=== PATIENT | female | born 1935 | race Caucasian/White ===

== ENCOUNTER → 2017-07-02 | Outpatient (CLI) | payer MEDICARE, OTHER ==
--- NOTE | 2017-07-02 14:04 | XR ---
EXAMINATION TYPE: XR KUB DATE OF EXAM: 07/02/2017 CLINICAL DATA: 81-year-old female ureter stones, [facility] COMPARISON: None FINDINGS: Nonobstructive bowel gas pattern. Lung bases are clear. No significant stool burden. Bilateral renal calculi demonstrated measuring up to 7 mm on either side. Larger 1.1 cm calcification right paramedian mid abdomen. Numerous ovoid calcifications in the pelvis could represent phleboliths. IMPRESSION: 1. Numerous bilateral renal calculi measuring up to 7 mm. 2. Larger 1.1 cm calculus on the right possibly within the proximal right renal collecting system/ure ter. 3. Additional numerous calcifications in the pelvis. These may represent phleboliths. If concern for distal ureteral calculi or bladder calculi, CT can be considered.
== END ==
LOC: RADXRMAIN 11:38
PROVIDERS: ATTEND Urology
DX: N20.0 Calculus of kidney (principal)
CPT/HCPCS: 74000

== ENCOUNTER → 2022-08-23 | Outpatient (CLI) | payer MEDICARE ==
--- NOTE | 2022-08-24 08:38 | MR ---
EXAMINATION TYPE: MR iac wo/w con DATE OF EXAM: 08/23/2022 COMPARISON: NONE HISTORY: Bilateral hearing loss, worse on right side. TECHNIQUE: Multiplanar, multisequence images of the brain and brainstem is performed without and with IV contras t, utilizing 7 mL intravenous Gadavist . Acoustic nerve disorder protocol. FINDINGS: Diffusion weighted images demonstrate no evidence of a recent infarct or other diffusion ab normality. There is [id number] ventricular and sulcal prominence. There is 5 mm T2 hyperintens e lesion in the posterior left frontal lobe axial image 22. Midline structures demonstrate normal morphology. The craniocervical junction appears within normal limits. Normal signal voids are present. Globes are intact and visualized paranasal sinuses are clear . Increased fluid signal in the right mastoid air cells. Vestibulocochlear complexes are symmetric and felt within normal limits. There is no abnormal enhancing cerebellopontine angle mass identified bila terally. IMPRESSION: 1. Increased fluid signal right mastoid air cells raises concern for right-sided mastoiditis. No susp icious enhancing masses noted. 2. [id number] diffuse cerebral atrophy and minimal chronic small vessel ischemic change is pres ent.
== END | disposition home or self-care (01) ==
LOC: RADMRIMAIN 14:04
PROVIDERS: ATTEND Otolaryngology
DX: I67.82 Cerebral ischemia (principal); G31.9 Degenerative disease of nervous system, unspecified
CPT/HCPCS: 70553; A9585

== ENCOUNTER 2023-10-07 16:50 | Inpatient (IN) | payer MEDICARE ==
[2023-10-07 17:03] LABS: Glucose,Whole Blood 168 mg/dL (70-110)
[2023-10-07] MEDS ORDERED: ACETAMINOPHEN TAB 500 MG TAB PO STA (17:10)
[2023-10-07] MEDS ORDERED: SODIUM CHLORIDE 0.9% 1,000 ML IV STA ×2 (17:10→18:07)
[2023-10-07] MEDS ORDERED: IBUPROFEN 600 MG TAB PO STA (17:10)
--- NOTE | 2023-10-07 17:10 | ED ---
SOB HPI <Iggy Olivia - Last Filed: 10/07/23 20:18> <Rivera Mills - Last Filed: 10/08/23 02:32> - General Source: patient, RN notes reviewed, old records reviewed, Caregiver Mode of arrival: EMS Limitations: altered mental status - History of Present Illness MD Complaint: shortness of breath (Mental status) -: minutes(s) Severity: severe Severity scale (1-10): 10 Consistency: constant Improves With: nothing Worsens With: nothing Known History Of: congestive heart failure Context: recent URI, recent illness Associated Symptoms: chest pain, cough, sputum production, nausea/vomiting Treatments Prior to Arrival: none <Corey Pearson - Last Filed: 10/14/23 13:13> - General Chief Complaint: Shortness of Breath Stated Complaint: Altered Mental Status Time Seen by Provider: 10/07/23 17:06 - History of Present Illness Initial Comments: This is a 87-year-old female to the emergency department for evaluation. Patient is found down with increasing weakness and altered mental status. Patient did have a fall prior to arrival. She states she's had influenza about a week ago symptoms gradually got better but the last few days of been nausea vomiting and diarrhea with increasing weakness and weakness leading to a fall today. After fall she was altered and EMS brings patient in for evaluation on arrival patient is more alert awake and able answer questions, patient is a DO NOT RESUSCITATE (Corey Pearson) - Related Data Home Medications Medication Instructions Recorded Confirmed ALPRAZolam [Xanax] 0.25 mg PO BID PRN 07/19/22 10/07/23 Calcium Carb/Vitamin D3/Vit K1 1 tab PO HS 07/19/22 10/07/23 [Citracal-D3 500 mg Soft Chew] Cholecalciferol [Vitamin D3 (25 50 mcg PO DAILY 07/19/22 10/07/23 Mcg = 1000 Iu)] Fenofibrate Nanocrystallized 145 mg PO HS 07/19/22 10/07/23 [Fenofibrate] Simvastatin [Zocor] 20 mg PO HS 07/19/22 10/07/23 Amlodipine/Valsartan/Hcthiazid 1 tab PO DAILY 10/07/23 10/07/23 [Amlodipine/Valsartan/Hcthiazid 10-320-25 mg] Omeprazole 40 mg PO DAILY 10/07/23 10/07/23 Allergies Allergy/AdvReac Type Severity Reaction Status Date / Time No Known Allergies Allergy Verified 10/07/23 20:55 Review of Systems ROS Other: All systems not noted in ROS Statement are negative. <CorwinIggy - Last Filed: 10/07/23 20:18> ROS Other: All systems not noted in ROS Statement are negative. <Rivera Mills - Last Filed: 10/08/23 02:32> ROS Other: All systems not noted in ROS Statement are negative. <Corey Pearson - Last Filed: 10/14/23 13:13> ROS Statement: Those systems with pertinent positive or pertinent negative responses have been documented in the HPI. Past Medical History Past Medical History: Cancer, GERD/Reflux, Hyperlipidemia, Hypertension, Osteoarthritis (OA) Additional Past Medical History / Comment(s): History of breast cancer 31 years ago with chemo. Dx with vertigo in Nov 2021. History of Any Multi-Drug Resistant Organisms: None Reported Past Surgical History: Breast Surgery Additional Past Surgical History / Comment(s): Lumpectomy 31 years ago, cataract surgery and kidney stone removal. Past Anesthesia/Blood Transfusion Reactions: No Reported Reaction Past Psychological History: Anxiety Smoking Status: Never smoker Past Alcohol Use History: None Reported Past Drug Use History: None Reported - Past Family History Mother Family Medical History: COPD Additional Family Medical History / Comment(s): at age 80 from COPD-smoker Father Family Medical History: Myocardial Infarction (AK) Additional Family Medical History / Comment(s): at age 36 of AK <Corey Pearson - Last Filed: 10/14/23 13:13> General Exam Limitations: no limitations General appearance: alert, anxious, lethargic, in distress Head exam: Present: atraumatic, normocephalic, normal inspection Eye exam: Present: normal appearance, PERRL, EOMI. Absent: scleral icterus, conjunctival injection, periorbital swelling ENT exam: Present: normal exam, mucous membranes moist Neck exam: Present: normal inspection. Absent: tenderness, meningismus, lymphadenopathy Respiratory exam: Present: normal lung sounds bilaterally. Absent: respiratory distress, wheezes, rales, rhonchi, stridor Cardiovascular Exam: Present: normal rhythm, tachycardia, normal heart sounds. Absent: systolic murmur, diastolic murmur, rubs, gallop, clicks GI/Abdominal exam: Present: soft, normal bowel sounds. Absent: distended, tenderness, guarding, rebound, rigid Extremities exam: Present: normal inspection, full ROM, normal capillary refill. Absent: tenderness, pedal edema, joint swelling, calf tenderness Back exam: Present: normal inspection Neurological exam: Present: alert, oriented X3, CN II-XII intact Psychiatric exam: Present: normal affect, normal mood Skin exam: Present: warm, dry, intact, normal color. Absent: rash <Corey Pearson - Last Filed: 10/14/23 13:13> Course <Rivera Mills - Last Filed: 10/08/23 02:32> <Corey Pearson - Last Filed: 10/14/23 13:13> Vital Signs 10/07/23 10/07/23 10/07/23 16:59 18:08 18:58 Temperature 101 F H Pulse Rate 124 H 88 88 Respiratory 18 20 18 Rate Blood Pressure 142/60 90/68 87/69 O2 Sat by Pulse 100 99 99 Oximetry 10/07/23 10/07/23 10/07/23 19:20 19:30 19:40 Temperature 98.7 F Pulse Rate 83 83 Respiratory 18 18 Rate Blood Pressure 80/50 77/41 O2 Sat by Pulse 99 98 Oximetry 10/07/23 10/07/23 10/07/23 20:10 20:30 20:40 Temperature Pulse Rate 81 80 74 Respiratory 18 18 18 Rate Blood Pressure 56/34 77/49 71/37 O2 Sat by Pulse 99 98 98 Oximetry 10/07/23 10/07/23 10/07/23 20:53 21:00 21:15 Temperature Pulse Rate 75 75 80 Respiratory Rate Blood Pressure 71/37 71/37 71/30 O2 Sat by Pulse 97 98 97 Oximetry 10/07/23 10/07/23 10/07/23 21:30 21:45 22:00 Temperature Pulse Rate 76 75 75 Respiratory Rate Blood Pressure 78/42 77/42 77/42 O2 Sat by Pulse 98 98 98 Oximetry 10/07/23 10/07/23 10/07/23 22:15 22:30 22:45 Temperature Pulse Rate 75 71 72 Respiratory 23 22 Rate Blood Pressure 74/41 74/41 76/40 O2 Sat by Pulse 99 99 Oximetry 10/07/23 10/07/23 10/07/23 23:00 23:15 23:30 Temperature Pulse Rate 71 66 65 Respiratory 22 27 H 5 L Rate Blood Pressure 76/40 68/41 74/43 O2 Sat by Pulse 97 98 96 Oximetry 10/07/23 10/08/23 10/08/23 23:45 00:00 00:15 Temperature Pulse Rate 63 67 67 Respiratory 23 18 23 Rate Blood Pressure 71/39 74/37 76/40 O2 Sat by Pulse 98 98 98 Oximetry 10/08/23 10/08/23 10/08/23 00:30 00:45 01:00 Temperature Pulse Rate 67 66 69 Respiratory 15 17 17 Rate Blood Pressure 106/44 65/47 87/47 O2 Sat by Pulse 97 97 98 Oximetry 10/08/23 10/08/23 10/08/23 01:15 01:30 01:45 Temperature Pulse Rate 73 70 72 Respiratory 25 H 25 H 23 Rate Blood Pressure 90/52 81/52 103/50 O2 Sat by Pulse 94 L 96 96 Oximetry 10/08/23 10/08/23 10/08/23 02:00 02:45 03:00 Temperature Pulse Rate 70 72 73 Respiratory 25 H 24 18 Rate Blood Pressure 97/44 85/44 86/51 O2 Sat by Pulse 96 94 L 95 Oximetry 10/08/23 03:15 Temperature Pulse Rate 72 Respiratory 20 Rate Blood Pressure 81/43 O2 Sat by Pulse 96 Oximetry - Reevaluation(s) Reevaluation #1: 10/07/23 17:19 Medical record is reviewed (Corey Pearson) Reevaluation #2: 10/07/23 19:43 Patient's blood pressure remains labile here in the ER and soft Patient is a no code, DO NOT RESUSCITATE (Corey Pearson) Reevaluation #3: 10/07/23 19:43 Patient family informed of results questions answered (Corey Pearson) Reevaluation #4: 10/07/23 17:20 Was pt. sent in by a medical professional or institution (, PA, HOISTING LABORER, urgent care, hospital, or group home...) When possible be specific @ -no Did you speak to anyone other than the patient for history (EMS, parent, family, police, friend...)? What history was obtained from this source @ -no Did you review nursing and triage notes (agree or disagree)? Why? @ -agree Are old charts reviewed (outside hosp., previous admission, EMS record, old EKG, old radiological studies, urgent care reports/EKG's, group home records)? Report findings @ -yes Differential Diagnosis (chest pain, altered mental status, abdominal pain women, abdominal pain men, vaginal bleeding, weakness, fever, dyspnea, syncope, headache, dizziness, GI bleed, back pain, seizure, CVA, palpatations, mental health, musculoskeletal)? @ -prior EKG interpreted by me (3pts min.). @ -yes X-rays interpreted by me (1pt min.). @ -yes negative for acute disease CT interpreted by me (1pt min.). @ -no U/S interpreted by me (1pt. min.). @ -no What testing was considered but not performed or refused? (CT, X-rays, U/S, labs)? Why? @ -none What meds were considered but not given or refused? Why? @ -none Did you discuss the management of the patient with other professionals (professionals i.e. , PA, HOISTING LABORER, lab, RT, psych nurse, social insurance administrator, clam sorter, teacher, employee service officer, housing case manager)? Give summary @ -no Was smoking cessation discussed for >3mins.? @ -no Was critical care preformed (if so, how long)? @ -yes31 Were there social determinants of health that impacted care today? How? (Homelessness, low income, unemployed, alcoholism, drug addiction, transportation, low edu. Level, literacy, decrease access to med. care, assisted, rehab)? @ -none Was there de-escalation of care discussed even if they declined (Discuss DNR or withdrawal of care, Hospice)? DNR status @ -no What co-morbidities impacted this encounter? (DM, HTN, Smoking, COPD, CAD, Cancer, CVA, ARF, Chemo, Hep., AIDS, mental health diagnosis, sleep apnea, morbid obesity)? @ -none Was patient admitted / discharged? Hospital course, mention meds given and route, prescriptions, significant lab abnormalities, going to OR and other pertinent info. @ - 87 female to the emergency department with syncopal event, patient has not been feeling well for a few days now. Having flulike symptoms about a week ago was getting worse although feeling better 3 days into today, today patient has syncopal event and was significantly altered on EMS arrival. Patient currently has no complaints Admitted Undiagnosed new problem with uncertain prognosis? @ -no Drug Therapy requiring intensive monitoring for toxicity (Heparin, Nitro, Insulin, Cardizem)? @ -no Were any procedures done? @ -no Diagnosis/symptom? @ -Syncope, sepsis, UTI Acute, or Chronic, or Acute on Chronic? @ -Acute Uncomplicated (without systemic symptoms) or Complicated (systemic symptoms)? @ -Complicated Side effects of treatment? @ -no Exacerbation, Progression, or Severe Exacerbation? @ -exacerbation Poses a threat to life or bodily function? How? (Chest pain, [place], [place], pneumonia, PE, COPD, DKA, ARF, appy, cholecystitis, CVA, Diverticulitis, Homicidal, Suicidal, threat to staff... and all critical care pts) @ -yes with significant sepsis (Corey Paerson) Reevaluation #5: 10/07/23 17:20 Differential Fever: Pneumonia, viral URI, endocarditis, myocarditis, pericarditis, otitis, sinusitis, peritonsillar Abscess, retropharyngeal Abscess, epiglottitis, peritonitis, appendicitis, Bre cystitis, diverticulitis, hepatitis, colitis, UTI, PID, TOA, pyelonephritis, prostatitis, epididymitis, meningitis, enceph alitis, pulmonary embolism, CVA, thyroid storm, pancreatitis, adrenal crisis, cavernous sinus thrombosis, this is not meant to be an all-inclusive list. (Corey Pearson) - Consultations Consultation #1: all take LEXII through T2 spoke with [facility] agree to admit this patient (Corey Pearson) Consultation #2: I received a call from Dr. Graf who requested that I place central line so that they could deliver pressors and other medications. Consent was obtained and I p lace the right subclavian central line, see the procedure note. (Rivera Mills) Procedures - Central Line Placement Right SC Consent Obtained: written consent Patient Placed on Monitor/Pulse Ox: Yes MD Prep: mask, gown, gloves Central Line Prep: Chlorhexidine scrub Local Anesthesia Used: Lidocaine 1% Central Line Lumen Inserted: triple Bloods Obtained for Lab: No Central Line Position: good blood return, all ports aspirated, flushed, capped, sutured in place with 2-0 silk Dressing Applied: Tegaderm Patient Tolerated Procedure: well Complications: none <Rivera Mills - Last Filed: 10/08/23 02:32> - Sepsis Sepsis Focused Exam #1 Time Sepsis Criteria Met: 19:50 (NO Source but presumed sepsis on UTI) Sepsis Focused Exam Date: 10/07/23 Sepsis Focused Exam Time: 20:00 Capillary Refill: < 2 Seconds: Fingers, Toes Peripheral Pulses: Normal: Radial (R), Radial (L), Posterior Tibialis (R), Posterior Tibialis (L), Dorsalis Pedis (R), Dorsalis Pedis (L) Skin Color: Normal for Patient Respiratory Exam: normal lung sounds Cardiovascular Exam: tachycardia <Corey Pearson - Last Filed: 10/14/23 13:13> Medical Decision Making - Lab Data Result diagrams: 10/07/23 17:13 10/07/23 17:13 <Iggy Olivia - Last Filed: 10/07/23 20:18> - Lab Data Result diagrams: 10/07/23 17:13 10/07/23 17:13 <Rivera Mills - Last Filed: 10/08/23 02:32> - Lab Data Result diagrams: 10/14/23 11:04 10/14/23 11:04 - EKG Data -: EKG Interpreted by Me (EKG is sinus sinus tachy 133 [place] 151 QRS 70 QTc 376) - Radiology Data Radiology results: report reviewed (Chest x-rays negative for acute disease), image reviewed <Corey Pearson - Last Filed: 10/14/23 13:13> - Medical Decision Making 87 female to the emergency department with syncopal event, patient has not been feeling well for a few days now. Having flulike symptoms about a week ago was getting worse although feeling better 3 days into today, today patient has syncopal event and was significantly altered on EMS arrival. Patient currently has no complaints (Corey Pearson) - Lab Data Lab Results 10/07/23 10/07/23 10/07/23 Range/Units 16:56 17:13 17:13 WBC 17.9 H (3.8-10.6) k/uL RBC 4.00 (3.80-5.40) m/uL Hgb 12.0 (11.4-16.0) gm/dL Hct 38.1 (34.0-46.0) % MCV 95.2 (80.0-100.0) fL MCH 30.0 (25.0-35.0) pg MCHC 31.5 (31.0-37.0) g/dL RDW 13.3 (11.5-15.5) % Plt Count 752 H (150-450) k/uL MPV 8.1 Neutrophils % (Manual) 88 % Band Neuts % (Manual) 6 % Lymphocytes % (Manual) 5 % Monocytes % (Manual) 1 % Neutrophils # (Manual) 16.80 H (1.3-7.7) k/uL Lymphocytes # (Manual) 0.90 L (1.0-4.8) k/uL Monocytes # (Manual) 0.18 (0-1.0) k/uL Nucleated RBCs 0 (0-0) /100 WBC Manual Slide Review Performed Large Platelets Present Hypochromasia Slight PT 14.9 H (10.0-12.5) sec INR 1.4 H (<1.2) APTT 27.6 (22.0-30.0) sec Sodium (137-145) mmol/L Potassium (3.5-5.1) mmol/L Chloride (98-107) mmol/L Carbon Dioxide (22-30) mmol/L Anion Gap mmol/L BUN (7-17) mg/dL Creatinine (0.52-1.04) mg/dL Est GFR (CKD-EPI)AfAm (>60 ml/min/1.73 sqM) Est GFR (CKD-EPI)NonAf (>60 ml/min/1.73 sqM) Glucose (74-99) mg/dL POC Glucose (mg/dL) 168 H (70-110) mg/dL POC Glu Facilities Planner ID Felicia Edgar Lactic Ac Sepsis Rflx Plasma Lactic Acid Al (0.7-2.0) mmol/L Calcium (8.4-10.2) mg/dL Phosphorus (2.5-4.5) mg/dL Magnesium (1.6-2.3) mg/dL Total Bilirubin (0.2-1.3) mg/dL AST (14-36) U/L ALT (4-34) U/L Alkaline Phosphatase (38-126) U/L Troponin I (0.000-0.034) ng/mL NT-Pro-B Natriuret Pep pg/mL Total Protein (6.3-8.2) g/dL Albumin (3.5-5.0) g/dL TSH (0.465-4.680) mIU/L Influenza Type A (PCR) (Not Detectd) Influenza Type B (PCR) (Not Detectd) RSV (PCR) (Not Detectd) SARS-CoV-2 (PCR) (Not Detectd) 10/07/23 10/07/23 10/07/23 Range/Units 17:13 17:13 17:13 WBC (3.8-10.6) k/uL RBC (3.80-5.40) m/uL Hgb (11.4-16.0) gm/dL Hct (34.0-46.0) % MCV (80.0-100.0) fL MCH (25.0-35.0) pg MCHC (31.0-37.0) g/dL RDW (11.5-15.5) % Plt Count (150-450) k/uL MPV Neutrophils % (Manual) % Band Neuts % (Manual) % Lymphocytes % (Manual) % Monocytes % (Manual) % Neutrophils # (Manual) (1.3-7.7) k/uL Lymphocytes # (Manual) (1.0-4.8) k/uL Monocytes # (Manual) (0-1.0) k/uL Nucleated RBCs (0-0) /100 WBC Manual Slide Review Large Platelets Hypochromasia PT (10.0-12.5) sec INR (<1.2) APTT (22.0-30.0) sec Sodium 134 L (137-145) mmol/L Potassium 4.3 (3.5-5.1) mmol/L Chloride 104 (98-107) mmol/L Carbon Dioxide 10 L (22-30) mmol/L Anion Gap 20 mmol/L BUN 34 H (7-17) mg/dL Creatinine 2.95 H (0.52-1.04) mg/dL Est GFR (CKD-EPI)AfAm 16 (>60 ml/min/1.73 sqM) Est GFR (CKD-EPI)NonAf 14 (>60 ml/min/1.73 sqM) Glucose 173 H (74-99) mg/dL POC Glucose (mg/dL) (70-110) mg/dL POC Glu Facilities Planner ID Lactic Ac Sepsis Rflx Plasma Lactic Acid Al 8.3 H* (0.7-2.0) mmol/L Calcium 8.8 (8.4-10.2) mg/dL Phosphorus 2.6 (2.5-4.5) mg/dL Magnesium 1.9 (1.6-2.3) mg/dL Total Bilirubin 1.2 (0.2-1.3) mg/dL AST 77 H (14-36) U/L ALT 49 H (4-34) U/L Alkaline Phosphatase 122 (38-126) U/L Troponin I 2.640 H* (0.000-0.034) ng/mL NT-Pro-B Natriuret Pep 1790 pg/mL Total Protein 5.9 L (6.3-8.2) g/dL Albumin 3.2 L (3.5-5.0) g/dL TSH 5.320 H (0.465-4.680) mIU/L Influenza Type A (PCR) (Not Detectd) Influenza Type B (PCR) (Not Detectd) RSV (PCR) (Not Detectd) SARS-CoV-2 (PCR) (Not Detectd) 10/07/23 10/07/23 Range/Units 17:17 18:02 WBC (3.8-10.6) k/uL RBC (3.80-5.40) m/uL Hgb (11.4-16.0) gm/dL Hct (34.0-46.0) % MCV (80.0-100.0) fL MCH (25.0-35.0) pg MCHC (31.0-37.0) g/dL RDW (11.5-15.5) % Plt Count (150-450) k/uL MPV Neutrophils % (Manual) % Band Neuts % (Manual) % Lymphocytes % (Manual) % Monocytes % (Manual) % Neutrophils # (Manual) (1.3-7.7) k/uL Lymphocytes # (Manual) (1.0-4.8) k/uL Monocytes # (Manual) (0-1.0) k/uL Nucleated RBCs (0-0) /100 WBC Manual Slide Review Large Platelets Hypochromasia PT (10.0-12.5) sec INR (<1.2) APTT (22.0-30.0) sec Sodium (137-145) mmol/L Potassium (3.5-5.1) mmol/L Chloride (98-107) mmol/L Carbon Dioxide (22-30) mmol/L Anion Gap mmol/L BUN (7-17) mg/dL Creatinine (0.52-1.04) mg/dL Est GFR (CKD-EPI)AfAm (>60 ml/min/1.73 sqM) Est GFR (CKD-EPI)NonAf (>60 ml/min/1.73 sqM) Glucose (74-99) mg/dL POC Glucose (mg/dL) (70-110) mg/dL POC Glu Facilities Planner ID Lactic Ac Sepsis Rflx Y Plasma Lactic Acid Al (0.7-2.0) mmol/L Calcium (8.4-10.2) mg/dL Phosphorus (2.5-4.5) mg/dL Magnesium (1.6-2.3) mg/dL Total Bilirubin (0.2-1.3) mg/dL AST (14-36) U/L ALT (4-34) U/L Alkaline Phosphatase (38-126) U/L Troponin I (0.000-0.034) ng/mL NT-Pro-B Natriuret Pep pg/mL Total Protein (6.3-8.2) g/dL Albumin (3.5-5.0) g/dL TSH (0.465-4.680) mIU/L Influenza Type A (PCR) Not Detected (Not Detectd) Influenza Type B (PCR) Not Detected (Not Detectd) RSV (PCR) Not Detected (Not Detectd) SARS-CoV-2 (PCR) Not Detected (Not Detectd) Critical Care Time Critical Care Time: Yes Total Critical Care Time: 31 <Corey Pearson - Last Filed: 10/14/23 13:13> Disposition <Iggy Olivia - Last Filed: 10/07/23 20:18> <Rivera Mills - Last Filed: 10/08/23 02:32> Is patient prescribed a controlled substance at d/c from ED?: No <Corey Pearson - Last Filed: 10/14/23 13:13> Clinical Impression: SIRS (systemic inflammatory response syndrome), UTI (urinary tract infection), Fever, Syncope, DNR (do not resuscitate), Sepsis, Leukocytosis, Weakness Disposition: ADMITTED IP TO THIS HOSP Condition: Serious
--- NOTE | 2023-10-07 17:47 | XR ---
EXAMINATION TYPE: XR chest 1V portable DATE OF EXAM: 10/07/2023 Comparison: 07/19/2022 Clinical History: 87-year-old female sob Findings: Heart mildly enlarged. Mild hyperinflation. Bilateral interstitial density. Mild strandy atelectasis of the right base. No pleural effusion. Impression: Mild cardiomegaly and COPD. Chronic appearing changes. There is some strandy atelectasis at the right base. Otherwise, no definite acute process.
[2023-10-07 18:00] LABS: INR 1.4 (<1.2); Partial Thromboplastin Time 27.6 sec (22.0-30.0); Prothrombin Time 14.9 sec (10.0-12.5)
[2023-10-07 18:04] LABS: HCT 38.1 % (34.0-46.0); Hypochromasia Slight; MCHC 31.5 g/dL (31.0-37.0); MCV 95.2 fL (80.0-100.0); Mean Platelet Volume 8.1; Platelet Count 752 k/uL (150-450); RDW 13.3 % (11.5-15.5); WBC 17.9 k/uL (3.8-10.6)
[2023-10-07 18:05] LABS: ALT 49 U/L (4-34); AST 77 U/L (14-36); African American GFR (CKD) 16 (>60 ml/min/1.73 sqM); Albumin 3.2 g/dL (3.5-5.0); Alkaline Phosphatase 122 U/L (38-126); Anion Gap 20 mmol/L; Blood Urea Nitrogen 34 mg/dL (7-17); Calcium 8.8 mg/dL (8.4-10.2); Carbon Dioxide 10 mmol/L (22-30); Chloride 104 mmol/L (98-107); Glucose 173 mg/dL (74-99); Magnesium 1.9 mg/dL (1.6-2.3); Non-African American GFR(CKD) 14 (>60 ml/min/1.73 sqM); Phosphorus 2.6 mg/dL (2.5-4.5); Potassium 4.3 mmol/L (3.5-5.1); Sodium 134 mmol/L (137-145); Total Bilirubin 1.2 mg/dL (0.2-1.3); Total Protein 5.9 g/dL (6.3-8.2)
[2023-10-07 18:10] LABS: NT-Pro-B-Type Natriuretic Pept 1790 pg/mL
[2023-10-07 18:19] LABS: Band Neutrophils % 6 %; Monocytes # (M) 0.18 k/uL (0-1.0); Neutrophils % (M) 88 %; Nucleated Red Blood Cells 0 /100 WBC (0-0); Total Cells Counted 100
[2023-10-07 18:20] LABS: Large Platelets Present
[2023-10-07] MEDS ORDERED: NALOXONE 0.4 MG/ML 1 ML VIAL IV PRN (19:39)
[2023-10-07] MEDS: SODIUM CHLORIDE 0.9% 1,000 ML IV SCH (20:39)
[2023-10-07] MEDS: NOREPINEPHRINE 4 MG in SODIUM CHLORIDE 0.9% 250 ML IV ONE (22:34)
[2023-10-08] MEDS ORDERED: MORPHINE SULFATE 2 MG/ML SYRINGE IV STA (02:36)
[2023-10-08] MEDS: MORPHINE SULFATE 4 MG/ML SYRINGE IV PRN ×3 (02:44→21:34)
[2023-10-08] MEDS: SODIUM CHLORIDE 0.9% 1,000 ML IV SCH (02:45)
--- NOTE | 2023-10-08 03:19 | XR ---
EXAM: XR Chest, 1 View CLINICAL HISTORY: ITS.REASON XR Reason: central line placement TECHNIQUE: Frontal view of the chest. COMPARISON: No relevant prior studies available. IMPRESSION: Central line terminates in the right atrium
[2023-10-08 03:48] LABS: Glucose,Whole Blood 133 mg/dL (70-110)
[2023-10-08 04:07] LABS: HCT 34.1 % (34.0-46.0); HGB 10.8 gm/dL (11.4-16.0); Hypochromasia Slight; MCH 29.8 pg (25.0-35.0); MCHC 31.8 g/dL (31.0-37.0); MCV 93.8 fL (80.0-100.0); Mean Platelet Volume 7.7; Platelet Count 425 k/uL (150-450); RBC 3.63 m/uL (3.80-5.40); RDW 13.2 % (11.5-15.5); WBC 10.6 k/uL (3.8-10.6)
[2023-10-08 04:30] LABS: Band Neutrophils % 39 %; Lymphocytes # (M) 0.21 k/uL (1.0-4.8); Neutrophils % (M) 59 %; Nucleated Red Blood Cells 0 /100 WBC (0-0); Total Cells Counted 200
[2023-10-08 04:34] LABS: ALT 175 U/L (4-34); African American GFR (CKD) 15 (>60 ml/min/1.73 sqM); Albumin 2.6 g/dL (3.5-5.0); Alkaline Phosphatase 47 U/L (38-126); Anion Gap 14 mmol/L; Blood Urea Nitrogen 38 mg/dL (7-17); Calcium 7.7 mg/dL (8.4-10.2); Carbon Dioxide 10 mmol/L (22-30); Chloride 110 mmol/L (98-107); Glucose 129 mg/dL (74-99); Magnesium 1.8 mg/dL (1.6-2.3); Non-African American GFR(CKD) 13 (>60 ml/min/1.73 sqM); Phosphorus 3.6 mg/dL (2.5-4.5); Sodium 134 mmol/L (137-145); Total Bilirubin 0.8 mg/dL (0.2-1.3); Total Protein 5.1 g/dL (6.3-8.2)
[2023-10-08] MEDS ORDERED: HEPARIN SODIUM 1,000 UN/ML (10ML VL) IV ONE (04:35)
[2023-10-08] MEDS ORDERED: HEPARIN SODIUM 1,000 UN/ML (10ML VL) IV PRN (04:35)
[2023-10-08 05:24] LABS: AST 781 U/L (14-36)
[2023-10-08 05:53] LABS: INR 1.5 (<1.2); Prothrombin Time 15.6 sec (10.0-12.5)
[2023-10-08] MEDS ORDERED: DEXTROSE 5%-0.45% NACL 1,000 ML with SODIUM BICARB (1 MEQ/ML) 150 ML IV SCH ×2 (07:00)
[2023-10-08] MEDS ORDERED: DEXTROSE 5% IN WATER 1,000 ML with SODIUM BICARB (1 MEQ/ML) 150 ML IV SCH (07:00)
[2023-10-08] MEDS: HEPARIN SOD,PORK IN 0.45% NACL 25,000 UNIT in 0.45% NACL 1 250ML.BAG IV SCH (08:06)
[2023-10-08] MEDS: NOREPINEPHRINE 4 MG in SODIUM CHLORIDE 0.9% 250 ML IV ONE (08:14)
--- NOTE | 2023-10-08 09:22 | US ---
EXAMINATION TYPE: US kidneys/renal and bladder DATE OF EXAM: 10/08/2023 COMPARISON: NONE CLINICAL INDICATION: Female, 87 years old with history of Giulia; GIULIA, Hx UTIs EXAM MEASUREMENTS: Right Kidney: 10.4x3.6x5.9 cm Left Kidney: 10.9x7.8x4.6 cm Right Kidney: hyperechoic cortical lesion at superior pole: 0.9x0.7x0.8cm, largest echogenic shadowing foci measured at inferior pole: 0.6cm Left Kidney: Moderate to severe hydronephrosis with internal debris. Largest echogenic shadowing foci measured at inferior pole: 0.9cm Bladder: wnl Bilateral Jets seen: No IMPRESSION: 1. Moderate to severe left-sided hydronephrosis with internal debris. Correlate to exclude infective debris/pyelitis. 2. Bilateral renal calculi measuring up to 9 mm on the left and 6 mm on the right. 3. 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 Three-month follow-up ul trasound to reassess. If increasing size, further assessment with kidney mass protocol CT or MRI may be indicated.
[2023-10-08] MEDS: CHOLECALCIFEROL 25 MCG (1000 IU) TABLET PO SCH (10:29)
[2023-10-08] MEDS: PANTOPRAZOLE 40 MG TABLET PO SCH (10:29)
[2023-10-08] MEDS: LEVOTHYROXINE 75 MCG TAB PO SCH (10:30)
--- NOTE | 2023-10-08 10:34 | P.CNPUL ---
History of Present Illness Consult date: 10/08/23 Requesting physician: Johnny Bonds Reason for consult: other (Critical care management) Chief complaint: Generalized weakness History of present illness: This is a very pleasant 87-year-old female patient with a known history of hypertension, hyperlipidemia, gastroesophageal reflux disease, anxiety, breast cancer status post lumpectomy and chemotherapy over 30 years ago. He is admitted to the emergency room yesterday with increasing weakness and altered mental status. She did have influenza approximately 1 week ago but was feeling better until recently. She developed nausea vomiting diarrhea and weakness that led to a fall. She was altered when EMS had arrived. EKG revealed sinus ta chycardia with nonspecific ST and T wave abnormalities. Revealed mild cardiomegaly and chronic appearing changes. Some strandy atelectasis at the right lung base. Otherwise no acute pulmonary process. Ultrasound of the bladder revealed moderate to severe left sided hydronephrosis with internal d ebris. Correlate to exclude infective debris/pyelitis. Bilateral renal calculi measuring up to 9 mm on the left and 6 mm on the right. All cultures are pending. White count 10.6. Hemoglobin 10.8. Platelets 425. INR 1.5. Sodium 134. Potassium 4.0. Bicarb 10. BUN 38. Creatinine 3.00. Glucose 129. AST 781. ALT 175. Troponins 2.64, 4.17, 4.02. ProBNP 1790. TSH 5.32. Influenza screen negative. RSV screen negative. COVID-19 screen negative. Initial lactic acid 8.3. Currently 1.7. She had received 3 L of fluid resuscitation. She is continued on D5W with 3 A of sodium bicarbonate at 100 ML's per hour. She's been initiated on a heparin drip. She is requiring norepinephrine at 0.2 mg/kg/m. He is seen today in consultation in the intensive care unit. She is awake and alert in no acute distress. Feeling a bit better today compared to yesterday. She is oriented 3. She remains quite weak. She is maintaining O2 saturations in the 90s on 2.5 L/m per nasal cannula. Arterial pressures in the low 70s. She had a T-max of 101 on arrival. Currently afebrile. Review of Systems REVIEW OF SYSTEMS: CONSTITUTIONAL: Altered mental status, confusion. Denies any recent significant weight loss or weight gain. EYES: Denies change in vision. EARS, NOSE, MOUTH, THROAT: Denies headaches, denies sore throat. CARDIOVASCULAR: Denies chest pain, palpitations or syncopal episodes. RESPIRATORY: Denies shortness of breath, cough, congestion or hemoptysis. GASTROINTESTINAL: Positive for nausea vomiting diarrhea. GENITOURINARY: Denies hematuria, denies infections. MUSKULOSKELETAL: Denies pain, denies swelling. INTEGUMENTARY: Denies rash, denies eczema. NEUROLOGICAL: Denies recent memory loss, no recent seizure activity. PSYCHIATRIC: Denies anxiety, denies depression. HEMATOLOGIC/LYMPHATIC: Denies anemia, denies enlarged lymph nodes. Past Medical History Past Medical History: Cancer, GERD/Reflux, Hyperlipidemia, Hypertension, Osteoarthritis (OA) Additional Past Medical History / Comment(s): History of breast cancer 31 years ago with chemo and radiation. Dx with vertigo in Nov 2021. R hip OA History of Any Multi-Drug Resistant Organisms: None Reported Past Surgical History: Breast Surgery Additional Past Surgical History / Comment(s): Lumpectomy 31 years ago, cataract surgery and kidney stone removal. Past Anesthesia/Blood Transfusion Reactions: No Reported Reaction Past Psychological History: Anxiety Smoking Status: Never smoker Past Alcohol Use History: None Reported Past Drug Use History: None Reported - Past Family History Mother Family Medical History: COPD Additional Family Medical History / Comment(s): at age 80 from COPD-smoker Father Family Medical History: Myocardial Infarction ([place]) Additional Family Medical History / Comment(s): at age 36 of [place] Medications and Allergies Home Medications Medication Instructions Recorded Confirmed Type ALPRAZolam [Xanax] 0.25 mg PO BID PRN 07/19/22 10/07/23 History Calcium Carb/Vitamin D3/Vit K1 1 tab PO HS 07/19/22 10/07/23 History [Citracal-D3 500 mg Soft Chew] Cholecalciferol [Vitamin D3 (25 50 mcg PO DAILY 07/19/22 10/07/23 History Mcg = 1000 Iu)] Fenofibrate Nanocrystallized 145 mg PO HS 07/19/22 10/07/23 History [Fenofibrate] Simvastatin [Zocor] 20 mg PO HS 07/19/22 10/07/23 History Amlodipine/Valsartan/Hcthiazid 1 tab PO DAILY 10/07/23 10/07/23 History [Amlodipine/Valsartan/Hcthiazid 10320-25 mg] Omeprazole 40 mg PO DAILY 10/07/23 10/07/23 History Allergies Allergy/AdvReac Type Severity Reaction Status Date / Time No Known Allergies Allergy Verified 10/07/23 20:55 Physical Exam Vitals: Vital Signs Temp Pulse Pulse Resp BP BP Pulse Ox 10/08/23 10:00 81 25 H 89/67 92 L 10/08/23 09:45 81 11 L 82/46 92 L 10/08/23 09:30 79 20 88/51 93 L 10/08/23 09:15 80 22 99/58 93 L 10/08/23 09:00 81 23 83/52 93 L 10/08/23 08:45 80 24 94/49 90 L 10/08/23 08:30 81 27 H 80/40 93 L 10/08/23 08:15 77 32 H 89/50 92 L 10/08/23 08:00 97.5 F L 82 27 H 87/46 94 L 10/08/23 07:45 75 21 88/49 93 L 10/08/23 07:30 77 19 95/51 92 L 10/08/23 07:15 75 23 91/58 93 L 10/08/23 07:00 78 20 87/49 93 L 10/08/23 06:45 75 22 92/54 93 L 10/08/23 06:30 78 23 85/47 97 10/08/23 06:15 74 20 91/49 93 L 10/08/23 06:00 75 24 98/57 93 L 10/08/23 05:45 78 23 107/56 93 L 10/08/23 05:30 81 18 99/50 94 L 10/08/23 05:15 77 23 87/48 94 L 10/08/23 05:00 73 21 82/52 93 L 10/08/23 04:45 72 22 85/49 10/08/23 04:30 73 22 87/47 93 L 10/08/23 04:15 75 23 86/53 93 L 10/08/23 04:10 97.6 F 74 19 87/47 93 L 10/08/23 04:00 97.6 F 75 26 H 88/49 93 L 10/08/23 03:48 97.6 F 75 20 88/49 92 L 10/08/23 03:15 72 20 81/43 96 10/08/23 03:00 73 18 86/51 95 10/08/23 02:45 72 24 85/44 94 L 10/08/23 02:00 70 25 H 97/44 96 10/08/23 01:45 72 23 103/50 96 10/08/23 01:30 70 25 H 81/52 96 10/08/23 01:15 73 25 H 90/52 94 L 10/08/23 01:00 69 17 87/47 98 10/08/23 00:45 66 17 65/47 97 10/08/23 00:30 67 15 106/44 97 10/08/23 00:15 67 23 76/40 98 10/08/23 00:00 67 18 74/37 98 10/07/23 23:45 63 23 71/39 98 10/07/23 23:30 65 5 L 74/43 96 10/07/23 23:15 66 27 H 68/41 98 10/07/23 23:00 71 22 76/40 97 10/07/23 22:45 72 22 76/40 99 10/07/23 22:30 71 23 74/41 99 10/07/23 22:15 75 74/41 10/07/23 22:00 75 77/42 98 10/07/23 21:45 75 77/42 98 10/07/23 21:30 76 78/42 98 10/07/23 21:15 80 71/30 97 10/07/23 21:00 75 71/37 98 10/07/23 20:53 75 71/37 97 10/07/23 20:40 74 18 71/37 98 10/07/23 20:30 80 18 77/49 98 10/07/23 20:10 81 18 56/34 99 10/07/23 19:40 83 18 77/41 98 10/07/23 19:30 98.7 F 10/07/23 19:20 83 18 80/50 99 10/07/23 18:58 88 18 87/69 99 10/07/23 18:08 88 20 90/68 99 10/07/23 16:59 101 F H 124 H 18 142/60 100 Intake and Output 10/07/23 10/08/23 10/08/23 22:59 06:59 14:59 Intake Total 562.595 581.405 Output Total 0 0 Balance 562.595 581.405 Intake: IV 390 400 Dextrose 5%-0.45% NaCl 1, 400 000 ml @ 100 mls/hr IV . [id number] RIYA with Sodium Bicarb (1 Meq/ml) 150 ml Rx#:[id number] Sodium Chloride 0.9% 1, 390 000 ml @ 130 mls/hr IV . Q7H42M RIYA Rx#:[id number] Intake, IV Titration 172.595 81.405 Amount Norepinephrine 4 mg In 172.595 81.405 Sodium Chloride 0.9% 250 ml @ 0.03 MCG/KG/MIN 7. 624 mls/hr IV .Q24H ONE Rx#:[id number] Oral 100 Output: Urine 0 0 Other: Voiding Method External Catheter External Catheter Weight 66.7 kg 66.7 kg GENERAL EXAM: Alert, weak, 87-year-old female, on 2.5 L nasal cannula, fairly comfortable in no apparent distress. HEAD: Normocephalic. EYES: Normal reaction of pupils, equal size. NOSE: Clear with pink turbinates. THROAT: No erythema or exudates. NECK: No masses, no JVD. CHEST: No chest wall deformity. LUNGS: Equal air entry with no crackles, wheeze, rhonchi or dullness. CVS: S1 and S2 normal with no audible murmur, regular rhythm. ABDOMEN: No hepatosplenomegaly, normal bowel sounds, no guarding or rigidity. SPINE: No scoliosis or deformity SKIN: No rashes CENTRAL NERVOUS SYSTEM: No focal deficits, tone is normal in all 4 extremities. EXTREMITIES: There is no peripheral edema. No clubbing, no cyanosis. Peripheral pulses are intact. Results - Laboratory Findings CBC and BMP: 10/08/23 03:52 10/08/23 03:52 PT/INR, D-dimer PT 15.6 sec (10.0-12.5) H 10/08/23 05:13 INR 1.5 (<1.2) H 10/08/23 05:13 Abnormal lab findings: Abnormal Labs 10/07/23 10/07/23 10/07/23 16:56 17:13 17:13 WBC 17.9 H RBC Hgb Plt Count 752 H Neutrophils # (Manual) 16.80 H Lymphocytes # (Manual) 0.90 L PT 14.9 H INR 1.4 H APTT Sodium Chloride Carbon Dioxide BUN Creatinine Glucose POC Glucose (mg/dL) 168 H Plasma Lactic Acid Al Calcium AST ALT Troponin I Total Protein Albumin TSH 10/07/23 10/07/23 10/07/23 17:13 17:13 17:13 WBC RBC Hgb Plt Count Neutrophils # (Manual) Lymphocytes # (Manual) PT INR APTT Sodium 134 L Chloride Carbon Dioxide 10 L BUN 34 H Creatinine 2.95 H Glucose 173 H POC Glucose (mg/dL) Plasma Lactic Acid Al 8.3 H* Calcium AST 77 H ALT 49 H Troponin I 2.640 H* Total Protein 5.9 L Albumin 3.2 L TSH 5.320 H 10/07/23 10/08/23 10/08/23 20:47 03:46 03:52 WBC RBC 3.63 L Hgb 10.8 L Plt Count Neutrophils # (Manual) 10.30 H Lymphocytes # (Manual) 0.21 L PT INR APTT Sodium Chloride Carbon Dioxide BUN Creatinine Glucose POC Glucose (mg/dL) 133 H Plasma Lactic Acid Al 2.3 H* Calcium AST ALT Troponin I Total Protein Albumin TSH 10/08/23 10/08/23 10/08/23 03:52 05:13 05:13 WBC RBC Hgb Plt Count Neutrophils # (Manual) Lymphocytes # (Manual) PT 15.6 H INR 1.5 H APTT 21.0 L Sodium 134 L Chloride 110 H Carbon Dioxide 10 L BUN 38 H Creatinine 3.00 H Glucose 129 H POC Glucose (mg/dL) Plasma Lactic Acid Al Calcium 7.7 L AST 781 H ALT 175 H Troponin I 4.170 H* Total Protein 5.1 L Albumin 2.6 L TSH 10/08/23 09:07 WBC RBC Hgb Plt Count Neutrophils # (Manual) Lymphocytes # (Manual) PT INR APTT Sodium Chloride Carbon Dioxide BUN Creatinine Glucose POC Glucose (mg/dL) Plasma Lactic Acid Al Calcium AST ALT Troponin I 4.020 H* Total Protein Albumin TSH - Diagnostic Findings Chest x-ray: image reviewed Assessment and Plan Assessment: Acute sepsis/septic shock with hypotension requiring pressor support secondary to suspected pyelonephritis. Ultrasound of the kidneys and bladder revealed a moderate to severe left sided hydronephrosis with internal debris. Correlate to exclude infective debris/pyelitis. Bilateral renal calculi measuring up to 9 mm on the left and 6 mm on the right. Acute kidney injury secondary to above Acute hypotension secondary to above Lactic acidosis secondary to above Acute hypoxemic respiratory failure secondary to above Acute non-ST segment elevation myocardial infarction Transaminitis secondary to above New onset hypothyroidism History of hypertension Hyperlipidemia History of breast cancer status post lumpectomy/chemotherapy over 30 years ago Gastroesophageal reflux disease Plan: The patient was seen and evaluated Chest x-ray, labs and medications reviewed Ultrasound of the kidney and bladder reviewed Remains on a bicarbonate drip Titrate the norepinephrine as tolerated Titrate the FiO2 as tolerated Continued on a heparin drip Echocardiogram pending Add Synthroid 75 g by mouth daily Continue fluid resuscitation Prognosis is guarded DO NOT RESUSCITATE/DO NOT INTUBATE CODE STATUS We will continue to monitor closely in ICU We'll continue to follow make further recommendations based on her clinical status I have personally seen and examined the patient, performed the documentation and the assessment and plan as written. Number of minutes spent on the visit: 20.
--- NOTE | 2023-10-08 11:13 | P.NPCON ---
History of Present Illness - Reason for Consult acute renal failure - History of Present Illness Patient is an 87-year-old female with history of hypertension, hyperlipidemia, gastroesophageal reflux disease and history of breast cancer status post lumpectomy and chemotherapy more than 30 years ago. Patient is admitted to the hospital with history of increased weakness, decreased oral intake and mental status changes. Patient has had nausea vomiting and diarrhea for about 2 weeks prior to admission. Patient was severely hypotensive on admission with systolic blood pressure in the 60s. Currently in the ICU and maintained on levo fed at about 13 g. Status post 3 L of fluid boluses. Serum creatinine was 3.0. Previous creatinine was 1.4 on 07/20/2022. Next Patient has history of nephrolithiasis an ultrasound of the kidney shows left hydronephrosis with bilateral renal calculi. Review of Systems As per HPI Past Medical History Past Medical History: Cancer, GERD/Reflux, Hyperlipidemia, Hypertension, Osteoarthritis (OA) Additional Past Medical History / Comment(s): History of breast cancer 31 years ago with chemo and radiation. Dx with vertigo in Nov 2021. R hip OA History of Any Multi-Drug Resistant Organisms: None Reported Past Surgical History: Breast Surgery Additional Past Surgical History / Comment(s): Lumpectomy 31 years ago, cataract surgery and kidney stone removal. Past Anesthesia/Blood Transfusion Reactions: No Reported Reaction Past Psychological History: Anxiety Smoking Status: Never smoker Past Alcohol Use History: None Reported Past Drug Use History: None Reported - Past Family History Mother Family Medical History: COPD Additional Family Medical History / Comment(s): at age 80 from COPD-smoker Father Family Medical History: Myocardial Infarction ([place]) Additional Family Medical History / Comment(s): at age 36 of [place] Medications and Allergies Home Medications Medication Instructions Recorded Confirmed Type ALPRAZolam [Xanax] 0.25 mg PO BID PRN 07/19/22 10/07/23 History Calcium Carb/Vitamin D3/Vit K1 1 tab PO HS 07/19/22 10/07/23 History [Citracal-D3 500 mg Soft Chew] Cholecalciferol [Vitamin D3 (25 50 mcg PO DAILY 07/19/22 10/07/23 History Mcg = 1000 Iu)] Fenofibrate Nanocrystallized 145 mg PO HS 07/19/22 10/07/23 History [Fenofibrate] Simvastatin [Zocor] 20 mg PO HS 07/19/22 10/07/23 History Amlodipine/Valsartan/Hcthiazid 1 tab PO DAILY 10/07/23 10/07/23 History [Amlodipine/Valsartan/Hcthiazid 10-320-25 mg] Omeprazole 40 mg PO DAILY 10/07/23 10/07/23 History Allergies Allergy/AdvReac Type Severity Reaction Status Date / Time No Known Allergies Allergy Verified 10/07/23 20:55 Physical Exam Vitals: Vital Signs Temp Pulse Pulse Resp BP BP Pulse Ox 10/08/23 10:00 81 25 H 89/67 92 L 10/08/23 09:45 81 11 L 82/46 92 L 10/08/23 09:30 79 20 88/51 93 L 10/08/23 09:15 80 22 99/58 93 L 10/08/23 09:00 81 23 83/52 93 L 10/08/23 08:45 80 24 94/49 90 L 10/08/23 08:30 81 27 H 80/40 93 L 10/08/23 08:15 77 32 H 89/50 92 L 10/08/23 08:00 97.5 F L 82 27 H 87/46 94 L 10/08/23 07:45 75 21 88/49 93 L 10/08/23 07:30 77 19 95/51 92 L 10/08/23 07:15 75 23 91/58 93 L 10/08/23 07:00 78 20 87/49 93 L 10/08/23 06:45 75 22 92/54 93 L 10/08/23 06:30 78 23 85/47 97 10/08/23 06:15 74 20 91/49 93 L 10/08/23 06:00 75 24 98/57 93 L 10/08/23 05:45 78 23 107/56 93 L 10/08/23 05:30 81 18 99/50 94 L 10/08/23 05:15 77 23 87/48 94 L 10/08/23 05:00 73 21 82/52 93 L 10/08/23 04:45 72 22 85/49 10/08/23 04:30 73 22 87/47 93 L 10/08/23 04:15 75 23 86/53 93 L 10/08/23 04:10 97.6 F 74 19 87/47 93 L 10/08/23 04:00 97.6 F 75 26 H 88/49 93 L 10/08/23 03:48 97.6 F 75 20 88/49 92 L 10/08/23 03:15 72 20 81/43 96 10/08/23 03:00 73 18 86/51 95 10/08/23 02:45 72 24 85/44 94 L 10/08/23 02:00 70 25 H 97/44 96 10/08/23 01:45 72 23 103/50 96 10/08/23 01:30 70 25 H 81/52 96 10/08/23 01:15 73 25 H 90/52 94 L 10/08/23 01:00 69 17 87/47 98 10/08/23 00:45 66 17 65/47 97 10/08/23 00:30 67 15 106/44 97 10/08/23 00:15 67 23 76/40 98 10/08/23 00:00 67 18 74/37 98 10/07/23 23:45 63 23 71/39 98 10/07/23 23:30 65 5 L 74/43 96 10/07/23 23:15 66 27 H 68/41 98 10/07/23 23:00 71 22 76/40 97 10/07/23 22:45 72 22 76/40 99 10/07/23 22:30 71 23 74/41 99 10/07/23 22:15 75 74/41 10/07/23 22:00 75 77/42 98 10/07/23 21:45 75 77/42 98 10/07/23 21:30 76 78/42 98 10/07/23 21:15 80 71/30 97 10/07/23 21:00 75 71/37 98 10/07/23 20:53 75 71/37 97 10/07/23 20:40 74 18 71/37 98 10/07/23 20:30 80 18 77/49 98 10/07/23 20:10 81 18 56/34 99 10/07/23 19:40 83 18 77/41 98 10/07/23 19:30 98.7 F 10/07/23 19:20 83 18 80/50 99 10/07/23 18:58 88 18 87/69 99 10/07/23 18:08 88 20 90/68 99 12/24/23 16:59 101 F H 124 H 18 142/60 100 Intake and Output 10/07/23 10/08/23 10/08/23 22:59 06:59 14:59 Intake Total 562.595 581.405 Output Total 0 0 Balance 562.595 581.405 Intake: IV 390 400 Dextrose 5%-0.45% NaCl 1, 400 000 ml @ 100 mls/hr IV . [id number] RIYA with Sodium Bicarb (1 Meq/ml) 150 ml Rx#:[id number] Sodium Chloride 0.9% 1, 390 000 ml @ 130 mls/hr IV . Q7H42M RIYA Rx#:[id number] Intake, IV Titration 172.595 81.405 Amount Norepinephrine 4 mg In 172.595 81.405 Sodium Chloride 0.9% 250 ml @ 0.03 MCG/KG/MIN 7. 624 mls/hr IV .Q24H ONE Rx#:[id number] Oral 100 Output: Urine 0 0 Other: Voiding Method External Catheter External Catheter Weight 66.7 kg 66.7 kg Patient is awake, comfortable, no acute distress Examination of the heart S1 and S2 Examination of the lungs bilateral breath sounds are heard Abdomen is soft nontender Examination of the lower extremities shows no evidence of edema [employer] exam grossly intact Results - Lab Results Most recent lab results Calcium 7.7 mg/dL (8.4-10.2) L 10/08/23 03:52 Phosphorus 3.6 mg/dL (2.5-4.5) 10/08/23 03:52 Magnesium 1.8 mg/dL (1.6-2.3) 10/08/23 03:52 10/08/23 03:52 10/08/23 03:52 Assessment and Plan Assessment: 1. Acute kidney injury ATN currently nonoliguric secondary to hypotension and a possible underlying infection. Left hydronephrosis noted on ultrasound of the abdomen. Urology will be consult it. UA is currently pending. 2. And on Metabolic acidosis secondary to acute kidney injury as well as d iarrhea. 3. Elevated troponin maintained on IV heparin 4. Influenza virus infection about 1 week ago, currently negative PCR 5. Chronic kidney disease NKF stage IIIB with previous creatinine around 1.5 mg/dL in July 2022. 6. History of nephrolithiasis with moderate to severe left hydronephrosis and bilateral renal calculi Plan: Continue bicarb drip Consult urology Continue pressors and wean down as tolerated Repeat labs in a.m. Avoid nephrotoxic agents. Thank you for the consultation. We will continue to follow the patient with you during her hospitalization.
[2023-10-08] MEDS ORDERED: SODIUM CHLORIDE 0.9% 1,000 ML IV ONE ×3 (11:16→12:58)
--- NOTE | 2023-10-08 11:16 | P.GSCN ---
History of Present Illness Consult date: 10/08/23 History of present illness: 87 yo female with a history of stones. She has been feeling poorly and weak for several weeks and has worsened recently She came to the er and was found to be septic with a bp of 85, lactic acid elevated and a wbc on admission of 17k She had an us identifying left hydronephrosis. We were asked to see the patient.The patient has had multiple stones in the past. She is on pressors., Her cr is up to 3 Review of Systems All systems: negative - Constitutional Denies fever, Denies weight loss - EENT Eyes: denies blurred vision Ears, nose, mouth and throat: Denies dysphagia - Cardiovascular Denies chest pain, Denies shortness of breath - Respiratory Denies cough, Denies 7 - Gastrointestinal Reports as per HPI - Genitourinary Genitourinary: Denies dysuria, Denies hematuria - Integumentary Denies rash, Denies unusual bruising - Neurological Denies headaches, Denies syncope - Hematologic/Lymphatic Denies easy bleeding, Denies easy bruising Past Medical History Past Medical History: Cancer, GERD/Reflux, Hyperlipidemia, Hypertension, Osteoarthritis (OA) Additional Past Medical History / Comment(s): History of breast cancer 31 years ago with chemo and radiation. Dx with vertigo in Nov 2021. R hip OA History of Any Multi-Drug Resistant Organisms: None Reported Past Surgical History: Breast Surgery Additional Past Surgical History / Comment(s): Lumpectomy 31 years ago, cataract surgery and kidney stone removal. Past Anesthesia/Blood Transfusion Reactions: No Reported Reaction Past Psychological History: Anxiety Smoking Status: Never smoker Past Alcohol Use History: None Reported Past Drug Use History: None Reported - Past Family History Mother Family Medical History: COPD Additional Family Medical History / Comment(s): at age 80 from COPD-smoker Father Family Medical History: Myocardial Infarction ([place]) Additional Family Medical History / Comment(s): at age 36 of [place] Medications and Allergies Home Medications Medication Instructions Recorded Confirmed Type ALPRAZolam [Xanax] 0.25 mg PO BID PRN 07/19/22 10/07/23 History Calcium Carb/Vitamin D3/Vit K1 1 tab PO HS 07/19/22 10/07/23 History [Citracal-D3 500 mg Soft Chew] Cholecalciferol [Vitamin D3 (25 50 mcg PO DAILY 07/19/22 10/07/23 History Mcg = 1000 Iu)] Fenofibrate Nanocrystallized 145 mg PO HS 07/19/22 10/07/23 History [Fenofibrate] Simvastatin [Zocor] 20 mg PO HS 07/19/22 10/07/23 History Amlodipine/Valsartan/Hcthiazid 1 tab PO DAILY 10/07/23 10/07/23 History [Amlodipine/Valsartan/Hcthiazid 10-320-25 mg] Omeprazole 40 mg PO DAILY 10/07/23 10/07/23 History Allergies Allergy/AdvReac Type Severity Reaction Status Date / Time No Known Allergies Allergy Verified 10/07/23 20:55 Surgical - Exam Vital Signs Temp Pulse Resp BP Pulse Ox 101 F H 124 H 18 142/60 100 10/07/23 16:59 10/07/23 16:59 10/07/23 16:59 10/07/23 16:59 10/07/23 16:59 - General well developed, moderate distress - Eyes PERRL - ENT no hearing loss - Respiratory normal respiratory effort - Cardiovascular Rhythm: irregularly irregular - Abdomen Abdomen: soft, non tender Results - Labs 10/08/23 03:52 10/08/23 03:52 Abnormal Lab Results - Last 24 Hours (Table) 10/07/23 10/07/23 10/07/23 Range/Units 16:56 17:13 17:13 WBC 17.9 H (3.8-10.6) k/uL RBC (3.80-5.40) m/uL Hgb (11.4-16.0) gm/dL Plt Count 752 H (150-450) k/uL Neutrophils # (Manual) 16.80 H (1.3-7.7) k/uL Lymphocytes # (Manual) 0.90 L (1.0-4.8) k/uL PT 14.9 H (10.0-12.5) sec INR 1.4 H (<1.2) APTT (22.0-30.0) sec Sodium (137-145) mmol/L Chloride (98-107) mmol/L Carbon Dioxide (22-30) mmol/L BUN (7-17) mg/dL Creatinine (0.52-1.04) mg/dL Glucose (74-99) mg/dL POC Glucose (mg/dL) 168 H (70-110) mg/dL Plasma Lactic Acid Al (0.7-2.0) mmol/L Calcium (8.4-10.2) mg/dL AST (14-36) U/L ALT (4-34) U/L Troponin I (0.000-0.034) ng/mL Total Protein (6.3-8.2) g/dL Albumin (3.5-5.0) g/dL TSH (0.465-4.680) mIU/L 10/07/23 10/07/23 10/07/23 Range/Units 17:13 17:13 17:13 WBC (3.8-10.6) k/uL RBC (3.80-5.40) m/uL Hgb (11.4-16.0) gm/dL Plt Count (150-450) k/uL Neutrophils # (Manual) (1.3-7.7) k/uL Lymphocytes # (Manual) (1.0-4.8) k/uL PT (10.0-12.5) sec INR (<1.2) APTT (22.0-30.0) sec Sodium 134 L (137-145) mmol/L Chloride (98-107) mmol/L Carbon Dioxide 10 L (22-30) mmol/L BUN 34 H (7-17) mg/dL Creatinine 2.95 H (0.52-1.04) mg/dL Glucose 173 H (74-99) mg/dL POC Glucose (mg/dL) (70-110) mg/dL Plasma Lactic Acid Al 8.3 H* (0.7-2.0) mmol/L Calcium (8.4-10.2) mg/dL AST 77 H (14-36) U/L ALT 49 H (4-34) U/L Troponin I 2.640 H* (0.000-0.034) ng/mL Total Protein 5.9 L (6.3-8.2) g/dL Albumin 3.2 L (3.5-5.0) g/dL TSH 5.320 H (0.465-4.680) mIU/L 12/24/23 12/25/23 12/25/23 Range/Units 20:47 03:46 03:52 WBC (3.8-10.6) k/uL RBC 3.63 L (3.80-5.40) m/uL Hgb 10.8 L (11.4-16.0) gm/dL Plt Count (150-450) k/uL Neutrophils # (Manual) 10.30 H (1.3-7.7) k/uL Lymphocytes # (Manual) 0.21 L (1.0-4.8) k/uL PT (10.0-12.5) sec INR (<1.2) APTT (22.0-30.0) sec Sodium (137-145) mmol/L Chloride (98-107) mmol/L Carbon Dioxide (22-30) mmol/L BUN (7-17) mg/dL Creatinine (0.52-1.04) mg/dL Glucose (74-99) mg/dL POC Glucose (mg/dL) 133 H (70-110) mg/dL Plasma Lactic Acid Al 2.3 H* (0.7-2.0) mmol/L Calcium (8.4-10.2) mg/dL AST (14-36) U/L ALT (4-34) U/L Troponin I (0.000-0.034) ng/mL Total Protein (6.3-8.2) g/dL Albumin (3.5-5.0) g/dL TSH (0.465-4.680) mIU/L 10/08/23 10/08/23 10/08/23 Range/Units 03:52 05:13 05:13 WBC (3.8-10.6) k/uL RBC (3.80-5.40) m/uL Hgb (11.4-16.0) gm/dL Plt Count (150-450) k/uL Neutrophils # (Manual) (1.3-7.7) k/uL Lymphocytes # (Manual) (1.0-4.8) k/uL PT 15.6 H (10.0-12.5) sec INR 1.5 H (<1.2) APTT 21.0 L (22.0-30.0) sec Sodium 134 L (137-145) mmol/L Chloride 110 H (98-107) mmol/L Carbon Dioxide 10 L (22-30) mmol/L BUN 38 H (7-17) mg/dL Creatinine 3.00 H (0.52-1.04) mg/dL Glucose 129 H (74-99) mg/dL POC Glucose (mg/dL) (70-110) mg/dL Plasma Lactic Acid Al (0.7-2.0) mmol/L Calcium 7.7 L (8.4-10.2) mg/dL AST 781 H (14-36) U/L ALT 175 H (4-34) U/L Troponin I 4.170 H* (0.000-0.034) ng/mL Total Protein 5.1 L (6.3-8.2) g/dL Albumin 2.6 L (3.5-5.0) g/dL TSH (0.465-4.680) mIU/L 10/08/23 Range/Units 09:07 WBC (3.8-10.6) k/uL RBC (3.80-5.40) m/uL Hgb (11.4-16.0) gm/dL Plt Count (150-450) k/uL Neutrophils # (Manual) (1.3-7.7) k/uL Lymphocytes # (Manual) (1.0-4.8) k/uL PT (10.0-12.5) sec INR (<1.2) APTT (22.0-30.0) sec Sodium (137-145) mmol/L Chloride (98-107) mmol/L Carbon Dioxide (22-30) mmol/L BUN (7-17) mg/dL Creatinine (0.52-1.04) mg/dL Glucose (74-99) mg/dL POC Glucose (mg/dL) (70-110) mg/dL Plasma Lactic Acid Al (0.7-2.0) mmol/L Calcium (8.4-10.2) mg/dL AST (14-36) U/L ALT (4-34) U/L Troponin I 4.020 H* (0.000-0.034) ng/mL Total Protein (6.3-8.2) g/dL Albumin (3.5-5.0) g/dL TSH (0.465-4.680) mIU/L Diabetes panel 10/07/23 10/08/23 Range/Units 17:13 03:52 Sodium 134 L 134 L (137-145) mmol/L Potassium 4.3 4.0 (3.5-5.1) mmol/L Chloride 104 110 H (98-107) mmol/L Carbon Dioxide 10 L 10 L (22-30) mmol/L BUN 34 H 38 H (7-17) mg/dL Creatinine 2.95 H 3.00 H (0.52-1.04) mg/dL Glucose 173 H 129 H (74-99) mg/dL Calcium 8.8 7.7 L (8.4-10.2) mg/dL AST 77 H 781 H (14-36) U/L ALT 49 H 175 H (4-34) U/L Alkaline Phosphatase 122 47 (38-126) U/L Total Protein 5.9 L 5.1 L (6.3-8.2) g/dL Albumin 3.2 L 2.6 L (3.5-5.0) g/dL Thyroid panel 10/07/23 Range/Units 17:13 TSH 5.320 H (0.465-4.680) mIU/L Calcium panel 10/07/23 10/08/23 Range/Units 17:13 03:52 Calcium 8.8 7.7 L (8.4-10.2) mg/dL Phosphorus 2.6 3.6 (2.5-4.5) mg/dL Albumin 3.2 L 2.6 L (3.5-5.0) g/dL Pituitary panel 10/07/23 10/08/23 Range/Units 17:13 03:52 Sodium 134 L 134 L (137-145) mmol/L Potassium 4.3 4.0 (3.5-5.1) mmol/L Chloride 104 110 H (98-107) mmol/L Carbon Dioxide 10 L 10 L (22-30) mmol/L BUN 34 H 38 H (7-17) mg/dL Creatinine 2.95 H 3.00 H (0.52-1.04) mg/dL Glucose 173 H 129 H (74-99) mg/dL Calcium 8.8 7.7 L (8.4-10.2) mg/dL TSH 5.320 H (0.465-4.680) mIU/L Adrenal panel 10/07/23 10/08/23 Range/Units 17:13 03:52 Sodium 134 L 134 L (137-145) mmol/L Potassium 4.3 4.0 (3.5-5.1) mmol/L Chloride 104 110 H (98-107) mmol/L Carbon Dioxide 10 L 10 L (22-30) mmol/L BUN 34 H 38 H (7-17) mg/dL Creatinine 2.95 H 3.00 H (0.52-1.04) mg/dL Glucose 173 H 129 H (74-99) mg/dL Calcium 8.8 7.7 L (8.4-10.2) mg/dL Total Bilirubin 1.2 0.8 (0.2-1.3) mg/dL AST 77 H 781 H (14-36) U/L ALT 49 H 175 H (4-34) U/L Alkaline Phosphatase 122 47 (38-126) U/L Total Protein 5.9 L 5.1 L (6.3-8.2) g/dL Albumin 3.2 L 2.6 L (3.5-5.0) g/dL - Imaging US - abdomen: report reviewed, image reviewed Assessment and Plan Assessment: Impresion. uti with sepsis. Left hydronephrosis prob due to an obstructing stone Plan: cysto with placement of left double j catheter emergently today.
--- NOTE | 2023-10-08 11:35 | P.HPIM ---
History of Present Illness H&P Date: 10/08/23 History of present illness; patient is a 87-year-old lady with past medical hist ory significant for hypertension, hyperlipidemia who was brought to the ER for evaluation for syncopal event and altered mental status. Most of the history is taken from the EMR and from the patient, according to EMR, patient walked into patient's room and found her slumped in the bed, at that time patient was very confused, hard to arouse. EMS was called and when they arrived , patient blood pressure was low but patient was responsive. Patient did got one round of epi in on route to the ER. On gathering more information, patient had been complaining of flulike symptoms and was diagnosed with influenza a week ago, patient got over that sickness but then started complaining of nausea and vomiting. Was also complaining of diarrhea. Family also noted the patient was more short of breath than normal. Denied any chest pain or palpitations. There was no complain of any jerking movement of extremity. No complaint of any slurred speech or facial droop. Initial lab work done in the ER showed WBC 17.9, hemoglobin 12, platelet count 75 glucose 168, lactate 8.3 calcium 8.8, total bilirubin 1.2, troponin 2.640 INR 1.4, sodium 134, potassium 4.3, BUNs 34, creatinine 2.95, Influenza A not detected Influenza B not detected RSV not detected COVID-19 not detected EKG done in the ER showed heart rate of 133 , no ST segment elevation or depression seen, no T-wave inversions seen. Chest x-ray done in the ER showed mild cardiomegaly and COPD, chronic appearing changes ER physician talked to the patient's niece and patient, central line was placed in the ER patient was started on Levophed for hypotension. Patient admitted to ICU under internal medicine service REVIEW OF SYSTEMS: CONSTITUTIONAL: As mentioned in HPI HEENT: No recent visual problems or hearing problems. Denied any sore throat. CARDIOVASCULAR: No chest pain, orthopnea, PND, no palpitations, no syncope. PULMONARY: No shortness of breath, no cough, no hemoptysis. GASTROINTESTINAL: As mentioned in HPI NEUROLOGICAL: No headaches, no weakness, no numbness. HEMATOLOGICAL: Denies any bleeding or petechiae. GENITOURINARY: Denies any burning micturition, frequency, or urgency. MUSCULOSKELETAL/RHEUMATOLOGICAL: Denies any joint pain, swelling, or any muscle pain. ENDOCRINE: Denies any polyuria or polydipsia. The rest of the 14-point review of systems is negative. PHYSICAL EXAMINATION: GENERAL: The patient is alert and oriented x3, looks in acute distress HEENT: Pupils are round and equally reacting to light. EOMI. No scleral icterus. No conjunctival pallor. Normocephalic, atraumatic. No pharyngeal erythema. No thyromegaly. CARDIOVASCULAR: S1 and S2 present. No murmurs, rubs, or gallops. PULMONARY: Chest is clear to auscultation, no wheezing or crackles. ABDOMEN: Soft, nontender, nondistended, normoactive bowel sounds. No palpable organomegaly. MUSCULOSKELETAL: No joint swelling or deformity. EXTREMITIES: No cyanosis, clubbing, or pedal edema. NEUROLOGICAL: Gross neurological examination did not reveal any focal deficits. SKIN: No rashes. Assessment and plan Septic shock Acute hypoxic respiratory failure Acute metabolic encephalopathy Non-ST elevation CO Acute kidney injury Syncopal event Fall Hypertension Hyperlipidemia Monitor vital signs Monitor CBC Monitor CMP Continue telemetry monitoring Ordered blood cultures Ordered urine cultures Continue IV fluids Continue IV Levophed Ordered ultrasound of the kidneys Ordered 2-D echo Trend troponins. Consult nephrology Consult cardiology for elevated troponin Critical care consulted Patient being transferred to ICU Labs and medication were reviewed.. Continue same treatment. Continue with symptomatic treatment. Resume home medication. Monitor labs and vitals. DVT and GI prophylaxis. Further recommendations as per clinical course of the patient Dictation was produced using [email or web address] dictation software. please excuse any grammatical, word or spelling errors. Past Medical History Past Medical History: Cancer, GERD/Reflux, Hyperlipidemia, Hypertension, Os teoarthritis (OA) Additional Past Medical History / Comment(s): History of breast cancer 31 years ago with chemo and radiation. Dx with vertigo in Nov 2021. R hip OA History of Any Multi-Drug Resistant Organisms: None Reported Past Surgical History: Breast Surgery Additional Past Surgical History / Comment(s): Lumpectomy 31 years ago, cataract surgery and kidney stone removal. Past Anesthesia/Blood Transfusion Reactions: No Reported Reaction Past Psychological History: Anxiety Smoking Status: Never smoker Past Alcohol Use History: None Reported Past Drug Use History: None Reported - Past Family History Mother Family Medical History: COPD Additional Family Medical History / Comment(s): at age 80 from COPD-smoker Father Family Medical History: Myocardial Infarction ([place]) Additional Family Medical History / Comment(s): at age 36 of [place] Medications and Allergies Home Medications Medication Instructions Recorded Confirmed Type ALPRAZolam [Xanax] 0.25 mg PO BID PRN 07/19/22 10/07/23 History Calcium Carb/Vitamin D3/Vit K1 1 tab PO HS 07/19/22 10/07/23 History [Citracal-D3 500 mg Soft Chew] Cholecalciferol [Vitamin D3 (25 50 mcg PO DAILY 07/19/22 10/07/23 History Mcg = 1000 Iu)] Fenofibrate Nanocrystallized 145 mg PO HS 07/19/22 10/07/23 History [Fenofibrate] Simvastatin [Zocor] 20 mg PO HS 07/19/22 10/07/23 History Amlodipine/Valsartan/Hcthiazid 1 tab PO DAILY 10/07/23 10/07/23 History [Amlodipine/Valsartan/Hcthiazid 10-320-25 mg] Omeprazole 40 mg PO DAILY 10/07/23 10/07/23 History Allergies Allergy/AdvReac Type Severity Reaction Status Date / Time No Known Allergies Allergy Verified 10/07/23 20:55 Physical Exam Vitals: Vital Signs Temp Pulse Pulse Resp BP BP Pulse Ox 10/08/23 04:10 97.6 F 74 19 87/47 93 L 10/08/23 03:48 97.6 F 75 20 88/49 92 L 10/08/23 03:15 72 20 81/43 96 10/08/23 03:00 73 18 86/51 95 10/08/23 02:45 72 24 85/44 94 L 10/08/23 02:00 70 25 H 97/44 96 10/08/23 01:45 72 23 103/50 96 10/08/23 01:30 70 25 H 81/52 96 10/08/23 01:15 73 25 H 90/52 94 L 10/08/23 01:00 69 17 87/47 98 10/08/23 00:45 66 17 65/47 97 10/08/23 00:30 67 15 106/44 97 10/08/23 00:15 67 23 76/40 98 10/08/23 00:00 67 18 74/37 98 10/07/23 23:45 63 23 71/39 98 10/07/23 23:30 65 5 L 74/43 96 10/07/23 23:15 66 27 H 68/41 98 10/07/23 23:00 71 22 76/40 97 10/07/23 22:45 72 22 76/40 99 10/07/23 22:30 71 23 74/41 99 10/07/23 22:15 75 74/41 10/07/23 22:00 75 77/42 98 10/07/23 21:45 75 77/42 98 10/07/23 21:30 76 78/42 98 10/07/23 21:15 80 71/30 97 10/07/23 21:00 75 71/37 98 10/07/23 20:53 75 71/37 97 10/07/23 20:40 74 18 71/37 98 10/07/23 20:30 80 18 77/49 98 10/07/23 20:10 81 18 56/34 99 10/07/23 19:40 83 18 77/41 98 10/07/23 19:30 98.7 F 10/07/23 19:20 83 18 80/50 99 10/07/23 18:58 88 18 87/69 99 10/07/23 18:08 88 20 90/68 99 10/07/23 16:59 101 F H 124 H 18 142/60 100 Intake and Output 10/07/23 10/07/23 10/08/23 14:59 22:59 06:59 Intake Total 96.865 Balance 96.865 Intake: Intake, IV Titration 96.865 Amount Norepinephrine 4 mg In 96.865 Sodium Chloride 0.9% 250 ml @ 0.03 MCG/KG/MIN 7. 624 mls/hr IV .Q24H ONE Rx#:[id number] Other: Weight 66.7 kg 66.7 kg Results CBC & Chem 7: 10/08/23 03:52 10/08/23 03:52 Labs: Abnormal Lab Results - Last 24 Hours (Table) 10/07/23 10/07/23 10/07/23 Range/Units 16:56 17:13 17:13 WBC 17.9 H (3.8-10.6) k/uL RBC (3.80-5.40) m/uL Hgb (11.4-16.0) gm/dL Plt Count 752 H (150-450) k/uL Neutrophils # (Manual) 16.80 H (1.3-7.7) k/uL Lymphocytes # (Manual) 0.90 L (1.0-4.8) k/uL PT 14.9 H (10.0-12.5) sec INR 1.4 H (<1.2) Sodium (137-145) mmol/L Carbon Dioxide (22-30) mmol/L BUN (7-17) mg/dL Creatinine (0.52-1.04) mg/dL Glucose (74-99) mg/dL POC Glucose (mg/dL) 168 H (70-110) mg/dL Plasma Lactic Acid Al (0.7-2.0) mmol/L AST (14-36) U/L ALT (4-34) U/L Troponin I (0.000-0.034) ng/mL Total Protein (6.3-8.2) g/dL Albumin (3.5-5.0) g/dL TSH (0.465-4.680) mIU/L 10/07/23 10/07/23 10/07/23 Range/Units 17:13 17:13 17:13 WBC (3.8-10.6) k/uL RBC (3.80-5.40) m/uL Hgb (11.4-16.0) gm/dL Plt Count (150-450) k/uL Neutrophils # (Manual) (1.3-7.7) k/uL Lymphocytes # (Manual) (1.0-4.8) k/uL PT (10.0-12.5) sec INR (<1.2) Sodium 134 L (137-145) mmol/L Carbon Dioxide 10 L (22-30) mmol/L BUN 34 H (7-17) mg/dL Creatinine 2.95 H (0.52-1.04) mg/dL Glucose 173 H (74-99) mg/dL POC Glucose (mg/dL) (70-110) mg/dL Plasma Lactic Acid Al 8.3 H* (0.7-2.0) mmol/L AST 77 H (14-36) U/L ALT 49 H (4-34) U/L Troponin I 2.640 H* (0.000-0.034) ng/mL Total Protein 5.9 L (6.3-8.2) g/dL Albumin 3.2 L (3.5-5.0) g/dL TSH 5.320 H (0.465-4.680) mIU/L 10/07/23 10/08/23 10/08/23 Range/Units 20:47 03:46 03:52 WBC (3.8-10.6) k/uL RBC 3.63 L (3.80-5.40) m/uL Hgb 10.8 L (11.4-16.0) gm/dL Plt Count (150-450) k/uL Neutrophils # (Manual) (1.3-7.7) k/uL Lymphocytes # (Manual) (1.0-4.8) k/uL PT (10.0-12.5) sec INR (<1.2) Sodium (137-145) mmol/L Carbon Dioxide (22-30) mmol/L BUN (7-17) mg/dL Creatinine (0.52-1.04) mg/dL Glucose (74-99) mg/dL POC Glucose (mg/dL) 133 H (70-110) mg/dL Plasma Lactic Acid Al 2.3 H* (0.7-2.0) mmol/L AST (14-36) U/L ALT (4-34) U/L Troponin I (0.000-0.034) ng/mL Total Protein (6.3-8.2) g/dL Albumin (3.5-5.0) g/dL TSH (0.465-4.680) mIU/L
[2023-10-08] MEDS ORDERED: PHENYLEPHRINE-0.9% NACL SYG 1,000 MCG/10 ML SYRINGE ONE (11:55)
[2023-10-08] MEDS ORDERED: KETAMINE HCL IN 0.9 % NACL 50 MG/5 ML SYRINGE ONE (11:55)
[2023-10-08] MEDS ORDERED: NOREPINEPHRINE 1 MG/ML 4 ML VIAL IV ONE (11:55)
[2023-10-08] MEDS ORDERED: MIDAZOLAM 2 MG/2 ML VIAL ONE (11:55)
--- NOTE | 2023-10-08 12:22 | P.CRDCN ---
History of Present Illness Consult date: 10/08/23 Reason for Consult (text): Type II myocardial infarction History of present illness: The patient is an 87-year-old female who presented to the hospital with weakness and fatigue. The patient had been having abdominal discomfort, diarrhea, and vomiting over the last several weeks. The patient was not evaluated by her primary care provider, thinking her symptoms would improve. She denies any chest pain or shortness of breath, but does report generalized is feeling unwell. The patient was hypotensive on arrival and is currently receiving Levophed for blood pressure support, as well as IV fluids. DIAGNOSTICS: EKG shows sinus tachycardia Chest x-ray shows mild cardiomegaly and COPD. Some atelectasis in the right base Abdominal bladder ultrasound shows moderate to severe left-sided hydronephrosis with internal debris. Bilateral renal calculi. Lab data: WBC 10 was 6, hemoglobin 10.8, hematocrit 34.1, platelet 425, sodium 134, potassium 4.0, BUN 38, creatinine 3.0, magnesium 1.8, phosphorus 3.6, AST 781, ALT 175, BNP 1790, TSH 5.3, troponins 2.6, 4.1, 4.0 REVIEW OF SYSTEMS: No fever or chills. No cough or expectoration. No d iaphoresis. Patient denies headache, dizziness, blurred vision, double vision. Patient denies any stomach discomfort. No nausea, vomiting. No hematochezia. No hematemesis. Denies any black stools or blood in his stools. Denies dysuria or hematuria. No muscle weakness or numbness. PHYSICAL EXAMINATION: This is a 87-year-old female in no apparent distress at the time of my examination. HEENT: Head is atraumatic, normocephalic. Pupils are equal, round. There is no jugular venous distention. No carotid bruit is heard. CHEST EXAMINATION: Lungs are clear to auscultation. No chest wall tenderness is noted on palpation or with deep breathing. HEART EXAMINATION: Heart regular rate and rhythm. S1, S2 heard. No murmurs, gallops or rub. ABDOMEN: Soft, nontender. Bowel sounds are heard. No organomegaly noted. EXTREMITIES: 2+ peripheral pulses with no evidence of peripheral edema and no calf tenderness noted. NEUROLOGIC EXAMINATION: Patient is awake, alert and oriented x3. FINAL ASSESSMENT AND PLAN: Type II myocardial infarction secondary to acute kidney injury/septic shock Acute sepsis/septic shock Hydronephrosis. Transaminitis PLAN: Continue supportive treatment Hold atorvastatin temporarily until liver enzymes improve Further recommendations based on clinical course I am dictating on behalf of Dr Ward Luu's history/physical and assessment/plan. Past Medical History Past Medical History: Cancer, GERD/Reflux, Hyperlipidemia, Hypertension, Osteoarthritis (OA) Additional Past Medical History / Comment(s): History of breast cancer 31 years ago with chemo and radiation. Dx with vertigo in Nov 2021. R hip OA History of Any Multi-Drug Resistant Organisms: None Reported Past Surgical History: Breast Surgery Additional Past Surgical History / Comment(s): Lumpectomy 31 years ago, cataract surgery and kidney stone removal. Past Anesthesia/Blood Transfusion Reactions: No Reported Reaction Past Psychological History: Anxiety Smoking Status: Never smoker Past Alcohol Use History: None Reported Past Drug Use History: None Reported - Past Family History Mother Family Medical History: COPD Additional Family Medical History / Comment(s): at age 80 from COPD-smoker Father Family Medical History: Myocardial Infarction ([place]) Additional Family Medical History / Comment(s): at age 36 of [place] Medications and Allergies Home Medications Medication Instructions Recorded Confirmed Type ALPRAZolam [Xanax] 0.25 mg PO BID PRN 07/19/22 10/07/23 History Calcium Carb/Vitamin D3/Vit K1 1 tab PO HS 07/19/22 10/07/23 History [Citracal-D3 500 mg Soft Chew] Cholecalciferol [Vitamin D3 (25 50 mcg PO DAILY 07/19/22 10/07/23 History Mcg = 1000 Iu)] Fenofibrate Nanocrystallized 145 mg PO HS 07/19/22 10/07/23 History [Fenofibrate] Simvastatin [Zocor] 20 mg PO HS 07/19/22 10/07/23 History Amlodipine/Valsartan/Hcthiazid 1 tab PO DAILY 10/07/23 10/07/23 History [Amlodipine/Valsartan/Hcthiazid 10-320-25 mg] Omeprazole 40 mg PO DAILY 10/07/23 10/07/23 History Allergies Allergy/AdvReac Type Severity Reaction Status Date / Time No Known Allergies Allergy Verified 10/07/23 20:55 Physical Exam Vitals: Vital Signs Temp Pulse Pulse Resp BP BP Pulse Ox 10/08/23 11:45 82 23 81/42 94 L 10/08/23 11:30 82 25 H 79/40 93 L 10/08/23 11:15 85 21 85/50 94 L 10/08/23 11:00 84 18 86/46 93 L 10/08/23 10:45 82 24 84/41 92 L 10/08/23 10:30 82 20 86/50 93 L 10/08/23 10:15 80 27 H 87/44 94 L 10/08/23 10:00 81 25 H 89/67 92 L 10/08/23 09:45 81 11 L 82/46 92 L 10/08/23 09:30 79 20 88/51 93 L 10/08/23 09:15 80 22 99/58 93 L 10/08/23 09:00 81 23 83/52 93 L 10/08/23 08:45 80 24 94/49 90 L 10/08/23 08:30 81 27 H 80/40 93 L 10/08/23 08:15 77 32 H 89/50 92 L 10/08/23 08:00 97.5 F L 82 27 H 87/46 94 L 10/08/23 07:45 75 21 88/49 93 L 10/08/23 07:30 77 19 95/51 92 L 10/08/23 07:15 75 23 91/58 93 L 10/08/23 07:00 78 20 87/49 93 L 10/08/23 06:45 75 22 92/54 93 L 10/08/23 06:30 78 23 85/47 97 10/08/23 06:15 74 20 91/49 93 L 10/08/23 06:00 75 24 98/57 93 L 10/08/23 05:45 78 23 107/56 93 L 10/08/23 05:30 81 18 99/50 94 L 10/08/23 05:15 77 23 87/48 94 L 10/08/23 05:00 73 21 82/52 93 L 10/08/23 04:45 72 22 85/49 10/08/23 04:30 73 22 87/47 93 L 10/08/23 04:15 75 23 86/53 93 L 10/08/23 04:10 97.6 F 74 19 87/47 93 L 10/08/23 04:00 97.6 F 75 26 H 88/49 93 L 10/08/23 03:48 97.6 F 75 20 88/49 92 L 10/08/23 03:15 72 20 81/43 96 10/08/23 03:00 73 18 86/51 95 10/08/23 02:45 72 24 85/44 94 L 10/08/23 02:00 70 25 H 97/44 96 10/08/23 01:45 72 23 103/50 96 10/08/23 01:30 70 25 H 81/52 96 10/08/23 01:15 73 25 H 90/52 94 L 10/08/23 01:00 69 17 87/47 98 10/08/23 00:45 66 17 65/47 97 10/08/23 00:30 67 15 106/44 97 10/08/23 00:15 67 23 76/40 98 10/08/23 00:00 67 18 74/37 98 10/07/23 23:45 63 23 71/39 98 10/07/23 23:30 65 5 L 74/43 96 10/07/23 23:15 66 27 H 68/41 98 10/07/23 23:00 71 22 76/40 97 10/07/23 22:45 72 22 76/40 99 10/07/23 22:30 71 23 74/41 99 10/07/23 22:15 75 74/41 10/07/23 22:00 75 77/42 98 10/07/23 21:45 75 77/42 98 10/07/23 21:30 76 78/42 98 10/07/23 21:15 80 71/30 97 10/07/23 21:00 75 71/37 98 10/07/23 20:53 75 71/37 97 10/07/23 20:40 74 18 71/37 98 10/07/23 20:30 80 18 77/49 98 10/07/23 20:10 81 18 56/34 99 10/07/23 19:40 83 18 77/41 98 10/07/23 19:30 98.7 F 10/07/23 19:20 83 18 80/50 99 10/07/23 18:58 88 18 87/69 99 10/07/23 18:08 88 20 90/68 99 10/07/23 16:59 101 F H 124 H 18 142/60 100 Intake and Output 10/07/23 10/08/23 10/08/23 22:59 06:59 14:59 Intake Total 990.981 6643.405 Output Total 0 0 Balance 164.970 1549.405 Intake: IV 390 1600 Dextrose 5%-0.45% NaCl 1, 600 000 ml @ 100 mls/hr IV . [id number] RIYA with Sodium Bicarb (1 Meq/ml) 150 ml Rx#:[id number] Sodium Chloride 0.9% 1, 390 000 ml @ 130 mls/hr IV . Q7H42M RIYA Rx#:[id number] Sodium Chloride 0.9% 1, 1000 000 ml @ 999 mls/hr IV . Q1H1M ONE Rx#:[id number] Intake, IV Titration 172.595 81.405 Amount Norepinephrine 4 mg In 172.595 81.405 Sodium Chloride 0.9% 250 ml @ 0.03 MCG/KG/MIN 7. 624 mls/hr IV .Q24H ONE Rx#:[id number] Oral 100 Output: Urine 0 0 Other: Voiding Method External Catheter External Catheter Weight 66.7 kg 66.7 kg Results 10/08/23 03:52 10/08/23 03:52 Cardiac Enzymes 10/07/23 10/07/23 10/08/23 Range/Units 17:13 17:13 03:52 AST 77 H 781 H (14-36) U/L Troponin I 2.640 H* (0.000-0.034) ng/mL 10/08/23 10/08/23 Range/Units 05:13 09:07 AST (14-36) U/L Troponin I 4.170 H* 4.020 H* (0.000-0.034) ng/mL Coagulation 10/07/23 10/08/23 Range/Units 17:13 05:13 PT 14.9 H 15.6 H (10.0-12.5) sec APTT 27.6 21.0 L (22.0-30.0) sec CBC 10/07/23 10/08/23 Range/Units 17:13 03:52 WBC 17.9 H 10.6 (3.8-10.6) k/uL RBC 4.00 3.63 L (3.80-5.40) m/uL Hgb 12.0 10.8 L (11.4-16.0) gm/dL Hct 38.1 34.1 (34.0-46.0) % Plt Count 752 H 425 (150-450) k/uL Comprehensive Metabolic Panel 10/07/23 10/08/23 Range/Units 17:13 03:52 Sodium 134 L 134 L (137-145) mmol/L Potassium 4.3 4.0 (3.5-5.1) mmol/L Chloride 104 110 H (98-107) mmol/L Carbon Dioxide 10 L 10 L (22-30) mmol/L BUN 34 H 38 H (7-17) mg/dL Creatinine 2.95 H 3.00 H (0.52-1.04) mg/dL Glucose 173 H 129 H (74-99) mg/dL Calcium 8.8 7.7 L (8.4-10.2) mg/dL AST 77 H 781 H (14-36) U/L ALT 49 H 175 H (4-34) U/L Alkaline Phosphatase 122 47 (38-126) U/L Total Protein 5.9 L 5.1 L (6.3-8.2) g/dL Albumin 3.2 L 2.6 L (3.5-5.0) g/dL Current Medications Generic Name Dose Route Start Last Admin Trade Name Freq PRN Reason Stop Dose Admin Acetaminophen 650 mg 10/07/23 19:39 Acetaminophen Tab 325 Mg Tab PO Q6HR PRN Mild Pain or Fever > 100.5 Alprazolam 0.25 mg 10/08/23 04:31 Alprazolam 0.25 Mg Tab PO BID PRN Anxiety Cholecalciferol 50 mcg 10/08/23 09:00 10/08/23 10:29 Cholecalciferol 25 Mcg (1000 Iu) Tablet PO 50 mcg DAILY RIYA Administration Fenofibrate 160 mg 10/08/23 21:00 Fenofibrate 160 Mg Tab PO HS RIYA Heparin Sodium (Porcine) 0 unit 10/08/23 04:35 Heparin Sodium 1,000 Un/Ml (10ml Vl) IV PER PROTOCOL PRN Low PTT Protocol Ceftriaxone Sodium 2 gm/ 50 mls @ 100 mls/hr 10/08/23 09:00 10/08/23 10:28 Sodium Chloride IVPB 100 mls/hr Q24HR RIYA Administration Protocol Norepinephrine Bitartrate 4 mg 254 mls @ 7.624 mls/hr 10/07/23 22:15 10/08/23 08:14 / Sodium Chloride IV 10/08/23 22:14 0.2 mcg/kg/min .Q24H ONE 50.825 mls/hr Administration Protocol 0.03 MCG/KG/MIN Heparin Sodium/Sodium Chloride 250 mls @ 8.004 mls/hr 10/08/23 04:45 10/08/23 08:06 25,000 unit/ Sodium Chloride IV 12 units/kg/hr .Q24H RIYA 8.004 mls/hr Administration Protocol 12 UNITS/KG/HR Sodium Bicarbonate 150 ml/ 1,150 mls @ 100 mls/hr 10/08/23 10:00 Dextrose/Water IV .[id number] RIYA Sodium Chloride 1,000 mls @ 999 mls/hr 10/08/23 11:16 10/08/23 11:24 Saline 0.9% IV 10/08/23 12:16 999 mls/hr .Q1H1M ONE Administration Levothyroxine Sodium 75 mcg 10/08/23 09:00 10/08/23 10:30 Levothyroxine 75 Mcg Tab PO 75 mcg DAILY@0630 [facility] Administration Morphine Sulfate 4 mg 10/07/23 19:39 10/08/23 02:47 Morphine Sulfate 4 Mg/Ml Syringe IV 4 mg Q4HR PRN Administration Severe Pain (Scale 7 to 10) Naloxone HCl 0.2 mg 10/07/23 19:39 Naloxone 0.4 Mg/Ml 1 Ml Vial IV Q2M PRN Opioid Reversal Ondansetron HCl 4 mg 10/07/23 19:39 Ondansetron 4 Mg/2 Ml Vial IVP Q8HR PRN Nausea And Vomiting Pantoprazole Sodium 40 mg 10/08/23 09:00 10/08/23 10:29 Pantoprazole 40 Mg Tablet PO 40 mg DAILY RIYA Administration Intake and Output 10/07/23 10/08/23 10/08/23 22:59 06:59 14:59 Intake Total 326.582 9485.405 Output Total 0 0 Balance 475.528 2405.405 Intake: IV 390 1600 Dextrose 5%-0.45% NaCl 1, 600 000 ml @ 100 mls/hr IV . [id number] RIYA with Sodium Bicarb (1 Meq/ml) 150 ml Rx#:[id number] Sodium Chloride 0.9% 1, 390 000 ml @ 130 mls/hr IV . Q7H42M RIYA Rx#:[id number] Sodium Chloride 0.9% 1, 1000 000 ml @ 999 mls/hr IV . Q1H1M ONE Rx#:[id number] Intake, IV Titration 172.595 81.405 Amount Norepinephrine 4 mg In 172.595 81.405 Sodium Chloride 0.9% 250 ml @ 0.03 MCG/KG/MIN 7. 624 mls/hr IV .Q24H ONE Rx#:[id number] Oral 100 Output: Urine 0 0 Other: Voiding Method External Catheter External Catheter Weight 66.7 kg 66.7 kg 10/08/23 03:52 10/08/23 03:52
--- NOTE | 2023-10-08 12:29 | P.OP ---
Date of Procedure: 10/08/23 Preoperative Diagnosis: Urinary tract infection with sepsis, left pyonephrosis due to obstructing probable ureteral calculus Postoperative Diagnosis: Same Procedure(s) Performed: Cystoscopy placement of 6 x 24 double-J catheter left Anesthesia: MAC Surgeon: Blake Meade Pathology: none sent Indications for Procedure: The patient is 87. She is in the ICU septic with left-sided hydronephrosis a history of stones and infected looking urine. She comes for stent placement to assist in the resolution of her septic shock Description of Procedure: Patient brought to the operative suite. Given a sedative anesthetic. Placed lithotomy position with sterile prep and drape. Cystoscopy identifies a diffusely inflamed infected bladder with very. Urine. The left ureteral orifice is identified and intubated with an 035 wire. It is passed by very faint stone at the left iliac crest a. Over the wires and passed a 6 x 24 doubl e-J catheter coils in the renal pelvis and the bladder. A Myrick catheters placed. The patient awake and returned recovery in good condition Successful placement of left ureteral catheter to relieve pyonephrosis left
[2023-10-08] MEDS ORDERED: NOREPINEPHRINE 4 MG in SODIUM CHLORIDE 0.9% 250 ML IV ONE (12:57)
[2023-10-08 13:03] LABS: Glucose,Whole Blood 154 mg/dL (70-110)
--- NOTE | 2023-10-08 13:06 | FL ---
EXAMINATION TYPE: FL guidance operating room DATE OF EXAM: 10/08/2023 FLUOROSCOPY 30sec fluoro time 5.[address] Meade 2 images are provided for urologic procedure during left ureteral stent insertion.
[2023-10-08 14:18] LABS: Appearance,Urine Turbid (Clear); Bacteria,Urine Many /hpf; Bilirubin,Urine Negative (Negative); Blood,Urine Large (Negative); Color,Urine Light Red; Glucose,Urine (UA) Negative (Negative); Ketones,Urine Negative (Negative); Leukocyte Esterase,Urine Large (Negative); Nitrite,Urine Negative (Negative); Protein,Urine 3+ (Negative); RBC,Urine >182 /hpf (0-5); Urobilinogen,Urine <2.0 mg/dL (<2.0); WBC,Urine >182 /hpf (0-5)
[2023-10-08 14:22] LABS: Specific Gravity,Urine 1.014 (1.001-1.035)
[2023-10-08] MEDS: NOREPINEPHRINE 32 MG in SODIUM CHLORIDE 0.9% 218 ML IV SCH (15:47)
[2023-10-08] MEDS: DEXTROSE 5% IN WATER 1,000 ML with SODIUM BICARB (1 MEQ/ML) 150 ML IV SCH (17:36)
[2023-10-08] MEDS: ONDANSETRON 4 MG/2 ML VIAL IVP PRN (17:45)
[2023-10-08] MEDS ORDERED: METOCLOPRAMIDE 5 MG/ML 2 ML VIAL IVP STA (20:18)
--- NOTE | 2023-10-08 20:22 | P.CONS ---
History of Present Illness - Reason for Consult Consult date: 10/08/23 - History of Present Illness Patient is a 87-year female with a past medical history pertinent for hypertension hyperlipidemia reflux and breast cancer patient was brought into the hospital last evening for evaluation of increasing weakness and mental status changes patient did have a fall prior to arrival and apparently suffered from influenza a week before her symptoms started patient has been complaining of feeling nauseated did have episode of vomiting and diarrhea and increasing weakness leading to a fall the day of presentation to the hospital patient was brought into the hospital on arrival to the ER patient did have a fever of 101 degrees for night patient was tachycardic with heart rate 124 and did have hypotension requiring pressor support and admission to the ICU patient did have a white count of 17.9 with a left shift and did have an elevated creatinine of 2.95 11 cells mildly elevated troponin was elevated did have a positive UA influenza RSV and COVID testing was negative blood cultures obtained which are currently pending patient did have a abdominal bladder ultrasound with evidence of left-sided hydronephrosis patient was taken to the OR and the patient is status post cystoscopy and left sided ureteral double-J catheter placement, patient did received a dose of Rocephin which was continued infectious disease was consulted for further management of antibiotic therapy patient at time of evaluation complaining of weakness denies any headache or URI symptoms no chest pain shortness of breath or cough, no further nausea vomiting or diarrhea has been reported denies any abdominal pain seem to be concerned about her kidney function Past Medical History Past Medical History: Cancer, GERD/Reflux, Hyperlipidemia, Hypertension, Osteoarthritis (OA) Additional Past Medical History / Comment(s): History of breast cancer 31 years ago with chemo and radiation. Dx with vertigo in Nov 2021. R hip OA History of Any Multi-Drug Resistant Organisms: None Reported Past Surgical History: Breast Surgery Additional Past Surgical History / Comment(s): Lumpectomy 31 years ago, cataract surgery and kidney stone removal. Past Anesthesia/Blood Transfusion Reactions: No Reported Reaction Past Psychological History: Anxiety Smoking Status: Never smoker Past Alcohol Use History: None Reported Past Drug Use History: None Reported - Past Family History Mother Family Medical History: COPD Additional Family Medical History / Comment(s): at age 80 from COPD-smoker Father Family Medical History: Myocardial Infarction ([place]) Additional Family Medical History / Comment(s): at age 36 of [place] Medications and Allergies Home Medications Medication Instructions Recorded Confirmed Type RX: ALPRAZolam [Xanax] 0.25 mg PO BID PRN 07/19/22 10/07/23 History RX: Calcium Carb/Vitamin D3/Vit K1 1 tab PO HS 07/19/22 10/07/23 History [Citracal-D3 500 mg Soft Chew] RX: Cholecalciferol [Vitamin D3 50 mcg PO DAILY 07/19/22 10/07/23 History (25 Mcg = 1000 Iu)] RX: Fenofibrate Nanocrystallized 145 mg PO HS 07/19/22 10/07/23 History [Fenofibrate] RX: Simvastatin [Zocor] 20 mg PO HS 07/19/22 10/07/23 History Amlodipine/Valsartan/Hcthiazid 1 tab PO DAILY 10/07/23 10/07/23 History [Amlodipine/Valsartan/Hcthiazid 10-320-25 mg] RX: Omeprazole 40 mg PO DAILY 10/07/23 10/07/23 History Allergies Allergy/AdvReac Type Severity Reaction Status Date / Time No Known Allergies Allergy Verified 10/07/23 20:55 Physical Exam Vitals: Vital Signs Temp Pulse Pulse Resp BP BP Pulse Ox 10/08/23 10:00 81 25 H 89/67 92 L 10/08/23 09:45 81 11 L 82/46 92 L 10/08/23 09:30 79 20 88/51 93 L 10/08/23 09:15 80 22 99/58 93 L 10/08/23 09:00 81 23 83/52 93 L 10/08/23 08:45 80 24 94/49 90 L 10/08/23 08:30 81 27 H 80/40 93 L 10/08/23 08:15 77 32 H 89/50 92 L 10/08/23 08:00 97.5 F L 82 27 H 87/46 94 L 10/08/23 07:45 75 21 88/49 93 L 10/08/23 07:30 77 19 95/51 92 L 10/08/23 07:15 75 23 91/58 93 L 10/08/23 07:00 78 20 87/49 93 L 10/08/23 06:45 75 22 92/54 93 L 10/08/23 06:30 78 23 85/47 97 12/25/23 06:15 74 20 91/49 93 L 10/08/23 06:00 75 24 98/57 93 L 10/08/23 05:45 78 23 107/56 93 L 10/08/23 05:30 81 18 99/50 94 L 10/08/23 05:15 77 23 87/48 94 L 10/08/23 05:00 73 21 82/52 93 L 10/08/23 04:45 72 22 85/49 10/08/23 04:30 73 22 87/47 93 L 10/08/23 04:15 75 23 86/53 93 L 10/08/23 04:10 97.6 F 74 19 87/47 93 L 10/08/23 04:00 97.6 F 75 26 H 88/49 93 L 10/08/23 03:48 97.6 F 75 20 88/49 92 L 10/08/23 03:15 72 20 81/43 96 10/08/23 03:00 73 18 86/51 95 10/08/23 02:45 72 24 85/44 94 L 10/08/23 02:00 70 25 H 97/44 96 10/08/23 01:45 72 23 103/50 96 10/08/23 01:30 70 25 H 81/52 96 10/08/23 01:15 73 25 H 90/52 94 L 10/08/23 01:00 69 17 87/47 98 10/08/23 00:45 66 17 65/47 97 10/08/23 00:30 67 15 106/44 97 10/08/23 00:15 67 23 76/40 98 10/08/23 00:00 67 18 74/37 98 10/07/23 23:45 63 23 71/39 98 10/07/23 23:30 65 5 L 74/43 96 10/07/23 23:15 66 27 H 68/41 98 10/07/23 23:00 71 22 76/40 97 10/07/23 22:45 72 22 76/40 99 10/07/23 22:30 71 23 74/41 99 10/07/23 22:15 75 74/41 10/07/23 22:00 75 77/42 98 10/07/23 21:45 75 77/42 98 12/24/23 21:30 76 78/42 98 12/24/23 21:15 80 71/30 97 10/07/23 21:00 75 71/37 98 10/07/23 20:53 75 71/37 97 10/07/23 20:40 74 18 71/37 98 10/07/23 20:30 80 18 77/49 98 10/07/23 20:10 81 18 56/34 99 10/07/23 19:40 83 18 77/41 98 10/07/23 19:30 98.7 F 10/07/23 19:20 83 18 80/50 99 10/07/23 18:58 88 18 87/69 99 10/07/23 18:08 88 20 90/68 99 10/07/23 16:59 101 F H 124 H 18 142/60 100 Intake and Output 10/07/23 10/08/23 10/08/23 22:59 06:59 14:59 Intake Total 562.595 581.405 Output Total 0 0 Balance 562.595 581.405 Intake: IV 390 400 Dextrose 5%-0.45% NaCl 1, 400 000 ml @ 100 mls/hr IV . [id number] RIYA with Sodium Bicarb (1 Meq/ml) 150 ml Rx#:[id number] Sodium Chloride 0.9% 1, 390 000 ml @ 130 mls/hr IV . Q7H42M RIYA Rx#:[id number] Intake, IV Titration 172.595 81.405 Amount Norepinephrine 4 mg In 172.595 81.405 Sodium Chloride 0.9% 250 ml @ 0.03 MCG/KG/MIN 7. 624 mls/hr IV .Q24H ONE Rx#:[id number] Oral 100 Output: Urine 0 0 Other: Voiding Method External Catheter External Catheter Weight 66.7 kg 66.7 kg Results CBC & Chem 7: 10/08/23 03:52 10/08/23 03:52 Labs: Abnormal Lab Results - Last 24 Hours (Table) 10/07/23 10/07/23 10/07/23 Range/Units 16:56 17:13 17:13 WBC 17.9 H (3.8-10.6) k/uL RBC (3.80-5.40) m/uL Hgb (11.4-16.0) gm/dL Plt Count 752 H (150-450) k/uL Neutrophils # (Manual) 16.80 H (1.3-7.7) k/uL Lymphocytes # (Manual) 0.90 L (1.0-4.8) k/uL PT 14.9 H (10.0-12.5) sec INR 1.4 H (<1.2) APTT (22.0-30.0) sec Sodium (137-145) mmol/L Chloride (98-107) mmol/L Carbon Dioxide (22-30) mmol/L BUN (7-17) mg/dL Creatinine (0.52-1.04) mg/dL Glucose (74-99) mg/dL POC Glucose (mg/dL) 168 H (70-110) mg/dL Plasma Lactic Acid Al (0.7-2.0) mmol/L Calcium (8.4-10.2) mg/dL AST (14-36) U/L ALT (4-34) U/L Troponin I (0.000-0.034) ng/mL Total Protein (6.3-8.2) g/dL Albumin (3.5-5.0) g/dL TSH (0.465-4.680) mIU/L 10/07/23 10/07/23 10/07/23 Range/Units 17:13 17:13 17:13 WBC (3.8-10.6) k/uL RBC (3.80-5.40) m/uL Hgb (11.4-16.0) gm/dL Plt Count (150-450) k/uL Neutrophils # (Manual) (1.3-7.7) k/uL Lymphocytes # (Manual) (1.0-4.8) k/uL PT (10.0-12.5) sec INR (<1.2) APTT (22.0-30.0) sec Sodium 134 L (137-145) mmol/L Chloride (98-107) mmol/L Carbon Dioxide 10 L (22-30) mmol/L BUN 34 H (7-17) mg/dL Creatinine 2.95 H (0.52-1.04) mg/dL Glucose 173 H (74-99) mg/dL POC Glucose (mg/dL) (70-110) mg/dL Plasma Lactic Acid Al 8.3 H* (0.7-2.0) mmol/L Calcium (8.4-10.2) mg/dL AST 77 H (14-36) U/L ALT 49 H (4-34) U/L Troponin I 2.640 H* (0.000-0.034) ng/mL Total Protein 5.9 L (6.3-8.2) g/dL Albumin 3.2 L (3.5-5.0) g/dL TSH 5.320 H (0.465-4.680) mIU/L 10/07/23 10/08/23 10/08/23 Range/Units 20:47 03:46 03:52 WBC (3.8-10.6) k/uL RBC 3.63 L (3.80-5.40) m/uL Hgb 10.8 L (11.4-16.0) gm/dL Plt Count (150-450) k/uL Neutrophils # (Manual) 10.30 H (1.3-7.7) k/uL Lymphocytes # (Manual) 0.21 L (1.0-4.8) k/uL PT (10.0-12.5) sec INR (<1.2) APTT (22.0-30.0) sec Sodium (137-145) mmol/L Chloride (98-107) mmol/L Carbon Dioxide (22-30) mmol/L BUN (7-17) mg/dL Creatinine (0.52-1.04) mg/dL Glucose (74-99) mg/dL POC Glucose (mg/dL) 133 H (70-110) mg/dL Plasma Lactic Acid Al 2.3 H* (0.7-2.0) mmol/L Calcium (8.4-10.2) mg/dL AST (14-36) U/L ALT (4-34) U/L Troponin I (0.000-0.034) ng/mL Total Protein (6.3-8.2) g/dL Albumin (3.5-5.0) g/dL TSH (0.465-4.680) mIU/L 10/08/23 10/08/23 10/08/23 Range/Units 03:52 05:13 05:13 WBC (3.8-10.6) k/uL RBC (3.80-5.40) m/uL Hgb (11.4-16.0) gm/dL Plt Count (150-450) k/uL Neutrophils # (Manual) (1.3-7.7) k/uL Lymphocytes # (Manual) (1.0-4.8) k/uL PT 15.6 H (10.0-12.5) sec INR 1.5 H (<1.2) APTT 21.0 L (22.0-30.0) sec Sodium 134 L (137-145) mmol/L Chloride 110 H (98-107) mmol/L Carbon Dioxide 10 L (22-30) mmol/L BUN 38 H (7-17) mg/dL Creatinine 3.00 H (0.52-1.04) mg/dL Glucose 129 H (74-99) mg/dL POC Glucose (mg/dL) (70-110) mg/dL Plasma Lactic Acid Al (0.7-2.0) mmol/L Calcium 7.7 L (8.4-10.2) mg/dL AST 781 H (14-36) U/L ALT 175 H (4-34) U/L Troponin I 4.170 H* (0.000-0.034) ng/mL Total Protein 5.1 L (6.3-8.2) g/dL Albumin 2.6 L (3.5-5.0) g/dL TSH (0.465-4.680) mIU/L 10/08/23 Range/Units 09:07 WBC (3.8-10.6) k/uL RBC (3.80-5.40) m/uL Hgb (11.4-16.0) gm/dL Plt Count (150-450) k/uL Neutrophils # (Manual) (1.3-7.7) k/uL Lymphocytes # (Manual) (1.0-4.8) k/uL PT (10.0-12.5) sec INR (<1.2) APTT (22.0-30.0) sec Sodium (137-145) mmol/L Chloride (98-107) mmol/L Carbon Dioxide (22-30) mmol/L BUN (7-17) mg/dL Creatinine (0.52-1.04) mg/dL Glucose (74-99) mg/dL POC Glucose (mg/dL) (70-110) mg/dL Plasma Lactic Acid La (0.7-2.0) mmol/L Calcium (8.4-10.2) mg/dL AST (14-36) U/L ALT (4-34) U/L Troponin I 4.020 H* (0.000-0.034) ng/mL Total Protein (6.3-8.2) g/dL Albumin (3.5-5.0) g/dL TSH (0.465-4.680) mIU/L Assessment and Plan Plan: 1-patient is in the hospital with sepsis/septic shock secondary to complicated UTI in this patient who did have a left-sided hydronephrosis requiring cystoscopy and left-sided double-J ureteral catheter placement likely secondary to enteric gram-negative pathogen 2-patient with renal insufficiency high risk of nephrotoxicity kidney function need to be monitored closely 3-advise Rocephin 2 g daily while waiting for the culture to finalize Question concern answered We will follow on clinical condition and cultures to further adjust medication if needed Thank you for this consultation we will follow the patient along with you Dictation was produced using [employer] dictation software. please excuse any grammatical, word or spelling errors.
[2023-10-08] MEDS ORDERED: ATORVASTATIN 10 MG TAB PO SCH (21:00)
[2023-10-08] MEDS ORDERED: FENOFIBRATE 160 MG TAB PO SCH (21:00)
[2023-10-09] MEDS: MORPHINE SULFATE 4 MG/ML SYRINGE IV PRN ×2 (01:30→12:00)
[2023-10-09] MEDS: ALPRAZolam 0.25 MG TAB PO PRN ×2 (02:26→08:12)
[2023-10-09] MEDS: DEXTROSE 5% IN WATER 1,000 ML with SODIUM BICARB (1 MEQ/ML) 150 ML IV SCH ×2 (04:19→15:03)
[2023-10-09 04:40] LABS: HCT 30.7 % (34.0-46.0); Hypochromasia Slight; MCH 30.6 pg (25.0-35.0); MCHC 32.8 g/dL (31.0-37.0); MCV 93.4 fL (80.0-100.0); Mean Platelet Volume 8.8; Platelet Count 381 k/uL (150-450); RBC 3.28 m/uL (3.80-5.40); RDW 13.8 % (11.5-15.5); WBC 34.3 k/uL (3.8-10.6)
[2023-10-09 04:50] LABS: ALT 282 U/L (4-34); African American GFR (CKD) 13 (>60 ml/min/1.73 sqM); Albumin 2.8 g/dL (3.5-5.0); Alkaline Phosphatase 87 U/L (38-126); Anion Gap 14 mmol/L; Blood Urea Nitrogen 44 mg/dL (7-17); Carbon Dioxide 18 mmol/L (22-30); Chloride 105 mmol/L (98-107); Glucose 183 mg/dL (74-99); Non-African American GFR(CKD) 11 (>60 ml/min/1.73 sqM); Potassium 3.7 mmol/L (3.5-5.1); Sodium 137 mmol/L (137-145); Total Bilirubin 0.6 mg/dL (0.2-1.3); Total Protein 5.7 g/dL (6.3-8.2)
[2023-10-09 04:56] LABS: AST 856 U/L (14-36)
[2023-10-09 05:19] LABS: INR 1.9 (<1.2); Partial Thromboplastin Time 61.7 sec (22.0-30.0); Prothrombin Time 19.3 sec (10.0-12.5)
[2023-10-09] MEDS: LEVOTHYROXINE 75 MCG TAB PO SCH (06:07)
[2023-10-09 07:24] LABS: Band Neutrophils % 14 %; Lymphocytes # (M) 1.37 k/uL (1.0-4.8); Monocytes # (M) 1.72 k/uL (0-1.0); Neutrophils % (M) 77 %; Nucleated Red Blood Cells 0 /100 WBC (0-0); Total Cells Counted 100
[2023-10-09 07:25] LABS: Toxic Vacuolation Present
--- NOTE | 2023-10-09 07:58 | P.PN ---
Subjective Progress Note Date: 10/09/23 PROGRESS NOTE The patient is an 87-year-old female with no prior cardiac history who presented with sepsis, hypotension. She has a history of hypertension and hyperlipidemia. Apparently for the last few weeks she's been having nausea, diarrhea and vomiting. She was feeling progressively weak and came into the emergency room. Her troponin was mildly elevated. She was found to have evidence of-year-old sepsis and moderate severe left-sided hydronephrosis. She underwent placement of a urethral stent with cystoscopy. She is somnolent, on nonrebreather. Blood pressure and heart rate are stable. She has evidence of non-STEMI by lab data. According to the family she has no history of myocardial infarction or CAD in the past. There is no evidence of malignant arrhythmia. Medications: IV heparin, Protonix, Rocephin, fenofibrate PHYSICAL EXAMINATION: Blood pressure 128/53 heart rate 93, somnolent LUNGS: Clear to auscultation HEART: Regular rate and rhythm, S1, S2. No S3. Systolic ejection murmur ABDOMEN: Soft, nontender, no organomegaly EXTREMETIES: No edema LAB: Hemoglobin 10, WBC 34.3. BUN 44, creatinine 3.47. Potassium 3.7. Troponin 3.2. AST 856, ALT 282. IMPRESSION: 1. Urosepsis with hydronephrosis and septic shock on presentation 2. Troponin elevation consistent with type II myocardial infarction 3. Acute renal injury 4. Acute liver injury 5. History of hypertension 6. History of hyperlipidemia PLAN: 1. Start oral aspirin 2. Add beta reji 3. Obtain an echocardiogram with Doppler 4. Stop heparin in 24 hours 5. Follow renal functions and liver functions 6. Stop fenofibrate. Once liver function stable, start statin 7. Depending on her progress further recommendations will be made Objective - Vital Signs Vital signs: Vital Signs Temp 97.4 F L 10/09/23 04:00 Pulse 93 10/09/23 07:00 Resp 15 10/09/23 07:00 BP 128/53 10/09/23 07:00 Pulse Ox 88 L 10/09/23 07:00 FiO2 100 10/09/23 00:00 Intake & Output 10/08/23 10/09/23 10/09/23 18:59 06:59 18:59 Intake Total 3066.933 1249.283 100 Output Total 215 380 30 Balance 2851.933 869.283 70 Weight 71.7 kg Intake: IV 2800 1200 100 Dextrose 5%-0.45% NaCl 1, 1100 1200 100 000 ml @ 100 mls/hr IV . [id number] [facility] with Sodium Bicarb (1 Meq/ml) 150 ml Rx#:[id number] Sodium Chloride 0.9% 1, 1000 000 ml @ 999 mls/hr IV . Q1H1M ONE Rx#:[id number] Intake, IV Titration 166.933 49.283 Amount Heparin Sod,Pork in 0.45% 61.764 37.574 NaCl 25,000 unit In 0.45 % NaCl 1 250ml.bag @ 12 UNITS/KG/HR 8.004 mls/hr IV .Q24H [facility] Rx#: [id number] Norepinephrine 32 mg In 23.764 11.709 Sodium Chloride 0.9% 218 ml @ 0.3 MCG/KG/MIN 9.38 mls/hr IV .Q24H [facility] Rx#: [id number] Norepinephrine 4 mg In 81.405 Sodium Chloride 0.9% 250 ml @ 0.03 MCG/KG/MIN 7. 624 mls/hr IV .Q24H ONE Rx#:[id number] Oral 100 Output: Urine 215 380 30 Estimated Blood Loss 0 Other: Voiding Method Indwelling Catheter Indwelling Catheter - Labs CBC & Chem 7: 10/09/23 04:30 10/09/23 04:30 Labs: Abnormal Lab Results - Last 24 Hours (Table) 10/08/23 10/08/23 10/08/23 Range/Units 09:07 09:07 13:02 WBC (3.8-10.6) k/uL RBC (3.80-5.40) m/uL Hgb (11.4-16.0) gm/dL Hct (34.0-46.0) % Neutrophils # (Manual) (1.3-7.7) k/uL Monocytes # (Manual) (0-1.0) k/uL PT (10.0-12.5) sec INR (<1.2) APTT (22.0-30.0) sec Carbon Dioxide (22-30) mmol/L BUN (7-17) mg/dL Creatinine (0.52-1.04) mg/dL Glucose (74-99) mg/dL POC Glucose (mg/dL) 154 H (70-110) mg/dL Calcium (8.4-10.2) mg/dL AST (14-36) U/L ALT (4-34) U/L Troponin I 4.020 H* (0.000-0.034) ng/mL Total Protein (6.3-8.2) g/dL Albumin (3.5-5.0) g/dL Procalcitonin >100.00 H (0.02-0.09) ng/mL Urine Appearance (Clear) Urine Protein (Negative) Urine Blood (Negative) Ur Leukocyte Esterase (Negative) Urine RBC (0-5) /hpf Urine WBC (0-5) /hpf Urine WBC Clumps (None) /hpf Urine Bacteria (None) /hpf 10/08/23 10/08/23 10/08/23 Range/Units 13:50 14:31 14:31 WBC (3.8-10.6) k/uL RBC (3.80-5.40) m/uL Hgb (11.4-16.0) gm/dL Hct (34.0-46.0) % Neutrophils # (Manual) (1.3-7.7) k/uL Monocytes # (Manual) (0-1.0) k/uL PT (10.0-12.5) sec INR (<1.2) APTT 89.2 H (22.0-30.0) sec Carbon Dioxide (22-30) mmol/L BUN (7-17) mg/dL Creatinine (0.52-1.04) mg/dL Glucose (74-99) mg/dL POC Glucose (mg/dL) (70-110) mg/dL Calcium (8.4-10.2) mg/dL AST (14-36) U/L ALT (4-34) U/L Troponin I 3.240 H* (0.000-0.034) ng/mL Total Protein (6.3-8.2) g/dL Albumin (3.5-5.0) g/dL Procalcitonin (0.02-0.09) ng/mL Urine Appearance Turbid H (Clear) Urine Protein 3+ H (Negative) Urine Blood Large H (Negative) Ur Leukocyte Esterase Large H (Negative) Urine RBC >182 H (0-5) /hpf Urine WBC >182 H (0-5) /hpf Urine WBC Clumps Many H (None) /hpf Urine Bacteria Many H (None) /hpf 10/08/23 10/09/23 10/09/23 Range/Units 21:00 04:30 04:30 WBC 34.3 H (3.8-10.6) k/uL RBC 3.28 L (3.80-5.40) m/uL Hgb 10.0 L (11.4-16.0) gm/dL Hct 30.7 L (34.0-46.0) % Neutrophils # (Manual) 31.20 H (1.3-7.7) k/uL Monocytes # (Manual) 1.72 H (0-1.0) k/uL PT 19.3 H (10.0-12.5) sec INR 1.9 H (<1.2) APTT 83.9 H 61.7 H (22.0-30.0) sec Carbon Dioxide (22-30) mmol/L BUN (7-17) mg/dL Creatinine (0.52-1.04) mg/dL Glucose (74-99) mg/dL POC Glucose (mg/dL) (70-110) mg/dL Calcium (8.4-10.2) mg/dL AST (14-36) U/L ALT (4-34) U/L Troponin I (0.000-0.034) ng/mL Total Protein (6.3-8.2) g/dL Albumin (3.5-5.0) g/dL Procalcitonin (0.02-0.09) ng/mL Urine Appearance (Clear) Urine Protein (Negative) Urine Blood (Negative) Ur Leukocyte Esterase (Negative) Urine RBC (0-5) /hpf Urine WBC (0-5) /hpf Urine WBC Clumps (None) /hpf Urine Bacteria (None) /hpf 10/09/23 Range/Units 04:30 WBC (3.8-10.6) k/uL RBC (3.80-5.40) m/uL Hgb (11.4-16.0) gm/dL Hct (34.0-46.0) % Neutrophils # (Manual) (1.3-7.7) k/uL Monocytes # (Manual) (0-1.0) k/uL PT (10.0-12.5) sec INR (<1.2) APTT (22.0-30.0) sec Carbon Dioxide 18 L (22-30) mmol/L BUN 44 H (7-17) mg/dL Creatinine 3.47 H (0.52-1.04) mg/dL Glucose 183 H (74-99) mg/dL POC Glucose (mg/dL) (70-110) mg/dL Calcium 7.0 L (8.4-10.2) mg/dL AST 856 H (14-36) U/L ALT 282 H (4-34) U/L Troponin I (0.000-0.034) ng/mL Total Protein 5.7 L (6.3-8.2) g/dL Albumin 2.8 L (3.5-5.0) g/dL Procalcitonin (0.02-0.09) ng/mL Urine Appearance (Clear) Urine Protein (Negative) Urine Blood (Negative) Ur Leukocyte Esterase (Negative) Urine RBC (0-5) /hpf Urine WBC (0-5) /hpf Urine WBC Clumps (None) /hpf Urine Bacteria (None) /hpf Microbiology - Last 24 Hours (Table) 10/07/23 20:48 Blood Culture Gram Stain - Preliminary Blood Blood Culture - Preliminary Gram Neg Bacilli 10/07/23 20:47 Blood Culture Gram Stain - Preliminary Blood Blood Culture - Preliminary Gram Neg Bacilli
[2023-10-09] MEDS: PANTOPRAZOLE 40 MG TABLET PO SCH (08:12)
[2023-10-09] MEDS: CHOLECALCIFEROL 25 MCG (1000 IU) TABLET PO SCH (08:12)
[2023-10-09] MEDS: ASPIRIN 81 MG PO SCH (08:13)
[2023-10-09] MEDS: METOPROLOL TARTRATE 25 MG TAB PO SCH ×2 (08:33→19:49)
[2023-10-09] MEDS: HEPARIN SOD,PORK IN 0.45% NACL 25,000 UNIT in 0.45% NACL 1 250ML.BAG IV SCH (08:34)
[2023-10-09] MEDS ORDERED: SODIUM CHLORIDE 0.9% 500 ML 500 ML IV ONE (10:46)
--- NOTE | 2023-10-09 11:22 | P.PN ---
Subjective Patient is seen for follow-up for acute kidney injury. Status post cystoscopy and placement of double-J catheter on the left side yesterday on 10/08/2023. Blood cultures are growing gram-negative bacilli. Next Patient remains hypotensive and levo fed has been increased significantly. Urine output at 15-20 mL per hour. Serum creatinine increased to 3.4 today. Patient is maintained on bicarb drip. Metabolic acidosis has improved. Objective - Vital Signs Vital signs: Vital Signs Temp 97.6 F 10/09/23 08:00 Pulse 85 10/09/23 11:00 Resp 23 10/09/23 11:00 BP 83/45 10/09/23 11:00 Pulse Ox 91 L 10/09/23 11:00 FiO2 100 10/09/23 00:00 Intake & Output 10/08/23 10/09/23 10/09/23 18:59 06:59 18:59 Intake Total 3066.933 1249.283 749.929 Output Total 215 380 205 Balance 2851.933 869.283 544.929 Weight 71.7 kg Intake: IV 2800 1200 500 Dextrose 5%-0.45% NaCl 1, 1100 1200 500 000 ml @ 100 mls/hr IV . [id number] [facility] with Sodium Bicarb (1 Meq/ml) 150 ml Rx#:[id number] Sodium Chloride 0.9% 1, 1000 000 ml @ 999 mls/hr IV . Q1H1M [facility] Rx#:[id number] Intake, IV Titration 166.933 49.283 129.929 Amount Heparin Sod,Pork in 0.45% 61.764 37.574 NaCl 25,000 unit In 0.45 % NaCl 1 250ml.bag @ 12 UNITS/KG/HR 8.004 mls/hr IV .Q24H [facility] Rx#: [id number] Norepinephrine 32 mg In 23.764 11.709 79.929 Sodium Chloride 0.9% 218 ml @ 0.3 MCG/KG/MIN 9.38 mls/hr IV .Q24H [facility] Rx#: [id number] Norepinephrine 4 mg In 81.405 Sodium Chloride 0.9% 250 ml @ 0.03 MCG/KG/MIN 7. 624 mls/hr IV .Q24H [facility] Rx#:[id number] cefTRIAXone 2 gm In 50 Sodium Chloride 0.9% 50 ml @ 100 mls/hr IVPB Q24HR [facility] Rx#:[id number] Oral 100 120 Output: Urine 215 380 205 Estimated Blood Loss 0 Other: Voiding Method Indwelling Catheter Indwelling Catheter Indwelling Catheter - Exam Patient is currently on 100% nonrebreather. She is comfortable Answers simple questions. Examination of the heart S1 and S2 Examination of the lungs decreased breath sounds at the bases Abdomen is soft nontender Examination of lower extremities shows no significant edema SAMPLER AND TEST PREPARER exam is grossly intact - Labs CBC & Chem 7: 10/09/23 04:30 10/09/23 04:30 Labs: Abnormal Lab Results - Last 24 Hours (Table) 10/08/23 10/08/23 10/08/23 Range/Units 09:07 13:02 13:50 WBC (3.8-10.6) k/uL RBC (3.80-5.40) m/uL Hgb (11.4-16.0) gm/dL Hct (34.0-46.0) % Neutrophils # (Manual) (1.3-7.7) k/uL Monocytes # (Manual) (0-1.0) k/uL PT (10.0-12.5) sec INR (<1.2) APTT (22.0-30.0) sec Carbon Dioxide (22-30) mmol/L BUN (7-17) mg/dL Creatinine (0.52-1.04) mg/dL Glucose (74-99) mg/dL POC Glucose (mg/dL) 154 H (70-110) mg/dL Calcium (8.4-10.2) mg/dL AST (14-36) U/L ALT (4-34) U/L Troponin I (0.000-0.034) ng/mL Total Protein (6.3-8.2) g/dL Albumin (3.5-5.0) g/dL Procalcitonin >100.00 H (0.02-0.09) ng/mL Urine Appearance Turbid H (Clear) Urine Protein 3+ H (Negative) Urine Blood Large H (Negative) Ur Leukocyte Esterase Large H (Negative) Urine RBC >182 H (0-5) /hpf Urine WBC >182 H (0-5) /hpf Urine WBC Clumps Many H (None) /hpf Urine Bacteria Many H (None) /hpf 10/08/23 10/08/23 10/08/23 Range/Units 14:31 14:31 21:00 WBC (3.8-10.6) k/uL RBC (3.80-5.40) m/uL Hgb (11.4-16.0) gm/dL Hct (34.0-46.0) % Neutrophils # (Manual) (1.3-7.7) k/uL Monocytes # (Manual) (0-1.0) k/uL PT (10.0-12.5) sec INR (<1.2) APTT 89.2 H 83.9 H (22.0-30.0) sec Carbon Dioxide (22-30) mmol/L BUN (7-17) mg/dL Creatinine (0.52-1.04) mg/dL Glucose (74-99) mg/dL POC Glucose (mg/dL) (70-110) mg/dL Calcium (8.4-10.2) mg/dL AST (14-36) U/L ALT (4-34) U/L Troponin I 3.240 H* (0.000-0.034) ng/mL Total Protein (6.3-8.2) g/dL Albumin (3.5-5.0) g/dL Procalcitonin (0.02-0.09) ng/mL Urine Appearance (Clear) Urine Protein (Negative) Urine Blood (Negative) Ur Leukocyte Esterase (Negative) Urine RBC (0-5) /hpf Urine WBC (0-5) /hpf Urine WBC Clumps (None) /hpf Urine Bacteria (None) /hpf 10/09/23 10/09/23 10/09/23 Range/Units 04:30 04:30 04:30 WBC 34.3 H (3.8-10.6) k/uL RBC 3.28 L (3.80-5.40) m/uL Hgb 10.0 L (11.4-16.0) gm/dL Hct 30.7 L (34.0-46.0) % Neutrophils # (Manual) 31.20 H (1.3-7.7) k/uL Monocytes # (Manual) 1.72 H (0-1.0) k/uL PT 19.3 H (10.0-12.5) sec INR 1.9 H (<1.2) APTT 61.7 H (22.0-30.0) sec Carbon Dioxide 18 L (22-30) mmol/L BUN 44 H (7-17) mg/dL Creatinine 3.47 H (0.52-1.04) mg/dL Glucose 183 H (74-99) mg/dL POC Glucose (mg/dL) (70-110) mg/dL Calcium 7.0 L (8.4-10.2) mg/dL AST 856 H (14-36) U/L ALT 282 H (4-34) U/L Troponin I (0.000-0.034) ng/mL Total Protein 5.7 L (6.3-8.2) g/dL Albumin 2.8 L (3.5-5.0) g/dL Procalcitonin (0.02-0.09) ng/mL Urine Appearance (Clear) Urine Protein (Negative) Urine Blood (Negative) Ur Leukocyte Esterase (Negative) Urine RBC (0-5) /hpf Urine WBC (0-5) /hpf Urine WBC Clumps (None) /hpf Urine Bacteria (None) /hpf Microbiology - Last 24 Hours (Table) 10/07/23 20:48 Blood Culture Gram Stain - Preliminary Blood Blood Culture - Preliminary Gram Neg Bacilli 10/07/23 20:47 Blood Culture Gram Stain - Preliminary Blood Blood Culture - Preliminary Gram Neg Bacilli Assessment and Plan Assessment: 1. Acute kidney injury ATN currently nonoliguric secondary to hypotension and a possible underlying infection. Left hydronephrosis noted on ultrasound of the abdomen. UA shows 3+ protein and WBCs more than 182 2. Metabolic acidosis secondary to acute kidney injury as well as diarrhea. 3. Elevated troponin maintained on IV heparin 4. Influenza virus infection about 1 week ago, currently negative PCR 5. Chronic kidney disease NKF stage IIIB with previous creatinine around 1.5 mg/dL in July 2022. 6. History of nephrolithiasis with moderate to severe left hydronephrosis and bilateral renal calculi status post cystoscopy and left ureteral stent placement Plan: Continue bicarb drip Continue with antibiotics Check chest x-ray IV fluid bolus based on x-ray findings.
--- NOTE | 2023-10-09 11:25 | P.PN ---
Subjective Progress Note Date: 10/09/23 The patient was in the hospital with a urinary tract infection with sepsis, left obstructing ureteral stone with pyelonephrosis. I emergently place a double-J catheter yesterday. She is in the ICU. Her blood pressures better today. She is resting but still somewhat sedated. Objective - Vital Signs Vital signs: Vital Signs Temp 97.6 F 10/09/23 08:00 Pulse 85 10/09/23 11:00 Resp 23 10/09/23 11:00 BP 83/45 10/09/23 11:00 Pulse Ox 91 L 10/09/23 11:00 FiO2 100 10/09/23 00:00 Intake & Output 10/08/23 10/09/23 10/09/23 18:59 06:59 18:59 Intake Total 3066.933 1249.283 749.929 Output Total 215 380 205 Balance 2851.933 869.283 544.929 Weight 71.7 kg Intake: IV 2800 1200 500 Dextrose 5%-0.45% NaCl 1, 1100 1200 500 000 ml @ 100 mls/hr IV . [id number] [facility] with Sodium Bicarb (1 Meq/ml) 150 ml Rx#:[id number] Sodium Chloride 0.9% 1, 1000 000 ml @ 999 mls/hr IV . Q1H1M [facility] Rx#:[id number] Intake, IV Titration 166.933 49.283 129.929 Amount Heparin Sod,Pork in 0.45% 61.764 37.574 NaCl 25,000 unit In 0.45 % NaCl 1 250ml.bag @ 12 UNITS/KG/HR 8.004 mls/hr IV .Q24H [facility] Rx#: [id number] Norepinephrine 32 mg In 23.764 11.709 79.929 Sodium Chloride 0.9% 218 ml @ 0.3 MCG/KG/MIN 9.38 mls/hr IV .Q24H [facility] Rx#: [id number] Norepinephrine 4 mg In 81.405 Sodium Chloride 0.9% 250 ml @ 0.03 MCG/KG/MIN 7. 624 mls/hr IV .Q24H [facility] Rx#:[id number] cefTRIAXone 2 gm In 50 Sodium Chloride 0.9% 50 ml @ 100 mls/hr IVPB Q24HR [facility] Rx#:[id number] Oral 100 120 Output: Urine 215 380 205 Estimated Blood Loss 0 Other: Voiding Method Indwelling Catheter Indwelling Catheter Indwelling Catheter - Labs CBC & Chem 7: 10/09/23 04:30 10/09/23 04:30 Labs: Abnormal Lab Results - Last 24 Hours (Table) 10/08/23 10/08/23 10/08/23 Range/Units 09:07 13:02 13:50 WBC (3.8-10.6) k/uL RBC (3.80-5.40) m/uL Hgb (11.4-16.0) gm/dL Hct (34.0-46.0) % Neutrophils # (Manual) (1.3-7.7) k/uL Monocytes # (Manual) (0-1.0) k/uL PT (10.0-12.5) sec INR (<1.2) APTT (22.0-30.0) sec Carbon Dioxide (22-30) mmol/L BUN (7-17) mg/dL Creatinine (0.52-1.04) mg/dL Glucose (74-99) mg/dL POC Glucose (mg/dL) 154 H (70-110) mg/dL Calcium (8.4-10.2) mg/dL AST (14-36) U/L ALT (4-34) U/L Troponin I (0.000-0.034) ng/mL Total Protein (6.3-8.2) g/dL Albumin (3.5-5.0) g/dL Procalcitonin >100.00 H (0.02-0.09) ng/mL Urine Appearance Turbid H (Clear) Urine Protein 3+ H (Negative) Urine Blood Large H (Negative) Ur Leukocyte Esterase Large H (Negative) Urine RBC >182 H (0-5) /hpf Urine WBC >182 H (0-5) /hpf Urine WBC Clumps Many H (None) /hpf Urine Bacteria Many H (None) /hpf 10/08/23 10/08/23 10/08/23 Range/Units 14:31 14:31 21:00 WBC (3.8-10.6) k/uL RBC (3.80-5.40) m/uL Hgb (11.4-16.0) gm/dL Hct (34.0-46.0) % Neutrophils # (Manual) (1.3-7.7) k/uL Monocytes # (Manual) (0-1.0) k/uL PT (10.0-12.5) sec INR (<1.2) APTT 89.2 H 83.9 H (22.0-30.0) sec Carbon Dioxide (22-30) mmol/L BUN (7-17) mg/dL Creatinine (0.52-1.04) mg/dL Glucose (74-99) mg/dL POC Glucose (mg/dL) (70-110) mg/dL Calcium (8.4-10.2) mg/dL AST (14-36) U/L ALT (4-34) U/L Troponin I 3.240 H* (0.000-0.034) ng/mL Total Protein (6.3-8.2) g/dL Albumin (3.5-5.0) g/dL Procalcitonin (0.02-0.09) ng/mL Urine Appearance (Clear) Urine Protein (Negative) Urine Blood (Negative) Ur Leukocyte Esterase (Negative) Urine RBC (0-5) /hpf Urine WBC (0-5) /hpf Urine WBC Clumps (None) /hpf Urine Bacteria (None) /hpf 10/09/23 10/09/23 10/09/23 Range/Units 04:30 04:30 04:30 WBC 34.3 H (3.8-10.6) k/uL RBC 3.28 L (3.80-5.40) m/uL Hgb 10.0 L (11.4-16.0) gm/dL Hct 30.7 L (34.0-46.0) % Neutrophils # (Manual) 31.20 H (1.3-7.7) k/uL Monocytes # (Manual) 1.72 H (0-1.0) k/uL PT 19.3 H (10.0-12.5) sec INR 1.9 H (<1.2) APTT 61.7 H (22.0-30.0) sec Carbon Dioxide 18 L (22-30) mmol/L BUN 44 H (7-17) mg/dL Creatinine 3.47 H (0.52-1.04) mg/dL Glucose 183 H (74-99) mg/dL POC Glucose (mg/dL) (70-110) mg/dL Calcium 7.0 L (8.4-10.2) mg/dL AST 856 H (14-36) U/L ALT 282 H (4-34) U/L Troponin I (0.000-0.034) ng/mL Total Protein 5.7 L (6.3-8.2) g/dL Albumin 2.8 L (3.5-5.0) g/dL Procalcitonin (0.02-0.09) ng/mL Urine Appearance (Clear) Urine Protein (Negative) Urine Blood (Negative) Ur Leukocyte Esterase (Negative) Urine RBC (0-5) /hpf Urine WBC (0-5) /hpf Urine WBC Clumps (None) /hpf Urine Bacteria (None) /hpf Microbiology - Last 24 Hours (Table) 10/07/23 20:48 Blood Culture Gram Stain - Preliminary Blood Blood Culture - Preliminary Gram Neg Bacilli 10/07/23 20:47 Blood Culture Gram Stain - Preliminary Blood Blood Culture - Preliminary Gram Neg Bacilli Assessment and Plan Assessment: Impression: Urinary tract infection with sepsis, secondary pyonephrosis left due to obstructing ureteral calculus. Status post stent placement Recommendations: Nothing further urologic to be done until her sepsis clears. A later date the stent and stone will be removed. This has been discussed with the family.
--- NOTE | 2023-10-09 11:39 | XR ---
EXAMINATION TYPE: XR chest 1V portable DATE OF EXAM: 10/09/2023 Comparison: 10/08/2023 Clinical History: 87-year-old female increased o2 requirement Findings: Right subclavian CVC tip at the inferior right atrium. Heart moderately enlarged. Diffuse interstitia l opacity is worsened. Bowel moderate right and small left pleural effusions and bibasilar opacity. Impression: Development of CHF with patchy lower lung pulmonary edema. Moderate right and small left pleural effu sions.
[2023-10-09] MEDS: VASOPRESSIN 60 UNIT in SODIUM CHLORIDE 0.9% 150 ML IV SCH (12:41)
--- NOTE | 2023-10-09 13:22 | CA ---
Transthoracic Echo Report Name: Rosalva Church Age: 87 Gender: F : 1935 Exam Date: 10/08/2023 15:06 Exam Location: [place] [facility] Ht (in): 62 Wt (lb): 147 Ordering Physician: Inderjit Diaz MD Attending/Referring Phys: Client Service Consultant Otis Ambrose Procedure CPT: Indications: elevated troponin Cardiac Hx: Technical Quality: Fair Contrast 1: Total Dose (mL): Contrast 2: Total Dose (mL): MEASUREMENTS (Male / Female) Normal Values 2D ECHO LV Diastolic Diameter PLAX 3.8 cm 4.2 - 5.9 / 3.9 - 5.3 cm LV Systolic Diameter PLAX 2.6 cm IVS Diastolic Thickness 0.8 cm 0.6 - 1.0 / 0.6 - 0.9 cm LVPW Diastolic Thickness 1.1 cm 0.6 - 1.0 / 0.6 - 0.9 cm LV Relative Wall Thickness 0.5 RV Internal Dim ED PLAX 3.5 cm LVOT Diameter 1.8 cm Aortic Root Diameter 2.9 cm LA Systolic Diameter LX 2.5 cm 3.0 - 4.0 / 2.7 - 3.8 cm LV Diastolic Volume MOD BP 37.1 cm??? 67 - 155 / 56 - 104 cm??? LV Systolic Volume MOD BP 16.0 cm??? 22 - 58 / 19 - 49 cm??? LV Ejection Fraction MOD BP 56.8 % >= 55 % LV Cardiac Index MOD BP 990.1 cm???/min???m??? LV Diastolic Volume MOD 4C 38.1 cm??? LV Systolic Volume MOD 4C 22.5 cm??? LV Ejection Fraction MOD 4C 41.1 % LV Cardiac Index MOD 4C 735.4 cm???/min???m??? LV Diastolic Length 4C 6.2 cm LV Systolic Length 4C 5.6 cm LV Diastolic Volume MOD 2C 35.8 cm??? LV Systolic Volume MOD 2C 11.2 cm??? LV Ejection Fraction MOD 2C 68.7 % LV Cardiac Index MOD 2C 1154.2 cm???/min???m??? LV Diastolic Length 2C 6.2 cm LV Systolic Length 2C 5.4 cm LA Volume 37.8 cm??? 18 - 58 / 22 - 52 cm??? LA Volume Index 21.9 cm???/m??? 16 - 28 cm???/m??? Ascending Aorta Diameter 3.0 cm DOPPLER AV Peak Velocity 130.4 cm/s AV Peak Gradient 6.8 mmHg AI Peak Velocity 196.7 cm/s AI Peak Gradient 15.5 mmHg AI Pressure Half Time 467.1 ms LVOT Peak Velocity 97.9 cm/s LVOT Peak Gradient 3.8 mmHg LVOT Velocity Time Integral 20.6 cm LVOT Stroke Volume 53.4 cm??? LVOT Stroke Volume Index 31.9 ml/m??? LVOT Cardiac Index 2509.2 cm???/min???m??? AV Area Cont Eq pk 2.0 cm??? MV Peak Velocity 112.6 cm/s MV Peak Gradient 5.1 mmHg MV Mean Velocity 55.5 cm/s MV Mean Gradient 1.5 mmHg MV Velocity Time Integral 33.7 cm MR Peak Velocity 222.2 cm/s MR Peak Gradient 19.8 mmHg Mitral E Point Velocity 111.1 cm/s Mitral A Point Velocity 86.8 cm/s Mitral E to A Ratio 1.3 MV Deceleration Time 157.7 ms MV E' Velocity 7.4 cm/s Mitral E to MV E' Ratio 15.0 TR Peak Velocity 266.7 cm/s TR Peak Gradient 28.5 mmHg Right Ventricular Systolic Press 33.5 mmHg PV Peak Velocity 106.0 cm/s PV Peak Gradient 4.5 mmHg FINDINGS Left Ventricle Normal LV size and wall thickness. Left ventricular ejection fraction is estimated at 50 %. Right Ventricle Normal right ventricular size. RVSP= 33mmHg. Right Atrium Normal right atrial size. Left Atrium Normal left atrial size. Mitral Valve Mild posterior mitral annulus calcification. Mild MR. Aortic Valve Trileaflet aortic valve. Mild AV calcification. Mild AI. Tricuspid Valve Tricuspid valve not well visualized. Moderate TR. Pulmonic Valve Pulmonic valve not well visualized. Mild PI. Pericardium Not well visualized but grossly normal. Aorta Normal size aortic root and proximal ascending aorta. CONCLUSIONS Left ventricular ejection fraction 50% Mild mitral regurgitation Mild aortic insufficiency Moderate tricuspid regurgitation RVSP 33.5 Previewed by: Dr. Cristo Zimmer DO (Electronically Signed) Final Date: 09 October 2023 13:21
--- NOTE | 2023-10-09 13:34 | P.PN ---
Subjective Progress Note Date: 10/09/23 patient is a 87-year-old lady with past medical history significant for hypertension, hyperlipidemia who was brought to the ER for evaluation for syncopal event and altered mental status. Most of the history is taken from the EMR and from the patient, according to EMR, patient walked into patient's room and found her slumped in the bed, at that time patient was very confused, hard to arouse. EMS was called and when they arrived , patient blood pressure was low but patient was responsive. Patient did got one round of epi in on route to the ER. On gathering more information, patient had been complaining of flulike symptoms and was diagnosed with influenza a week ago, patient got over that sickness but then started complaining of nausea and vomiting. Was also complaining of diarrhea. Family also noted the patient was more short of breath than normal. Denied any chest pain or palpitations. There was no complain of any jerking movement of extremity. No complaint of any slurred speech or facial droop. Initial lab work done in the ER showed WBC 17.9, hemoglobin 12, platelet count 75 glucose 168, lactate 8.3 calcium 8.8, total bilirubin 1.2, troponin 2.640 INR 1.4, sodium 134, potassium 4.3, BUNs 34, creatinine 2.95, Influenza A not detected Influenza B not detected RSV not detected COVID-19 not detected EKG done in the ER showed heart rate of 133 , no ST segment elevation or depression seen, no T-wave inversions seen. Chest x-ray done in the ER showed mild cardiomegaly and COPD, chronic appearing changes ER physician talked to the patient's niece and patient, central line was placed in the ER patient was started on Levophed for hypotension. Patient admitted to ICU under internal medicine service 10/09. Patient seen and examined. Patient underwent cystoscopy with left ureteral stent placement on 10/08 by urology. Currently on nonrebreather, denies any chest pain. Labs reviewed, WBC 34.3, hemoglobin 10, platelet count 381, INR 1.9, sodium 137, potassium 3.7, BUN 44, creatinine 3.47 AST 856, AL282 REVIEW OF SYSTEMS: Cannot be obtained as patient is on nonrebreather PHYSICAL EXAMINATION: GENERAL: The patient is alert , looks in acute distress HEENT: Pupils are round and equally reacting to light. EOMI. No scleral icterus. No conjunctival pallor. Normocephalic, atraumatic. No pharyngeal erythema. No thyromegaly. CARDIOVASCULAR: S1 and S2 present. No murmurs, rubs, or gallops. PULMONARY: Diminished breath sounds bilaterally, crackles audible ABDOMEN: Soft, nontender, nondistended, normoactive bowel sounds. No palpable organomegaly. MUSCULOSKELETAL: No joint swelling or deformity. EXTREMITIES: No cyanosis, clubbing, or pedal edema. NEUROLOGICAL: Gross neurological examination did not reveal any focal deficits. SKIN: No rashes. Assessment and plan Septic shock Gram-negative bacteremia Acute hypoxic respiratory failure Acute metabolic encephalopathy Non-ST elevation MS Acute transaminitis Acute kidney injury Left-sided hydronephrosis Syncopal event Fall Hypertension Hyperlipidemia Monitor vital signs Monitor CBC Monitor CMP Continue telemetry monitoring Follow-up on blood cultures, blood cultures growing E. coli Follow-up on urine cultures monitor LFTs Continue IV fluids Continue IV Levophed Continue IV Rocephin Follow-up on 2-D echo Nephrology following Cardiology following, recommended starting patient on aspirin and beta reji, DC heparin Critical care following ID following Urology following, cystoscopy with left ureteral cathetre placement on 10/08 Labs and medication were reviewed.. Continue same treatment. Continue with symptomatic treatment. Resume home medication. Monitor labs and vitals. DVT and GI prophylaxis. Further recommendations as per clinical course of the patient Dictation was produced using [employer] dictation software. please excuse any grammatical, word or spelling errors. Objective - Vital Signs Vital signs: Vital Signs Temp 97.6 F 10/09/23 08:00 Pulse 79 10/09/23 10:00 Resp 20 10/09/23 10:00 BP 86/46 10/09/23 10:00 Pulse Ox 94 L 10/09/23 10:00 FiO2 100 10/09/23 00:00 Intake & Output 10/08/23 10/09/23 10/09/23 18:59 06:59 18:59 Intake Total 3066.933 1249.283 449.929 Output Total 215 380 160 Balance 2851.933 869.283 289.929 Weight 71.7 kg Intake: IV 2800 1200 200 Dextrose 5%-0.45% NaCl 1, 1100 1200 200 000 ml @ 100 mls/hr IV . [id number] [facility] with Sodium Bicarb (1 Meq/ml) 150 ml Rx#:[id number] Sodium Chloride 0.9% 1, 1000 000 ml @ 999 mls/hr IV . Q1H1M [facility] Rx#:[id number] Intake, IV Titration 166.933 49.283 129.929 Amount Heparin Sod,Pork in 0.45% 61.764 37.574 NaCl 25,000 unit In 0.45 % NaCl 1 250ml.bag @ 12 UNITS/KG/HR 8.004 mls/hr IV .Q24H [facility] Rx#: [id number] Norepinephrine 32 mg In 23.764 11.709 79.929 Sodium Chloride 0.9% 218 ml @ 0.3 MCG/KG/MIN 9.38 mls/hr IV .Q24H [facility] Rx#: [id number] Norepinephrine 4 mg In 81.405 Sodium Chloride 0.9% 250 ml @ 0.03 MCG/KG/MIN 7. 624 mls/hr IV .Q24H [facility] Rx#:[id number] cefTRIAXone 2 gm In 50 Sodium Chloride 0.9% 50 ml @ 100 mls/hr IVPB Q24HR [facility] Rx#:[id number] Oral 100 120 Output: Urine 215 380 160 Estimated Blood Loss 0 Other: Voiding Method Indwelling Catheter Indwelling Catheter Indwelling Catheter - Labs CBC & Chem 7: 10/09/23 04:30 10/09/23 04:30 Labs: Abnormal Lab Results - Last 24 Hours (Table) 10/08/23 10/08/23 10/08/23 Range/Units 09:07 13:02 13:50 WBC (3.8-10.6) k/uL RBC (3.80-5.40) m/uL Hgb (11.4-16.0) gm/dL Hct (34.0-46.0) % Neutrophils # (Manual) (1.3-7.7) k/uL Monocytes # (Manual) (0-1.0) k/uL PT (10.0-12.5) sec INR (<1.2) APTT (22.0-30.0) sec Carbon Dioxide (22-30) mmol/L BUN (7-17) mg/dL Creatinine (0.52-1.04) mg/dL Glucose (74-99) mg/dL POC Glucose (mg/dL) 154 H (70-110) mg/dL Calcium (8.4-10.2) mg/dL AST (14-36) U/L ALT (4-34) U/L Troponin I (0.000-0.034) ng/mL Total Protein (6.3-8.2) g/dL Albumin (3.5-5.0) g/dL Procalcitonin >100.00 H (0.02-0.09) ng/mL Urine Appearance Turbid H (Clear) Urine Protein 3+ H (Negative) Urine Blood Large H (Negative) Ur Leukocyte Esterase Large H (Negative) Urine RBC >182 H (0-5) /hpf Urine WBC >182 H (0-5) /hpf Urine WBC Clumps Many H (None) /hpf Urine Bacteria Many H (None) /hpf 10/08/23 10/08/23 10/08/23 Range/Units 14:31 14:31 21:00 WBC (3.8-10.6) k/uL RBC (3.80-5.40) m/uL Hgb (11.4-16.0) gm/dL Hct (34.0-46.0) % Neutrophils # (Manual) (1.3-7.7) k/uL Monocytes # (Manual) (0-1.0) k/uL PT (10.0-12.5) sec INR (<1.2) APTT 89.2 H 83.9 H (22.0-30.0) sec Carbon Dioxide (22-30) mmol/L BUN (7-17) mg/dL Creatinine (0.52-1.04) mg/dL Glucose (74-99) mg/dL POC Glucose (mg/dL) (70-110) mg/dL Calcium (8.4-10.2) mg/dL AST (14-36) U/L ALT (4-34) U/L Troponin I 3.240 H* (0.000-0.034) ng/mL Total Protein (6.3-8.2) g/dL Albumin (3.5-5.0) g/dL Procalcitonin (0.02-0.09) ng/mL Urine Appearance (Clear) Urine Protein (Negative) Urine Blood (Negative) Ur Leukocyte Esterase (Negative) Urine RBC (0-5) /hpf Urine WBC (0-5) /hpf Urine WBC Clumps (None) /hpf Urine Bacteria (None) /hpf 10/09/23 10/09/23 10/09/23 Range/Units 04:30 04:30 04:30 WBC 34.3 H (3.8-10.6) k/uL RBC 3.28 L (3.80-5.40) m/uL Hgb 10.0 L (11.4-16.0) gm/dL Hct 30.7 L (34.0-46.0) % Neutrophils # (Manual) 31.20 H (1.3-7.7) k/uL Monocytes # (Manual) 1.72 H (0-1.0) k/uL PT 19.3 H (10.0-12.5) sec INR 1.9 H (<1.2) APTT 61.7 H (22.0-30.0) sec Carbon Dioxide 18 L (22-30) mmol/L BUN 44 H (7-17) mg/dL Creatinine 3.47 H (0.52-1.04) mg/dL Glucose 183 H (74-99) mg/dL POC Glucose (mg/dL) (70-110) mg/dL Calcium 7.0 L (8.4-10.2) mg/dL AST 856 H (14-36) U/L ALT 282 H (4-34) U/L Troponin I (0.000-0.034) ng/mL Total Protein 5.7 L (6.3-8.2) g/dL Albumin 2.8 L (3.5-5.0) g/dL Procalcitonin (0.02-0.09) ng/mL Urine Appearance (Clear) Urine Protein (Negative) Urine Blood (Negative) Ur Leukocyte Esterase (Negative) Urine RBC (0-5) /hpf Urine WBC (0-5) /hpf Urine WBC Clumps (None) /hpf Urine Bacteria (None) /hpf Microbiology - Last 24 Hours (Table) 10/07/23 20:48 Blood Culture Gram Stain - Preliminary Blood Blood Culture - Preliminary Gram Neg Bacilli 10/07/23 20:47 Blood Culture Gram Stain - Preliminary Blood Blood Culture - Preliminary Gram Neg Bacilli
[2023-10-09] MEDS ORDERED: FUROSEMIDE 10 MG/ML 10 ML VIAL IV STA (14:26)
[2023-10-09] MEDS: NOREPINEPHRINE 32 MG in SODIUM CHLORIDE 0.9% 218 ML IV SCH (14:46)
--- NOTE | 2023-10-09 15:47 | P.PN ---
Subjective Progress Note Date: 10/09/23 This is a very pleasant 87-year-old female patient with a known history of hypertension, hyperlipidemia, gastroesophageal reflux disease, anxiety, breast cancer status post lumpectomy and chemotherapy over 30 years ago. He is admitted to the emergency room yesterday with increasing weakness and altered mental status. She did have influenza approximately 1 week ago but was feeling better until recently. She developed nausea vomiting diarrhea and weakness that led to a fall. She was altered when EMS had arrived. EKG revealed sinus tachycardia with nonspecific ST and T wave abnormalities. Revealed mild cardiomegaly and chronic appearing changes. Some strandy atelectasis at the right lung base. Otherwise no acute pulmonary process. Ultrasound of the bladder revealed moderate to severe left sided hydronephrosis with internal debris. Correlate to exclude infective debris/pyelitis. Bilateral renal calculi measuring up to 9 mm on the left and 6 mm on the right. All cultures are pending. White count 10.6. Hemoglobin 10.8. Platelets 425. INR 1.5. Sodium 134. Potassium 4.0. Bicarb 10. BUN 38. Creatinine 3.00. Glucose 129. AST 781. ALT 175. Troponins 2.64, 4.17, 4.02. ProBNP 1790. TSH 5.32. Influenza screen negative. RSV screen negative. COVID-19 screen negative. In itial lactic acid 8.3. Currently 1.7. She had received 3 L of fluid resuscitation. She is continued on D5W with 3 A of sodium bicarbonate at 100 ML's per hour. She's been initiated on a heparin drip. She is requiring norepinephrine at 0.2 mg/kg/m. He is seen today in consultation in the intens [facility] care unit. She is awake and alert in no acute distress. Feeling a bit better today compared to yesterday. She is oriented 3. She remains quite weak. She is maintaining O2 saturations in the 90s on 2.5 L/m per nasal cannula. Arterial pressures in the low 70s. She had a T-max of 101 on arrival. Currently afebrile. On today's evaluation of 10/09/2023, the patient continues to be critically ill, septic, hypotensive, currently on 100% nonrebreather facemask. Pulse ox is in order of 90-93%. The patient in septic shock. 2 UTI and left pyelonephritis and probable obstructing ureteral calculus. The patient underwent a cystoscopy and insertion of double-J catheter on 10/08/2023. The patient has a positive blood culture with gram-negative bacillus and the patient remains on IV Rocep hin. Hemodynamically, the patient remains hypotensive. The patient is still on high-dose norepinephrine at 0.2 mcg/kg/m and the patient is also on a bicarbonate infusion running at the rate of 100 mL an hour. Chest x-ray showing cardiac megaly with pulmonary vessel congestion. Urine output is diminished in the order of 15-20 mL an hour. The white cell cause of 54.3 with a hemoglobin of 10 and a platelet count of 381. The patient was started on IV heparin regarding some troponin leak and a troponin peak at 3.2. Nevertheless she is feeling any chest pain. PTT currently is at 61 with an INR of 1.9 and a PT of 19.3. BUN is 44 with a creatinine of 3.47 and the patient sustained an acute kidney injury. Sodium is at 137 with a potassium level of 3.7. She is quite lethargic and weak and her meditation is quite diminished at this point in time. [place] neurologic exam is nonfocal. No other issues for now. Echocardiogram showed a preserved LV function with an EF of around 50%. The patient has normal RV, no significant valvular abnormalities was noted. Objective - Vital Signs Vital signs: Vital Signs Temp 97.6 F 10/09/23 08:00 Pulse 89 10/09/23 12:00 Resp 23 10/09/23 12:00 BP 123/65 10/09/23 12:00 Pulse Ox 93 L 10/09/23 12:00 FiO2 100 10/09/23 00:00 Intake & Output 10/08/23 10/09/23 10/09/23 18:59 06:59 18:59 Intake Total 3066.933 1249.283 849.929 Output Total 215 380 235 Balance 2851.933 869.283 614.929 Weight 71.7 kg Intake: IV 2800 1200 600 Dextrose 5%-0.45% NaCl 1, 1100 1200 600 000 ml @ 100 mls/hr IV . [id number] [facility] with Sodium Bicarb (1 Meq/ml) 150 ml Rx#:[id number] Sodium Chloride 0.9% 1, 1000 000 ml @ 999 mls/hr IV . Q1H1M [facility] Rx#:[id number] Intake, IV Titration 166.933 49.283 129.929 Amount Heparin Sod,Pork in 0.45% 61.764 37.574 NaCl 25,000 unit In 0.45 % NaCl 1 250ml.bag @ 12 UNITS/KG/HR 8.004 mls/hr IV .Q24H [facility] Rx#: [id number] Norepinephrine 32 mg In 23.764 11.709 79.929 Sodium Chloride 0.9% 218 ml @ 0.3 MCG/KG/MIN 9.38 mls/hr IV .Q24H [facility] Rx#: [id number] Norepinephrine 4 mg In 81.405 Sodium Chloride 0.9% 250 ml @ 0.03 MCG/KG/MIN 7. 624 mls/hr IV .Q24H [facility] Rx#:[id number] cefTRIAXone 2 gm In 50 Sodium Chloride 0.9% 50 ml @ 100 mls/hr IVPB Q24HR [facility] Rx#:[id number] Oral 100 120 Output: Urine 215 380 235 Estimated Blood Loss 0 Other: Voiding Method Indwelling Catheter Indwelling Catheter Indwelling Catheter - Exam GENERAL EXAM: Alert, weak, 87-year-old female, on 100% nonrebreather facemask, fairly comfortable in no apparent distress. HEAD: Normocephalic. EYES: Normal reaction of pupils, equal size. NOSE: Clear with pink turbinates. THROAT: No erythema or exudates. NECK: No masses, no JVD. CHEST: No chest wall deformity. LUNGS: Equal air entry with no crackles, wheeze, rhonchi or dullness. CVS: S1 and S2 normal with no audible murmur, regular rhythm. ABDOMEN: No hepatosplenomegaly, normal bowel sounds, no guarding or rigidity. SPINE: No scoliosis or deformity SKIN: No rashes CENTRAL NERVOUS SYSTEM: No focal deficits, tone is normal in all 4 extremities. EXTREMITIES: There is no peripheral edema. No clubbing, no cyanosis. Pe ripheral pulses are intact. - Labs CBC & Chem 7: 10/09/23 04:30 10/09/23 04:30 Labs: Abnormal Lab Results - Last 24 Hours (Table) 10/08/23 10/08/23 10/08/23 Range/Units 09:07 13:02 13:50 WBC (3.8-10.6) k/uL RBC (3.80-5.40) m/uL Hgb (11.4-16.0) gm/dL Hct (34.0-46.0) % Neutrophils # (Manual) (1.3-7.7) k/uL Monocytes # (Manual) (0-1.0) k/uL PT (10.0-12.5) sec INR (<1.2) APTT (22.0-30.0) sec Carbon Dioxide (22-30) mmol/L BUN (7-17) mg/dL Creatinine (0.52-1.04) mg/dL Glucose (74-99) mg/dL POC Glucose (mg/dL) 154 H (70-110) mg/dL Calcium (8.4-10.2) mg/dL AST (14-36) U/L ALT (4-34) U/L Troponin I (0.000-0.034) ng/mL Total Protein (6.3-8.2) g/dL Albumin (3.5-5.0) g/dL Procalcitonin >100.00 H (0.02-0.09) ng/mL Urine Appearance Turbid H (Clear) Urine Protein 3+ H (Negative) Urine Blood Large H (Negative) Ur Leukocyte Esterase Large H (Negative) Urine RBC >182 H (0-5) /hpf Urine WBC >182 H (0-5) /hpf Urine WBC Clumps Many H (None) /hpf Urine Bacteria Many H (None) /hpf 10/08/23 10/08/23 10/08/23 Range/Units 14:31 14:31 21:00 WBC (3.8-10.6) k/uL RBC (3.80-5.40) m/uL Hgb (11.4-16.0) gm/dL Hct (34.0-46.0) % Neutrophils # (Manual) (1.3-7.7) k/uL Monocytes # (Manual) (0-1.0) k/uL PT (10.0-12.5) sec INR (<1.2) APTT 89.2 H 83.9 H (22.0-30.0) sec Carbon Dioxide (22-30) mmol/L BUN (7-17) mg/dL Creatinine (0.52-1.04) mg/dL Glucose (74-99) mg/dL POC Glucose (mg/dL) (70-110) mg/dL Calcium (8.4-10.2) mg/dL AST (14-36) U/L ALT (4-34) U/L Troponin I 3.240 H* (0.000-0.034) ng/mL Total Protein (6.3-8.2) g/dL Albumin (3.5-5.0) g/dL Procalcitonin (0.02-0.09) ng/mL Urine Appearance (Clear) Urine Protein (Negative) Urine Blood (Negative) Ur Leukocyte Esterase (Negative) Urine RBC (0-5) /hpf Urine WBC (0-5) /hpf Urine WBC Clumps (None) /hpf Urine Bacteria (None) /hpf 10/09/23 10/09/23 10/09/23 Range/Units 04:30 04:30 04:30 WBC 34.3 H (3.8-10.6) k/uL RBC 3.28 L (3.80-5.40) m/uL Hgb 10.0 L (11.4-16.0) gm/dL Hct 30.7 L (34.0-46.0) % Neutrophils # (Manual) 31.20 H (1.3-7.7) k/uL Monocytes # (Manual) 1.72 H (0-1.0) k/uL PT 19.3 H (10.0-12.5) sec INR 1.9 H (<1.2) APTT 61.7 H (22.0-30.0) sec Carbon Dioxide 18 L (22-30) mmol/L BUN 44 H (7-17) mg/dL Creatinine 3.47 H (0.52-1.04) mg/dL Glucose 183 H (74-99) mg/dL POC Glucose (mg/dL) (70-110) mg/dL Calcium 7.0 L (8.4-10.2) mg/dL AST 856 H (14-36) U/L ALT 282 H (4-34) U/L Troponin I (0.000-0.034) ng/mL Total Protein 5.7 L (6.3-8.2) g/dL Albumin 2.8 L (3.5-5.0) g/dL Procalcitonin (0.02-0.09) ng/mL Urine Appearance (Clear) Urine Protein (Negative) Urine Blood (Negative) Ur Leukocyte Esterase (Negative) Urine RBC (0-5) /hpf Urine WBC (0-5) /hpf Urine WBC Clumps (None) /hpf Urine Bacteria (None) /hpf Microbiology - Last 24 Hours (Table) 10/07/23 20:48 Blood Culture Gram Stain - Preliminary Blood Blood Culture - Preliminary Gram Neg Bacilli 10/07/23 20:47 Blood Culture Gram Stain - Preliminary Blood Blood Culture - Preliminary Gram Neg Bacilli Assessment and Plan Plan: Acute sepsis/septic shock with hypotension requiring pressor support secondary to suspected pyelonephritis. Ultrasound of the kidneys and bladder revealed a m oderate to severe left sided hydronephrosis with internal debris. Correlate to exclude infective debris/pyelitis. Bilateral renal calculi measuring up to 9 mm on the left and 6 mm on the right. She is post cystoscopy and insertion of a double-J stent on the left. Gram-negative sepsis secondary to UTI and the patient currently is on IV Rocephin Septic shock with hypotension currently on pressors with norepinephrine and the patient is oliguric Acute kidney injury secondary to above, with interval worsening in renal function Lactic acidosis secondary to above, improved and the patient remains in a bicarb infusion regarding a component of melena negative metabolic acidosis Acute hypoxemic respiratory failure secondary to above, with bilateral pleural effusion currently on 100% on a be the facemask and the patient has a preserved LV function on echocardiogram Acute non-ST segment elevation myocardial infarction Transaminitis secondary to above New onset hypothyroidism History of hypertension Hyperlipidemia History of breast cancer status post lumpectomy/chemotherapy over 30 years ago Gastroesophageal reflux disease Plan: Continue norepinephrine and titrated dose to maintain any artery pressure above 65 Add vasopressin physiologic dose Continue IV Rocephin Discontinue the IV heparin and utilize subcu heparin 5000 units every 8 hours Continue bicarb infusion at the rate of 100 mL an hour Echocardiogram was noted May need to give Lasix as the patient developed worsening in shortness of breath Continue Synthroid Prognosis is guarded DO NOT RESUSCITATE/DO NOT INTUBATE CODE STATUS We will continue to monitor closely in ICU We'll continue to follow make further recommendations based on her clinical status This is a critical care evaluation that was done and ICU and this evaluation was done in more than 30 minutes. Prognosis poor based above-mentioned comorbiditi es. Time with Patient: Greater than 30
[2023-10-09] MEDS: HEPARIN SODIUM,PORCINE 5,000 UNIT/ML 1 ML VIAL SQ SCH ×2 (15:56→21:42)
--- NOTE | 2023-10-09 16:24 | P.PN ---
Subjective Progress Note Date: 10/09/23 Principal diagnosis: Reason for follow-up is E. coli pyelonephritis sepsis and bacteremia Patient is a 87-year old female with a past medical history pertinent for hypertension hyperlipidemia reflux and breast cancer patient was brought into the hospital for evaluation of increasing weakness mental status changes patient was noticed to be febrile septic secondary to left-sided ureteral stone with hydronephrosis requiring cystoscopy and left ureteral double-J catheter placement patient blood cultures subsequently came back positive with E. coli. On today's evaluation that is 10/09/2023 the patient remains to be afebrile patient is slightly lethargic also noticed to be hypoxic requiring nonrebreather no vomiting diarrhea or any other changes reported by the nursing staff. Patient white count is up to 34.3 creatinine 3.47 blood culture with gram- negative bacilli Objective - Vital Signs Vital signs: Vital Signs Temp 97.6 F 10/09/23 08:00 Pulse 79 10/09/23 10:00 Resp 20 10/09/23 10:00 BP 86/46 10/09/23 10:00 Pulse Ox 94 L 10/09/23 10:00 FiO2 100 10/09/23 00:00 Intake & Output 10/08/23 10/09/23 10/09/23 18:59 06:59 18:59 Intake Total 3066.933 1249.283 449.929 Output Total 215 380 160 Balance 2851.933 869.283 289.929 Weight 71.7 kg Intake: IV 2800 1200 200 Dextrose 5%-0.45% NaCl 1, 1100 1200 200 000 ml @ 100 mls/hr IV . [id number] [facility] with Sodium Bicarb (1 Meq/ml) 150 ml Rx#:[id number] Sodium Chloride 0.9% 1, 1000 000 ml @ 999 mls/hr IV . Q1H1M [facility] Rx#:[id number] Intake, IV Titration 166.933 49.283 129.929 Amount Heparin Sod,Pork in 0.45% 61.764 37.574 NaCl 25,000 unit In 0.45 % NaCl 1 250ml.bag @ 12 UNITS/KG/HR 8.004 mls/hr IV .Q24H [facility] Rx#: [id number] Norepinephrine 32 mg In 23.764 11.709 79.929 Sodium Chloride 0.9% 218 ml @ 0.3 MCG/KG/MIN 9.38 mls/hr IV .Q24H [facility] Rx#: [id number] Norepinephrine 4 mg In 81.405 Sodium Chloride 0.9% 250 ml @ 0.03 MCG/KG/MIN 7. 624 mls/hr IV .Q24H [facility] Rx#:[id number] cefTRIAXone 2 gm In 50 Sodium Chloride 0.9% 50 ml @ 100 mls/hr IVPB Q24HR [facility] Rx#:[id number] Oral 100 120 Output: Urine 215 380 160 Estimated Blood Loss 0 Other: Voiding Method Indwelling Catheter Indwelling Catheter Indwelling Catheter - Exam GENERAL DESCRIPTION: An elderly female lying in bed in no distress RESPIRATORY SYSTEM: Unlabored breathing , decreased breath sounds at bases HEART: S1 S2 regular rate and rhythm , ABDOMEN: Soft , no tenderness EXTREMITIES: No edema feet - Labs CBC & Chem 7: 10/09/23 04:30 10/09/23 04:30 Labs: Abnormal Lab Results - Last 24 Hours (Table) 10/08/23 10/08/23 10/08/23 Range/Units 09:07 13:02 13:50 WBC (3.8-10.6) k/uL RBC (3.80-5.40) m/uL Hgb (11.4-16.0) gm/dL Hct (34.0-46.0) % Neutrophils # (Manual) (1.3-7.7) k/uL Monocytes # (Manual) (0-1.0) k/uL PT (10.0-12.5) sec INR (<1.2) APTT (22.0-30.0) sec Carbon Dioxide (22-30) mmol/L BUN (7-17) mg/dL Creatinine (0.52-1.04) mg/dL Glucose (74-99) mg/dL POC Glucose (mg/dL) 154 H (70-110) mg/dL Calcium (8.4-10.2) mg/dL AST (14-36) U/L ALT (4-34) U/L Troponin I (0.000-0.034) ng/mL Total Protein (6.3-8.2) g/dL Albumin (3.5-5.0) g/dL Procalcitonin >100.00 H (0.02-0.09) ng/mL Urine Appearance Turbid H (Clear) Urine Protein 3+ H (Negative) Urine Blood Large H (Negative) Ur Leukocyte Esterase Large H (Negative) Urine RBC >182 H (0-5) /hpf Urine WBC >182 H (0-5) /hpf Urine WBC Clumps Many H (None) /hpf Urine Bacteria Many H (None) /hpf 10/08/23 10/08/23 10/08/23 Range/Units 14:31 14:31 21:00 WBC (3.8-10.6) k/uL RBC (3.80-5.40) m/uL Hgb (11.4-16.0) gm/dL Hct (34.0-46.0) % Neutrophils # (Manual) (1.3-7.7) k/uL Monocytes # (Manual) (0-1.0) k/uL PT (10.0-12.5) sec INR (<1.2) APTT 89.2 H 83.9 H (22.0-30.0) sec Carbon Dioxide (22-30) mmol/L BUN (7-17) mg/dL Creatinine (0.52-1.04) mg/dL Glucose (74-99) mg/dL POC Glucose (mg/dL) (70-110) mg/dL Calcium (8.4-10.2) mg/dL AST (14-36) U/L ALT (4-34) U/L Troponin I 3.240 H* (0.000-0.034) ng/mL Total Protein (6.3-8.2) g/dL Albumin (3.5-5.0) g/dL Procalcitonin (0.02-0.09) ng/mL Urine Appearance (Clear) Urine Protein (Negative) Urine Blood (Negative) Ur Leukocyte Esterase (Negative) Urine RBC (0-5) /hpf Urine WBC (0-5) /hpf Urine WBC Clumps (None) /hpf Urine Bacteria (None) /hpf 10/09/23 10/09/23 10/09/23 Range/Units 04:30 04:30 04:30 WBC 34.3 H (3.8-10.6) k/uL RBC 3.28 L (3.80-5.40) m/uL Hgb 10.0 L (11.4-16.0) gm/dL Hct 30.7 L (34.0-46.0) % Neutrophils # (Manual) 31.20 H (1.3-7.7) k/uL Monocytes # (Manual) 1.72 H (0-1.0) k/uL PT 19.3 H (10.0-12.5) sec INR 1.9 H (<1.2) APTT 61.7 H (22.0-30.0) sec Carbon Dioxide 18 L (22-30) mmol/L BUN 44 H (7-17) mg/dL Creatinine 3.47 H (0.52-1.04) mg/dL Glucose 183 H (74-99) mg/dL POC Glucose (mg/dL) (70-110) mg/dL Calcium 7.0 L (8.4-10.2) mg/dL AST 856 H (14-36) U/L ALT 282 H (4-34) U/L Troponin I (0.000-0.034) ng/mL Total Protein 5.7 L (6.3-8.2) g/dL Albumin 2.8 L (3.5-5.0) g/dL Procalcitonin (0.02-0.09) ng/mL Urine Appearance (Clear) Urine Protein (Negative) Urine Blood (Negative) Ur Leukocyte Esterase (Negative) Urine RBC (0-5) /hpf Urine WBC (0-5) /hpf Urine WBC Clumps (None) /hpf Urine Bacteria (None) /hpf Microbiology - Last 24 Hours (Table) 10/07/23 20:48 Blood Culture Gram Stain - Preliminary Blood Blood Culture - Preliminary Gram Neg Bacilli 10/07/23 20:47 Blood Culture Gram Stain - Preliminary Blood Blood Culture - Preliminary Gram Neg Bacilli Assessment and Plan (1) Sepsis Current Visit: Yes Status: Acute Code(s): A41.9 - SEPSIS, UNSPECIFIED ORGANISM SNOMED Code(s): 50959375 (2) Leukocytosis Current Visit: Yes Status: Acute Code(s): D72.829 - ELEVATED WHITE BLOOD CELL COUNT, UNSPECIFIED SNOMED Code(s): 138491456 (3) Gram-negative bacteremia Current Visit: Yes Status: Acute Code(s): R78.81 - BACTEREMIA SNOMED Code(s): 396485229291 (4) UTI (urinary tract infection) Current Visit: Yes Status: Acute Code(s): N39.0 - URINARY TRACT INFECTION, SITE NOT SPECIFIED SNOMED Code(s): 26019329 Plan: 1-patient is in the hospital with sepsis/septic shock secondary to complicated UTI in this patient who did have a left-sided hydronephrosis requiring cystoscopy and left-sided double-J ureteral catheter placement likely secondary to enteric gram-negative pathogen 2patient with gram-negative bacteremia source likely left-sided pyelonephritis/complicated UTI. 3patient to continue with Rocephin 2 g daily to which the organism is sensitive for pharmacy did have slight worsening of the white count and need to be mo nitored closely Daughter at the bedside questions concern answered Dictation was produced using [employer] dictation software. please excuse any grammatical, word or spelling errors.
[2023-10-09] MEDS ORDERED: DEXTROSE 5% IN WATER 1,000 ML with SODIUM BICARB (1 MEQ/ML) 150 ML IV SCH (19:15)
[2023-10-09] MEDS: NOREPINEPHRINE 8 MG in SODIUM CHLORIDE 0.9% 250 ML IV SCH (21:39)
[2023-10-10] MEDS: ALPRAZolam 0.25 MG TAB PO PRN ×2 (01:00→22:11)
[2023-10-10 04:25] LABS: HCT 27.7 % (34.0-46.0); HGB 9.2 gm/dL (11.4-16.0); MCH 30.1 pg (25.0-35.0); MCHC 33.1 g/dL (31.0-37.0); MCV 90.9 fL (80.0-100.0); Mean Platelet Volume 10.4; Platelet Count 235 k/uL (150-450); RBC 3.05 m/uL (3.80-5.40); RDW 13.6 % (11.5-15.5); WBC 26.8 k/uL (3.8-10.6)
[2023-10-10 04:45] LABS: African American GFR (CKD) 13 (>60 ml/min/1.73 sqM); Anion Gap 13 mmol/L; Blood Urea Nitrogen 53 mg/dL (7-17); Calcium 6.8 mg/dL (8.4-10.2); Carbon Dioxide 25 mmol/L (22-30); Chloride 99 mmol/L (98-107); Glucose 118 mg/dL (74-99); Non-African American GFR(CKD) 11 (>60 ml/min/1.73 sqM); Potassium 3.5 mmol/L (3.5-5.1); Sodium 137 mmol/L (137-145)
[2023-10-10] MEDS: LEVOTHYROXINE 75 MCG TAB PO SCH (06:37)
--- NOTE | 2023-10-10 07:38 | P.PN ---
Subjective Progress Note Date: 10/10/23 The patient is in the hospital with an obstructing left ureteral calculus, urinary tract infection with sepsis and pyelonephrosis. She had an emergent stent placed on . She is slowly recuperating. Her white count was 34,000 yesterday is 26,000 today. Her pressure is better. Her urine output is increasing and she is starting to diurese. She is still lethargic. Objective - Vital Signs Vital signs: Vital Signs Temp 97.7 F 10/10/23 04:00 Pulse 84 10/10/23 07:00 Resp 18 10/10/23 07:00 BP 100/53 10/10/23 07:00 Pulse Ox 95 10/10/23 07:00 FiO2 75 10/10/23 04:36 Intake & Output 10/09/23 10/10/23 10/10/23 18:59 06:59 18:59 Intake Total 1588.617 858.728 60 Output Total 760 1420 50 Balance 828.617 -561.272 10 Weight 75.1 kg Intake: IV 1200 770 60 0.9 KVO 120 10 Dextrose 5% in Water 1, 550 50 000 ml @ 50 mls/hr IV . Q23H [facility] with Sodium Bicarb (1 Meq/ml) 150 ml Rx#:[id number] Dextrose 5%-0.45% NaCl 1, 1200 100 000 ml @ 100 mls/hr IV . [id number] [facility] with Sodium Bicarb (1 Meq/ml) 150 ml Rx#:[id number] Intake, IV Titration 268.617 88.728 Amount Heparin Sod,Pork in 0.45% 79.862 NaCl 25,000 unit In 0.45 % NaCl 1 250ml.bag @ 12 UNITS/KG/HR 8.004 mls/hr IV .Q24H [facility] Rx#: [id number] Norepinephrine 32 mg In 115.755 Sodium Chloride 0.9% 218 ml @ 0.3 MCG/KG/MIN 9.38 mls/hr IV .Q24H [facility] Rx#: [id number] Norepinephrine 8 mg In 17.318 Sodium Chloride 0.9% 250 ml @ 0.03 MCG/KG/MIN 4. 162 mls/hr IV .Q24H [facility] Rx#:[id number] Vasopressin 60 unit In 23.0 71.410 Sodium Chloride 0.9% 150 ml @ 0.03 UNITS/MIN 4.59 mls/hr IV .Q24H [facility] Rx#: [id number] cefTRIAXone 2 gm In 50 Sodium Chloride 0.9% 50 ml @ 100 mls/hr IVPB Q24HR [facility] Rx#:[id number] Oral 120 Output: Urine 760 1420 50 Other: Voiding Method Indwelling Catheter Indwelling Catheter # Bowel Movements 1 - Labs CBC & Chem 7: 10/10/23 04:10 10/10/23 04:10 Labs: Abnormal Lab Results - Last 24 Hours (Table) 10/09/23 10/10/23 10/10/23 Range/Units 18:04 04:10 04:10 WBC 26.8 H (3.8-10.6) k/uL RBC 3.05 L (3.80-5.40) m/uL Hgb 9.2 L (11.4-16.0) gm/dL Hct 27.7 L (34.0-46.0) % BUN 53 H (7-17) mg/dL Creatinine 3.41 H (0.52-1.04) mg/dL Glucose 118 H (74-99) mg/dL Calcium 6.8 L (8.4-10.2) mg/dL Stool Occult Blood Positive H (Negative) Microbiology - Last 24 Hours (Table) 10/07/23 20:48 Blood Culture Gram Stain - Preliminary Blood Blood Culture - Preliminary Gram Neg Bacilli 10/07/23 20:47 Blood Culture Gram Stain - Preliminary Blood Blood Culture - Preliminary Gram Neg Bacilli Assessment and Plan Assessment: Impression: Urinary tract infection with sepsis, pyonephrosis left, status post stent placement left Recommendations continue with supportive care. Nothing urologic will be done until she recuperates from the sepsis.
[2023-10-10] MEDS: CHOLECALCIFEROL 25 MCG (1000 IU) TABLET PO SCH (08:55)
[2023-10-10] MEDS: METOPROLOL TARTRATE 25 MG TAB PO SCH ×2 (08:55→20:23)
[2023-10-10] MEDS: ASPIRIN 81 MG PO SCH (08:55)
[2023-10-10] MEDS: PANTOPRAZOLE 40 MG TABLET PO SCH (08:55)
[2023-10-10] MEDS: HEPARIN SODIUM,PORCINE 5,000 UNIT/ML 1 ML VIAL SQ SCH ×3 (09:00→22:11)
--- NOTE | 2023-10-10 10:07 | XR ---
EXAMINATION TYPE: XR chest 1V portable DATE OF EXAM: 10/10/2023 9:42 AM CLINICAL INDICATION:Female, 87 years old with history of increase oxygen demands; [facility] COMPARISON: Chest radiographs from 10/09/2023. TECHNIQUE: XR chest 1V portable Frontal view of the chest. FINDINGS: Lungs/Pleura: No evidence of focal consolidation or pneumothorax. Blunting of the costophrenic angles is present. Pulmonary vascularity: Similar pulmonary vascular congestion. Heart/mediastinum: Cardiomediastinal silhouette is enlarged and stable. Musculoskeletal: No acute osseous pathology. Other findings: None Lines/Tubes: Right internal jugular central venous catheter with distal tip at the cavoatrial junction. IMPRESSION: Similar Cardiomegaly, pulmonary vascular congestion and bilateral pleural effusions.
[2023-10-10] MEDS ORDERED: FUROSEMIDE 10 MG/ML 10 ML VIAL IV STA (10:21)
--- NOTE | 2023-10-10 10:33 | P.PN ---
Subjective Patient is seen for follow-up for acute kidney injury. Status post cystoscopy and placement of double-J catheter on the left side on 10/08/2023. Blood cultures are growing gram-negative bacilli. Pressors are much lower today Urine output at 60 -20 mL per hour. Serum creatinine staying at3.4 today. Patient is maintained on bicarb drip. Metabolic acidosis has improved. Objective - Vital Signs Vital signs: Vital Signs Temp 98.6 F 10/10/23 08:00 Pulse 82 10/10/23 09:00 Resp 22 10/10/23 09:00 BP 117/55 10/10/23 09:00 Pulse Ox 95 10/10/23 09:00 FiO2 75 10/10/23 08:45 Intake & Output 10/09/23 10/10/23 10/10/23 18:59 06:59 18:59 Intake Total 1588.617 858.728 180 Output Total 760 1420 90 Balance 828.617 -561.272 90 Weight 75.1 kg Intake: IV 1200 770 180 0.9 KVO 120 30 Dextrose 5% in Water 1, 550 150 000 ml @ 50 mls/hr IV . Q23H [facility] with Sodium Bicarb (1 Meq/ml) 150 ml Rx#:[id number] Dextrose 5%-0.45% NaCl 1, 1200 100 000 ml @ 100 mls/hr IV . [id number] [facility] with Sodium Bicarb (1 Meq/ml) 150 ml Rx#:[id number] Intake, IV Titration 268.617 88.728 Amount Heparin Sod,Pork in 0.45% 79.862 NaCl 25,000 unit In 0.45 % NaCl 1 250ml.bag @ 12 UNITS/KG/HR 8.004 mls/hr IV .Q24H [facility] Rx#: [id number] Norepinephrine 32 mg In 115.755 Sodium Chloride 0.9% 218 ml @ 0.3 MCG/KG/MIN 9.38 mls/hr IV .Q24H [facility] Rx#: [id number] Norepinephrine 8 mg In 17.318 Sodium Chloride 0.9% 250 ml @ 0.03 MCG/KG/MIN 4. 162 mls/hr IV .Q24H [facility] Rx#:[id number] Vasopressin 60 unit In 23.0 71.410 Sodium Chloride 0.9% 150 ml @ 0.03 UNITS/MIN 4.59 mls/hr IV .Q24H [facility] Rx#: [id number] cefTRIAXone 2 gm In 50 Sodium Chloride 0.9% 50 ml @ 100 mls/hr IVPB Q24HR [facility] Rx#:[id number] Oral 120 Output: Urine 760 1420 90 Other: Voiding Method Indwelling Catheter Indwelling Catheter Indwelling Catheter # Bowel Movements 1 - Exam Patient is currently on BiPAP She is comfortable Answers simple questions. 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 - Labs CBC & Chem 7: 10/10/23 04:10 10/10/23 04:10 Labs: Abnormal Lab Results - Last 24 Hours (Table) 10/09/23 10/10/23 10/10/23 Range/Units 18:04 04:10 04:10 WBC 26.8 H (3.8-10.6) k/uL RBC 3.05 L (3.80-5.40) m/uL Hgb 9.2 L (11.4-16.0) gm/dL Hct 27.7 L (34.0-46.0) % BUN 53 H (7-17) mg/dL Creatinine 3.41 H (0.52-1.04) mg/dL Glucose 118 H (74-99) mg/dL Calcium 6.8 L (8.4-10.2) mg/dL Stool Occult Blood Positive H (Negative) Microbiology - Last 24 Hours (Table) 10/07/23 20:48 Blood Culture Gram Stain - Preliminary Blood Blood Culture - Preliminary Gram Neg Bacilli 10/07/23 20:47 Blood Culture Gram Stain - Preliminary Blood Blood Culture - Preliminary Gram Neg Bacilli Assessment and Plan Assessment: 1. Acute kidney injury ATN currently nonoliguric secondary to hypotension and underlying sepsis. Left hydronephrosis noted on ultrasound of the abdomen. UA shows 3+ protein and WBCs more than 182 2. Metabolic acidosis secondary to acute kidney injury as well as diarrhea. 3. Elevated troponin maintained on IV heparin 4. Influenza virus infection about 1 week ago, currently negative PCR 5. Chronic kidney disease NKF stage IIIB with previous creatinine around 1.5 mg/dL in July 2022. 6. History of nephrolithiasis with moderate to severe left hydronephrosis and bilateral renal calculi status post cystoscopy and left ureteral stent placement 7. Gram-negative sepsis Plan: DC bicarb drip Continue with antibiotics Continue to wean down pressors. Status post IV Lasix this morning
--- NOTE | 2023-10-10 10:39 | P.PN ---
Subjective Progress Note Date: 10/10/23 This is a very pleasant 87-year-old female patient with a known history of hypertension, hyperlipidemia, gastroesophageal reflux disease, anxiety, breast cancer status post lumpectomy and chemotherapy over 30 years ago. He is admitted to the emergency room yesterday with increasing weakness and altered mental status. She did have influenza approximately 1 week ago but was feeling better until recently. She developed nausea vomiting diarrhea and weakness that led to a fall. She was altered when EMS had arrived. EKG revealed sinus tachycardia with nonspecific ST and T wave abnormalities. Revealed mild cardiomegaly and chronic appearing changes. Some strandy atelectasis at the right lung base. Otherwise no acute pulmonary process. Ultrasound of the bladder revealed moderate to severe left sided hydronephrosis with internal debris. Correlate to exclude infective debris/pyelitis. Bilateral renal calculi measuring up to 9 mm on the left and 6 mm on the right. All cultures are pending. White count 10.6. Hemoglobin 10.8. Platelets 425. INR 1.5. Sodium 134. Potassium 4.0. Bicarb 10. BUN 38. Creatinine 3.00. Glucose 129. AST 781. ALT 175. Troponins 2.64, 4.17, 4.02. ProBNP 1790. TSH 5.32. Influenza screen negative. RSV screen negative. COVID-19 screen negative. In itial lactic acid 8.3. Currently 1.7. She had received 3 L of fluid resuscitation. She is continued on D5W with 3 A of sodium bicarbonate at 100 ML's per hour. She's been initiated on a heparin drip. She is requiring norepinephrine at 0.2 mg/kg/m. He is seen today in consultation in the intens [facility] care unit. She is awake and alert in no acute distress. Feeling a bit better today compared to yesterday. She is oriented 3. She remains quite weak. She is maintaining O2 saturations in the 90s on 2.5 L/m per nasal cannula. Arterial pressures in the low 70s. She had a T-max of 101 on arrival. Currently afebrile. On today's evaluation of 10/09/2023, the patient continues to be critically ill, septic, hypotensive, currently on 100% nonrebreather facemask. Pulse ox is in order of 90-93%. The patient in septic shock. 2 UTI and left pyelonephritis and probable obstructing ureteral calculus. The patient underwent a cystoscopy and insertion of double-J catheter on 10/08/2023. The patient has a positive blood culture with gram-negative bacillus and the patient remains on IV Rocep hin. Hemodynamically, the patient remains hypotensive. The patient is still on high-dose norepinephrine at 0.2 mcg/kg/m and the patient is also on a bicarbonate infusion running at the rate of 100 mL an hour. Chest x-ray showing cardiac megaly with pulmonary vessel congestion. Urine output is diminished in the order of 15-20 mL an hour. The white cell cause of 54.3 with a hemoglobin of 10 and a platelet count of 381. The patient was started on IV heparin regarding some troponin leak and a troponin peak at 3.2. Nevertheless she is feeling any chest pain. PTT currently is at 61 with an INR of 1.9 and a PT of 19.3. BUN is 44 with a creatinine of 3.47 and the patient sustained an acute kidney injury. Sodium is at 137 with a potassium level of 3.7. She is quite lethargic and weak and her meditation is quite diminished at this point in time. [place] neurologic exam is nonfocal. No other issues for now. Echocardiogram showed a preserved LV function with an EF of around 50%. The patient has normal RV, no significant valvular abnormalities was noted. On 10/10/2023, the patient is being seen for a follow-up. This is an 87-year-old female patient with septic shock and gram-negative urinary tract infection with sepsis. The patient presented with left pyelonephritis and the p atient underwent a cystoscopy and double-J and insertion on 10/08/2023. Her blood cultures positive for gram-negative bacillus and the patient remains on 2 g of IV Rocephin. She was requiring high doses of pressors and currently she is on no pressors and this was weaned off and discontinued yesterday. IV fluids were also reduced down to 10 mL an hour as the patient was having increased pulmonary edema and pulmonary vascular congestion which has resulted into transitioning her from 100% RV the facemask to a BiPAP which is running at 12/6 with an FiO2 of 75%. Current pulse ox is 99%. Chest x-ray as mentioned is consistent with CHF and pulmonary edema. The patient is producing adequate am ount of urine output overall fluid balance is +1 and 2 L over the past 24 hours. Urine output was in the order of 20-50 mL an hour. Based on that, she was given a dose of Lasix 60 mg IV push to be repeated depending on her urine output. This morning, BUN is at 53 with a creatinine of 3.4 and a sodium level is at 137, the validity count is improved and is down to 26.8 with a hemoglobin 9.2 and platelet count of 235. Myrick catheter in place. No hematuria this point in time. She is on no anticoagulation. Cardiac rhythm is sinus. Echocardiogram showed a preserved LV function with an ejection fraction of 50%. Objective - Vital Signs Vital signs: Vital Signs Temp 98.6 F 10/10/23 08:00 Pulse 82 10/10/23 09:00 Resp 22 10/10/23 09:00 BP 117/55 10/10/23 09:00 Pulse Ox 95 10/10/23 09:00 FiO2 75 10/10/23 08:45 Intake & Output 10/09/23 10/10/23 10/10/23 18:59 06:59 18:59 Intake Total 1588.617 858.728 180 Output Total 760 1420 90 Balance 828.617 -561.272 90 Weight 75.1 kg Intake: IV 1200 770 180 0.9 KVO 120 30 Dextrose 5% in Water 1, 550 150 000 ml @ 50 mls/hr IV . Q23H [facility] with Sodium Bicarb (1 Meq/ml) 150 ml Rx#:[id number] Dextrose 5%-0.45% NaCl 1, 1200 100 000 ml @ 100 mls/hr IV . [id number] [facility] with Sodium Bicarb (1 Meq/ml) 150 ml Rx#:[id number] Intake, IV Titration 268.617 88.728 Amount Heparin Sod,Pork in 0.45% 79.862 NaCl 25,000 unit In 0.45 % NaCl 1 250ml.bag @ 12 UNITS/KG/HR 8.004 mls/hr IV .Q24H [facility] Rx#: [id number] Norepinephrine 32 mg In 115.755 Sodium Chloride 0.9% 218 ml @ 0.3 MCG/KG/MIN 9.38 mls/hr IV .Q24H [facility] Rx#: [id number] Norepinephrine 8 mg In 17.318 Sodium Chloride 0.9% 250 ml @ 0.03 MCG/KG/MIN 4. 162 mls/hr IV .Q24H [facility] Rx#:[id number] Vasopressin 60 unit In 23.0 71.410 Sodium Chloride 0.9% 150 ml @ 0.03 UNITS/MIN 4.59 mls/hr IV .Q24H [facility] Rx#: [id number] cefTRIAXone 2 gm In 50 Sodium Chloride 0.9% 50 ml @ 100 mls/hr IVPB Q24HR [facility] Rx#:[id number] Oral 120 Output: Urine 760 1420 90 Other: Voiding Method Indwelling Catheter Indwelling Catheter Indwelling Catheter # Bowel Movements 1 - Exam GENERAL EXAM: Alert, weak, 87-year-old female, on BiPAP at a pressure of 12/6 with an FiO2 of 75% fairly comfortable in no apparent distress. HEAD: Normocephalic. EYES: Normal reaction of pupils, equal size. NOSE: Clear with pink turbinates. THROAT: No erythema or exudates. NECK: No masses, no JVD. CHEST: No chest wall deformity. LUNGS: Equal air entry with no crackles, wheeze, rhonchi or dullness. Diminished breath on the lung bases along with some bibasilar crackles CVS: S1 and S2 normal with no audible murmur, regular rhythm. ABDOMEN: No hepatosplenomegaly, normal bowel sounds, no guarding or rigidity. SPINE: No scoliosis or deformity SKIN: No rashes CENTRAL NERVOUS SYSTEM: No focal deficits, tone is normal in all 4 extremities. EXTREMITIES: There is no peripheral edema. No clubbing, no cyanosis. Peripheral pulses are intact. - Labs CBC & Chem 7: 10/10/23 04:10 10/10/23 04:10 Labs: Abnormal Lab Results - Last 24 Hours (Table) 10/09/23 10/10/23 10/10/23 Range/Units 18:04 04:10 04:10 WBC 26.8 H (3.8-10.6) k/uL RBC 3.05 L (3.80-5.40) m/uL Hgb 9.2 L (11.4-16.0) gm/dL Hct 27.7 L (34.0-46.0) % BUN 53 H (7-17) mg/dL Creatinine 3.41 H (0.52-1.04) mg/dL Glucose 118 H (74-99) mg/dL Calcium 6.8 L (8.4-10.2) mg/dL Stool Occult Blood Positive H (Negative) Microbiology - Last 24 Hours (Table) 10/07/23 20:48 Blood Culture Gram Stain - Preliminary Blood Blood Culture - Preliminary Gram Neg Bacilli 10/07/23 20:47 Blood Culture Gram Stain - Preliminary Blood Blood Culture - Preliminary Gram Neg Bacilli Assessment and Plan Plan: Acute sepsis/septic shock with hypotension requiring pressor support secondary to suspected pyelonephritis. Ultrasound of the kidneys and bladder revealed a moderate to severe left sided hydronephrosis with internal debris. Correlate to exclude infective debris/pyelitis. Bilateral renal calculi measuring up to 9 mm on the left and 6 mm on the right. She is post cystoscopy and insertion of a double-J stent on the left. The patient remains on IV Rocephin awaiting final cultures Gram-negative sepsis secondary to UTI and the patient currently is on IV Rocephin Septic shock improvement within the patient's blood pressure is also improving and the patient is currently off pressors Acute leukocytosis, improving Acute kidney injury secondary to above, with renal function which is stable compared to yesterday. The patient sustained an ATN and she was nonoliguric. Creatinine is at 3.41, slightly improved compared to yesterday. Lactic acidosis secondary to above, improved and the blood work from today shows no significant acidosis and a serum bicarb is up to 25 Acute hypoxemic respiratory failure secondary to above, with bilateral pleural effusion currently on BiPAP and the patient has a preserved LV function on echocardiogram Acute non-ST segment elevation myocardial infarction Transaminitis secondary to above New onset hypothyroidism History of hypertension Hyperlipidemia History of breast cancer status post lumpectomy/chemotherapy over 30 years ago Gastroesophageal reflux disease Plan: Pressors have been discontinued Continue IV Rocephin Awaiting final cultures and sensitivities Discontinue the IV heparin and utilize subcu heparin 5000 units every 8 hours IV fluids to KVO 60 mg of IV Lasix 1 to be repeated Echocardiogram was noted Keep BiPAP for now with a possibility of switching this patient to a high flow nasal cannula if she responds adequately to diuresis Continue Synthroid Prognosis is guarded DO NOT RESUSCITATE/DO NOT INTUBATE CODE STATUS We will continue to monitor closely in ICU We'll continue to follow make further recommendations based on her clinical status This is a critical care evaluation that was done and ICU and this evaluation was done in more than 30 minutes. Prognosis poor based above-mentioned comorbidities. Time with Patient: Greater than 30
[2023-10-10] MEDS ORDERED: LACTATED RINGERS 1,000 ML IV SCH (10:45)
[2023-10-10] MEDS: VASOPRESSIN 60 UNIT in SODIUM CHLORIDE 0.9% 150 ML IV SCH (11:45)
[2023-10-10] MEDS ORDERED: POTASSIUM CHLORIDE 20 MEQ in WATER FOR INJECTION 1 100ML.BAG IVPB STA (11:46)
[2023-10-10 12:52] LABS: INR 1.3 (<1.2); Prothrombin Time 13.6 sec (10.0-12.5)
--- NOTE | 2023-10-10 14:14 | P.PN ---
Subjective Progress Note Date: 10/10/23 patient is a 87-year-old lady with past medical history significant for hypertension, hyperlipidemia who was brought to the ER for evaluation for syncopal event and altered mental status. Most of the history is taken from the EMR and from the patient, according to EMR, patient walked into patient's room and found her slumped in the bed, at that time patient was very confused, hard to arouse. EMS was called and when they arrived , patient blood pressure was low but patient was responsive. Patient did got one round of epi in on route to the ER. On gathering more information, patient had been complaining of flulike symptoms and was diagnosed with influenza a week ago, patient got over that sickness but then started complaining of nausea and vomiting. Was also complaining of diarrhea. Family also noted the patient was more short of breath than normal. Denied any chest pain or palpitations. There was no complain of any jerking movement of extremity. No complaint of any slurred speech or facial droop. Initial lab work done in the ER showed WBC 17.9, hemoglobin 12, platelet count 75 glucose 168, lactate 8.3 calcium 8.8, total bilirubin 1.2, troponin 2.640 INR 1.4, sodium 134, potassium 4.3, BUNs 34, creatinine 2.95, Influenza A not detected Influenza B not detected RSV not detected COVID-19 not detected EKG done in the ER showed heart rate of 133 , no ST segment elevation or depression seen, no T-wave inversions seen. Chest x-ray done in the ER showed mild cardiomegaly and COPD, chronic appearing changes ER physician talked to the patient's niece and patient, central line was placed in the ER patient was started on Levophed for hypotension. Patient admitted to ICU under internal medicine service 10/09. Patient seen and examined. Patient underwent cystoscopy with left ureteral stent placement on 10/08 by urology. Currently on nonrebreather, denies any chest pain. Labs reviewed, WBC 34.3, hemoglobin 10, platelet count 381, INR 1.9, sodium 137, potassium 3.7, BUN 44, creatinine 3.47 AST 856, AL282 10/10. Patient seen and examined. 2-D echo done showed LVEF of 50%, mild mitral regurg, mild aortic insufficiency, moderate tricuspid regurg. She has been weaned off all pressors. Still has shortness of breath REVIEW OF SYSTEMS: Denies any chest pain. Denies any fever or chills. Denies any nausea or vomiting PHYSICAL EXAMINATION: GENERAL: The patient is alert , looks in acute distress HEENT: Pupils are round and equally reacting to light. EOMI. No scleral icterus. No conjunctival pallor. Normocephalic, atraumatic. No pharyngeal erythema. No thyromegaly. CARDIOVASCULAR: S1 and S2 present. No murmurs, rubs, or gallops. PULMONARY: Diminished breath sounds bilaterally, crackles audible ABDOMEN: Soft, nontender, nondistended, normoactive bowel sounds. No palpable organomegaly. MUSCULOSKELETAL: No joint swelling or deformity. EXTREMITIES: No cyanosis, clubbing, or pedal edema. NEUROLOGICAL: Gross neurological examination did not reveal any focal deficits. SKIN: No rashes. Assessment and plan Septic shock Gram-negative bacteremia Acute hypoxic respiratory failure Acute metabolic encephalopathy Non-ST elevation MN Acute transaminitis Acute kidney injury Left-sided hydronephrosis Syncopal event Fall Hypertension Hyperlipidemia Monitor vital signs Monitor CBC Monitor CMP Continue telemetry monitoring Follow-up on blood cultures, blood cultures growing E. coli Follow-up on urine cultures monitor LFTs Strict I's and O's, daily weights, patient received 1 dose of Lasix 60 mg yesterday and another dose of Lasix today Continue IV Rocephin 2-D echo done showed LVEF of 50%, mild mitral regurg, mild aortic insufficiency, moderate tricuspid regurg Nephrology following Cardiology following, recommended starting patient on aspirin and beta reji Critical care following ID following Urology following, cystoscopy with left ureteral cathetre placement on 10/08 Labs and medication were reviewed.. Continue same treatment. Continue with symptomatic treatment. Resume home medication. Monitor labs and vitals. DVT and GI prophylaxis. Further recommendations as per clinical course of the patient Dictation was produced using [employer] dictation software. please excuse any grammatical, word or spelling errors. Objective - Vital Signs Vital signs: Vital Signs Temp 98 F 10/10/23 12:00 Pulse 70 10/10/23 14:00 Resp 19 10/10/23 14:00 BP 95/54 10/10/23 14:00 Pulse Ox 94 L 10/10/23 14:00 FiO2 75 10/10/23 12:00 Intake & Output 10/09/23 10/10/23 10/10/23 18:59 06:59 18:59 Intake Total 1588.617 858.728 320 Output Total 760 1420 315 Balance 828.617 -561.272 5 Weight 75.1 kg Intake: IV 1200 770 320 0.9 KVO 120 120 Dextrose 5% in Water 1, 550 200 000 ml @ 50 mls/hr IV . Q23H [facility] with Sodium Bicarb (1 Meq/ml) 150 ml Rx#:[id number] Dextrose 5%-0.45% NaCl 1, 1200 100 000 ml @ 100 mls/hr IV . [id number] [facility] with Sodium Bicarb (1 Meq/ml) 150 ml Rx#:[id number] Intake, IV Titration 268.617 88.728 Amount Heparin Sod,Pork in 0.45% 79.862 NaCl 25,000 unit In 0.45 % NaCl 1 250ml.bag @ 12 UNITS/KG/HR 8.004 mls/hr IV .Q24H [facility] Rx#: [id number] Norepinephrine 32 mg In 115.755 Sodium Chloride 0.9% 218 ml @ 0.3 MCG/KG/MIN 9.38 mls/hr IV .Q24H [facility] Rx#: [id number] Norepinephrine 8 mg In 17.318 Sodium Chloride 0.9% 250 ml @ 0.03 MCG/KG/MIN 4. 162 mls/hr IV .Q24H [facility] Rx#:[id number] Vasopressin 60 unit In 23.0 71.410 Sodium Chloride 0.9% 150 ml @ 0.03 UNITS/MIN 4.59 mls/hr IV .Q24H [facility] Rx#: [id number] cefTRIAXone 2 gm In 50 Sodium Chloride 0.9% 50 ml @ 100 mls/hr IVPB Q24HR [facility] Rx#:[id number] Oral 120 Output: Urine 760 1420 315 Other: Voiding Method Indwelling Catheter Indwelling Catheter Indwelling Catheter # Bowel Movements 1 - Labs CBC & Chem 7: 10/10/23 04:10 10/10/23 04:10 Labs: Abnormal Lab Results - Last 24 Hours (Table) 10/09/23 10/10/23 10/10/23 Range/Units 18:04 04:10 04:10 WBC 26.8 H (3.8-10.6) k/uL RBC 3.05 L (3.80-5.40) m/uL Hgb 9.2 L (11.4-16.0) gm/dL Hct 27.7 L (34.0-46.0) % PT (10.0-12.5) sec INR (<1.2) BUN 53 H (7-17) mg/dL Creatinine 3.41 H (0.52-1.04) mg/dL Glucose 118 H (74-99) mg/dL Calcium 6.8 L (8.4-10.2) mg/dL Stool Occult Blood Positive H (Negative) 10/10/23 Range/Units 12:29 WBC (3.8-10.6) k/uL RBC (3.80-5.40) m/uL Hgb (11.4-16.0) gm/dL Hct (34.0-46.0) % PT 13.6 H (10.0-12.5) sec INR 1.3 H (<1.2) BUN (7-17) mg/dL Creatinine (0.52-1.04) mg/dL Glucose (74-99) mg/dL Calcium (8.4-10.2) mg/dL Stool Occult Blood (Negative) Microbiology - Last 24 Hours (Table) 10/07/23 20:48 Blood Culture Gram Stain - Final Blood Blood Culture - Final Escherichia coli 10/07/23 20:47 Blood Culture Gram Stain - Final Blood Blood Culture - Final Escherichia coli
[2023-10-10] MEDS: NOREPINEPHRINE 8 MG in SODIUM CHLORIDE 0.9% 250 ML IV SCH (20:19)
--- NOTE | 2023-10-10 22:31 | PN ---
PROGRESS NOTE SUBJECTIVE: Rosalva is an 87-year-old lady who is admitted to hospital with symptoms of nausea, vomiting, diarrhea, and not feeling well with mild elevation of the troponin thought to be secondary to type 2 myocardial infarction. The patient had urosepsis and septic shock. Last night she developed sudden onset respiratory insufficiency and had evidence of congestive heart failure and was given a dose of Lasix following which she diuresed. She is currently on BiPAP. Chest x-ray shows pulmonary congestion and an echocardiogram showed normal LV systolic function. OBJECTIVE: GENERAL: Comfortable at rest. VITAL SIGNS: Heart rate is 70 beats per minute, blood pressure is 94/50, respiratory rate is 18, O2 saturation is 95% on FiO2 of 75%. CHEST: Reveals occasional rhonchi bilaterally. HEART: Reveals first and second heart sounds. No gallop. Has a systolic murmur at the left lower sternal border. ABDOMEN: Soft. EXTREMITIES: Did not reveal any edema. Peripheral pulses are felt. LABORATORY DATA: Labs show a hemoglobin of 9.2, platelet count is 235, potassium is 3.5, BUN is 53, creatinine is 3.4. Troponin on admission was elevated at 3.2. INR is 1.9. ASSESSMENT: 1. Acute-onset diastolic heart failure. 2. Non ST-segment elevation ID. 3. Urosepsis. 4. Elevated troponin coagulopathy related to acute liver injury. PLAN: I am going to stop the IV heparin at this time. Continue rest of her medications. Give her a dose of Lasix. DOMO / ALVINN: [id number] /
[2023-10-11 05:28] LABS: Basophils # (A) 0.1 k/uL (0-0.2); Basophils % (A) 0 %; Eosinophils # (A) 0.4 k/uL (0-0.7); Eosinophils % (A) 2 %; HCT 30.5 % (34.0-46.0); HGB 9.8 gm/dL (11.4-16.0); Hypochromasia Slight; Lymphocytes # (A) 1.5 k/uL (1.0-4.8); Lymphocytes % (A) 6 %; MCH 29.7 pg (25.0-35.0); MCHC 32.2 g/dL (31.0-37.0); MCV 92.2 fL (80.0-100.0); Mean Platelet Volume 9.2; Monocytes # (A) 0.7 k/uL (0-1.0); Monocytes % (A) 3 %; Neutrophils # (A) 21.6 k/uL (1.3-7.7); Neutrophils % (A) 88 %; Platelet Count 222 k/uL (150-450); RBC 3.31 m/uL (3.80-5.40); RDW 13.9 % (11.5-15.5); WBC 24.5 k/uL (3.8-10.6)
[2023-10-11 06:01] LABS: ALT 254 U/L (4-34); AST 394 U/L (14-36); African American GFR (CKD) 13 (>60 ml/min/1.73 sqM); Albumin 2.6 g/dL (3.5-5.0); Alkaline Phosphatase 114 U/L (38-126); Anion Gap 14 mmol/L; Blood Urea Nitrogen 62 mg/dL (7-17); Calcium 7.6 mg/dL (8.4-10.2); Carbon Dioxide 26 mmol/L (22-30); Chloride 100 mmol/L (98-107); Glucose 67 mg/dL (74-99); Non-African American GFR(CKD) 11 (>60 ml/min/1.73 sqM); Potassium 3.7 mmol/L (3.5-5.1); Sodium 140 mmol/L (137-145); Total Bilirubin 0.5 mg/dL (0.2-1.3); Total Protein 5.2 g/dL (6.3-8.2)
[2023-10-11] MEDS: LEVOTHYROXINE 75 MCG TAB PO SCH (06:31)
--- NOTE | 2023-10-11 07:41 | P.PN ---
Subjective Progress Note Date: 10/11/23 The patient is in the hospital, ICU with septic shock due to infected urine and obstructing ureteral stone. On 10/08 a left double-J catheters placed to relieve the pyonephrosis. She is slowly recuperating. She is off the pressors. She does have some pulmonary issues. Congestive heart failure or ARDS. Her cultures are growing E. coli Objective - Vital Signs Vital signs: Vital Signs Temp 98 F 10/11/23 04:00 Pulse 76 10/11/23 06:00 Resp 20 10/11/23 06:00 BP 125/82 10/11/23 06:00 Pulse Ox 87 L 10/11/23 06:00 FiO2 65 10/11/23 04:24 Intake & Output 10/10/23 10/11/23 10/11/23 18:59 06:59 18:59 Intake Total 420.994 220 Output Total 700 655 Balance -279.006 -435 Weight 75.2 kg Intake: IV 420 220 0.9 KVO 220 220 Dextrose 5% in Water 1, 200 000 ml @ 50 mls/hr IV . Q23H [facility] with Sodium Bicarb (1 Meq/ml) 150 ml Rx#:[id number] Intake, IV Titration 0.994 Amount Norepinephrine 8 mg In 0.994 Sodium Chloride 0.9% 250 ml @ 0.03 MCG/KG/MIN 4. 162 mls/hr IV .Q24H [facility] Rx#:[id number] Output: Urine 700 655 Other: Voiding Method Indwelling Catheter Indwelling Catheter - Labs CBC & Chem 7: 10/11/23 04:59 10/11/23 04:59 Labs: Abnormal Lab Results - Last 24 Hours (Table) 10/10/23 10/11/23 10/11/23 Range/Units 12:29 04:59 04:59 WBC 24.5 H (3.8-10.6) k/uL RBC 3.31 L (3.80-5.40) m/uL Hgb 9.8 L (11.4-16.0) gm/dL Hct 30.5 L (34.0-46.0) % Neutrophils # 21.6 H (1.3-7.7) k/uL PT 13.6 H (10.0-12.5) sec INR 1.3 H (<1.2) BUN 62 H (7-17) mg/dL Creatinine 3.47 H (0.52-1.04) mg/dL Glucose 67 L (74-99) mg/dL Calcium 7.6 L (8.4-10.2) mg/dL AST 394 H (14-36) U/L ALT 254 H (4-34) U/L Total Protein 5.2 L (6.3-8.2) g/dL Albumin 2.6 L (3.5-5.0) g/dL Microbiology - Last 24 Hours (Table) 10/09/23 19:05 Blood Culture - Preliminary Blood 10/07/23 20:48 Blood Culture Gram Stain - Final Blood Blood Culture - Final Escherichia coli 10/07/23 20:47 Blood Culture Gram Stain - Final Blood Blood Culture - Final Escherichia coli Assessment and Plan Assessment: Impression: A tract infection with sepsis, septic shock status post placement for obstructing stone Recommendations: From a urologic standpoint nothing further can be done until she has recuperated. At that point in time stone and stent removal will be performed.
[2023-10-11] MEDS: VASOPRESSIN 60 UNIT in SODIUM CHLORIDE 0.9% 150 ML IV SCH (08:31)
[2023-10-11] MEDS: METOPROLOL TARTRATE 25 MG TAB PO SCH ×2 (08:32→21:17)
[2023-10-11] MEDS: HEPARIN SODIUM,PORCINE 5,000 UNIT/ML 1 ML VIAL SQ SCH ×3 (08:39→21:10)
[2023-10-11] MEDS ORDERED: FUROSEMIDE 10 MG/ML 10 ML VIAL IV STA (10:42)
--- NOTE | 2023-10-11 10:42 | P.PN ---
Subjective Progress Note Date: 10/11/23 This is a very pleasant 87-year-old female patient with a known history of hypertension, hyperlipidemia, gastroesophageal reflux disease, anxiety, breast cancer status post lumpectomy and chemotherapy over 30 years ago. He is admitted to the emergency room yesterday with increasing weakness and altered mental status. She did have influenza approximately 1 week ago but was feeling better until recently. She developed nausea vomiting diarrhea and weakness that led to a fall. She was altered when EMS had arrived. EKG revealed sinus tachycardia with nonspecific ST and T wave abnormalities. Revealed mild cardiomegaly and chronic appearing changes. Some strandy atelectasis at the right lung base. Otherwise no acute pulmonary process. Ultrasound of the bladder revealed moderate to severe left sided hydronephrosis with internal debris. Correlate to exclude infective debris/pyelitis. Bilateral renal calculi measuring up to 9 mm on the left and 6 mm on the right. All cultures are pending. White count 10.6. Hemoglobin 10.8. Platelets 425. INR 1.5. Sodium 134. Potassium 4.0. Bicarb 10. BUN 38. Creatinine 3.00. Glucose 129. AST 781. ALT 175. Troponins 2.64, 4.17, 4.02. ProBNP 1790. TSH 5.32. Influenza screen negative. RSV screen negative. COVID-19 screen negative. In itial lactic acid 8.3. Currently 1.7. She had received 3 L of fluid resuscitation. She is continued on D5W with 3 A of sodium bicarbonate at 100 ML's per hour. She's been initiated on a heparin drip. She is requiring norepinephrine at 0.2 mg/kg/m. He is seen today in consultation in the intens [facility] care unit. She is awake and alert in no acute distress. Feeling a bit better today compared to yesterday. She is oriented 3. She remains quite weak. She is maintaining O2 saturations in the 90s on 2.5 L/m per nasal cannula. Arterial pressures in the low 70s. She had a T-max of 101 on arrival. Currently afebrile. On today's evaluation of 10/09/2023, the patient continues to be critically ill, septic, hypotensive, currently on 100% nonrebreather facemask. Pulse ox is in order of 90-93%. The patient in septic shock. 2 UTI and left pyelonephritis and probable obstructing ureteral calculus. The patient underwent a cystoscopy and insertion of double-J catheter on 10/08/2023. The patient has a positive blood culture with gram-negative bacillus and the patient remains on IV Rocep hin. Hemodynamically, the patient remains hypotensive. The patient is still on high-dose norepinephrine at 0.2 mcg/kg/m and the patient is also on a bicarbonate infusion running at the rate of 100 mL an hour. Chest x-ray showing cardiac megaly with pulmonary vessel congestion. Urine output is diminished in the order of 15-20 mL an hour. The white cell cause of 54.3 with a hemoglobin of 10 and a platelet count of 381. The patient was started on IV heparin regarding some troponin leak and a troponin peak at 3.2. Nevertheless she is feeling any chest pain. PTT currently is at 61 with an INR of 1.9 and a PT of 19.3. BUN is 44 with a creatinine of 3.47 and the patient sustained an acute kidney injury. Sodium is at 137 with a potassium level of 3.7. She is quite lethargic and weak and her meditation is quite diminished at this point in time. [place] neurologic exam is nonfocal. No other issues for now. Echocardiogram showed a preserved LV function with an EF of around 50%. The patient has normal RV, no significant valvular abnormalities was noted. On 10/10/2023, the patient is being seen for a follow-up. This is an 87-year-old female patient with septic shock and gram-negative urinary tract infection with sepsis. The patient presented with left pyelonephritis and the p atient underwent a cystoscopy and double-J and insertion on 10/08/2023. Her blood cultures positive for gram-negative bacillus and the patient remains on 2 g of IV Rocephin. She was requiring high doses of pressors and currently she is on no pressors and this was weaned off and discontinued yesterday. IV fluids were also reduced down to 10 mL an hour as the patient was having increased pulmonary edema and pulmonary vascular congestion which has resulted into transitioning her from 100% RV the facemask to a BiPAP which is running at 12/6 with an FiO2 of 75%. Current pulse ox is 99%. Chest x-ray as mentioned is consistent with CHF and pulmonary edema. The patient is producing adequate am ount of urine output overall fluid balance is +1 and 2 L over the past 24 hours. Urine output was in the order of 20-50 mL an hour. Based on that, she was given a dose of Lasix 60 mg IV push to be repeated depending on her urine output. This morning, BUN is at 53 with a creatinine of 3.4 and a sodium level is at 137, the validity count is improved and is down to 26.8 with a hemoglobin 9.2 and platelet count of 235. Myrick catheter in place. No hematuria this point in time. She is on no anticoagulation. Cardiac rhythm is sinus. Echocardiogram showed a preserved LV function with an ejection fraction of 50%. On today's evaluation of 10/11/2023, the patient is lethargic yet arousable. S he is following simple commands speech is profoundly. She remains on BiPAP at a pressure of 12/6 with an FiO2 of 65%. The patient is generating a tidal volume of about 600 and her current respiratory rate is around 18. She has a good mask seal. Her chest x-ray is essentially unchanged compared to yesterday. She has, thyromegaly, mild pulmonary vessel congestion. She was given Lasix yesterday to that of 60 mg IV and the fluid balance is -700 mL over the past 24 hours. Creatinine is stable. Note that the patient partial response to Lasix and the same will be done today. BUN is at 62 with a creatinine of 3.4 and a sodium level is at 140. The white cell count is down to 24 with a hemoglobin of 9.8. As for the blood culture, do not to be positive for E. coli and is sensitive to IV Rocephin which will be continued at a dose of 2 g every 24 hours. Note that the patient is not utilizing any form of pressors for now. IV fluids are KVO. She is resting comfortably in bed. Objective - Vital Signs Vital signs: Vital Signs Temp 98.7 F 10/11/23 08:00 Pulse 23 L 10/11/23 10:00 Resp 10 L 10/11/23 10:00 BP 120/68 10/11/23 10:00 Pulse Ox 89 L 10/11/23 10:00 FiO2 65 10/11/23 08:28 Intake & Output 10/10/23 10/11/23 10/11/23 18:59 06:59 18:59 Intake Total 420.994 220 110 Output Total 700 655 90 Balance -279.006 -435 20 Weight 75.2 kg Intake: IV 420 220 60 0.9 KVO 220 220 60 Dextrose 5% in Water 1, 200 000 ml @ 50 mls/hr IV . Q23H RIYA with Sodium Bicarb (1 Meq/ml) 150 ml Rx#:[id number] Intake, IV Titration 0.994 50 Amount Norepinephrine 8 mg In 0.994 Sodium Chloride 0.9% 250 ml @ 0.03 MCG/KG/MIN 4. 162 mls/hr IV .Q24H RIYA Rx#:[id number] cefTRIAXone 2 gm In 50 Sodium Chloride 0.9% 50 ml @ 100 mls/hr IVPB Q24HR RIYA Rx#:[id number] Output: Urine 700 655 90 Other: Voiding Method Indwelling Catheter Indwelling Catheter Indwelling Catheter - Exam GENERAL EXAM: Alert, weak, 87-year-old female, on BiPAP at a pressure of 12/6 with an FiO2 of 60% fairly comfortable in no apparent distress. HEAD: Normocephalic. EYES: Normal reaction of pupils, equal size. NOSE: Clear with pink turbinates. THROAT: No erythema or exudates. NECK: No masses, no JVD. CHEST: No chest wall deformity. LUNGS: Equal air entry with no crackles, wheeze, rhonchi or dullness. Diminished breath on the lung bases along with some bibasilar crackles CVS: S1 and S2 normal with no audible murmur, regular rhythm. ABDOMEN: No hepatosplenomegaly, normal bowel sounds, no guarding or rigidity. SPINE: No scoliosis or deformity SKIN: No rashes CENTRAL NERVOUS SYSTEM: No focal deficits, tone is normal in all 4 extremities. EXTREMITIES: There is no peripheral edema. No clubbing, no cyanosis. Peripheral pulses are intact. - Labs CBC & Chem 7: 10/11/23 04:59 10/11/23 04:59 Labs: Abnormal Lab Results - Last 24 Hours (Table) 10/10/23 10/11/23 10/11/23 Range/Units 12:29 04:59 04:59 WBC 24.5 H (3.8-10.6) k/uL RBC 3.31 L (3.80-5.40) m/uL Hgb 9.8 L (11.4-16.0) gm/dL Hct 30.5 L (34.0-46.0) % Neutrophils # 21.6 H (1.3-7.7) k/uL PT 13.6 H (10.0-12.5) sec INR 1.3 H (<1.2) BUN 62 H (7-17) mg/dL Creatinine 3.47 H (0.52-1.04) mg/dL Glucose 67 L (74-99) mg/dL Calcium 7.6 L (8.4-10.2) mg/dL AST 394 H (14-36) U/L ALT 254 H (4-34) U/L Total Protein 5.2 L (6.3-8.2) g/dL Albumin 2.6 L (3.5-5.0) g/dL Microbiology - Last 24 Hours (Table) 10/09/23 19:05 Blood Culture - Preliminary Blood 10/07/23 20:48 Blood Culture Gram Stain - Final Blood Blood Culture - Final Escherichia coli 10/07/23 20:47 Blood Culture Gram Stain - Final Blood Blood Culture - Final Escherichia coli Assessment and Plan Plan: Acute sepsis/septic shock with hypotension requiring pressor support secondary to suspected pyelonephritis. Ultrasound of the kidneys and bladder revealed a moderate to severe left sided hydronephrosis with internal debris. Correlate to exclude infective debris/pyelitis. Bilateral renal calculi measuring up to 9 mm on the left and 6 mm on the right. She is post cystoscopy and insertion of a double-J stent on the left. The patient remains on IV Rocephin and the final cultures of the blood were consistent with E. coli E. coli sepsis secondary to UTI and the patient currently is on IV Rocephin Septic shock improvement within the patient's blood pressure is also improving and the patient is currently off pressors Acute leukocytosis, improving Acute kidney injury secondary to above, with renal function which is stable compared to yesterday. The patient sustained an ATN and she was nonoliguric. Creatinine is stable compared to yesterday and the patient is in negative fluid balance Lactic acidosis secondary to above, improved and the blood work from today shows no significant acidosis and a serum bicarb is up to 26 Acute hypoxemic respiratory failure secondary to above, with bilateral pleural effusion currently on BiPAP and the patient has a preserved LV function on echocardiogram Acute non-ST segment elevation myocardial infarction Transaminitis secondary to above New onset hypothyroidism History of hypertension Hyperlipidemia History of breast cancer status post lumpectomy/chemotherapy over 30 years ago Gastroesophageal reflux disease Plan: Continue IV Rocephin heparin 5000 units every 8 hours IV fluids to KVO 60 mg of IV Lasix 1 to be repeated Echocardiogram was noted Keep BiPAP for now with a possibility of switching this patient to a high flow nasal cannula if she responds adequately to diuresis Continue Synthroid Prognosis is guarded DO NOT RESUSCITATE/DO NOT INTUBATE CODE STATUS We will continue to monitor closely in ICU We'll continue to follow make further recommendations based on her clinical status This is a critical care evaluation that was done and ICU and this evaluation was done in more than 30 minutes. Prognosis poor based above-mentioned comorbidities. Time with Patient: Greater than 30
--- NOTE | 2023-10-11 11:53 | XR ---
EXAMINATION TYPE: XR chest 1V portable DATE OF EXAM: 10/11/2023 Comparison: 10/10/2023 Clinical History: 87-year-old female shortness of breath, bilateral pleural effusions; dyspnea Findings: Right CVC tip at the right atrium. Heart remains enlarged. Diffuse interstitial densities persist. On going small to moderate left and small left pleural effusions with bibasilar densities. Impression: 1. Correlate for CHF with ongoing pulmonary vascular congestion, fairly similar to prior. 2. Ongoing small to moderate right and small left pleural effusions with adjacent atelectasis and/or consolidation.
--- NOTE | 2023-10-11 11:53 | P.PN ---
Subjective Patient is seen for follow-up for acute kidney injury. Status post cystoscopy and placement of double-J catheter on the left side on 10/08/2023. Blood cultures are growing E. coli Off of pressors Urine output at 60 -40 mL per hour. Serum creatinine staying at 3.4 today. Patient remains on BiPAP with some increase in oxygen requirement. Objective - Vital Signs Vital signs: Vital Signs Temp 98.7 F 10/11/23 08:00 Pulse 23 L 10/11/23 10:00 Resp 10 L 10/11/23 10:00 BP 120/68 10/11/23 10:00 Pulse Ox 89 L 10/11/23 10:00 FiO2 65 10/11/23 08:28 Intake & Output 10/10/23 10/11/23 10/11/23 18:59 06:59 18:59 Intake Total 420.994 220 150 Output Total 700 655 230 Balance -279.006 -435 -80 Weight 75.2 kg Intake: IV 420 220 100 0.9 KVO 220 220 100 Dextrose 5% in Water 1, 200 000 ml @ 50 mls/hr IV . Q23H RIYA with Sodium Bicarb (1 Meq/ml) 150 ml Rx#:[id number] Intake, IV Titration 0.994 50 Amount Norepinephrine 8 mg In 0.994 Sodium Chloride 0.9% 250 ml @ 0.03 MCG/KG/MIN 4. 162 mls/hr IV .Q24H RIYA Rx#:[id number] cefTRIAXone 2 gm In 50 Sodium Chloride 0.9% 50 ml @ 100 mls/hr IVPB Q24HR RIYA Rx#:[id number] Output: Urine 700 655 230 Other: Voiding Method Indwelling Catheter Indwelling Catheter Indwelling Catheter - Exam Patient is currently on BiPAP, awake She is comfortable Answers simple questions. Examination of the heart S1 and S2 Examination of the lungs decreased breath sounds at the bases Abdomen is soft nontender Examination of lower extremities shows no significant edema MARKER HAND exam is grossly intact - Labs CBC & Chem 7: 10/11/23 04:59 10/11/23 04:59 Labs: Abnormal Lab Results - Last 24 Hours (Table) 10/10/23 10/11/23 10/11/23 Range/Units 12:29 04:59 04:59 WBC 24.5 H (3.8-10.6) k/uL RBC 3.31 L (3.80-5.40) m/uL Hgb 9.8 L (11.4-16.0) gm/dL Hct 30.5 L (34.0-46.0) % Neutrophils # 21.6 H (1.3-7.7) k/uL PT 13.6 H (10.0-12.5) sec INR 1.3 H (<1.2) BUN 62 H (7-17) mg/dL Creatinine 3.47 H (0.52-1.04) mg/dL Glucose 67 L (74-99) mg/dL Calcium 7.6 L (8.4-10.2) mg/dL AST 394 H (14-36) U/L ALT 254 H (4-34) U/L Total Protein 5.2 L (6.3-8.2) g/dL Albumin 2.6 L (3.5-5.0) g/dL Microbiology - Last 24 Hours (Table) 10/09/23 19:05 Blood Culture - Preliminary Blood 10/07/23 20:48 Blood Culture Gram Stain - Final Blood Blood Culture - Final Escherichia coli 10/07/23 20:47 Blood Culture Gram Stain - Final Blood Blood Culture - Final Escherichia coli Assessment and Plan Assessment: 1. Acute kidney injury ATN currently nonoliguric secondary to hypotension and underlying sepsis. Left hydronephrosis noted on ultrasound of the abdomen. UA shows 3+ protein and WBCs more than 182 2. Metabolic acidosis secondary to acute kidney injury as well as diarrhea. 3. Elevated troponin, status post IV heparin, now discontinued 4. Influenza virus infection about 1 week ago, currently negative PCR 5. Chronic kidney disease NKF stage IIIB with previous creatinine around 1.5 mg/dL in July 2022. 6. History of nephrolithiasis with moderate to severe left hydronephrosis and bilateral renal calculi status post cystoscopy and left ureteral stent placement 7. Gram-negative sepsis with blood cultures growing E. coli. Plan: Repeat IV Lasix Repeat labs in a.m. Continue antibiotics
[2023-10-11] MEDS: CHOLECALCIFEROL 25 MCG (1000 IU) TABLET PO SCH (12:27)
[2023-10-11] MEDS: PANTOPRAZOLE 40 MG TABLET PO SCH (12:27)
[2023-10-11] MEDS: ASPIRIN 81 MG PO SCH (12:27)
--- NOTE | 2023-10-11 12:59 | P.PN ---
Subjective Progress Note Date: 10/11/23 patient is a 87-year-old lady with past medical history significant for hypertension, hyperlipidemia who was brought to the ER for evaluation for syncopal event and altered mental status. Most of the history is taken from the EMR and from the patient, according to EMR, patient walked into patient's room and found her slumped in the bed, at that time patient was very confused, hard to arouse. EMS was called and when they arrived , patient blood pressure was low but patient was responsive. Patient did got one round of epi in on route to the ER. On gathering more information, patient had been complaining of flulike symptoms and was diagnosed with influenza a week ago, patient got over that sickness but then started complaining of nausea and vomiting. Was also complaining of diarrhea. Family also noted the patient was more short of breath than normal. Denied any chest pain or palpitations. There was no complain of any jerking movement of extremity. No complaint of any slurred speech or facial droop. Initial lab work done in the ER showed WBC 17.9, hemoglobin 12, platelet count 75 glucose 168, lactate 8.3 calcium 8.8, total bilirubin 1.2, troponin 2.640 INR 1.4, sodium 134, potassium 4.3, BUNs 34, creatinine 2.95, Influenza A not detected Influenza B not detected RSV not detected COVID-19 not detected EKG done in the ER showed heart rate of 133 , no ST segment elevation or depression seen, no T-wave inversions seen. Chest x-ray done in the ER showed mild cardiomegaly and COPD, chronic appearing changes ER physician talked to the patient's niece and patient, central line was placed in the ER patient was started on Levophed for hypotension. Patient admitted to ICU under internal medicine service 10/09. Patient seen and examined. Patient underwent cystoscopy with left ureteral stent placement on 10/08 by urology. Currently on nonrebreather, denies any chest pain. Labs reviewed, WBC 34.3, hemoglobin 10, platelet count 381, INR 1.9, sodium 137, potassium 3.7, BUN 44, creatinine 3.47 AST 856, AL282 10/10. Patient seen and examined. 2-D echo done showed LVEF of 50%, mild mitral regurg, mild aortic insufficiency, moderate tricuspid regurg. She has been weaned off all pressors. Still has shortness of breath 10/11. Patient seen and examined. Currently on BiPAP with FiO2 of 65%. Blood work done this morning showed a lipase of 24.5, 9.8, platelet count 222 sodium 140, potassium 3.7, BUN 62, creatinine 3.47. Complaining that she does not feel well. Gets short of breath on minimal exertion. REVIEW OF SYSTEMS: Denies any chest pain. Denies any fever or chills. Denies any nausea or vomiting PHYSICAL EXAMINATION: GENERAL: The patient is alert , ill looking HEENT: Pupils are round and equally reacting to light. EOMI. No scleral icterus. No conjunctival pallor. Normocephalic, atraumatic. No pharyngeal erythema. No th yromegaly. CARDIOVASCULAR: S1 and S2 present. No murmurs, rubs, or gallops. PULMONARY: Diminished breath sounds bilaterally, crackles audible ABDOMEN: Soft, nontender, nondistended, normoactive bowel sounds. No palpable organomegaly. MUSCULOSKELETAL: No joint swelling or deformity. EXTREMITIES: No cyanosis, clubbing, or pedal edema. NEUROLOGICAL: Gross neurological examination did not reveal any focal deficits. SKIN: No rashes. Assessment and plan Septic shock Gram-negative bacteremia Acute hypoxic respiratory failure Acute metabolic encephalopathy Non-ST elevation HI Acute transaminitis Acute kidney injury Left-sided hydronephrosis Syncopal event Fall Hypertension Hyperlipidemia Monitor vital signs Monitor CBC Monitor CMP Continue telemetry monitoring Aggressive bronchopulmonary hygiene Continue BiPAP as needed Follow-up on blood cultures, blood cultures growing E. coli Follow-up on urine cultures monitor LFTs Strict I's and O's, daily weights, another dose of IV Lasix ordered Continue IV Rocephin 2-D echo done showed LVEF of 50%, mild mitral regurg, mild aortic insufficiency, moderate tricuspid regurg Nephrology following Cardiology following, recommended starting patient on aspirin and beta reji, currently on aspirin and Lopressor Critical care following ID following Urology following, cystoscopy with left ureteral cathetre placement on 10/08, recommend outpatient follow-up for stone removal and stent placement Labs and medication were reviewed.. Continue same treatment. Continue with symptomatic treatment. Resume home medication. Monitor labs and vitals. DVT and GI prophylaxis. Further recommendations as per clinical course of the patient Dictation was produced using [employer] software. please excuse any grammatical, word or spelling errors. Objective - Vital Signs Vital signs: Vital Signs Temp 98.7 F 10/11/23 08:00 Pulse 68 10/11/23 08:00 Resp 15 10/11/23 08:00 BP 117/53 10/11/23 08:00 Pulse Ox 92 L 10/11/23 08:00 FiO2 65 10/11/23 08:28 Intake & Output 10/10/23 10/11/23 10/11/23 18:59 06:59 18:59 Intake Total 420.994 220 110 Output Total 700 655 90 Balance -279.006 -435 20 Weight 75.2 kg Intake: IV 420 220 60 0.9 KVO 220 220 60 Dextrose 5% in Water 1, 200 000 ml @ 50 mls/hr IV . Q23H RIYA with Sodium Bicarb (1 Meq/ml) 150 ml Rx#:[id number] Intake, IV Titration 0.994 50 Amount Norepinephrine 8 mg In 0.994 Sodium Chloride 0.9% 250 ml @ 0.03 MCG/KG/MIN 4. 162 mls/hr IV .Q24H RIYA Rx#:[id number] cefTRIAXone 2 gm In 50 Sodium Chloride 0.9% 50 ml @ 100 mls/hr IVPB Q24HR RIYA Rx#:[id number] Output: Urine 700 655 90 Other: Voiding Method Indwelling Catheter Indwelling Catheter Indwelling Catheter - Labs CBC & Chem 7: 10/11/23 04:59 10/11/23 04:59 Labs: Abnormal Lab Results - Last 24 Hours (Table) 10/10/23 10/11/23 10/11/23 Range/Units 12:29 04:59 04:59 WBC 24.5 H (3.8-10.6) k/uL RBC 3.31 L (3.80-5.40) m/uL Hgb 9.8 L (11.4-16.0) gm/dL Hct 30.5 L (34.0-46.0) % Neutrophils # 21.6 H (1.3-7.7) k/uL PT 13.6 H (10.0-12.5) sec INR 1.3 H (<1.2) BUN 62 H (7-17) mg/dL Creatinine 3.47 H (0.52-1.04) mg/dL Glucose 67 L (74-99) mg/dL Calcium 7.6 L (8.4-10.2) mg/dL AST 394 H (14-36) U/L ALT 254 H (4-34) U/L Total Protein 5.2 L (6.3-8.2) g/dL Albumin 2.6 L (3.5-5.0) g/dL Microbiology - Last 24 Hours (Table) 10/09/23 19:05 Blood Culture - Preliminary Blood 10/07/23 20:48 Blood Culture Gram Stain - Final Blood Blood Culture - Final Escherichia coli 10/07/23 20:47 Blood Culture Gram Stain - Final Blood Blood Culture - Final Escherichia coli
[2023-10-11] MEDS: ALPRAZolam 0.25 MG TAB PO PRN ×2 (15:35→21:10)
[2023-10-11] MEDS: NOREPINEPHRINE 8 MG in SODIUM CHLORIDE 0.9% 250 ML IV SCH (16:08)
--- NOTE | 2023-10-11 17:30 | P.PN ---
Subjective Progress Note Date: 10/10/23 Principal diagnosis: Reason for follow-up is E. coli pyelonephritis sepsis and bacteremia Patient is a 87-year old female with a past medical history pertinent for hypertension hyperlipidemia reflux and breast cancer patient was brought into the hospital for evaluation of increasing weakness mental status changes patient was noticed to be febrile septic secondary to left-sided ureteral stone with hydronephrosis requiring cystoscopy and left ureteral double-J catheter placement patient blood cultures subsequently came back positive with E. coli. On today's evaluation that is 10/10/2023 patient continues to be afebrile, patient is slightly more awake and alert today complaining of feeling weak and did have decreased appetite, patient is currently on 15 L high flow nasal cannula oxygen denies any chest pain no worsening cough and no diarrhea. The patient white count zero 26.8, creatinine 3.41 blood culture with an E. coli that is a sensitive pathogen Objective - Vital Signs Vital signs: Vital Signs Temp 98.6 F 10/10/23 08:00 Pulse 72 10/10/23 11:00 Resp 20 10/10/23 11:00 BP 94/52 10/10/23 11:00 Pulse Ox 95 10/10/23 11:00 FiO2 75 10/10/23 08:45 Intake & Output 10/09/23 10/10/23 10/10/23 18:59 06:59 18:59 Intake Total 1588.617 858.728 260 Output Total 760 1420 170 Balance 828.617 -561.272 90 Weight 75.1 kg Intake: IV 1200 770 260 0.9 KVO 120 60 Dextrose 5% in Water 1, 550 200 000 ml @ 50 mls/hr IV . Q23H RIYA with Sodium Bicarb (1 Meq/ml) 150 ml Rx#:[id number] Dextrose 5%-0.45% NaCl 1, 1200 100 000 ml @ 100 mls/hr IV . [id number] RIYA with Sodium Bicarb (1 Meq/ml) 150 ml Rx#:[id number] Intake, IV Titration 268.617 88.728 Amount Heparin Sod,Pork in 0.45% 79.862 NaCl 25,000 unit In 0.45 % NaCl 1 250ml.bag @ 12 UNITS/KG/HR 8.004 mls/hr IV .Q24H RIYA Rx#: [id number] Norepinephrine 32 mg In 115.755 Sodium Chloride 0.9% 218 ml @ 0.3 MCG/KG/MIN 9.38 mls/hr IV .Q24H [facility]YA Rx#: [id number] Norepinephrine 8 mg In 17.318 Sodium Chloride 0.9% 250 ml @ 0.03 MCG/KG/MIN 4. 162 mls/hr IV .Q24H [facility] Rx#:[id number] Vasopressin 60 unit In 23.0 71.410 Sodium Chloride 0.9% 150 ml @ 0.03 UNITS/MIN 4.59 mls/hr IV .Q24H [facility] Rx#: [id number] cefTRIAXone 2 gm In 50 Sodium Chloride 0.9% 50 ml @ 100 mls/hr IVPB Q24HR [facility] Rx#:[id number] Oral 120 Output: Urine 760 1420 170 Other: Voiding Method Indwelling Catheter Indwelling Catheter Indwelling Catheter # Bowel Movements 1 - Exam GENERAL DESCRIPTION: An elderly female lying in bed in no distress RESPIRATORY SYSTEM: Unlabored breathing , decreased breath sounds at bases HEART: S1 S2 regular rate and rhythm , ABDOMEN: Soft , no tenderness EXTREMITIES: No edema feet - Labs CBC & Chem 7: 10/11/23 04:59 10/11/23 04:59 Labs: Abnormal Lab Results - Last 24 Hours (Table) 10/09/23 10/10/23 10/10/23 Range/Units 18:04 04:10 04:10 WBC 26.8 H (3.8-10.6) k/uL RBC 3.05 L (3.80-5.40) m/uL Hgb 9.2 L (11.4-16.0) gm/dL Hct 27.7 L (34.0-46.0) % BUN 53 H (7-17) mg/dL Creatinine 3.41 H (0.52-1.04) mg/dL Glucose 118 H (74-99) mg/dL Calcium 6.8 L (8.4-10.2) mg/dL Stool Occult Blood Positive H (Negative) Microbiology - Last 24 Hours (Table) 10/07/23 20:48 Blood Culture Gram Stain - Final Blood Blood Culture - Final Escherichia coli 10/07/23 20:47 Blood Culture Gram Stain - Final Blood Blood Culture - Final Escherichia coli Assessment and Plan (1) Sepsis Current Visit: Yes Status: Acute Code(s): A41.9 - SEPSIS, UNSPECIFIED ORGANISM SNOMED Code(s): 00388348 (2) Leukocytosis Current Visit: Yes Status: Acute Code(s): D72.829 - ELEVATED WHITE BLOOD CELL COUNT, UNSPECIFIED SNOMED Code(s): 490864079 (3) Gram-negative bacteremia Current Visit: Yes Status: Acute Code(s): R78.81 - BACTEREMIA SNOMED Code(s): 170441662484 (4) UTI (urinary tract infection) Current Visit: Yes Status: Acute Code(s): N39.0 - URINARY TRACT INFECTION, SITE NOT SPECIFIED SNOMED Code(s): 56387609 Plan: 1-patient is in the hospital with sepsis/septic shock secondary to complicated UTI in this patient who did have a left-sided hydronephrosis requiring cystoscopy and left-sided double-J ureteral catheter placement likely secondary to enteric gram-negative pathogen 2E. coli bacteremia source likely left-sided pyelonephritis complicated UTI sensitive pathogen repeat blood cultures pending. 3patient to continue with Rocephin 2 g daily while monitoring her clinical course closely daughter at the bedside questions were answered Dictation was produced using [employer] dictation software. please excuse any grammatical, word or spelling errors. Time with Patient: Less than 30
--- NOTE | 2023-10-11 17:32 | P.PN ---
Subjective Progress Note Date: 10/11/23 Principal diagnosis: Reason for follow-up is E. coli pyelonephritis sepsis and bacteremia Patient is a 87-year old female with a past medical history pertinent for hypertension hyperlipidemia reflux and breast cancer patient was brought into the hospital for evaluation of increasing weakness mental status changes patient was noticed to be febrile septic secondary to left-sided ureteral stone with hydronephrosis requiring cystoscopy and left ureteral double-J catheter placement patient blood cultures subsequently came back positive with E. coli. On today's evaluation that is 10/11/2023 the patient remains to be afebrile patient complaining of feeling weak and thirsty denies any nausea no vomiting no abdominal pain patient denies any chest pain shortness of breath or cough still requiring high flow nasal cannula oxygen to maintain her sats. The patient white count is down to 24.5, creatinine 3.4 7 repeat blood cultures 10/09/2023 so far negative Objective - Vital Signs Vital signs: Vital Signs Temp 98.7 F 10/11/23 08:00 Pulse 23 L 10/11/23 10:00 Resp 10 L 10/11/23 10:00 BP 120/68 10/11/23 10:00 Pulse Ox 89 L 10/11/23 10:00 FiO2 65 10/11/23 08:28 Intake & Output 10/10/23 10/11/23 10/11/23 18:59 06:59 18:59 Intake Total 420.994 220 150 Output Total 700 655 230 Balance -279.006 -435 -80 Weight 75.2 kg Intake: IV 420 220 100 0.9 KVO 220 220 100 Dextrose 5% in Water 1, 200 000 ml @ 50 mls/hr IV . Q23H [facility]YA with Sodium Bicarb (1 Meq/ml) 150 ml Rx#:[id number] Intake, IV Titration 0.994 50 Amount Norepinephrine 8 mg In 0.994 Sodium Chloride 0.9% 250 ml @ 0.03 MCG/KG/MIN 4. 162 mls/hr IV .Q24H [facility] Rx#:[id number] cefTRIAXone 2 gm In 50 Sodium Chloride 0.9% 50 ml @ 100 mls/hr IVPB Q24HR [facility] Rx#:[id number] Output: Urine 700 655 230 Other: Voiding Method Indwelling Catheter Indwelling Catheter Indwelling Catheter - Exam GENERAL DESCRIPTION: An elderly female lying in bed in no distress RESPIRATORY SYSTEM: Unlabored breathing , decreased breath sounds at bases HEART: S1 S2 regular rate and rhythm , ABDOMEN: Soft , no tenderness EXTREMITIES: No edema feet - Labs CBC & Chem 7: 10/11/23 04:59 10/11/23 04:59 Labs: Abnormal Lab Results - Last 24 Hours (Table) 10/10/23 10/11/23 10/11/23 Range/Units 12:29 04:59 04:59 WBC 24.5 H (3.8-10.6) k/uL RBC 3.31 L (3.80-5.40) m/uL Hgb 9.8 L (11.4-16.0) gm/dL Hct 30.5 L (34.0-46.0) % Neutrophils # 21.6 H (1.3-7.7) k/uL PT 13.6 H (10.0-12.5) sec INR 1.3 H (<1.2) BUN 62 H (7-17) mg/dL Creatinine 3.47 H (0.52-1.04) mg/dL Glucose 67 L (74-99) mg/dL Calcium 7.6 L (8.4-10.2) mg/dL AST 394 H (14-36) U/L ALT 254 H (4-34) U/L Total Protein 5.2 L (6.3-8.2) g/dL Albumin 2.6 L (3.5-5.0) g/dL Microbiology - Last 24 Hours (Table) 10/09/23 19:05 Blood Culture - Preliminary Blood 10/07/23 20:48 Blood Culture Gram Stain - Final Blood Blood Culture - Final Escherichia coli 10/07/23 20:47 Blood Culture Gram Stain - Final Blood Blood Culture - Final Escherichia coli Assessment and Plan (1) Sepsis Current Visit: Yes Status: Acute Code(s): A41.9 - SEPSIS, UNSPECIFIED ORGANISM SNOMED Code(s): 67589473 (2) Leukocytosis Current Visit: Yes Status: Acute Code(s): D72.829 - ELEVATED WHITE BLOOD CELL COUNT, UNSPECIFIED SNOMED Code(s): 654202814 (3) Gram-negative bacteremia Current Visit: Yes Status: Acute Code(s): R78.81 - BACTEREMIA SNOMED Code(s): 947872053606 (4) UTI (urinary tract infection) Current Visit: Yes Status: Acute Code(s): N39.0 - URINARY TRACT INFECTION, SITE NOT SPECIFIED SNOMED Code(s): 28885779 Plan: 1-patient is in the hospital with sepsis/septic shock secondary to complicated UTI in this patient who did have a left-sided hydronephrosis requiring cystoscopy and left-sided double-J ureteral catheter placement likely secondary to enteric gram-negative pathogen 2E. coli bacteremia source likely left-sided pyelonephritis complicated UTI sensitive pathogen repeat blood cultures 10/09/2023 so far negative 3patient to continue with Rocephin 2 g daily to which the organism is sensitive and has good renal penetration this was explained to the daughter at the bedside questions were answered Dictation was produced using [email or web address] dictation software. please excuse any grammatical, word or spelling errors. Time with Patient: Less than 30
[2023-10-11] MEDS: NYSTATIN 100,000 UNIT/ML SUSP 500,000 UNIT/5 ML CUP PO SCH (21:14)
--- NOTE | 2023-10-11 23:07 | PN ---
PROGRESS NOTE HISTORY OF PRESENT ILLNESS: This is an 87-year-old lady, who was admitted to the hospital with nausea, vomiting, diarrhea, who has had mildly elevated troponin. Has urosepsis and septic shock. Continues to have respiratory insufficiency, renal failure, and evidence of congestive heart failure. She received a dose of IV Lasix as per Nephrology. INR is down to 1.3. Her liver enzymes are improving. Continues to have renal insufficiency and continues to feel poorly. PHYSICAL EXAMINATION: VITAL SIGNS: Heart rate is 68 beats per minute. Blood pressure is 120/68. She is saturating at 90% on 12 L of high-flow. CHEST: Reveals crackles at the bases. HEART: Reveals first and second heart sounds. No gallop. EXTREMITIES: Reveal mild bilateral edema. LABORATORY DATA: Labs show a hemoglobin of 9.8, platelet count is 222. Potassium is 3.7, BUN is 62, creatinine is 3.4. ASSESSMENT: 1. Respiratory failure. 2. Acute renal failure. 3. Acute congestive heart failure. PLAN: I will continue to give her intermittent doses of Lasix. MMODL / IJN: [id number] /
[2023-10-12] MEDS: MORPHINE SULFATE 4 MG/ML SYRINGE IV PRN ×2 (01:20→22:20)
[2023-10-12 06:17] LABS: Basophils # (A) 0.1 k/uL (0-0.2); Basophils % (A) 0 %; Eosinophils # (A) 0.5 k/uL (0-0.7); Eosinophils % (A) 3 %; HCT 30.1 % (34.0-46.0); HGB 9.8 gm/dL (11.4-16.0); Lymphocytes # (A) 1.5 k/uL (1.0-4.8); Lymphocytes % (A) 8 %; MCHC 32.6 g/dL (31.0-37.0); MCV 91.8 fL (80.0-100.0); Mean Platelet Volume 9.5; Monocytes # (A) 0.9 k/uL (0-1.0); Monocytes % (A) 5 %; Neutrophils # (A) 16.2 k/uL (1.3-7.7); Neutrophils % (A) 84 %; Platelet Count 227 k/uL (150-450); RBC 3.28 m/uL (3.80-5.40); RDW 13.7 % (11.5-15.5); WBC 19.3 k/uL (3.8-10.6)
[2023-10-12] MEDS: LEVOTHYROXINE 75 MCG TAB PO SCH (06:29)
[2023-10-12 06:36] LABS: African American GFR (CKD) 12 (>60 ml/min/1.73 sqM); Anion Gap 12 mmol/L; Blood Urea Nitrogen 62 mg/dL (7-17); Calcium 7.8 mg/dL (8.4-10.2); Carbon Dioxide 28 mmol/L (22-30); Chloride 98 mmol/L (98-107); Glucose 70 mg/dL (74-99); Non-African American GFR(CKD) 10 (>60 ml/min/1.73 sqM); Sodium 138 mmol/L (137-145)
[2023-10-12 06:46] LABS: Potassium 2.7 mmol/L (3.5-5.1)
[2023-10-12] MEDS ORDERED: Potassium Replacement Protocol 1 EACH MISC MISCELLANE PRN (08:02)
[2023-10-12] MEDS: ASPIRIN 81 MG PO SCH (08:40)
[2023-10-12] MEDS: PANTOPRAZOLE 40 MG TABLET PO SCH (08:40)
[2023-10-12] MEDS: CHOLECALCIFEROL 25 MCG (1000 IU) TABLET PO SCH (08:40)
[2023-10-12] MEDS: NYSTATIN 100,000 UNIT/ML SUSP 500,000 UNIT/5 ML CUP PO SCH ×4 (08:40→20:49)
[2023-10-12] MEDS: HEPARIN SODIUM,PORCINE 5,000 UNIT/ML 1 ML VIAL SQ SCH ×3 (08:40→20:49)
[2023-10-12] MEDS: POTASSIUM CHLORIDE 20 MEQ in WATER FOR INJECTION 1 100ML.BAG IVPB SCH ×3 (08:40→14:46)
[2023-10-12] MEDS ORDERED: POTASSIUM CHLORIDE 10 MEQ in WATER FOR INJECTION 1 100ML.BAG IVPB SCH (09:00)
--- NOTE | 2023-10-12 09:29 | XR ---
EXAMINATION TYPE: XR chest 1V portable DATE OF EXAM: 10/12/2023 Comparison: 10/11/2023 Clinical History: 87-year-old female shortness of breath, bilateral pleural effusions; dyspnea Findings: Right subclavian CVC tip upper right atrium. Heart remains borderline to mildly enlarged. Hyperinflat ion. Interstitial density in lower lungs with underlying small bilateral pleural effusions and retroc ardiac opacity. Impression: COPD with ongoing mild pulmonary vascular congestion. Ongoing small bilateral pleural effusions with adjacent atelectasis and/or consolidation especially in the retrocardiac region.
[2023-10-12] MEDS ORDERED: FUROSEMIDE 10 MG/ML 4 ML VIAL IV STA (09:47)
[2023-10-12] MEDS ORDERED: LORazepam 2 MG/ML INJ ONE (10:30)
--- NOTE | 2023-10-12 10:57 | P.PN ---
Subjective Patient is seen in follow-up for acute kidney injury on chronic kidney disease. Renal function slightly worse. Nonoliguric. Oral intake poor. Vital signs are stable. General: NAD. HEENT: Head exam is unremarkable. On Airvo. LUNGS: Scattered rhonchi. HEART: Rate and Rhythm are regular. ABDOMEN: No distention. EXTREMITITES: No edema. Objective - Vital Signs Vital signs: Vital Signs Temp 98.3 F 10/12/23 04:00 Pulse 67 10/12/23 09:00 Resp 14 10/12/23 09:00 BP 106/49 10/12/23 09:00 Pulse Ox 97 10/12/23 10:14 FiO2 55 10/12/23 10:14 Intake & Output 10/11/23 10/12/23 10/12/23 18:59 06:59 18:59 Intake Total 310 220 140 Output Total 1480 950 215 Balance -1170 -730 -75 Weight 76.2 kg Intake: IV 260 220 140 0.9 KVO 260 220 40 Potassium Chloride 20 meq 100 In Water For Injection 1 100ml.bag @ 50 mls/hr IVPB Q2H [facility]YA Rx#: [id number] Intake, IV Titration 50 Amount cefTRIAXone 2 gm In 50 Sodium Chloride 0.9% 50 ml @ 100 mls/hr IVPB Q24HR [facility] Rx#:[id number] Output: Urine 1480 950 215 Other: Voiding Method Indwelling Catheter Indwelling Catheter Indwelling Catheter - Labs CBC & Chem 7: 10/12/23 05:38 10/12/23 05:38 Labs: Abnormal Lab Results - Last 24 Hours (Table) 10/12/23 10/12/23 Range/Units 05:38 05:38 WBC 19.3 H (3.8-10.6) k/uL RBC 3.28 L (3.80-5.40) m/uL Hgb 9.8 L (11.4-16.0) gm/dL Hct 30.1 L (34.0-46.0) % Neutrophils # 16.2 H (1.3-7.7) k/uL Potassium 2.7 L* (3.5-5.1) mmol/L BUN 62 H (7-17) mg/dL Creatinine 3.67 H (0.52-1.04) mg/dL Glucose 70 L (74-99) mg/dL Calcium 7.8 L (8.4-10.2) mg/dL Microbiology - Last 24 Hours (Table) 10/09/23 19:05 Blood Culture - Preliminary Blood Assessment and Plan Plan: Assessment: 1. Acute kidney injury secondary to ATN secondary to hypotension. Now off vasopressors. Also component of obstructive uropathy. Creatinine 3.67 today. 2. Hypokalemia from diuresis and poor intake. Being replaced. 3. Left hydronephrosis status post ureteral stent placement on 10/08/2023. 4. E. coli bacteremia on antibiotics. 5. Acute on chronic diastolic CHF with moderate tricuspid regurgitation. 6. Chronic kidney disease stage IIIB with baseline creatinine 1.4-1.5 in July 2022. Suspect nephrosclerosis. 7. Metabolic acidosis secondary to acute kidney injury and GI losses. Resolved. Plan: Lasix 40 mg IV once today. Potassium being replaced. Wean FiO2. Avoid nephrotoxins. Continue to monitor renal function and urine output.
[2023-10-12] MEDS: METOPROLOL TARTRATE 25 MG TAB PO SCH ×2 (11:23→20:44)
[2023-10-12] MEDS ORDERED: FUROSEMIDE 10 MG/ML 4 ML VIAL ONE (11:37)
--- NOTE | 2023-10-12 11:47 | P.PN ---
Subjective Progress Note Date: 10/12/23 This is a very pleasant 87-year-old female patient with a known history of hypertension, hyperlipidemia, gastroesophageal reflux disease, anxiety, breast cancer status post lumpectomy and chemotherapy over 30 years ago. He is admitted to the emergency room yesterday with increasing weakness and altered mental status. She did have influenza approximately 1 week ago but was feeling better until recently. She developed nausea vomiting diarrhea and weakness that led to a fall. She was altered when EMS had arrived. EKG revealed sinus tachycardia with nonspecific ST and T wave abnormalities. Revealed mild cardiomegaly and chronic appearing changes. Some strandy atelectasis at the right lung base. Otherwise no acute pulmonary process. Ultrasound of the bladder revealed moderate to severe left sided hydronephrosis with internal debris. Correlate to exclude infective debris/pyelitis. Bilateral renal calculi measuring up to 9 mm on the left and 6 mm on the right. All cultures are pending. White count 10.6. Hemoglobin 10.8. Platelets 425. INR 1.5. Sodium 134. Potassium 4.0. Bicarb 10. BUN 38. Creatinine 3.00. Glucose 129. AST 781. ALT 175. Troponins 2.64, 4.17, 4.02. ProBNP 1790. TSH 5.32. Influenza screen negative. RSV screen negative. COVID-19 screen negative. In itial lactic acid 8.3. Currently 1.7. She had received 3 L of fluid resuscitation. She is continued on D5W with 3 A of sodium bicarbonate at 100 ML's per hour. She's been initiated on a heparin drip. She is requiring norepinephrine at 0.2 mg/kg/m. He is seen today in consultation in the [facility] care unit. She is awake and alert in no acute distress. Feeling a bit better today compared to yesterday. She is oriented 3. She remains quite weak. She is maintaining O2 saturations in the 90s on 2.5 L/m per nasal cannula. Arterial pressures in the low 70s. She had a T-max of 101 on arrival. Currently afebrile. On today's evaluation of 10/09/2023, the patient continues to be critically ill, septic, hypotensive, currently on 100% nonrebreather facemask. Pulse ox is in order of 90-93%. The patient in septic shock. 2 UTI and left pyelonephritis and probable obstructing ureteral calculus. The patient underwent a cystoscopy and insertion of double-J catheter on 10/08/2023. The patient has a positive blood culture with gram-negative bacillus and the patient remains on IV Rocep hin. Hemodynamically, the patient remains hypotensive. The patient is still on high-dose norepinephrine at 0.2 mcg/kg/m and the patient is also on a bicarbonate infusion running at the rate of 100 mL an hour. Chest x-ray showing cardiac megaly with pulmonary vessel congestion. Urine output is diminished in the order of 15-20 mL an hour. The white cell cause of 54.3 with a hemoglobin of 10 and a platelet count of 381. The patient was started on IV heparin regarding some troponin leak and a troponin peak at 3.2. Nevertheless she is feeling any chest pain. PTT currently is at 61 with an INR of 1.9 and a PT of 19.3. BUN is 44 with a creatinine of 3.47 and the patient sustained an acute kidney injury. Sodium is at 137 with a potassium level of 3.7. She is quite lethargic and weak and her meditation is quite diminished at this point in time. Agency neurologic exam is nonfocal. No other issues for now. Echocardiogram showed a preserved LV function with an EF of around 50%. The patient has normal RV, no significant valvular abnormalities was noted. On 10/10/2023, the patient is being seen for a follow-up. This is an 87-year-old female patient with septic shock and gram-negative urinary tract infection with sepsis. The patient presented with left pyelonephritis and the p atient underwent a cystoscopy and double-J and insertion on 10/08/2023. Her blood cultures positive for gram-negative bacillus and the patient remains on 2 g of IV Rocephin. She was requiring high doses of pressors and currently she is on no pressors and this was weaned off and discontinued yesterday. IV fluids were also reduced down to 10 mL an hour as the patient was having increased pulmonary edema and pulmonary vascular congestion which has resulted into transitioning her from 100% RV the facemask to a BiPAP which is running at 12/6 with an FiO2 of 75%. Current pulse ox is 99%. Chest x-ray as mentioned is consistent with CHF and pulmonary edema. The patient is producing adequate am ount of urine output overall fluid balance is +1 and 2 L over the past 24 hours. Urine output was in the order of 20-50 mL an hour. Based on that, she was given a dose of Lasix 60 mg IV push to be repeated depending on her urine output. This morning, BUN is at 53 with a creatinine of 3.4 and a sodium level is at 137, the validity count is improved and is down to 26.8 with a hemoglobin 9.2 and platelet count of 235. Myrick catheter in place. No hematuria this point in time. She is on no anticoagulation. Cardiac rhythm is sinus. Echocardiogram showed a preserved LV function with an ejection fraction of 50%. On today's evaluation of 10/11/2023, the patient is lethargic yet arousable. S he is following simple commands speech is profoundly. She remains on BiPAP at a pressure of 12/6 with an FiO2 of 65%. The patient is generating a tidal volume of about 600 and her current respiratory rate is around 18. She has a good mask seal. Her chest x-ray is essentially unchanged compared to yesterday. She has, thyromegaly, mild pulmonary vessel congestion. She was given Lasix yesterday to that of 60 mg IV and the fluid balance is -700 mL over the past 24 hours. Creatinine is stable. Note that the patient partial response to Lasix and the same will be done today. BUN is at 62 with a creatinine of 3.4 and a sodium level is at 140. The white cell count is down to 24 with a hemoglobin of 9.8. As for the blood culture, do not to be positive for E. coli and is sensitive to IV Rocephin which will be continued at a dose of 2 g every 24 hours. Note that the patient is not utilizing any form of pressors for now. IV fluids are KVO. She is resting comfortably in bed. On today's evaluation of 10/12/2023, the patient is awake and alert and she is communicating. She is aware that she is in the hospital. She is currently on high flow oxygen and she was taken off the BiPAP. High flow oxygen is running at 50% FiO2 at 50 L. She is able to maintain a saturation of 96%. Meanwhile, she is afebrile. She is hemodynamically stable picture is off pressors. The white cell count is improving. She is producing urine output. The chest x-ray still showing hazy bilateral pulmonary infiltrates and the patient was given another dose of Lasix 40 mg IV push by nephrology. Myrick catheter in place. The patient is producing adequate amount of urine output. In terms of her labs from today, the white cell count is down to 19, hemoglobin is at 9.8, potassium levels at 2.7 and needs to be replaced, BUN is at 62 with a creatinine of 3.6 and serum bicarb is at 28. Note that this is an acute on top of the chronic kidney injury related to septic shock. As mentioned earlier, she has E. coli, she is on IV Rocephin. She is tolerating small amounts of soft diet. Objective - Vital Signs Vital signs: Vital Signs Temp 98.3 F 10/12/23 04:00 Pulse 67 10/12/23 09:00 Resp 14 10/12/23 09:00 BP 106/49 10/12/23 09:00 Pulse Ox 97 10/12/23 10:14 FiO2 55 10/12/23 10:14 Intake & Output 10/11/23 10/12/23 10/12/23 18:59 06:59 18:59 Intake Total 310 220 140 Output Total 1480 950 215 Balance -1170 -730 -75 Weight 76.2 kg 76.2 kg Intake: IV 260 220 140 0.9 KVO 260 220 40 Potassium Chloride 20 meq 100 In Water For Injection 1 100ml.bag @ 50 mls/hr IVPB Q2H [facility] Rx#: [id number] Intake, IV Titration 50 Amount cefTRIAXone 2 gm In 50 Sodium Chloride 0.9% 50 ml @ 100 mls/hr IVPB Q24HR [facility] Rx#:[id number] Output: Urine 1480 950 215 Other: Voiding Method Indwelling Catheter Indwelling Catheter Indwelling Catheter - Exam GENERAL EXAM: Alert, weak, 87-year-old female, on high flow oxygen with 50 L an FiO2 of 50%, alert and awake and communicating HEAD: Normocephalic. EYES: Normal reaction of pupils, equal size. NOSE: Clear with pink turbinates. THROAT: No erythema or exudates. NECK: No masses, no JVD. CHEST: No chest wall deformity. LUNGS: Equal air entry with no crackles, wheeze, rhonchi or dullness. Diminished breath on the lung bases along with some bibasilar crackles CVS: S1 and S2 normal with no audible murmur, regular rhythm. ABDOMEN: No hepatosplenomegaly, normal bowel sounds, no guarding or rigidity. SPINE: No scoliosis or deformity SKIN: No rashes CENTRAL NERVOUS SYSTEM: No focal deficits, tone is normal in all 4 extremities. EXTREMITIES: There is no peripheral edema. No clubbing, no cyanosis. Peripheral pulses are intact. - Labs CBC & Chem 7: 10/12/23 05:38 10/12/23 05:38 Labs: Abnormal Lab Results - Last 24 Hours (Table) 10/12/23 10/12/23 Range/Units 05:38 05:38 WBC 19.3 H (3.8-10.6) k/uL RBC 3.28 L (3.80-5.40) m/uL Hgb 9.8 L (11.4-16.0) gm/dL Hct 30.1 L (34.0-46.0) % Neutrophils # 16.2 H (1.3-7.7) k/uL Potassium 2.7 L* (3.5-5.1) mmol/L BUN 62 H (7-17) mg/dL Creatinine 3.67 H (0.52-1.04) mg/dL Glucose 70 L (74-99) mg/dL Calcium 7.8 L (8.4-10.2) mg/dL Microbiology - Last 24 Hours (Table) 10/09/23 19:05 Blood Culture - Preliminary Blood Assessment and Plan Plan: Acute sepsis/septic shock with hypotension requiring pressor support secondary to suspected pyelonephritis. Ultrasound of the kidneys and bladder revealed a moderate to severe left sided hydronephrosis with internal debris. Correlate to exclude infective debris/pyelitis. Bilateral renal calculi measuring up to 9 mm on the left and 6 mm on the right. She is post cystoscopy and insertion of a double-J stent on the left. The patient remains on IV Rocephin and the final cultures of the blood were consistent with E. coli E. coli sepsis secondary to UTI and the patient currently is on IV Rocephin Septic shock improvement within the patient's blood pressure is also improving and the patient is currently off pressors Acute leukocytosis, improving Acute kidney injury secondary to above, with renal function which is stable compared to yesterday. The patient sustained an ATN and she was nonoliguric. Lactic acidosis secondary to above, improved and the blood work from today shows no significant acidosis Acute hypoxemic respiratory failure secondary to above, with bilateral pleural effusion currently on BiPAP and the patient has a preserved LV function on echocardiogram is a may be also a component of acute lung injury/ARDS secondary to septic shock. The patient is currently on high flow oxygen 50 L an FiO2 of 50% Acute non-ST segment elevation myocardial infarction Transaminitis secondary to above New onset hypothyroidism History of hypertension Hyperlipidemia History of breast cancer status post lumpectomy/chemotherapy over 30 years ago Gastroesophageal reflux disease Plan: Continue high flow oxygen Continue IV Rocephin heparin 5000 units every 8 hours IV fluids to KVO 40 mg of IV Lasix 1 to be given by nephrology Echocardiogram was noted Keep BiPAP for now with a possibility of switching this patient to a high flow nasal cannula if she responds adequately to diuresis Continue Synthroid Prognosis is guarded DO NOT RESUSCITATE/DO NOT INTUBATE CODE STATUS We will continue to monitor closely in ICU We'll continue to follow make further recommendations based on her clinical status This is a critical care evaluation that was done and ICU and this evaluation was done in more than 30 minutes. Prognosis poor based above-mentioned comorbidities.
--- NOTE | 2023-10-12 13:39 | P.PN ---
Subjective Progress Note Date: 10/12/23 patient is a 87-year-old lady with past medical history significant for hypertension, hyperlipidemia who was brought to the ER for evaluation for syncopal event and altered mental status. Most of the history is taken from the EMR and from the patient, according to EMR, patient walked into patient's room and found her slumped in the bed, at that time patient was very confused, hard to arouse. EMS was called and when they arrived , patient blood pressure was low but patient was responsive. Patient did got one round of epi in on route to the ER. On gathering more information, patient had been complaining of flulike symptoms and was diagnosed with influenza a week ago, patient got over that sickness but then started complaining of nausea and vomiting. Was also complaining of diarrhea. Family also noted the patient was more short of breath than normal. Denied any chest pain or palpitations. There was no complain of any jerking movement of extremity. No complaint of any slurred speech or facial droop. Initial lab work done in the ER showed WBC 17.9, hemoglobin 12, platelet count 75 glucose 168, lactate 8.3 calcium 8.8, total bilirubin 1.2, troponin 2.640 INR 1.4, sodium 134, potassium 4.3, BUNs 34, creatinine 2.95, Influenza A not detected Influenza B not detected RSV not detected COVID-19 not detected EKG done in the ER showed heart rate of 133 , no ST segment elevation or depression seen, no T-wave inversions seen. Chest x-ray done in the ER showed mild cardiomegaly and COPD, chronic appearing changes ER physician talked to the patient's niece and patient, central line was placed in the ER patient was started on Levophed for hypotension. Patient admitted to ICU under internal medicine service 10/09. Patient seen and examined. Patient underwent cystoscopy with left ureteral stent placement on 10/08 by urology. Currently on nonrebreather, denies any chest pain. Labs reviewed, WBC 34.3, hemoglobin 10, platelet count 381, INR 1.9, sodium 137, potassium 3.7, BUN 44, creatinine 3.47 AST 856, AL282 10/10. Patient seen and examined. 2-D echo done showed LVEF of 50%, mild mitral regurg, mild aortic insufficiency, moderate tricuspid regurg. She has been weaned off all pressors. Still has shortness of breath 10/11. Patient seen and examined. Currently on BiPAP with FiO2 of 65%. Blood work done this morning showed a lipase of 24.5, 9.8, platelet count 222 sodium 140, potassium 3.7, BUN 62, creatinine 3.47. Complaining that she does not feel well. Gets short of breath on minimal exertion. 10/12. Patient seen and examined. with labs this morning shows WBC 19.3, hemoglobin 9.8, sodium is 1:30, potassium is 2.7, BUN is 62, creatinine 3.67. States she feels better, breathing is improving. Patient getting another dose of Lasix by nephrology REVIEW OF SYSTEMS: Denies any chest pain. Denies any fever or chills. Denies any nausea or vomiting PHYSICAL EXAMINATION: GENERAL: The patient is alert , ill looking HEENT: Pupils are round and equally reacting to light. EOMI. No scleral icterus. No conjunctival pallor. Normocephalic, atraumatic. No pharyngeal erythema. No thyromegaly. CARDIOVASCULAR: S1 and S2 present. No murmurs, rubs, or gallops. PULMONARY: Diminished breath sounds bilaterally, crackles audible ABDOMEN: Soft, nontender, nondistended, normoactive bowel sounds. No palpable organomegaly. MUSCULOSKELETAL: No joint swelling or deformity. EXTREMITIES: No cyanosis, clubbing, or pedal edema. NEUROLOGICAL: Gross neurological examination did not reveal any focal deficits. SKIN: No rashes. Assessment and plan Septic shock Gram-negative bacteremia Acute hypoxic respiratory failure Acute metabolic encephalopathy Non-ST elevation OR Acute transaminitis Acute kidney injury Left-sided hydronephrosis Syncopal event Fall Hypertension Hyperlipidemia Monitor vital signs Monitor CBC Monitor CMP Continue telemetry monitoring Aggressive bronchopulmonary hygiene Continue BiPAP as needed Follow-up on blood cultures, blood cultures growing E. coli Follow-up on urine cultures monitor LFTs Strict I's and O's, daily weights, another dose of IV Lasix ordered Potassium level this morning was low, replacement ordered Continue IV Rocephin 2-D echo done showed LVEF of 50%, mild mitral regurg, mild aortic insufficiency, moderate tricuspid regurg Nephrology following Cardiology following, recommended starting patient on aspirin and beta reji, currently on aspirin and Lopressor Critical care following ID following Urology following, cystoscopy with left ureteral cathetre placement on 10/08, recommend outpatient follow-up for stone removal and stent placement Labs and medication were reviewed.. Continue same treatment. Continue with symptomatic treatment. Resume home medication. Monitor labs and vitals. DVT and GI prophylaxis. Further recommendations as per clinical course of the rosas nicholson Dictation was produced using [employer] dictation software. please excuse any grammatical, word or spelling errors. Objective - Vital Signs Vital signs: Vital Signs Temp 98.3 F 10/12/23 04:00 Pulse 67 10/12/23 09:00 Resp 14 10/12/23 09:00 BP 106/49 10/12/23 09:00 Pulse Ox 98 10/12/23 09:00 FiO2 50 10/12/23 05:02 Intake & Output 10/11/23 10/12/23 10/12/23 18:59 06:59 18:59 Intake Total 310 220 20 Output Total 1480 950 60 Balance -1170 -730 -40 Weight 76.2 kg Intake: IV 260 220 20 0.9 KVO 260 220 20 Intake, IV Titration 50 Amount cefTRIAXone 2 gm In 50 Sodium Chloride 0.9% 50 ml @ 100 mls/hr IVPB Q24HR [facility] Rx#:[id number] Output: Urine 1480 950 60 Other: Voiding Method Indwelling Catheter Indwelling Catheter - Labs CBC & Chem 7: 10/12/23 05:38 10/12/23 05:38 Labs: Abnormal Lab Results - Last 24 Hours (Table) 10/12/23 10/12/23 Range/Units 05:38 05:38 WBC 19.3 H (3.8-10.6) k/uL RBC 3.28 L (3.80-5.40) m/uL Hgb 9.8 L (11.4-16.0) gm/dL Hct 30.1 L (34.0-46.0) % Neutrophils # 16.2 H (1.3-7.7) k/uL Potassium 2.7 L* (3.5-5.1) mmol/L BUN 62 H (7-17) mg/dL Creatinine 3.67 H (0.52-1.04) mg/dL Glucose 70 L (74-99) mg/dL Calcium 7.8 L (8.4-10.2) mg/dL Microbiology - Last 24 Hours (Table) 10/09/23 19:05 Blood Culture - Preliminary Blood
--- NOTE | 2023-10-12 13:59 | PN ---
PROGRESS NOTE SUBJECTIVE: Rosalva is an 87-year-old lady with complex and multiple medical problems including urosepsis, septic shock, renal failure and congestive heart failure that we have been consulted because of mildly elevated troponin. An echocardiogram that was done on this admission revealed normal LV function and wall motion. OBJECTIVE: VITAL SIGNS: Heart rate is 67 beats, blood pressure is 106/49, and respiratory rate is 18. CHEST: Reveals good air entry bilaterally. HEART: Reveals first and second heart sounds. No gallop. ABDOMEN: Soft. EXTREMITIES: Reveal mild edema bilaterally. LABORATORY DATA: Labs show that the BUN is elevated at 62, creatinine is 3.6. Potassium is 2.7. White cell count is elevated. Hemoglobin is 9.8. ASSESSMENT: Acute onset diastolic heart failure, respiratory failure, and acute renal failure. PLAN: Continue with Lasix. DOMO / JACLYN: [id number] /
--- NOTE | 2023-10-12 14:05 | US ---
EXAMINATION TYPE: US venous doppler duplex LE RT DATE OF EXAM: 10/12/2023 11:27 AM COMPARISON: NONE CLINICAL INDICATION: Female, 87 years old with history of swollen extremity; SIDE PERFORMED: Right TECHNIQUE: The lower extremity deep venous system is examined utilizing real time linear array sonog latosha with graded compression, doppler sonography and color-flow sonography. VESSELS IMAGED: Common Femoral Vein Deep Femoral Vein Greater Saphenous Vein * Femoral Vein Popliteal Vein Small Saphenous Vein * Proximal Calf Veins (* superficial vessels) Right Leg: Negative for DVT Left Leg: NA IMPRESSION: Grayscale, color doppler, spectral doppler imaging performed of the deep veins of the lo wer extremities. There is normal flow, compressibility, vascular waveforms.
[2023-10-12] MEDS: VASOPRESSIN 60 UNIT in SODIUM CHLORIDE 0.9% 150 ML IV SCH (14:43)
[2023-10-12] MEDS: ALPRAZolam 0.25 MG TAB PO PRN ×2 (14:46→20:49)
[2023-10-12] MEDS: NOREPINEPHRINE 8 MG in SODIUM CHLORIDE 0.9% 250 ML IV SCH (18:59)
[2023-10-12] MEDS ORDERED: ONDANSETRON 4 MG TAB PO PRN (21:05)
[2023-10-13] MEDS: POTASSIUM CHLORIDE 20 MEQ in WATER FOR INJECTION 1 100ML.BAG IVPB SCH ×2 (03:15→05:09)
[2023-10-13] MEDS: LEVOTHYROXINE 75 MCG TAB PO SCH (07:09)
[2023-10-13 08:00] LABS: HCT 37.2 % (34.0-46.0); HGB 11.8 gm/dL (11.4-16.0); Hypochromasia Slight; MCH 29.1 pg (25.0-35.0); MCHC 31.6 g/dL (31.0-37.0); MCV 91.9 fL (80.0-100.0); Platelet Count 233 k/uL (150-450); RBC 4.04 m/uL (3.80-5.40); WBC 21.1 k/uL (3.8-10.6)
[2023-10-13 08:31] LABS: ALT 186 U/L (4-34); AST 149 U/L (14-36); African American GFR (CKD) 15 (>60 ml/min/1.73 sqM); Albumin 2.7 g/dL (3.5-5.0); Alkaline Phosphatase 126 U/L (38-126); Anion Gap 13 mmol/L; Blood Urea Nitrogen 64 mg/dL (7-17); Calcium 8.4 mg/dL (8.4-10.2); Carbon Dioxide 26 mmol/L (22-30); Chloride 101 mmol/L (98-107); Glucose 85 mg/dL (74-99); Non-African American GFR(CKD) 13 (>60 ml/min/1.73 sqM); Potassium 4.2 mmol/L (3.5-5.1); Sodium 140 mmol/L (137-145); Total Bilirubin 0.5 mg/dL (0.2-1.3); Total Protein 5.4 g/dL (6.3-8.2)
[2023-10-13] MEDS: CHOLECALCIFEROL 25 MCG (1000 IU) TABLET PO SCH (09:27)
[2023-10-13] MEDS: PANTOPRAZOLE 40 MG TABLET PO SCH (09:27)
[2023-10-13] MEDS: ASPIRIN 81 MG PO SCH (09:27)
[2023-10-13] MEDS: HEPARIN SODIUM,PORCINE 5,000 UNIT/ML 1 ML VIAL SQ SCH ×2 (09:27→17:02)
[2023-10-13] MEDS ORDERED: FUROSEMIDE 10 MG/ML 10 ML VIAL IV STA (10:06)
--- NOTE | 2023-10-13 10:06 | P.PN ---
Subjective Progress Note Date: 10/13/23 This is a very pleasant 87-year-old female patient with a known history of hypertension, hyperlipidemia, gastroesophageal reflux disease, anxiety, breast cancer status post lumpectomy and chemotherapy over 30 years ago. He is admitted to the emergency room yesterday with increasing weakness and altered mental status. She did have influenza approximately 1 week ago but was feeling better until recently. She developed nausea vomiting diarrhea and weakness that led to a fall. She was altered when EMS had arrived. EKG revealed sinus tachycardia with nonspecific ST and T wave abnormalities. Revealed mild cardiomegaly and chronic appearing changes. Some strandy atelectasis at the right lung base. Otherwise no acute pulmonary process. Ultrasound of the bladder revealed moderate to severe left sided hydronephrosis with internal debris. Correlate to exclude infective debris/pyelitis. Bilateral renal calculi measuring up to 9 mm on the left and 6 mm on the right. All cultures are pending. White count 10.6. Hemoglobin 10.8. Platelets 425. INR 1.5. Sodium 134. Potassium 4.0. Bicarb 10. BUN 38. Creatinine 3.00. Glucose 129. AST 781. ALT 175. Troponins 2.64, 4.17, 4.02. ProBNP 1790. TSH 5.32. Influenza screen negative. RSV screen negative. COVID-19 screen negative. In itial lactic acid 8.3. Currently 1.7. She had received 3 L of fluid resuscitation. She is continued on D5W with 3 A of sodium bicarbonate at 100 ML's per hour. She's been initiated on a heparin drip. She is requiring norepinephrine at 0.2 mg/kg/m. He is seen today in consultation in the intens [facility] care unit. She is awake and alert in no acute distress. Feeling a bit better today compared to yesterday. She is oriented 3. She remains quite weak. She is maintaining O2 saturations in the 90s on 2.5 L/m per nasal cannula. Arterial pressures in the low 70s. She had a T-max of 101 on arrival. Currently afebrile. On today's evaluation of 10/09/2023, the patient continues to be critically ill, septic, hypotensive, currently on 100% nonrebreather facemask. Pulse ox is in order of 90-93%. The patient in septic shock. 2 UTI and left pyelonephritis and probable obstructing ureteral calculus. The patient underwent a cystoscopy and insertion of double-J catheter on 10/08/2023. The patient has a positive blood culture with gram-negative bacillus and the patient remains on IV Rocep hin. Hemodynamically, the patient remains hypotensive. The patient is still on high-dose norepinephrine at 0.2 mcg/kg/m and the patient is also on a bicarbonate infusion running at the rate of 100 mL an hour. Chest x-ray showing cardiac megaly with pulmonary vessel congestion. Urine output is diminished in the order of 15-20 mL an hour. The white cell cause of 54.3 with a hemoglobin of 10 and a platelet count of 381. The patient was started on IV heparin regarding some troponin leak and a troponin peak at 3.2. Nevertheless she is feeling any chest pain. PTT currently is at 61 with an INR of 1.9 and a PT of 19.3. BUN is 44 with a creatinine of 3.47 and the patient sustained an acute kidney injury. Sodium is at 137 with a potassium level of 3.7. She is quite lethargic and weak and her meditation is quite diminished at this point in time. [place] neurologic exam is nonfocal. No other issues for now. Echocardiogram showed a preserved LV function with an EF of around 50%. The patient has normal RV, no significant valvular abnormalities was noted. On 10/10/2023, the patient is being seen for a follow-up. This is an 87-year-old female patient with septic shock and gram-negative urinary tract infection with sepsis. The patient presented with left pyelonephritis and the p atient underwent a cystoscopy and double-J and insertion on 10/08/2023. Her blood cultures positive for gram-negative bacillus and the patient remains on 2 g of IV Rocephin. She was requiring high doses of pressors and currently she is on no pressors and this was weaned off and discontinued yesterday. IV fluids were also reduced down to 10 mL an hour as the patient was having increased pulmonary edema and pulmonary vascular congestion which has resulted into transitioning her from 100% RV the facemask to a BiPAP which is running at 12/6 with an FiO2 of 75%. Current pulse ox is 99%. Chest x-ray as mentioned is consistent with CHF and pulmonary edema. The patient is producing adequate am ount of urine output overall fluid balance is +1 and 2 L over the past 24 hours. Urine output was in the order of 20-50 mL an hour. Based on that, she was given a dose of Lasix 60 mg IV push to be repeated depending on her urine output. This morning, BUN is at 53 with a creatinine of 3.4 and a sodium level is at 137, the validity count is improved and is down to 26.8 with a hemoglobin 9.2 and platelet count of 235. Myrick catheter in place. No hematuria this point in time. She is on no anticoagulation. Cardiac rhythm is sinus. Echocardiogram showed a preserved LV function with an ejection fraction of 50%. On today's evaluation of 10/11/2023, the patient is lethargic yet arousable. S he is following simple commands speech is profoundly. She remains on BiPAP at a pressure of 12/6 with an FiO2 of 65%. The patient is generating a tidal volume of about 600 and her current respiratory rate is around 18. She has a good mask seal. Her chest x-ray is essentially unchanged compared to yesterday. She has, thyromegaly, mild pulmonary vessel congestion. She was given Lasix yesterday to that of 60 mg IV and the fluid balance is -700 mL over the past 24 hours. Creatinine is stable. Note that the patient partial response to Lasix and the same will be done today. BUN is at 62 with a creatinine of 3.4 and a sodium level is at 140. The white cell count is down to 24 with a hemoglobin of 9.8. As for the blood culture, do not to be positive for E. coli and is sensitive to IV Rocephin which will be continued at a dose of 2 g every 24 hours. Note that the patient is not utilizing any form of pressors for now. IV fluids are KVO. She is resting comfortably in bed. On today's evaluation of 10/12/2023, the patient is awake and alert and she is communicating. She is aware that she is in the hospital. She is currently on high flow oxygen and she was taken off the BiPAP. High flow oxygen is running at 50% FiO2 at 50 L. She is able to maintain a saturation of 96%. Meanwhile, she is afebrile. She is hemodynamically stable picture is off pressors. The white cell count is improving. She is producing urine output. The chest x-ray still showing hazy bilateral pulmonary infiltrates and the patient was given another dose of Lasix 40 mg IV push by nephrology. Myrick catheter in place. The patient is producing adequate amount of urine output. In terms of her labs from today, the white cell count is down to 19, hemoglobin is at 9.8, potassium levels at 2.7 and needs to be replaced, BUN is at 62 with a creatinine of 3.6 and serum bicarb is at 28. Note that this is an acute on top of the chronic kidney injury related to septic shock. As mentioned earlier, she has E. coli, she is on IV Rocephin. She is tolerating small amounts of soft diet. On 10/13/2023, the patient is awake and alert. She is on high flow oxygen at 50 L with an FiO2 of 40%. No chest x-ray from today. She was in septic shock with multisystem organ failure. She could have also had a component of acute lung injury/ARDS requiring high oxygen and initially BiPAP and subsequently high flow oxygen. Hemodynamically stable off pressors. She was given Lasix yesterday and the fluid balance is in order of -1.3 L. The creatinine is down to 3 with a BUN of 64. Sodium is at 140. Potassium is at 4.2. White cell count has dropped onto 21 with a hemoglobin of 11.8. The blood culture was positive for E. coli. She remains on IV Rocephin. Tolerating diet. Weak in general. Communicating. Alert and awake. No pressors at this point. Myrick catheter is in place. Objective - Vital Signs Vital signs: Vital Signs Temp 97.8 F 10/13/23 04:00 Pulse 64 10/13/23 07:00 Resp 14 10/13/23 07:00 BP 129/50 10/13/23 07:00 Pulse Ox 96 10/13/23 09:37 FiO2 40 10/13/23 09:37 Intake & Output 10/12/23 10/13/23 10/13/23 18:59 06:59 18:59 Intake Total 410 420 20 Output Total 1135 995 40 Balance -725 -575 -20 Weight 76.2 kg 72.8 kg Intake: IV 410 420 20 0.9 KVO 160 220 20 Potassium Chloride 20 meq 250 200 In Water For Injection 1 100ml.bag @ 50 mls/hr IVPB Q2H [facility] Rx#: [id number] Output: Urine 1135 995 40 Other: Voiding Method Indwelling Catheter Indwelling Catheter - Exam GENERAL EXAM: Alert, weak, 87-year-old female, on high flow oxygen with 50 L an FiO2 of 40%, alert and awake and communicating HEAD: Normocephalic. EYES: Normal reaction of pupils, equal size. NOSE: Clear with pink turbinates. THROAT: No erythema or exudates. NECK: No masses, no JVD. CHEST: No chest wall deformity. LUNGS: Equal air entry with no crackles, wheeze, rhonchi or dullness. Diminished breath on the lung bases along with some bibasilar crackles CVS: S1 and S2 normal with no audible murmur, regular rhythm. ABDOMEN: No hepatosplenomegaly, normal bowel sounds, no guarding or rigidity. SPINE: No scoliosis or deformity SKIN: No rashes CENTRAL NERVOUS SYSTEM: No focal deficits, tone is normal in all 4 extremities. EXTREMITIES: There is no peripheral edema. No clubbing, no cyanosis. Peripheral pulses are intact. - Labs CBC & Chem 7: 10/13/23 07:33 10/13/23 07:33 Labs: Abnormal Lab Results - Last 24 Hours (Table) 10/13/23 10/13/23 Range/Units 07:33 07:33 WBC 21.1 H (3.8-10.6) k/uL BUN 64 H (7-17) mg/dL Creatinine 3.03 H (0.52-1.04) mg/dL AST 149 H (14-36) U/L ALT 186 H (4-34) U/L Total Protein 5.4 L (6.3-8.2) g/dL Albumin 2.7 L (3.5-5.0) g/dL Microbiology - Last 24 Hours (Table) 10/09/23 19:05 Blood Culture - Preliminary Blood Assessment and Plan Plan: Acute sepsis/septic shock with hypotension requiring pressor support secondary to suspected pyelonephritis. Ultrasound of the kidneys and bladder revealed a moderate to severe left sided hydronephrosis with internal debris. Correlate to exclude infective debris/pyelitis. Bilateral renal calculi measuring up to 9 mm on the left and 6 mm on the right. She is post cystoscopy and insertion of a double-J stent on the left. The patient remains on IV Rocephin and the final cultures of the blood were consistent with E. coli E. coli sepsis secondary to UTI and the patient currently is on IV Rocephin Septic shock improvement within the patient's blood pressure is also improving and the patient is currently off pressors Acute leukocytosis, improving Acute kidney injury secondary to above, with renal function which is stable compared to yesterday. The patient sustained an ATN and she was nonoliguric. Renal function continues to improve Lactic acidosis secondary to above, improved and the blood work from today shows no significant acidosis Acute hypoxemic respiratory failure secondary to above, with bilateral pleural effusion currently on BiPAP and the patient has a preserved LV function on echocardiogram is a may be also a component of acute lung injury/ARDS secondary to septic shock. The patient is currently on high flow oxygen 50 L an FiO2 of 50% Acute non-ST segment elevation myocardial infarction Transaminitis secondary to above New onset hypothyroidism History of hypertension Hyperlipidemia History of breast cancer status post lumpectomy/chemotherapy over 30 years ago Gastroesophageal reflux disease Plan: Mental status is stable and the patient remains profoundly weak and she is recovering from septic shock We'll try to advance her diet for encourage her to eat larger quantities and meet her caloric requirements Continue high flow oxygen, currently on 50 L an FiO2 of 40% Continue IV Rocephin heparin 5000 units every 8 hours IV fluids to KVO Give 60 mg of IV Lasix 1 Echocardiogram was noted Keep BiPAP for now with a possibility of switching this patient to a high flow nasal cannula if she responds adequately to diuresis Continue Synthroid Prognosis is guarded DO NOT RESUSCITATE/DO NOT INTUBATE CODE STATUS We will continue to monitor closely in ICU We'll continue to follow make further recommendations based on her clinical status This is a critical care evaluation that was done and ICU and this evaluation was done in more than 30 minutes. Prognosis poor based above-mentioned comorbidities.
[2023-10-13 10:21] LABS: Band Neutrophils % 4 %; Eosinophils # (M) 1.27 k/uL (0-0.7); Lymphocytes # (M) 1.48 k/uL (1.0-4.8); Metamyelocytes # (M) 0.21 k/uL (0); Metamyelocytes % 1 %; Monocytes # (M) 2.32 k/uL (0-1.0); Myelocytes # (M) 0.21 k/uL (0); Myelocytes % 1 %; Neutrophils % (M) 71 %; Nucleated Red Blood Cells 0 /100 WBC (0-0); Total Cells Counted 200
[2023-10-13] MEDS: NYSTATIN 100,000 UNIT/ML SUSP 500,000 UNIT/5 ML CUP PO SCH ×3 (10:28→20:38)
--- NOTE | 2023-10-13 10:48 | P.PN ---
Subjective Patient is seen in follow-up for acute kidney injury on chronic kidney disease. Renal function better. Nonoliguric. Oral intake just fair. Vital signs are stable. General: NAD. HEENT: Head exam is unremarkable. On Airvo. LUNGS: Scattered rhonchi. HEART: Rate and Rhythm are regular. ABDOMEN: No distention. EXTREMITITES: 1+ edema. Objective - Vital Signs Vital signs: Vital Signs Temp 97.8 F 10/13/23 04:00 Pulse 64 10/13/23 07:00 Resp 14 10/13/23 07:00 BP 129/50 10/13/23 07:00 Pulse Ox 96 10/13/23 09:37 FiO2 40 10/13/23 09:37 Intake & Output 10/12/23 10/13/23 10/13/23 18:59 06:59 18:59 Intake Total 410 420 20 Output Total 1135 995 40 Balance -725 -575 -20 Weight 76.2 kg 72.8 kg Intake: IV 410 420 20 0.9 KVO 160 220 20 Potassium Chloride 20 meq 250 200 In Water For Injection 1 100ml.bag @ 50 mls/hr IVPB Q2H [facility] Rx#: [id number] Output: Urine 1135 995 40 Other: Voiding Method Indwelling Catheter Indwelling Catheter - Labs CBC & Chem 7: 10/13/23 07:33 10/13/23 07:33 Labs: Abnormal Lab Results - Last 24 Hours (Table) 10/13/23 10/13/23 Range/Units 07:33 07:33 WBC 21.1 H (3.8-10.6) k/uL Neutrophils # (Manual) 15.80 H (1.3-7.7) k/uL Monocytes # (Manual) 2.32 H (0-1.0) k/uL Eosinophils # (Manual) 1.27 H (0-0.7) k/uL Metamyelocytes # (Man) 0.21 H (0) k/uL Myelocytes # (Manual) 0.21 H (0) k/uL BUN 64 H (7-17) mg/dL Creatinine 3.03 H (0.52-1.04) mg/dL AST 149 H (14-36) U/L ALT 186 H (4-34) U/L Total Protein 5.4 L (6.3-8.2) g/dL Albumin 2.7 L (3.5-5.0) g/dL Microbiology - Last 24 Hours (Table) 10/09/23 19:05 Blood Culture - Preliminary Blood Assessment and Plan Plan: Assessment: 1. Acute kidney injury secondary to ATN secondary to hypotension. Now off vasopressors. Also component of obstructive uropathy. Renal function better. Creatinine 3.03 today. 2. Hypokalemia from diuresis and poor intake. Replaced. Improved. 3. Left hydronephrosis status post ureteral stent placement on 10/08/2023. 4. E. coli bacteremia on antibiotics. 5. Acute on chronic diastolic CHF with moderate tricuspid regurgitation. 6. Chronic kidney disease stage IIIB with baseline creatinine 1.4-1.5 in July 2022. Suspect nephrosclerosis. 7. Metabolic acidosis secondary to acute kidney injury and GI losses. Resol ed. Plan: Lasix 60 mg IV once today. Wean FiO2. Avoid nephrotoxins. Continue to monitor renal function and urine output.
[2023-10-13] MEDS: ACETAMINOPHEN TAB 325 MG TAB PO PRN (12:31)
[2023-10-13] MEDS: VASOPRESSIN 60 UNIT in SODIUM CHLORIDE 0.9% 150 ML IV SCH (14:24)
[2023-10-13] MEDS: METOPROLOL TARTRATE 25 MG TAB PO SCH ×2 (14:24→20:39)
--- NOTE | 2023-10-13 14:27 | P.PN ---
Subjective Progress Note Date: 10/13/23 patient is a 87-year-old lady with past medical history significant for hypertension, hyperlipidemia who was brought to the ER for evaluation for syncopal event and altered mental status. Most of the history is taken from the EMR and from the patient, according to EMR, patient walked into patient's room and found her slumped in the bed, at that time patient was very confused, hard to arouse. EMS was called and when they arrived , patient blood pressure was low but patient was responsive. Patient did got one round of epi in on route to the ER. On gathering more information, patient had been complaining of flulike symptoms and was diagnosed with influenza a week ago, patient got over that sickness but then started complaining of nausea and vomiting. Was also complaining of diarrhea. Family also noted the patient was more short of breath than normal. Denied any chest pain or palpitations. There was no complain of any jerking movement of extremity. No complaint of any slurred speech or facial droop. Initial lab work done in the ER showed WBC 17.9, hemoglobin 12, platelet count 75 glucose 168, lactate 8.3 calcium 8.8, total bilirubin 1.2, troponin 2.640 INR 1.4, sodium 134, potassium 4.3, BUNs 34, creatinine 2.95, Influenza A not detected Influenza B not detected RSV not detected COVID-19 not detected EKG done in the ER showed heart rate of 133 , no ST segment elevation or depression seen, no T-wave inversions seen. Chest x-ray done in the ER showed mild cardiomegaly and COPD, chronic appearing changes ER physician talked to the patient's niece and patient, central line was placed in the ER patient was started on Levophed for hypotension. Patient admitted to ICU under internal medicine service 10/09. Patient seen and examined. Patient underwent cystoscopy with left ureteral stent placement on 10/08 by urology. Currently on nonrebreather, denies any chest pain. Labs reviewed, WBC 34.3, hemoglobin 10, platelet count 381, INR 1.9, sodium 137, potassium 3.7, BUN 44, creatinine 3.47 AST 856, AL282 10/10. Patient seen and examined. 2-D echo done showed LVEF of 50%, mild mitral regurg, mild aortic insufficiency, moderate tricuspid regurg. She has been weaned off all pressors. Still has shortness of breath 10/11. Patient seen and examined. Currently on BiPAP with FiO2 of 65%. Blood work done this morning showed a lipase of 24.5, 9.8, platelet count 222 sodium 140, potassium 3.7, BUN 62, creatinine 3.47. Complaining that she does not feel well. Gets short of breath on minimal exertion. 10/12. Patient seen and examined. with labs this morning shows WBC 19.3, hemoglobin 9.8, sodium is 1:30, potassium is 2.7, BUN is 62, creatinine 3.67. States she feels better, breathing is improving. Patient getting another dose of Lasix by nephrology 10/13. Patient seen and examined. Currently on heated high flow. States she feels much better. Daughter at the bedside. Blood work done this morning showed WBC 21.1, hemoglobin 11.8 sodium 140, potassium 4.2, BUN 64, creatinine 3.03 REVIEW OF SYSTEMS: Denies any chest pain. Denies any fever or chills. Denies any nausea or vomiting PHYSICAL EXAMINATION: GENERAL: The patient is alert , ill looking HEENT: Pupils are round and equally reacting to light. EOMI. No scleral icterus. No conjunctival pallor. Normocephalic, atraumatic. No pharyngeal erythema. No thyromegaly. CARDIOVASCULAR: S1 and S2 present. No murmurs, rubs, or gallops. PULMONARY: Diminished breath sounds bilaterally, no expiratory wheeze audible ABDOMEN: Soft, nontender, nondistended, normoactive bowel sounds. No palpable organomegaly. MUSCULOSKELETAL: No joint swelling or deformity. EXTREMITIES: 1+ edema in lower extremities bilaterally NEUROLOGICAL: Gross neurological examination did not reveal any focal deficits. SKIN: No rashes. Assessment and plan Septic shock Gram-negative bacteremia Acute hypoxic respiratory failure Acute metabolic encephalopathy Non-ST elevation MO Acute transaminitis Acute kidney injury Left-sided hydronephrosis Syncopal event Fall Hypertension Hyperlipidemia Monitor vital signs Monitor CBC Monitor CMP Continue telemetry monitoring Aggressive bronchopulmonary hygiene Continue BiPAP as needed Follow-up on blood cultures, blood cultures growing E. coli Follow-up on urine cultures monitor LFTs Strict I's and O's, daily weights, IV Lasix ordered by nephrology Continue IV Rocephin 2-D echo done showed LVEF of 50%, mild mitral regurg, mild aortic insufficiency, moderate tricuspid regurg Nephrology following Cardiology following, recommended starting patient on aspirin and beta reij, currently on aspirin and Lopressor Critical care following ID following Urology following, cystoscopy with left ureteral cathetre placement on 10/08, recommend outpatient follow-up for stone removal and stent placement Labs and medication were reviewed.. Continue same treatment. Continue with symptomatic treatment. Resume home medication. Monitor labs and vitals. DVT and GI prophylaxis. Further recommendations as per clinical course of the patient Dictation was produced using [employer] dictation software. please excuse any grammatical, word or spelling errors. Objective - Vital Signs Vital signs: Vital Signs Temp 98.9 F 10/13/23 12:00 Pulse 72 10/13/23 11:00 Resp 18 10/13/23 12:00 BP 107/46 10/13/23 12:00 Pulse Ox 93 L 10/13/23 12:00 FiO2 40 10/13/23 12:00 Intake & Output 10/12/23 10/13/23 10/13/23 18:59 06:59 18:59 Intake Total 410 420 250 Output Total 1135 995 160 Balance -725 -575 90 Weight 76.2 kg 72.8 kg Intake: IV 410 420 100 0.9 KVO 160 220 100 Potassium Chloride 20 meq 250 200 In Water For Injection 1 100ml.bag @ 50 mls/hr IVPB Q2H [facility] Rx#: [id number] Intake, IV Titration 50 Amount cefTRIAXone 2 gm In 50 Sodium Chloride 0.9% 50 ml @ 100 mls/hr IVPB Q24HR [facility] Rx#:[id number] Oral 100 Output: Urine 1135 995 160 Other: Voiding Method Indwelling Catheter Indwelling Catheter Indwelling Catheter - Labs CBC & Chem 7: 10/13/23 07:33 10/13/23 07:33 Labs: Abnormal Lab Results - Last 24 Hours (Table) 10/13/23 10/13/23 Range/Units 07:33 07:33 WBC 21.1 H (3.8-10.6) k/uL Neutrophils # (Manual) 15.80 H (1.3-7.7) k/uL Monocytes # (Manual) 2.32 H (0-1.0) k/uL Eosinophils # (Manual) 1.27 H (0-0.7) k/uL Metamyelocytes # (Man) 0.21 H (0) k/uL Myelocytes # (Manual) 0.21 H (0) k/uL BUN 64 H (7-17) mg/dL Creatinine 3.03 H (0.52-1.04) mg/dL AST 149 H (14-36) U/L ALT 186 H (4-34) U/L Total Protein 5.4 L (6.3-8.2) g/dL Albumin 2.7 L (3.5-5.0) g/dL Microbiology - Last 24 Hours (Table) 10/09/23 19:05 Blood Culture - Preliminary Blood
--- NOTE | 2023-10-13 14:46 | P.PN ---
Subjective Progress Note Date: 10/12/23 Principal diagnosis: Reason for follow-up is E. coli pyelonephritis sepsis and bacteremia Patient is a 87-year old female with a past medical history pertinent for hypertension hyperlipidemia reflux and breast cancer patient was brought into the hospital for evaluation of increasing weakness mental status changes patient was noticed to be febrile septic secondary to left-sided ureteral stone with hydronephrosis requiring cystoscopy and left ureteral double-J catheter placement patient blood cultures subsequently came back positive with E. coli. On today's evaluation that is 10/12/2023, the patient continues to be afebrile, the patient is breathing comfortably however requiring about 50% FiO2 through the nasal cannula. Denies having any chest pain shortness of breath or cough no nausea no vomiting no abdominal pain or diarrhea has been reported. Patient white count down to 19.3, creatinine 3.67 Objective - Vital Signs Vital signs: Vital Signs Temp 98.3 F 10/12/23 04:00 Pulse 67 10/12/23 09:00 Resp 14 10/12/23 09:00 BP 106/49 10/12/23 09:00 Pulse Ox 97 10/12/23 10:14 FiO2 55 10/12/23 10:14 Intake & Output 10/11/23 10/12/23 10/12/23 18:59 06:59 18:59 Intake Total 310 220 140 Output Total 1480 950 215 Balance -1170 -730 -75 Weight 76.2 kg 76.2 kg Intake: IV 260 220 140 0.9 KVO 260 220 40 Potassium Chloride 20 meq 100 In Water For Injection 1 100ml.bag @ 50 mls/hr IVPB Q2H [facility] Rx#: [id number] Intake, IV Titration 50 Amount cefTRIAXone 2 gm In 50 Sodium Chloride 0.9% 50 ml @ 100 mls/hr IVPB Q24HR [facility] Rx#:[id number] Output: Urine 1480 950 215 Other: Voiding Method Indwelling Catheter Indwelling Catheter Indwelling Catheter - Exam GENERAL DESCRIPTION: An elderly female lying in bed in no distress RESPIRATORY SYSTEM: Unlabored breathing , decreased breath sounds at bases HEART: S1 S2 regular rate and rhythm , ABDOMEN: Soft , no tenderness EXTREMITIES: No edema feet - Labs CBC & Chem 7: 10/13/23 07:33 10/13/23 07:33 Labs: Abnormal Lab Results - Last 24 Hours (Table) 10/12/23 10/12/23 Range/Units 05:38 05:38 WBC 19.3 H (3.8-10.6) k/uL RBC 3.28 L (3.80-5.40) m/uL Hgb 9.8 L (11.4-16.0) gm/dL Hct 30.1 L (34.0-46.0) % Neutrophils # 16.2 H (1.3-7.7) k/uL Potassium 2.7 L* (3.5-5.1) mmol/L BUN 62 H (7-17) mg/dL Creatinine 3.67 H (0.52-1.04) mg/dL Glucose 70 L (74-99) mg/dL Calcium 7.8 L (8.4-10.2) mg/dL Microbiology - Last 24 Hours (Table) 10/09/23 19:05 Blood Culture - Preliminary Blood Assessment and Plan (1) Sepsis Current Visit: Yes Status: Acute Code(s): A41.9 - SEPSIS, UNSPECIFIED ORG ANISM SNOMED Code(s): 26621291 (2) Leukocytosis Current Visit: Yes Status: Acute Code(s): D72.829 - ELEVATED WHITE BLOOD CELL COUNT, UNSPECIFIED SNOMED Code(s): 521840700 (3) Gram-negative bacteremia Current Visit: Yes Status: Acute Code(s): R78.81 - BACTEREMIA SNOMED Code(s): 708628110100 (4) UTI (urinary tract infection) Current Visit: Yes Status: Acute Code(s): N39.0 - URINARY TRACT INFECTION, SITE NOT SPECIFIED SNOMED Code(s): 84919499 Plan: 1-patient is in the hospital with sepsis/septic shock secondary to complicated UTI in this patient who did have a left-sided hydronephrosis requiring cystoscopy and left-sided double-J ureteral catheter placement likely secondary to enteric gram-negative pathogen 2E. coli bacteremia source likely left-sided pyelonephritis complicated UTI sensitive pathogen repeat blood cultures 10/09/2023 so far negative 3the patient remains to be afebrile and the white count is trending down patient to continue with the Rocephin 2 g daily Daughter at the bedside questions were answered Dictation was produced using [employer] software. please excuse any grammatical, word or spelling errors. Time with Patient: Less than 30
--- NOTE | 2023-10-13 14:49 | P.PN ---
Subjective Progress Note Date: 10/13/23 Principal diagnosis: Reason for follow-up is E. coli pyelonephritis sepsis and bacteremia Patient is a 87-year old female with a past medical history pertinent for hypertension hyperlipidemia reflux and breast cancer patient was brought into the hospital for evaluation of increasing weakness mental status changes patient was noticed to be febrile septic secondary to left-sided ureteral stone with hydronephrosis requiring cystoscopy and left ureteral double-J catheter placement patient blood cultures subsequently came back positive with E. coli. On today's evaluation that is 10/13/2023, the patient remains to be afebrile, the patient is breathing comfortably however requiring 40% FiO2 through the nasal cannula. The patient denies having any chest pain shortness of breath or cough no nausea no vomiting no abdominal pain or diarrhea has been reported by the nursing staff. Patient white count is slightly up to 21.1, creatinine is down to 3.03 blood culture repeat has been negative Objective - Vital Signs Vital signs: Vital Signs Temp 98.5 F 10/13/23 08:00 Pulse 72 10/13/23 11:00 Resp 15 10/13/23 11:00 BP 128/49 10/13/23 11:00 Pulse Ox 97 10/13/23 11:00 FiO2 40 10/13/23 09:37 Intake & Output 10/12/23 10/13/23 10/13/23 18:59 06:59 18:59 Intake Total 410 420 250 Output Total 1135 995 160 Balance -725 575 90 Weight 76.2 kg 72.8 kg Intake: IV 410 420 100 0.9 KVO 160 220 100 Potassium Chloride 20 meq 250 200 In Water For Injection 1 100ml.bag @ 50 mls/hr IVPB Q2H [facility] Rx#: [id number] Intake, IV Titration 50 Amount cefTRIAXone 2 gm In 50 Sodium Chloride 0.9% 50 ml @ 100 mls/hr IVPB Q24HR [facility] Rx#:[id number] Oral 100 Output: Urine 1135 995 160 Other: Voiding Method Indwelling Catheter Indwelling Catheter Indwelling Catheter - Exam GENERAL DESCRIPTION: An elderly female lying in bed in no distress RESPIRATORY SYSTEM: Unlabored breathing , decreased breath sounds at bases HEART: S1 S2 regular rate and rhythm , ABDOMEN: Soft , no tenderness EXTREMITIES: No edema feet - Labs CBC & Chem 7: 10/13/23 07:33 10/13/23 07:33 Labs: Abnormal Lab Results - Last 24 Hours (Table) 10/13/23 10/13/23 Range/Units 07:33 07:33 WBC 21.1 H (3.8-10.6) k/uL Neutrophils # (Manual) 15.80 H (1.3-7.7) k/uL Monocytes # (Manual) 2.32 H (0-1.0) k/uL Eosinophils # (Manual) 1.27 H (0-0.7) k/uL Metamyelocytes # (Man) 0.21 H (0) k/uL Myelocytes # (Manual) 0.21 H (0) k/uL BUN 64 H (7-17) mg/dL Creatinine 3.03 H (0.52-1.04) mg/dL AST 149 H (14-36) U/L ALT 186 H (4-34) U/L Total Protein 5.4 L (6.3-8.2) g/dL Albumin 2.7 L (3.5-5.0) g/dL Microbiology - Last 24 Hours (Table) 10/09/23 19:05 Blood Culture - Preliminary Blood Assessment and Plan (1) Sepsis Current Visit: Yes Status: Acute Code(s): A41.9 - SEPSIS, UNSPECIFIED ORGANISM SNOMED Code(s): 28883808 (2) Leukocytosis Current Visit: Yes Status: Acute Code(s): D72.829 - ELEVATED WHITE BLOOD CELL COUNT, UNSPECIFIED SNOMED Code(s): 835727014 (3) Gram-negative bacteremia Current Visit: Yes Status: Acute Code(s): R78.81 - BACTEREMIA SNOMED Code(s): 868307237526 (4) UTI (urinary tract infection) Current Visit: Yes Status: Acute Code(s): N39.0 - URINARY TRACT INFECTION, SITE NOT SPECIFIED SNOMED Code(s): 79091166 Plan: 1-patient is in the hospital with sepsis/septic shock secondary to complicated UTI in this patient who did have a left-sided hydronephrosis requiring cystoscopy and left-sided double-J ureteral catheter placement likely secondary to enteric gram-negative pathogen 2E. coli bacteremia source likely left-sided pyelonephritis complicated UTI sensitive pathogen repeat blood cultures 10/09/2023 so far negative 3the patient remains to be afebrile, noticed to have slight worsening of the white count will be monitored closely repeat blood cultures negative continue with Rocephin and will repeat CBC with a.m. lab Dictation was produced using [employer] dictation software. please excuse any grammatical, word or spelling errors. Time with Patient: Less than 30
[2023-10-13] MEDS: NOREPINEPHRINE 8 MG in SODIUM CHLORIDE 0.9% 250 ML IV SCH (18:02)
--- NOTE | 2023-10-13 19:29 | P.PN ---
Subjective Progress Note Date: 10/13/23 SUBJECTIVE: Patient was seen and examined at bedside the same. She is making slow progress. She is currently on high flow nasal cannula supplemental oxygen. Patient's daughter is present at bedside. BP 125/72, heart rate 74 beats a minute, Still has been losing on of 21, hemoglobin 11, BUN 64, creatinine 3.03 PHYSICAL EXAMINATION Vital signs reviewed. Cardiac: S1 and S2 audible, no significant murmurs the patient Respiratory: Good air entry, mild crackles audible in bilateral bases 1+ pitting edema in bilateral extremity ASSESSMENT Acute diastolic heart failure NICK since CKD next Septic shock with gram-negative bacteremia, resolving Pneumonia, right lower lobe Type II nstemi Echo shows an EF of 50%, RVSP 33, mild MR, mild AI, moderate tr PLAN Continue aspirin, metoprolol 25 mg twice a day Lasix as per nephrology team recommendations. IV antibodies as per primary team and ICU team Patient's creatinine has somewhat stable at 3. Reevaluate the need for Lasix on daily basis. Objective - Vital Signs Vital signs: Vital Signs Temp 97.8 F 10/13/23 16:00 Pulse 74 10/13/23 19:00 Resp 18 10/13/23 19:00 BP 125/72 10/13/23 19:00 Pulse Ox 96 10/13/23 19:00 FiO2 40 10/13/23 12:00 Intake & Output 10/13/23 10/13/23 10/14/23 06:59 18:59 06:59 Intake Total 420 645 20 Output Total 995 1005 60 Balance -575 -360 -40 Weight 72.8 kg Intake: IV 420 240 20 0.9 KVO 220 240 20 Potassium Chloride 20 meq 200 In Water For Injection 1 100ml.bag @ 50 mls/hr IVPB Q2H [facility] Rx#: [id number] Intake, IV Titration 50 Amount cefTRIAXone 2 gm In 50 Sodium Chloride 0.9% 50 ml @ 100 mls/hr IVPB Q24HR [facility] Rx#:[id number] Oral 355 Output: Urine 995 1005 60 Other: Voiding Method Indwelling Catheter Indwelling Catheter - Labs CBC & Chem 7: 10/13/23 07:33 10/13/23 07:33 Labs: Abnormal Lab Results - Last 24 Hours (Table) 10/13/23 10/13/23 Range/Units 07:33 07:33 WBC 21.1 H (3.8-10.6) k/uL Neutrophils # (Manual) 15.80 H (1.3-7.7) k/uL Monocytes # (Manual) 2.32 H (0-1.0) k/uL Eosinophils # (Manual) 1.27 H (0-0.7) k/uL Metamyelocytes # (Man) 0.21 H (0) k/uL Myelocytes # (Manual) 0.21 H (0) k/uL BUN 64 H (7-17) mg/dL Creatinine 3.03 H (0.52-1.04) mg/dL AST 149 H (14-36) U/L ALT 186 H (4-34) U/L Total Protein 5.4 L (6.3-8.2) g/dL Albumin 2.7 L (3.5-5.0) g/dL Microbiology - Last 24 Hours (Table) 10/09/23 19:05 Blood Culture - Preliminary Blood
[2023-10-14] MEDS: NYSTATIN 100,000 UNIT/ML SUSP 500,000 UNIT/5 ML CUP PO SCH ×5 (00:18→20:58)
[2023-10-14] MEDS: MORPHINE SULFATE 4 MG/ML SYRINGE IV PRN (00:18)
[2023-10-14] MEDS: HEPARIN SODIUM,PORCINE 5,000 UNIT/ML 1 ML VIAL SQ SCH ×3 (00:19→16:43)
[2023-10-14] MEDS ORDERED: VITAMIN A TOPICAL ONE (06:22)
[2023-10-14] MEDS ORDERED: LANOLIN TOPICAL ONE (06:22)
[2023-10-14] MEDS ORDERED: VITAMIN D TOPICAL ONE (06:22)
[2023-10-14] MEDS ORDERED: WHITE PETROLATUM TOPICAL ONE (06:22)
[2023-10-14] MEDS: LEVOTHYROXINE 75 MCG TAB PO SCH (06:59)
--- NOTE | 2023-10-14 09:23 | P.PN ---
Subjective Progress Note Date: 10/14/23 This is a very pleasant 87-year-old female patient with a known history of hypertension, hyperlipidemia, gastroesophageal reflux disease, anxiety, breast cancer status post lumpectomy and chemotherapy over 30 years ago. He is admitted to the emergency room yesterday with increasing weakness and altered mental status. She did have influenza approximately 1 week ago but was feeling better until recently. She developed nausea vomiting diarrhea and weakness that led to a fall. She was altered when EMS had arrived. EKG revealed sinus tachycardia with nonspecific ST and T wave abnormalities. Revealed mild cardiomegaly and chronic appearing changes. Some strandy atelectasis at the right lung base. Otherwise no acute pulmonary process. Ultrasound of the bladder revealed moderate to severe left sided hydronephrosis with internal debris. Correlate to exclude infective debris/pyelitis. Bilateral renal calculi measuring up to 9 mm on the left and 6 mm on the right. All cultures are pending. White count 10.6. Hemoglobin 10.8. Platelets 425. INR 1.5. Sodium 134. Potassium 4.0. Bicarb 10. BUN 38. Creatinine 3.00. Glucose 129. AST 781. ALT 175. Troponins 2.64, 4.17, 4.02. ProBNP 1790. TSH 5.32. Influenza screen negative. RSV screen negative. COVID-19 screen negative. In itial lactic acid 8.3. Currently 1.7. She had received 3 L of fluid resuscitation. She is continued on D5W with 3 A of sodium bicarbonate at 100 ML's per hour. She's been initiated on a heparin drip. She is requiring norepinephrine at 0.2 mg/kg/m. He is seen today in consultation in the intens [facility] care unit. She is awake and alert in no acute distress. Feeling a bit better today compared to yesterday. She is oriented 3. She remains quite weak. She is maintaining O2 saturations in the 90s on 2.5 L/m per nasal cannula. Arterial pressures in the low 70s. She had a T-max of 101 on arrival. Currently afebrile. On today's evaluation of 10/09/2023, the patient continues to be critically ill, septic, hypotensive, currently on 100% nonrebreather facemask. Pulse ox is in order of 90-93%. The patient in septic shock. 2 UTI and left pyelonephritis and probable obstructing ureteral calculus. The patient underwent a cystoscopy and insertion of double-J catheter on 10/08/2023. The patient has a positive blood culture with gram-negative bacillus and the patient remains on IV Rocep hin. Hemodynamically, the patient remains hypotensive. The patient is still on high-dose norepinephrine at 0.2 mcg/kg/m and the patient is also on a bicarbonate infusion running at the rate of 100 mL an hour. Chest x-ray showing cardiac megaly with pulmonary vessel congestion. Urine output is diminished in the order of 15-20 mL an hour. The white cell cause of 54.3 with a hemoglobin of 10 and a platelet count of 381. The patient was started on IV heparin regarding some troponin leak and a troponin peak at 3.2. Nevertheless she is feeling any chest pain. PTT currently is at 61 with an INR of 1.9 and a PT of 19.3. BUN is 44 with a creatinine of 3.47 and the patient sustained an acute kidney injury. Sodium is at 137 with a potassium level of 3.7. She is quite lethargic and weak and her meditation is quite diminished at this point in time. Gutierrez neurologic exam is nonfocal. No other issues for now. Echocardiogram showed a preserved LV function with an EF of around 50%. The patient has normal RV, no significant valvular abnormalities was noted. On 10/10/2023, the patient is being seen for a follow-up. This is an 87-year-old female patient with septic shock and gram-negative urinary tract infection with sepsis. The patient presented with left pyelonephritis and the p atient underwent a cystoscopy and double-J and insertion on 10/08/2023. Her blood cultures positive for gram-negative bacillus and the patient remains on 2 g of IV Rocephin. She was requiring high doses of pressors and currently she is on no pressors and this was weaned off and discontinued yesterday. IV fluids were also reduced down to 10 mL an hour as the patient was having increased pulmonary edema and pulmonary vascular congestion which has resulted into transitioning her from 100% RV the facemask to a BiPAP which is running at 12/6 with an FiO2 of 75%. Current pulse ox is 99%. Chest x-ray as mentioned is consistent with CHF and pulmonary edema. The patient is producing adequate am ount of urine output overall fluid balance is +1 and 2 L over the past 24 hours. Urine output was in the order of 20-50 mL an hour. Based on that, she was given a dose of Lasix 60 mg IV push to be repeated depending on her urine output. This morning, BUN is at 53 with a creatinine of 3.4 and a sodium level is at 137, the validity count is improved and is down to 26.8 with a hemoglobin 9.2 and platelet count of 235. Myrick catheter in place. No hematuria this point in time. She is on no anticoagulation. Cardiac rhythm is sinus. Echocardiogram showed a preserved LV function with an ejection fraction of 50%. On today's evaluation of 10/11/2023, the patient is lethargic yet arousable. S he is following simple commands speech is profoundly. She remains on BiPAP at a pressure of 12/6 with an FiO2 of 65%. The patient is generating a tidal volume of about 600 and her current respiratory rate is around 18. She has a good mask seal. Her chest x-ray is essentially unchanged compared to yesterday. She has, thyromegaly, mild pulmonary vessel congestion. She was given Lasix yesterday to that of 60 mg IV and the fluid balance is -700 mL over the past 24 hours. Creatinine is stable. Note that the patient partial response to Lasix and the same will be done today. BUN is at 62 with a creatinine of 3.4 and a sodium level is at 140. The white cell count is down to 24 with a hemoglobin of 9.8. As for the blood culture, do not to be positive for E. coli and is sensitive to IV Rocephin which will be continued at a dose of 2 g every 24 hours. Note that the patient is not utilizing any form of pressors for now. IV fluids are KVO. She is resting comfortably in bed. On today's evaluation of 10/12/2023, the patient is awake and alert and she is communicating. She is aware that she is in the hospital. She is currently on high flow oxygen and she was taken off the BiPAP. High flow oxygen is running at 50% FiO2 at 50 L. She is able to maintain a saturation of 96%. Meanwhile, she is afebrile. She is hemodynamically stable picture is off pressors. The white cell count is improving. She is producing urine output. The chest x-ray still showing hazy bilateral pulmonary infiltrates and the patient was given another dose of Lasix 40 mg IV push by nephrology. Myrick catheter in place. The patient is producing adequate amount of urine output. In terms of her labs from today, the white cell count is down to 19, hemoglobin is at 9.8, potassium levels at 2.7 and needs to be replaced, BUN is at 62 with a creatinine of 3.6 and serum bicarb is at 28. Note that this is an acute on top of the chronic kidney injury related to septic shock. As mentioned earlier, she has E. coli, she is on IV Rocephin. She is tolerating small amounts of soft diet. On 10/13/2023, the patient is awake and alert. She is on high flow oxygen at 50 L with an FiO2 of 40%. No chest x-ray from today. She was in septic shock with multisystem organ failure. She could have also had a component of acute lung injury/ARDS requiring high oxygen and initially BiPAP and subsequently high flow oxygen. Hemodynamically stable off pressors. She was given Lasix yesterday and the fluid balance is in order of -1.3 L. The creatinine is down to 3 with a BUN of 64. Sodium is at 140. Potassium is at 4.2. White cell count has dropped onto 21 with a hemoglobin of 11.8. The blood culture was positive for E. coli. She remains on IV Rocephin. Tolerating diet. Weak in general. Communicating. Alert and awake. No pressors at this point. Myrick catheter is in place. On 10/14/2023, the patient is awake and alert and communicating. She is currently on oxygen at 4 L with a pulse ox of 97%. Clinically stable. Hemodynamically stable. Neurologically weak yet able to communicate without any focal neurological deficits. Labs from today are still pending. Yesterday's labs were noted. The patient Remains on IV Rocephin. The patient's is on no pressors. Mouth is dry and she has developed some sores over the lips involving the upper and lower lip and she has also some crusting of the skin over the left nasal fold extending to her left cheek. This could be herpetic in nature. Her mucous membranes are dry. Urine output is in order of 2.6 L over the past 24 hours with a negative fluid balance of -1.7 L over the past 24 hours. She is tolerating clear liquid diet. Quite sleepy yet arousable. Myrick cath is in place. Note that the patient was given Lasix yesterday with excellent urine output Objective - Vital Signs Vital signs: Vital Signs Temp 98.6 F 10/14/23 04:00 Pulse 73 10/14/23 07:00 Resp 34 H 10/14/23 07:00 BP 132/55 10/14/23 07:00 Pulse Ox 94 L 10/14/23 07:00 FiO2 40 10/13/23 12:00 Intake & Output 10/13/23 10/14/23 10/14/23 18:59 06:59 18:59 Intake Total 645 240 20 Output Total 1005 1605 100 Balance -360 -1365 -80 Weight 73.8 kg Intake: IV 240 240 20 0.9 KVO 240 240 20 Intake, IV Titration 50 Amount cefTRIAXone 2 gm In 50 Sodium Chloride 0.9% 50 ml @ 100 mls/hr IVPB Q24HR [facility] Rx#:[id number] Oral 355 Output: Urine 1005 1605 100 Other: Voiding Method Indwelling Catheter Indwelling Catheter - Exam GENERAL EXAM: Alert, weak, 87-year-old female, on 4 L of O2 nasal cannula HEAD: Normocephalic. EYES: Normal reaction of pupils, equal size. NOSE: Clear with pink turbinates. THROAT: No erythema or exudates. NECK: No masses, no JVD. CHEST: No chest wall deformity. LUNGS: Equal air entry with no crackles, wheeze, rhonchi or dullness. Diminished breath on the lung bases along with some bibasilar crackles CVS: S1 and S2 normal with no audible murmur, regular rhythm. ABDOMEN: No hepatosplenomegaly, normal bowel sounds, no guarding or rigidity. SPINE: No scoliosis or deformity SKIN: No rashes CENTRAL NERVOUS SYSTEM: No focal deficits, tone is normal in all 4 extremities. EXTREMITIES: There is no peripheral edema. No clubbing, no cyanosis. Peripheral pulses are intact. - Labs CBC & Chem 7: 10/13/23 07:33 10/13/23 07:33 Labs: Abnormal Lab Results - Last 24 Hours (Table) 10/13/23 Range/Units 07:33 Neutrophils # (Manual) 15.80 H (1.3-7.7) k/uL Monocytes # (Manual) 2.32 H (0-1.0) k/uL Eosinophils # (Manual) 1.27 H (0-0.7) k/uL Metamyelocytes # (Man) 0.21 H (0) k/uL Myelocytes # (Manual) 0.21 H (0) k/uL Microbiology - Last 24 Hours (Table) 10/09/23 19:05 Blood Culture - Preliminary Blood Assessment and Plan Plan: Acute sepsis/septic shock with hypotension requiring pressor support secondary to suspected pyelonephritis. Ultrasound of the kidneys and bladder revealed a moderate to severe left sided hydronephrosis with internal debris. Correlate to exclude infective debris/pyelitis. Bilateral renal calculi measuring up to 9 mm on the left and 6 mm on the right. She is post cystoscopy and insertion of a double-J stent on the left. The patient remains on IV Rocephin and the final cultures of the blood were consistent with E. coli E. coli sepsis secondary to UTI and the patient currently is on IV Rocephin Septic shock improvement within the patient's blood pressure is also improving and the patient is currently off pressors Acute leukocytosis, improving Acute kidney injury secondary to above, with renal function which is stable compared to yesterday. The patient sustained an ATN and she was nonoliguric. R enal function continues to improve Lactic acidosis secondary to above, improved and the blood work from today shows no significant acidosis Acute hypoxemic respiratory failure secondary to above, with bilateral pleural effusion currently on BiPAP and the patient has a preserved LV function on ec hocardiogram is a may be also a component of acute lung injury/ARDS secondary to septic shock. The patient is currently on high flow oxygen 50 L an FiO2 of 50% Acute non-ST segment elevation myocardial infarction Transaminitis secondary to above New onset hypothyroidism History of hypertension Hyperlipidemia History of breast cancer status post lumpectomy/chemotherapy over 30 years ago Gastroesophageal reflux disease Plan: The patient responded nicely to Lasix. Given 60 mg IV Lasix with excellent urine output. Awaiting labs from today. Note that her creatinine was already improving from yesterday. Awaiting labs and renal function from today. Mental status is stable and the patient remains profoundly weak and she is recovering from septic shock Apply acyclovir cream to the lip and the fascial source We'll try to advance her diet for encourage her to eat larger quantities and meet her caloric requirements Oxygenation is improved and the patient is currently on 4 L nasal cannula Continue IV Rocephin heparin 5000 units every 8 hours IV fluids to KVO We'll hold off giving any further diuretics pending blood work and the patient is producing approximately 60 mL an hour urine output Echocardiogram was noted Keep BiPAP for now with a possibility of switching this patient to a high flow nasal cannula if she responds adequately to diuresis Continue Synthroid Prognosis is guarded DO NOT RESUSCITATE/DO NOT INTUBATE CODE STATUS We will continue to monitor closely in ICU We'll continue to follow make further recommendations based on her clinical status This is a critical care evaluation that was done and ICU and this evaluation was done in more than 30 minutes. Prognosis poor based above-mentioned comorbidities. Time with Patient: Greater than 30
[2023-10-14] MEDS: ASPIRIN 81 MG PO SCH (09:56)
[2023-10-14] MEDS: METOPROLOL TARTRATE 25 MG TAB PO SCH ×2 (09:56→20:59)
[2023-10-14] MEDS: CHOLECALCIFEROL 25 MCG (1000 IU) TABLET PO SCH (09:56)
[2023-10-14] MEDS: PANTOPRAZOLE 40 MG TABLET PO SCH (09:56)
--- NOTE | 2023-10-14 10:03 | P.PN ---
Subjective Patient is seen in follow-up for acute kidney injury on chronic kidney disease. Creatinine 3.03 yesterday. Nonoliguric. Oral intake just fair. Now on nasal cannula. Vital signs are stable. General: NAD. HEENT: Head exam is unremarkable. On nasal cannula. LUNGS: Scattered rhonchi. HEART: Rate and Rhythm are regular. ABDOMEN: No distention. EXTREMITITES: 1+ edema. Objective - Vital Signs Vital signs: Vital Signs Temp 98.0 F 10/14/23 08:00 Pulse 68 10/14/23 09:00 Resp 17 10/14/23 09:00 BP 150/57 10/14/23 09:00 Pulse Ox 97 10/14/23 09:00 FiO2 40 10/13/23 12:00 Intake & Output 10/13/23 10/14/23 10/14/23 18:59 06:59 18:59 Intake Total 645 240 210 Output Total 1005 1605 200 Balance -360 -1365 10 Weight 73.8 kg Intake: IV 240 240 60 0.9 KVO 240 240 60 Intake, IV Titration 50 Amount cefTRIAXone 2 gm In 50 Sodium Chloride 0.9% 50 ml @ 100 mls/hr IVPB Q24HR [facility] Rx#:[id number] Oral 355 150 Output: Urine 1005 1605 200 Other: Voiding Method Indwelling Catheter Indwelling Catheter Indwelling Catheter - Labs CBC & Chem 7: 10/13/23 07:33 10/13/23 07:33 Labs: Abnormal Lab Results - Last 24 Hours (Table) 10/13/23 Range/Units 07:33 Neutrophils # (Manual) 15.80 H (1.3-7.7) k/uL Monocytes # (Manual) 2.32 H (0-1.0) k/uL Eosinophils # (Manual) 1.27 H (0-0.7) k/uL Metamyelocytes # (Man) 0.21 H (0) k/uL Myelocytes # (Manual) 0.21 H (0) k/uL Microbiology - Last 24 Hours (Table) 10/09/23 19:05 Blood Culture - Preliminary Blood Assessment and Plan Plan: Assessment: 1. Acute kidney injury secondary to ATN secondary to hypotension. Now off vasopressors. Also component of obstructive uropathy. Renal function better. Creatinine 3.03 as of yesterday. 2. Hypokalemia from diuresis and poor intake. Replaced. Improved. 3. Left hydronephrosis status post ureteral stent placement on 10/08/2023. 4. E. coli bacteremia on antibiotics. 5. Acute on chronic diastolic CHF with moderate tricuspid regurgitation. 6. Chronic kidney disease stage IIIB with baseline creatinine 1.4-1.5 in July 2022. Suspect nephrosclerosis. 7. Metabolic acidosis secondary to acute kidney injury and GI losses. Resolved. Plan: Lasix 40 mg IV once if renal function stable. Replace electrolytes per protocol. Wean FiO2. Avoid nephrotoxins. Continue to monitor renal function and urine output.
[2023-10-14] MEDS: ACETAMINOPHEN TAB 325 MG TAB PO PRN (10:39)
[2023-10-14] MEDS: VASOPRESSIN 60 UNIT in SODIUM CHLORIDE 0.9% 150 ML IV SCH (11:47)
[2023-10-14 12:05] LABS: ALT 153 U/L (4-34); AST 100 U/L (14-36); African American GFR (CKD) 20 (>60 ml/min/1.73 sqM); Albumin 2.7 g/dL (3.5-5.0); Alkaline Phosphatase 113 U/L (38-126); Anion Gap 12 mmol/L; Blood Urea Nitrogen 58 mg/dL (7-17); Calcium 8.6 mg/dL (8.4-10.2); Carbon Dioxide 27 mmol/L (22-30); Chloride 100 mmol/L (98-107); Glucose 112 mg/dL (74-99); Non-African American GFR(CKD) 18 (>60 ml/min/1.73 sqM); Potassium 3.6 mmol/L (3.5-5.1); Sodium 139 mmol/L (137-145); Total Bilirubin 0.4 mg/dL (0.2-1.3); Total Protein 5.3 g/dL (6.3-8.2)
[2023-10-14] MEDS ORDERED: FUROSEMIDE 10 MG/ML 4 ML VIAL IV STA (12:10)
[2023-10-14 12:14] LABS: HCT 33.3 % (34.0-46.0); HGB 10.8 gm/dL (11.4-16.0); MCH 29.6 pg (25.0-35.0); MCHC 32.6 g/dL (31.0-37.0); MCV 90.9 fL (80.0-100.0); Mean Platelet Volume 10.4; Platelet Count 266 k/uL (150-450); RBC 3.66 m/uL (3.80-5.40); RDW 14.1 % (11.5-15.5); WBC 18.9 k/uL (3.8-10.6)
[2023-10-14] MEDS ORDERED: POTASSIUM CHLORIDE ER 20 MEQ TAB.ER PO SCH (13:00)
[2023-10-14] MEDS ORDERED: ANIDULAFUNGIN 200 MG in SODIUM CHLORIDE 0.9% 200 ML IVPB ONE (13:29)
[2023-10-14 13:58] LABS: Band Neutrophils % 4 %; Eosinophils # (M) 0.57 k/uL (0-0.7); Lymphocytes # (M) 0.76 k/uL (1.0-4.8); Metamyelocytes # (M) 0.19 k/uL (0); Metamyelocytes % 1 %; Monocytes # (M) 1.13 k/uL (0-1.0); Myelocytes # (M) 0.38 k/uL (0); Myelocytes % 2 %; Neutrophils % (M) 83 %; Nucleated Red Blood Cells 0 /100 WBC (0-0); RBC Morphology Normal; Total Cells Counted 200
--- NOTE | 2023-10-14 14:13 | P.PN ---
Subjective Progress Note Date: 10/14/23 patient is a 87-year-old lady with past medical history significant for hypertension, hyperlipidemia who was brought to the ER for evaluation for syncopal event and altered mental status. Most of the history is taken from the EMR and from the patient, according to EMR, patient walked into patient's room and found her slumped in the bed, at that time patient was very confused, hard to arouse. EMS was called and when they arrived , patient blood pressure was low but patient was responsive. Patient did got one round of epi in on route to the ER. On gathering more information, patient had been complaining of flulike symptoms and was diagnosed with influenza a week ago, patient got over that sickness but then started complaining of nausea and vomiting. Was also complaining of diarrhea. Family also noted the patient was more short of breath than normal. Denied any chest pain or palpitations. There was no complain of any jerking movement of extremity. No complaint of any slurred speech or facial droop. Initial lab work done in the ER showed WBC 17.9, hemoglobin 12, platelet count 75 glucose 168, lactate 8.3 calcium 8.8, total bilirubin 1.2, troponin 2.640 INR 1.4, sodium 134, potassium 4.3, BUNs 34, creatinine 2.95, Influenza A not detected Influenza B not detected RSV not detected COVID-19 not detected EKG done in the ER showed heart rate of 133 , no ST segment elevation or depression seen, no T-wave inversions seen. Chest x-ray done in the ER showed mild cardiomegaly and COPD, chronic appearing changes ER physician talked to the patient's niece and patient, central line was placed in the ER patient was started on Levophed for hypotension. Patient admitted to ICU under internal medicine service 10/09. Patient seen and examined. Patient underwent cystoscopy with left ureteral stent placement on 10/08 by urology. Currently on nonrebreather, denies any chest pain. Labs reviewed, WBC 34.3, hemoglobin 10, platelet count 381, INR 1.9, sodium 137, potassium 3.7, BUN 44, creatinine 3.47 AST 856, AL282 10/10. Patient seen and examined. 2-D echo done showed LVEF of 50%, mild mitral regurg, mild aortic insufficiency, moderate tricuspid regurg. She has been weaned off all pressors. Still has shortness of breath 10/11. Patient seen and examined. Currently on BiPAP with FiO2 of 65%. Blood work done this morning showed a lipase of 24.5, 9.8, platelet count 222 sodium 140, potassium 3.7, BUN 62, creatinine 3.47. Complaining that she does not feel well. Gets short of breath on minimal exertion. 10/12. Patient seen and examined. with labs this morning shows WBC 19.3, hemoglobin 9.8, sodium is 1:30, potassium is 2.7, BUN is 62, creatinine 3.67. States she feels better, breathing is improving. Patient getting another dose of Lasix by nephrology 10/13. Patient seen and examined. Currently on heated high flow. States she feels much better. Daughter at the bedside. Blood work done this morning showed WBC 21.1, hemoglobin 11.8 sodium 140, potassium 4.2, BUN 64, creatinine 3.03 10/14. Patient seen and examined. Currently on 4 L of oxygen. Patient has a lot of crusting and sores around her lips and the left nasal fold, complaining of pain around the lips. Most likely herpes labialis, will start patient on V altrex REVIEW OF SYSTEMS: Denies any chest pain. Denies any fever or chills. Denies any nausea or vomiting PHYSICAL EXAMINATION: GENERAL: The patient is alert , ill looking HEENT: Pupils are round and equally reacting to light. EOMI. No scleral icterus. No conjunctival pallor. Normocephalic, atraumatic. No pharyngeal erythema. No thyromegaly. Sores around the lips and the left nasal fold CARDIOVASCULAR: S1 and S2 present. No murmurs, rubs, or gallops. PULMONARY: Diminished breath sounds bilaterally, no expiratory wheeze audible ABDOMEN: Soft, nontender, nondistended, normoactive bowel sounds. No palpable organomegaly. MUSCULOSKELETAL: No joint swelling or deformity. EXTREMITIES: 1+ edema in lower extremities bilaterally NEUROLOGICAL: Gross neurological examination did not reveal any focal deficits. SKIN: No rashes. Assessment and plan Septic shock Gram-negative bacteremia Acute hypoxic respiratory failure Acute metabolic encephalopathy Herpes labialis Non-ST elevation ND Acute transaminitis Acute kidney injury Left-sided hydronephrosis Syncopal event Fall Hypertension Hyperlipidemia Monitor vital signs Monitor CBC Monitor CMP Continue telemetry monitoring Aggressive bronchopulmonary hygiene Continue BiPAP as needed Follow-up on blood cultures, blood cultures growing E. coli Follow-up on urine cultures monitor LFTs Strict I's and O's, daily weights, Continue IV Rocephin Started Valtrex on 10/14 2-D echo done showed LVEF of 50%, mild mitral regurg, mild aortic insufficiency, moderate tricuspid regurg Nephrology following Cardiology following, recommended starting patient on aspirin and beta reji, currently on aspirin and Lopressor Critical care following ID following Urology following, cystoscopy with left ureteral cathetre placement on 10/08, recommend outpatient follow-up for stone removal and stent placement Labs and medication were reviewed.. Continue same treatment. Continue with symptomatic treatment. Resume home medication. Monitor labs and vitals. DVT and GI prophylaxis. Further recommendations as per clinical course of the patient Dictation was produced using [employer] dictation software. please excuse any grammatical, word or spelling errors. Objective - Vital Signs Vital signs: Vital Signs Temp 98.0 F 10/14/23 08:00 Pulse 65 10/14/23 11:00 Resp 11 L 10/14/23 11:00 BP 146/56 10/14/23 11:00 Pulse Ox 96 10/14/23 11:00 FiO2 50 10/14/23 09:40 Intake & Output 10/13/23 10/14/23 10/14/23 18:59 06:59 18:59 Intake Total 645 240 210 Output Total 1005 1605 200 Balance -360 -1365 10 Weight 73.8 kg Intake: IV 240 240 60 0.9 KVO 240 240 60 Intake, IV Titration 50 Amount cefTRIAXone 2 gm In 50 Sodium Chloride 0.9% 50 ml @ 100 mls/hr IVPB Q24HR [facility] Rx#:[id number] Oral 355 150 Output: Urine 1005 1605 200 Other: Voiding Method Indwelling Catheter Indwelling Catheter Indwelling Catheter - Labs CBC & Chem 7: 10/14/23 11:04 10/14/23 11:04 Labs: Abnormal Lab Results - Last 24 Hours (Table) 10/14/23 10/14/23 Range/Units 11:04 11:04 WBC 18.9 H (3.8-10.6) k/uL RBC 3.66 L (3.80-5.40) m/uL Hgb 10.8 L (11.4-16.0) gm/dL Hct 33.3 L (34.0-46.0) % Neutrophils # (Manual) 16.40 H (1.3-7.7) k/uL Lymphocytes # (Manual) 0.76 L (1.0-4.8) k/uL Monocytes # (Manual) 1.13 H (0-1.0) k/uL Metamyelocytes # (Man) 0.19 H (0) k/uL Myelocytes # (Manual) 0.38 H (0) k/uL BUN 58 H (7-17) mg/dL Creatinine 2.36 H (0.52-1.04) mg/dL Glucose 112 H (74-99) mg/dL AST 100 H (14-36) U/L ALT 153 H (4-34) U/L Total Protein 5.3 L (6.3-8.2) g/dL Albumin 2.7 L (3.5-5.0) g/dL
[2023-10-14] MEDS: valACYclovir HCL 500 MG TAB PO SCH (14:16)
--- NOTE | 2023-10-14 14:53 | P.PN ---
Subjective Progress Note Date: 10/14/23 Principal diagnosis: Reason for follow-up is E. coli pyelonephritis sepsis and bacteremia Patient is a 87-year old female with a past medical history pertinent for hypertension hyperlipidemia reflux and breast cancer patient was brought into the hospital for evaluation of increasing weakness mental status changes patient was noticed to be febrile septic secondary to left-sided ureteral stone with hydronephrosis requiring cystoscopy and left ureteral double-J catheter placement patient blood cultures subsequently came back positive with E. coli. On today's evaluation that is 10/14/2023, the patient remains to be afebrile, the patient is breathing comfortably on 3 L nasal cannula oxygen patient is hemodynamically stable not requiring any pressor support denies any chest pain shortness of breath or cough no abdominal pain no diarrhea has been reported patient mention feeling slightly better. Patient has developed significant excoriation to the bilateral hips Patient white count is down to 18.9, creatinine is 2.36 blood culture repeated 10/09/2020 so far negative Past medical surgical history reviewed Medication reviewed Review of systems completed Objective - Vital Signs Vital signs: Vital Signs Temp 98.0 F 10/14/23 08:00 Pulse 65 10/14/23 11:00 Resp 11 L 10/14/23 11:00 BP 146/56 10/14/23 11:00 Pulse Ox 96 10/14/23 11:00 FiO2 50 10/14/23 09:40 Intake & Output 10/13/23 10/14/23 10/14/23 18:59 06:59 18:59 Intake Total 645 240 210 Output Total 1005 1605 200 Balance -360 -1365 10 Weight 73.8 kg Intake: IV 240 240 60 0.9 KVO 240 240 60 Intake, IV Titration 50 Amount cefTRIAXone 2 gm In 50 Sodium Chloride 0.9% 50 ml @ 100 mls/hr IVPB Q24HR [facility] Rx#:[id number] Oral 355 150 Output: Urine 1005 1605 200 Other: Voiding Method Indwelling Catheter Indwelling Catheter Indwelling Catheter - Exam GENERAL DESCRIPTION: An elderly female lying in bed in no distress HEENT patient did have evidence of extensive herpes labialis especially involving the lower lip, also with a mild thrush RESPIRATORY SYSTEM: Unlabored breathing , decreased breath sounds at bases HEART: S1 S2 regular rate and rhythm , ABDOMEN: Soft , no tenderness EXTREMITIES: No edema feet - Labs CBC & Chem 7: 10/14/23 11:04 10/14/23 11:04 Labs: Abnormal Lab Results - Last 24 Hours (Table) 10/14/23 Range/Units 11:04 BUN 58 H (7-17) mg/dL Creatinine 2.36 H (0.52-1.04) mg/dL Glucose 112 H (74-99) mg/dL AST 100 H (14-36) U/L ALT 153 H (4-34) U/L Total Protein 5.3 L (6.3-8.2) g/dL Albumin 2.7 L (3.5-5.0) g/dL Assessment and Plan (1) Sepsis Current Visit: Yes Status: Acute Code(s): A41.9 - SEPSIS, UNSPECIFIED ORGANISM SNOMED Code(s): 80043062 (2) Leukocytosis Current Visit: Yes Status: Acute Code(s): D72.829 - ELEVATED WHITE BLOOD CELL COUNT, UNSPECIFIED SNOMED Code(s): 715917868 (3) Gram-negative bacteremia Current Visit: Yes Status: Acute Code(s): R78.81 - BACTEREMIA SNOMED Code(s): 821989892867 (4) UTI (urinary tract infection) Current Visit: Yes Status: Acute Code(s): N39.0 - URINARY TRACT INFECTION, SITE NOT SPECIFIED SNOMED Code(s): 89728743 (5) Herpes labialis Current Visit: Yes Status: Acute Code(s): B00.1 - HERPESVIRAL VESICULAR DERMATITIS SNOMED Code(s): 8114653 (6) Thrush Current Visit: Yes Status: Acute Code(s): B37.0 - CANDIDAL STOMATITIS SNOMED Code(s): 49356537 Plan: 1-patient is in the hospital with sepsis/septic shock secondary to complicated UTI in this patient who did have a left-sided hydronephrosis requiring cystos copy and left-sided double-J ureteral catheter placement likely secondary to enteric gram-negative pathogen 2E. coli bacteremia source likely left-sided pyelonephritis complicated UTI sensitive pathogen repeat blood cultures 10/09/2023 so far negative 3patient did have evidence of extensive herpes labialis we will start the patient on Valtrex dose has been confirmed with the pharmacy at 1 g every 24 hours. 4patient also have a elevated white count and evidence of thrush we will add Eraxis cannot use Diflucan as the patient on Zofran and Xanax that is interacting with it. 5we will continue patient Rocephin for her UTI and bacteremia Daughter at the bedside multiple questions concern answered Dictation was produced using [employer] dictation software. please excuse any grammatical, word or spelling errors.
--- NOTE | 2023-10-14 15:55 | P.PN ---
Subjective Progress Note Date: 10/14/23 SUBJECTIVE: Patient was seen and examined at bedside the same. She is making slow progress. Patient's daughter is present at bedside. BP 125/72, heart rate 74 beats a minute, PHYSICAL EXAMINATION Vital signs reviewed. Cardiac: S1 and S2 audible, no significant murmurs the patient Respiratory: Good air entry, mild crackles audible in bilateral bases 1+ pitting edema in bilateral extremity ASSESSMENT Acute diastolic heart failure NICK since CKD next Septic shock with gram-negative bacteremia, resolving Pneumonia, right lower lobe Type II nstemi Echo shows an EF of 50%, RVSP 33, mild MR, mild AI, moderate tr PLAN Continue aspirin, metoprolol 25 mg twice a day Lasix as per nephrology team recommendations. IV antibodies as per primary team and ICU team Patient's creatinine has somewhat stable at 3. Reevaluate the need for Lasix on daily basis. Objective - Vital Signs Vital signs: Vital Signs Temp 98.3 F 10/14/23 12:00 Pulse 61 10/14/23 14:00 Resp 18 10/14/23 14:00 BP 127/58 10/14/23 14:00 Pulse Ox 94 L 10/14/23 14:00 FiO2 50 10/14/23 09:40 Intake & Output 10/13/23 10/14/23 10/14/23 18:59 06:59 18:59 Intake Total 645 240 690 Output Total 1005 1605 400 Balance -360 -1365 290 Weight 73.8 kg Intake: IV 240 240 340 0.9 KVO 240 240 140 Anidulafungin 200 mg In 200 Sodium Chloride 0.9% 200 ml @ 84 mls/hr IVPB ONCE ONE Rx#:[id number] Intake, IV Titration 50 Amount cefTRIAXone 2 gm In 50 Sodium Chloride 0.9% 50 ml @ 100 mls/hr IVPB Q24HR [facility] Rx#:[id number] Oral 355 350 Output: Urine 1005 1605 400 Other: Voiding Method Indwelling Catheter Indwelling Catheter Indwelling Catheter - Labs CBC & Chem 7: 10/14/23 11:04 10/14/23 11:04 Labs: Abnormal Lab Results - Last 24 Hours (Table) 10/14/23 10/14/23 Range/Units 11:04 11:04 WBC 18.9 H (3.8-10.6) k/uL RBC 3.66 L (3.80-5.40) m/uL Hgb 10.8 L (11.4-16.0) gm/dL Hct 33.3 L (34.0-46.0) % Neutrophils # (Manual) 16.40 H (1.3-7.7) k/uL Lymphocytes # (Manual) 0.76 L (1.0-4.8) k/uL Monocytes # (Manual) 1.13 H (0-1.0) k/uL Metamyelocytes # (Man) 0.19 H (0) k/uL Myelocytes # (Manual) 0.38 H (0) k/uL BUN 58 H (7-17) mg/dL Creatinine 2.36 H (0.52-1.04) mg/dL Glucose 112 H (74-99) mg/dL AST 100 H (14-36) U/L ALT 153 H (4-34) U/L Total Protein 5.3 L (6.3-8.2) g/dL Albumin 2.7 L (3.5-5.0) g/dL
[2023-10-14] MEDS: NOREPINEPHRINE 8 MG in SODIUM CHLORIDE 0.9% 250 ML IV SCH (20:47)
[2023-10-14] MEDS: ALPRAZolam 0.25 MG TAB PO PRN (20:59)
[2023-10-15] MEDS: HEPARIN SODIUM,PORCINE 5,000 UNIT/ML 1 ML VIAL SQ SCH ×4 (00:36→22:48)
[2023-10-15] MEDS: LEVOTHYROXINE 75 MCG TAB PO SCH (05:27)
[2023-10-15 06:15] LABS: HCT 30.8 % (34.0-46.0); MCH 29.1 pg (25.0-35.0); MCHC 32.4 g/dL (31.0-37.0); MCV 89.6 fL (80.0-100.0); Mean Platelet Volume 9.5; Platelet Count 297 k/uL (150-450); RBC 3.43 m/uL (3.80-5.40); RDW 14.2 % (11.5-15.5); WBC 17.3 k/uL (3.8-10.6)
[2023-10-15 06:31] LABS: African American GFR (CKD) 21 (>60 ml/min/1.73 sqM); Anion Gap 10 mmol/L; Blood Urea Nitrogen 52 mg/dL (7-17); Calcium 8.4 mg/dL (8.4-10.2); Carbon Dioxide 29 mmol/L (22-30); Chloride 101 mmol/L (98-107); Glucose 104 mg/dL (74-99); Non-African American GFR(CKD) 19 (>60 ml/min/1.73 sqM); Potassium 3.2 mmol/L (3.5-5.1); Sodium 140 mmol/L (137-145)
[2023-10-15] MEDS ORDERED: SENNOSIDES-DOCUSATE SODIUM 1 EACH TAB PO PRN (07:06)
[2023-10-15] MEDS: ASPIRIN 81 MG PO SCH (09:00)
[2023-10-15] MEDS: valACYclovir HCL 500 MG TAB PO SCH (09:00)
[2023-10-15] MEDS ORDERED: SENNOSIDES-DOCUSATE SODIUM 1 EACH TAB PO SCH (09:00)
[2023-10-15] MEDS: CHOLECALCIFEROL 25 MCG (1000 IU) TABLET PO SCH (09:00)
[2023-10-15] MEDS: DOCUSATE 100 MG CAP PO SCH ×2 (09:00→20:05)
[2023-10-15] MEDS: POTASSIUM CHLORIDE ER 20 MEQ TAB.ER PO SCH ×2 (09:00→10:44)
[2023-10-15] MEDS: METOPROLOL TARTRATE 25 MG TAB PO SCH ×2 (09:00→20:05)
[2023-10-15] MEDS: NYSTATIN 100,000 UNIT/ML SUSP 500,000 UNIT/5 ML CUP PO SCH ×4 (09:01→20:05)
[2023-10-15] MEDS: PANTOPRAZOLE 40 MG TABLET PO SCH (09:01)
[2023-10-15] MEDS: ANIDULAFUNGIN 100 MG in SODIUM CHLORIDE 0.9% 100 ML IVPB SCH (09:01)
[2023-10-15] MEDS: VASOPRESSIN 60 UNIT in SODIUM CHLORIDE 0.9% 150 ML IV SCH (09:53)
[2023-10-15] MEDS ORDERED: FUROSEMIDE 10 MG/ML 4 ML VIAL IV STA (09:54)
--- NOTE | 2023-10-15 10:13 | P.PN ---
Subjective Patient is seen in follow-up for acute kidney injury on chronic kidney disease. Creatinine improved to 2.28. Nonoliguric. Oral intake just fair. On nasal cannula. Vital signs are stable. General: NAD. HEENT: Head exam is unremarkable. On nasal cannula. LUNGS: Scattered rhonchi. HEART: Rate and Rhythm are regular. ABDOMEN: No distention. EXTREMITITES: 1+ edema. Objective - Vital Signs Vital signs: Vital Signs Temp 99 F 10/15/23 08:00 Pulse 68 10/15/23 09:00 Resp 24 10/15/23 09:00 BP 125/58 10/15/23 09:00 Pulse Ox 93 L 10/15/23 09:00 FiO2 50 10/14/23 16:00 Intake & Output 10/14/23 10/15/23 10/15/23 18:59 06:59 18:59 Intake Total 1040 300 430 Output Total 1600 1215 175 Balance -560 -915 255 Weight 73 kg Intake: IV 440 240 40 0.9 KVO 240 240 40 Anidulafungin 200 mg In 200 Sodium Chloride 0.9% 200 ml @ 84 mls/hr IVPB ONCE ONE Rx#:[id number] Intake, IV Titration 150 Amount Anidulafungin 100 mg In 100 Sodium Chloride 0.9% 100 ml @ 84 mls/hr IVPB DAILY [facility] Rx#:[id number] cefTRIAXone 2 gm In 50 Sodium Chloride 0.9% 50 ml @ 100 mls/hr IVPB Q24HR [facility] Rx#:[id number] Oral 600 60 240 Output: Urine 1600 1215 175 Other: Voiding Method Indwelling Catheter Indwelling Catheter Indwelling Catheter - Labs CBC & Chem 7: 10/15/23 05:53 10/15/23 05:53 Labs: Abnormal Lab Results - Last 24 Hours (Table) 10/14/23 10/14/23 10/15/23 Range/Units 11:04 11:04 05:53 WBC 18.9 H 17.3 H (3.8-10.6) k/uL RBC 3.66 L 3.43 L (3.80-5.40) m/uL Hgb 10.8 L 10.0 L (11.4-16.0) gm/dL Hct 33.3 L 30.8 L (34.0-46.0) % Neutrophils # (Manual) 16.40 H (1.3-7.7) k/uL Lymphocytes # (Manual) 0.76 L (1.0-4.8) k/uL Monocytes # (Manual) 1.13 H (0-1.0) k/uL Metamyelocytes # (Man) 0.19 H (0) k/uL Myelocytes # (Manual) 0.38 H (0) k/uL Potassium (3.5-5.1) mmol/L BUN 58 H (7-17) mg/dL Creatinine 2.36 H (0.52-1.04) mg/dL Glucose 112 H (74-99) mg/dL AST 100 H (14-36) U/L ALT 153 H (4-34) U/L Total Protein 5.3 L (6.3-8.2) g/dL Albumin 2.7 L (3.5-5.0) g/dL 10/15/23 Range/Units 05:53 WBC (3.8-10.6) k/uL RBC (3.80-5.40) m/uL Hgb (11.4-16.0) gm/dL Hct (34.0-46.0) % Neutrophils # (Manual) (1.3-7.7) k/uL Lymphocytes # (Manual) (1.0-4.8) k/uL Monocytes # (Manual) (0-1.0) k/uL Metamyelocytes # (Man) (0) k/uL Myelocytes # (Manual) (0) k/uL Potassium 3.2 L (3.5-5.1) mmol/L BUN 52 H (7-17) mg/dL Creatinine 2.28 H (0.52-1.04) mg/dL Glucose 104 H (74-99) mg/dL AST (14-36) U/L ALT (4-34) U/L Total Protein (6.3-8.2) g/dL Albumin (3.5-5.0) g/dL Microbiology - Last 24 Hours (Table) 10/09/23 19:05 Blood Culture - Final Blood Assessment and Plan Plan: Assessment: 1. Acute kidney injury secondary to ATN secondary to hypotension. Now off vasopressors. Also component of obstructive uropathy. Renal function better. Creatinine 2.28 today. 2. Hypokalemia from diuresis and poor intake. 3. Left hydronephrosis status post ureteral stent placement on 10/08/2023. 4. E. coli bacteremia on antibiotics. 5. Acute on chronic diastolic CHF with moderate tricuspid regurgitation. 6. Chronic kidney disease stage IIIB with baseline creatinine 1.4-1.5 in July 2022. Suspect nephrosclerosis. 7. Metabolic acidosis secondary to acute kidney injury and GI losses. Resolved. Plan: Lasix 40 mg IV once today. Replace electrolytes per protocol. Wean FiO2. Avoid nephrotoxins. Continue to monitor renal function and urine output. Repeat CXR.
--- NOTE | 2023-10-15 10:34 | P.PN ---
Subjective Progress Note Date: 10/15/23 This is a very pleasant 87-year-old female patient with a known history of hypertension, hyperlipidemia, gastroesophageal reflux disease, anxiety, breast cancer status post lumpectomy and chemotherapy over 30 years ago. He is admitted to the emergency room yesterday with increasing weakness and altered mental status. She did have influenza approximately 1 week ago but was feeling better until recently. She developed nausea vomiting diarrhea and weakness that led to a fall. She was altered when EMS had arrived. EKG revealed sinus tachycardia with nonspecific ST and T wave abnormalities. Revealed mild cardiomegaly and chronic appearing changes. Some strandy atelectasis at the right lung base. Otherwise no acute pulmonary process. Ultrasound of the bladder revealed moderate to severe left sided hydronephrosis with internal debris. Correlate to exclude infective debris/pyelitis. Bilateral renal calculi measuring up to 9 mm on the left and 6 mm on the right. All cultures are pending. White count 10.6. Hemoglobin 10.8. Platelets 425. INR 1.5. Sodium 134. Potassium 4.0. Bicarb 10. BUN 38. Creatinine 3.00. Glucose 129. AST 781. ALT 175. Troponins 2.64, 4.17, 4.02. ProBNP 1790. TSH 5.32. Influenza screen negative. RSV screen negative. COVID-19 screen negative. In itial lactic acid 8.3. Currently 1.7. She had received 3 L of fluid resuscitation. She is continued on D5W with 3 A of sodium bicarbonate at 100 ML's per hour. She's been initiated on a heparin drip. She is requiring norepinephrine at 0.2 mg/kg/m. He is seen today in consultation in the intens [facility] care unit. She is awake and alert in no acute distress. Feeling a bit better today compared to yesterday. She is oriented 3. She remains quite weak. She is maintaining O2 saturations in the 90s on 2.5 L/m per nasal cannula. Arterial pressures in the low 70s. She had a T-max of 101 on arrival. Currently afebrile. On today's evaluation of 10/09/2023, the patient continues to be critically ill, septic, hypotensive, currently on 100% nonrebreather facemask. Pulse ox is in order of 90-93%. The patient in septic shock. 2 UTI and left pyelonephritis and probable obstructing ureteral calculus. The patient underwent a cystoscopy and insertion of double-J catheter on 10/08/2023. The patient has a positive blood culture with gram-negative bacillus and the patient remains on IV Rocep hin. Hemodynamically, the patient remains hypotensive. The patient is still on high-dose norepinephrine at 0.2 mcg/kg/m and the patient is also on a bicarbonate infusion running at the rate of 100 mL an hour. Chest x-ray showing cardiac megaly with pulmonary vessel congestion. Urine output is diminished in the order of 15-20 mL an hour. The white cell cause of 54.3 with a hemoglobin of 10 and a platelet count of 381. The patient was started on IV heparin regarding some troponin leak and a troponin peak at 3.2. Nevertheless she is feeling any chest pain. PTT currently is at 61 with an INR of 1.9 and a PT of 19.3. BUN is 44 with a creatinine of 3.47 and the patient sustained an acute kidney injury. Sodium is at 137 with a potassium level of 3.7. She is quite lethargic and weak and her meditation is quite diminished at this point in time. [place] neurologic exam is nonfocal. No other issues for now. Echocardiogram showed a preserved LV function with an EF of around 50%. The patient has normal RV, no significant valvular abnormalities was noted. On 10/10/2023, the patient is being seen for a follow-up. This is an 87-year-old female patient with septic shock and gram-negative urinary tract infection with sepsis. The patient presented with left pyelonephritis and the p atient underwent a cystoscopy and double-J and insertion on 10/08/2023. Her blood cultures positive for gram-negative bacillus and the patient remains on 2 g of IV Rocephin. She was requiring high doses of pressors and currently she is on no pressors and this was weaned off and discontinued yesterday. IV fluids were also reduced down to 10 mL an hour as the patient was having increased pulmonary edema and pulmonary vascular congestion which has resulted into transitioning her from 100% RV the facemask to a BiPAP which is running at 12/6 with an FiO2 of 75%. Current pulse ox is 99%. Chest x-ray as mentioned is consistent with CHF and pulmonary edema. The patient is producing adequate am ount of urine output overall fluid balance is +1 and 2 L over the past 24 hours. Urine output was in the order of 20-50 mL an hour. Based on that, she was given a dose of Lasix 60 mg IV push to be repeated depending on her urine output. This morning, BUN is at 53 with a creatinine of 3.4 and a sodium level is at 137, the validity count is improved and is down to 26.8 with a hemoglobin 9.2 and platelet count of 235. Myrick catheter in place. No hematuria this point in time. She is on no anticoagulation. Cardiac rhythm is sinus. Echocardiogram showed a preserved LV function with an ejection fraction of 50%. On today's evaluation of 10/11/2023, the patient is lethargic yet arousable. S he is following simple commands speech is profoundly. She remains on BiPAP at a pressure of 12/6 with an FiO2 of 65%. The patient is generating a tidal volume of about 600 and her current respiratory rate is around 18. She has a good mask seal. Her chest x-ray is essentially unchanged compared to yesterday. She has, thyromegaly, mild pulmonary vessel congestion. She was given Lasix yesterday to that of 60 mg IV and the fluid balance is -700 mL over the past 24 hours. Creatinine is stable. Note that the patient partial response to Lasix and the same will be done today. BUN is at 62 with a creatinine of 3.4 and a sodium level is at 140. The white cell count is down to 24 with a hemoglobin of 9.8. As for the blood culture, do not to be positive for E. coli and is sensitive to IV Rocephin which will be continued at a dose of 2 g every 24 hours. Note that the patient is not utilizing any form of pressors for now. IV fluids are KVO. She is resting comfortably in bed. On today's evaluation of 10/12/2023, the patient is awake and alert and she is communicating. She is aware that she is in the hospital. She is currently on high flow oxygen and she was taken off the BiPAP. High flow oxygen is running at 50% FiO2 at 50 L. She is able to maintain a saturation of 96%. Meanwhile, she is afebrile. She is hemodynamically stable picture is off pressors. The white cell count is improving. She is producing urine output. The chest x-ray still showing hazy bilateral pulmonary infiltrates and the patient was given another dose of Lasix 40 mg IV push by nephrology. Myrick catheter in place. The patient is producing adequate amount of urine output. In terms of her labs from today, the white cell count is down to 19, hemoglobin is at 9.8, potassium levels at 2.7 and needs to be replaced, BUN is at 62 with a creatinine of 3.6 and serum bicarb is at 28. Note that this is an acute on top of the chronic kidney injury related to septic shock. As mentioned earlier, she has E. coli, she is on IV Rocephin. She is tolerating small amounts of soft diet. On 10/13/2023, the patient is awake and alert. She is on high flow oxygen at 50 L with an FiO2 of 40%. No chest x-ray from today. She was in septic shock with multisystem organ failure. She could have also had a component of acute lung injury/ARDS requiring high oxygen and initially BiPAP and subsequently high flow oxygen. Hemodynamically stable off pressors. She was given Lasix yesterday and the fluid balance is in order of -1.3 L. The creatinine is down to 3 with a BUN of 64. Sodium is at 140. Potassium is at 4.2. White cell count has dropped onto 21 with a hemoglobin of 11.8. The blood culture was positive for E. coli. She remains on IV Rocephin. Tolerating diet. Weak in general. Communicating. Alert and awake. No pressors at this point. Myrick catheter is in place. On 10/14/2023, the patient is awake and alert and communicating. She is currently on oxygen at 4 L with a pulse ox of 97%. Clinically stable. Hemodynamically stable. Neurologically weak yet able to communicate without any focal neurological deficits. Labs from today are still pending. Yesterday's labs were noted. The patient Remains on IV Rocephin. The patient's is on no pressors. Mouth is dry and she has developed some sores over the lips involving the upper and lower lip and she has also some crusting of the skin over the left nasal fold extending to her left cheek. This could be herpetic in nature. Her mucous membranes are dry. Urine output is in order of 2.6 L over the past 24 hours with a negative fluid balance of -1.7 L over the past 24 hours. She is tolerating clear liquid diet. Quite sleepy yet arousable. Myrick cath is in place. Note that the patient was given Lasix yesterday with excellent urine output On 10/15/2023, I'm seeing the patient for a follow-up in she is currently on 2 L of oxygen by nasal cannula. She is sleepy. She feels fatigued and tired. She also feels weak. She also has several sores on her lips and face which is probably a herpetic lesion. No significant respiratory distress. Pulse ox 97% on room air oxygen. She is recovering from her septic shock. The white cell count is down to 17. Renal function continues to improve. She was given IV Lasix on a daily basis with excellent urine output. BUN is down to 52. Creatinine is down to 2.2. Potassium is down to 3.2 that needs to be replaced. Sodium is at 140. Oral intake is quite diminished still. She is to be more consistent on the use of incentive spirometer. Myrick cath is in place. She is on IV Rocephin. She is also on IV Eraxis per IDs recommendation. Objective - Vital Signs Vital signs: Vital Signs Temp 99 F 10/15/23 08:00 Pulse 68 10/15/23 09:00 Resp 24 10/15/23 09:00 BP 125/58 10/15/23 09:00 Pulse Ox 93 L 10/15/23 09:00 FiO2 50 10/14/23 16:00 Intake & Output 10/14/23 10/15/23 10/15/23 18:59 06:59 18:59 Intake Total 1040 300 430 Output Total 1600 1215 175 Balance -560 -915 255 Weight 73 kg Intake: IV 440 240 40 0.9 KVO 240 240 40 Anidulafungin 200 mg In 200 Sodium Chloride 0.9% 200 ml @ 84 mls/hr IVPB ONCE ONE Rx#:[id number] Intake, IV Titration 150 Amount Anidulafungin 100 mg In 100 Sodium Chloride 0.9% 100 ml @ 84 mls/hr IVPB DAILY [facility] Rx#:[id number] cefTRIAXone 2 gm In 50 Sodium Chloride 0.9% 50 ml @ 100 mls/hr IVPB Q24HR [facility] Rx#:[id number] Oral 600 60 240 Output: Urine 1600 1215 175 Other: Voiding Method Indwelling Catheter Indwelling Catheter Indwelling Catheter - Exam GENERAL EXAM: Alert, weak, 87-year-old female, on 2 L of O2 nasal cannula HEAD: Normocephalic. EYES: Normal reaction of pupils, equal size. NOSE: Clear with pink turbinates. THROAT: No erythema or exudates. NECK: No masses, no JVD. CHEST: No chest wall deformity. LUNGS: Equal air entry with no crackles, wheeze, rhonchi or dullness. Diminished breath on the lung bases along with some bibasilar crackles CVS: S1 and S2 normal with no audible murmur, regular rhythm. ABDOMEN: No hepatosplenomegaly, normal bowel sounds, no guarding or rigidity. SPINE: No scoliosis or deformity SKIN: No rashes CENTRAL NERVOUS SYSTEM: No focal deficits, tone is normal in all 4 extremities. EXTREMITIES: There is no peripheral edema. No clubbing, no cyanosis. Peripheral pulses are intact. - Labs CBC & Chem 7: 10/15/23 05:53 10/15/23 05:53 Labs: Abnormal Lab Results - Last 24 Hours (Table) 10/14/23 10/14/23 10/15/23 Range/Units 11:04 11:04 05:53 WBC 18.9 H 17.3 H (3.8-10.6) k/uL RBC 3.66 L 3.43 L (3.80-5.40) m/uL Hgb 10.8 L 10.0 L (11.4-16.0) gm/dL Hct 33.3 L 30.8 L (34.0-46.0) % Neutrophils # (Manual) 16.40 H (1.3-7.7) k/uL Lymphocytes # (Manual) 0.76 L (1.0-4.8) k/uL Monocytes # (Manual) 1.13 H (0-1.0) k/uL Metamyelocytes # (Man) 0.19 H (0) k/uL Myelocytes # (Manual) 0.38 H (0) k/uL Potassium (3.5-5.1) mmol/L BUN 58 H (7-17) mg/dL Creatinine 2.36 H (0.52-1.04) mg/dL Glucose 112 H (74-99) mg/dL AST 100 H (14-36) U/L ALT 153 H (4-34) U/L Total Protein 5.3 L (6.3-8.2) g/dL Albumin 2.7 L (3.5-5.0) g/dL 10/15/23 Range/Units 05:53 WBC (3.8-10.6) k/uL RBC (3.80-5.40) m/uL Hgb (11.4-16.0) gm/dL Hct (34.0-46.0) % Neutrophils # (Manual) (1.3-7.7) k/uL Lymphocytes # (Manual) (1.0-4.8) k/uL Monocytes # (Manual) (0-1.0) k/uL Metamyelocytes # (Man) (0) k/uL Myelocytes # (Manual) (0) k/uL Potassium 3.2 L (3.5-5.1) mmol/L BUN 52 H (7-17) mg/dL Creatinine 2.28 H (0.52-1.04) mg/dL Glucose 104 H (74-99) mg/dL AST (14-36) U/L ALT (4-34) U/L Total Protein (6.3-8.2) g/dL Albumin (3.5-5.0) g/dL Microbiology - Last 24 Hours (Table) 10/09/23 19:05 Blood Culture - Final Blood Assessment and Plan Plan: Acute sepsis/septic shock with hypotension requiring pressor support secondary to suspected pyelonephritis. Ultrasound of the kidneys and bladder revealed a moderate to severe left sided hydronephrosis with internal debris. Correlate to exclude infective debris/pyelitis. Bilateral renal calculi measuring up to 9 mm on the left and 6 mm on the right. She is post cystoscopy and insertion of a double-J stent on the left. The patient remains on IV Rocephin and the final cultures of the blood were consistent with E. coli. The patient remains quite weak, sleepy. Nevertheless, no signs of respiratory distress on 2 L and she continues to show ongoing slow improvement. E. coli sepsis secondary to UTI and the patient currently is on IV Rocephin Septic shock improvement within the patient's blood pressure is also improving and the patient is currently off pressors Acute leukocytosis, improving Acute kidney injury secondary to above, with renal function which is stable compared to yesterday. The patient sustained an ATN and she was nonoliguric. Renal function continues to improve Lactic acidosis secondary to above, improved and the blood work from today shows no significant acidosis Acute hypoxemic respiratory failure secondary to above, with bilateral pleural effusion currently on BiPAP and the patient has a preserved LV function on echocardiogram is a may be also a component of acute lung injury/ARDS secondary to septic shock. The patient is currently on high flow oxygen 50 L an FiO2 of 50% Acute non-ST segment elevation myocardial infarction, troponin peaked at 4. LV ejection fraction was within normal limits. Transaminitis secondary to above, improving New onset hypothyroidism, currently on thyroid hormone replacement History of hypertension Hyperlipidemia History of breast cancer status post lumpectomy/chemotherapy over 30 years ago Gastroesophageal reflux disease Plan: The patient will be given 40 mg of IV Lasix 1 Mental status is stable and the patient remains profoundly weak and she is recovering from septic shock Apply acyclovir cream to the lip and the fascial source Increase oral intake Oxygenation is improved and the patient is currently on 2 L nasal cannula Continue IV Rocephin heparin 5000 units every 8 hours IV fluids to KVO Echocardiogram was noted No need for BiPAP therapy Continue Synthroid Prognosis is guarded DO NOT RESUSCITATE/DO NOT INTUBATE CODE STATUS We will continue to monitor closely in ICU We'll continue to follow make further recommendations based on her clinical status
[2023-10-15] MEDS ORDERED: VITAMIN A TOPICAL ONE (12:15)
[2023-10-15] MEDS ORDERED: WHITE PETROLATUM TOPICAL ONE (12:15)
[2023-10-15] MEDS ORDERED: LANOLIN TOPICAL ONE (12:15)
[2023-10-15] MEDS ORDERED: VITAMIN D TOPICAL ONE (12:15)
--- NOTE | 2023-10-15 12:46 | P.PN ---
Subjective Progress Note Date: 10/15/23 patient is a 87-year-old lady with past medical history significant for hypertension, hyperlipidemia who was brought to the ER for evaluation for syncopal event and altered mental status. Most of the history is taken from the EMR and from the patient, according to EMR, patient walked into patient's room and found her slumped in the bed, at that time patient was very confused, hard to arouse. EMS was called and when they arrived , patient blood pressure was low but patient was responsive. Patient did got one round of epi in on route to the ER. On gathering more information, patient had been complaining of flulike symptoms and was diagnosed with influenza a week ago, patient got over that sickness but then started complaining of nausea and vomiting. Was also complaining of diarrhea. Family also noted the patient was more short of breath than normal. Denied any chest pain or palpitations. There was no complain of any jerking movement of extremity. No complaint of any slurred speech or facial droop. Initial lab work done in the ER showed WBC 17.9, hemoglobin 12, platelet count 75 glucose 168, lactate 8.3 calcium 8.8, total bilirubin 1.2, troponin 2.640 INR 1.4, sodium 134, potassium 4.3, BUNs 34, creatinine 2.95, Influenza A not detected Influenza B not detected RSV not detected COVID-19 not detected EKG done in the ER showed heart rate of 133 , no ST segment elevation or depression seen, no T-wave inversions seen. Chest x-ray done in the ER showed mild cardiomegaly and COPD, chronic appearing changes ER physician talked to the patient's niece and patient, central line was placed in the ER patient was started on Levophed for hypotension. Patient admitted to ICU under internal medicine service 10/09. Patient seen and examined. Patient underwent cystoscopy with left ureteral stent placement on 10/08 by urology. Currently on nonrebreather, denies any chest pain. Labs reviewed, WBC 34.3, hemoglobin 10, platelet count 381, INR 1.9, sodium 137, potassium 3.7, BUN 44, creatinine 3.47 AST 856, AL282 10/10. Patient seen and examined. 2-D echo done showed LVEF of 50%, mild mitral regurg, mild aortic insufficiency, moderate tricuspid regurg. She has been weaned off all pressors. Still has shortness of breath 10/11. Patient seen and examined. Currently on BiPAP with FiO2 of 65%. Blood work done this morning showed a lipase of 24.5, 9.8, platelet count 222 sodium 140, potassium 3.7, BUN 62, creatinine 3.47. Complaining that she does not feel well. Gets short of breath on minimal exertion. 10/12. Patient seen and examined. with labs this morning shows WBC 19.3, hemoglobin 9.8, sodium is 1:30, potassium is 2.7, BUN is 62, creatinine 3.67. States she feels better, breathing is improving. Patient getting another dose of Lasix by nephrology 10/13. Patient seen and examined. Currently on heated high flow. States she feels much better. Daughter at the bedside. Blood work done this morning showed WBC 21.1, hemoglobin 11.8 sodium 140, potassium 4.2, BUN 64, creatinine 3.03 10/14. Patient seen and examined. Currently on 4 L of oxygen. Patient has a lot of crusting and sores around her lips and the left nasal fold, complaining of pain around the lips. Most likely herpes labialis, will start patient on V altrex 10/15/23. Patient seen and examined. Currently on 2 L of oxygen. Denies any chest pain or shortness of breath. Still has sores around her lips which has formed scabs now REVIEW OF SYSTEMS: Denies any chest pain. Denies any fever or chills. Denies any nausea or vomiting PHYSICAL EXAMINATION: GENERAL: The patient is alert , ill looking HEENT: Pupils are round and equally reacting to light. EOMI. No scleral icterus. No conjunctival pallor. Normocephalic, atraumatic. No pharyngeal erythema. No thyromegaly. Sores around her lips which has formed scabs now CARDIOVASCULAR: S1 and S2 present. No murmurs, rubs, or gallops. PULMONARY: Diminished breath sounds bilaterally, no expiratory wheeze audible ABDOMEN: Soft, nontender, nondistended, normoactive bowel sounds. No palpable organomegaly. MUSCULOSKELETAL: No joint swelling or deformity. EXTREMITIES: 1+ edema in lower extremities bilaterally NEUROLOGICAL: Gross neurological examination did not reveal any focal deficits. SKIN: No rashes. Assessment and plan Septic shock Gram-negative bacteremia Acute hypoxic respiratory failure Acute metabolic encephalopathy Herpes labialis Non-ST elevation MA Acute transaminitis Acute kidney injury Left-sided hydronephrosis Syncopal event Fall Hypertension Hyperlipidemia Monitor vital signs Monitor CBC Monitor CMP Continue telemetry monitoring Aggressive bronchopulmonary hygiene Continue BiPAP as needed Follow-up on blood cultures, blood cultures growing E. coli Follow-up on urine cultures monitor LFTs Strict I's and O's, daily weights, Continue IV Rocephin Continue Valtrex, started on 10/14 2-D echo done showed LVEF of 50%, mild mitral regurg, mild aortic insufficiency, moderate tricuspid regurg Nephrology following Cardiology following, recommended starting patient on aspirin and beta reji, currently on aspirin and Lopressor Critical care following ID following Urology following, cystoscopy with left ureteral cathetre placement on 10/08, recommend outpatient follow-up for stone removal and stent placement Labs and medication were reviewed.. Continue same treatment. Continue with symptomatic treatment. Resume home medication. Monitor labs and vitals. DVT and GI prophylaxis. Further recommendations as per clinical course of the patient Dictation was produced using [employer] dictation software. please excuse any grammatical, word or spelling errors. Objective - Vital Signs Vital signs: Vital Signs Temp 98.3 F 10/15/23 12:18 Pulse 73 10/15/23 12:18 Resp 17 10/15/23 12:18 BP 140/60 10/15/23 12:18 Pulse Ox 95 10/15/23 12:18 FiO2 50 10/14/23 16:00 Intake & Output 10/14/23 10/15/23 10/15/23 18:59 06:59 18:59 Intake Total 1040 300 450 Output Total 1600 1215 300 Balance -560 -915 150 Weight 73 kg Intake: IV 440 240 60 0.9 KVO 240 240 60 Anidulafungin 200 mg In 200 Sodium Chloride 0.9% 200 ml @ 84 mls/hr IVPB ONCE ONE Rx#:[id number] Intake, IV Titration 150 Amount Anidulafungin 100 mg In 100 Sodium Chloride 0.9% 100 ml @ 84 mls/hr IVPB DAILY [facility] Rx#:[id number] cefTRIAXone 2 gm In 50 Sodium Chloride 0.9% 50 ml @ 100 mls/hr IVPB Q24HR [facility] Rx#:[id number] Oral 600 60 240 Output: Urine 1600 1215 300 Other: Voiding Method Indwelling Catheter Indwelling Catheter Indwelling Catheter - Labs CBC & Chem 7: 10/15/23 05:53 10/15/23 05:53 Labs: Abnormal Lab Results - Last 24 Hours (Table) 10/14/23 10/15/23 10/15/23 Range/Units 11:04 05:53 05:53 WBC 17.3 H (3.8-10.6) k/uL RBC 3.43 L (3.80-5.40) m/uL Hgb 10.0 L (11.4-16.0) gm/dL Hct 30.8 L (34.0-46.0) % Neutrophils # (Manual) 16.40 H (1.3-7.7) k/uL Lymphocytes # (Manual) 0.76 L (1.0-4.8) k/uL Monocytes # (Manual) 1.13 H (0-1.0) k/uL Metamyelocytes # (Man) 0.19 H (0) k/uL Myelocytes # (Manual) 0.38 H (0) k/uL Potassium 3.2 L (3.5-5.1) mmol/L BUN 52 H (7-17) mg/dL Creatinine 2.28 H (0.52-1.04) mg/dL Glucose 104 H (74-99) mg/dL Microbiology - Last 24 Hours (Table) 10/09/23 19:05 Blood Culture - Final Blood
--- NOTE | 2023-10-15 16:08 | P.PN ---
Subjective Progress Note Date: 10/15/23 Principal diagnosis: Reason for follow-up is E. coli pyelonephritis sepsis and bacteremia Patient is a 87-year old female with a past medical history pertinent for hypertension hyperlipidemia reflux and breast cancer patient was brought into the hospital for evaluation of increasing weakness mental status changes patient was noticed to be febrile septic secondary to left-sided ureteral stone with hydronephrosis requiring cystoscopy and left ureteral double-J catheter placement patient blood cultures subsequently came back positive with E. coli. On today's evaluation that is 10/15/2023, the patient remains to be afebrile, the patient is breathing comfortably on 2 L nasal cannula supplemental oxygen patient denies having any chest pain shortness of breath or cough, the patient denies any nausea no vomiting and no diarrhea has been reported to mention feeling slightly better Patient did have white count is down to 17.3 creatinine around 2.28 Objective - Vital Signs Vital signs: Vital Signs Temp 98.3 F 10/15/23 12:18 Pulse 73 10/15/23 12:18 Resp 17 10/15/23 12:18 BP 140/60 10/15/23 12:18 Pulse Ox 95 10/15/23 12:18 FiO2 50 10/14/23 16:00 Intake & Output 10/14/23 10/15/23 10/15/23 18:59 06:59 18:59 Intake Total 1040 300 450 Output Total 1600 1215 300 Balance -560 -915 150 Weight 73 kg Intake: IV 440 240 60 0.9 KVO 240 240 60 Anidulafungin 200 mg In 200 Sodium Chloride 0.9% 200 ml @ 84 mls/hr IVPB ONCE ONE Rx#:[id number] Intake, IV Titration 150 Amount Anidulafungin 100 mg In 100 Sodium Chloride 0.9% 100 ml @ 84 mls/hr IVPB DAILY [facility] Rx#:[id number] cefTRIAXone 2 gm In 50 Sodium Chloride 0.9% 50 ml @ 100 mls/hr IVPB Q24HR [facility] Rx#:[id number] Oral 600 60 240 Output: Urine 1600 1215 300 Other: Voiding Method Indwelling Catheter Indwelling Catheter Indwelling Catheter - Exam GENERAL DESCRIPTION: An elderly female lying in bed in no distress HEENT patient did have evidence of extensive herpes labialis especially involving the lower lip, also with a mild thrush RESPIRATORY SYSTEM: Unlabored breathing , decreased breath sounds at bases HEART: S1 S2 regular rate and rhythm , ABDOMEN: Soft , no tenderness EXTREMITIES: No edema feet - Labs CBC & Chem 7: 10/15/23 05:53 10/15/23 14:23 Labs: Abnormal Lab Results - Last 24 Hours (Table) 10/14/23 10/15/23 10/15/23 Range/Units 11:04 05:53 05:53 WBC 17.3 H (3.8-10.6) k/uL RBC 3.43 L (3.80-5.40) m/uL Hgb 10.0 L (11.4-16.0) gm/dL Hct 30.8 L (34.0-46.0) % Neutrophils # (Manual) 16.40 H (1.3-7.7) k/uL Lymphocytes # (Manual) 0.76 L (1.0-4.8) k/uL Monocytes # (Manual) 1.13 H (0-1.0) k/uL Metamyelocytes # (Man) 0.19 H (0) k/uL Myelocytes # (Manual) 0.38 H (0) k/uL Potassium 3.2 L (3.5-5.1) mmol/L BUN 52 H (7-17) mg/dL Creatinine 2.28 H (0.52-1.04) mg/dL Glucose 104 H (74-99) mg/dL Microbiology - Last 24 Hours (Table) 10/09/23 19:05 Blood Culture - Final Blood Assessment and Plan (1) Sepsis Current Visit: Yes Status: Acute Code(s): A41.9 - SEPSIS, UNSPECIFIED ORGANISM SNOMED Code(s): 35891156 (2) Leukocytosis Current Visit: Yes Status: Acute Code(s): D72.829 - ELEVATED WHITE BLOOD CELL COUNT, UNSPECIFIED SNOMED Code(s): 449263911 (3) Gram-negative bacteremia Current Visit: Yes Status: Acute Code(s): R78.81 - BACTEREMIA SNOMED Code(s): 022847769477 (4) UTI (urinary tract infection) Current Visit: Yes Status: Acute Code(s): N39.0 - URINARY TRACT INFECTION, SITE NOT SPECIFIED SNOMED Code(s): 86629312 (5) Herpes labialis Current Visit: Yes Status: Acute Code(s): B00.1 - HERPESVIRAL VESICULAR DERMATITIS SNOMED Code(s): 0124054 (6) Thrush Current Visit: Yes Status: Acute Code(s): B37.0 - CANDIDAL STOMATITIS SNOMED Code(s): 39789237 Plan: 1-patient is in the hospital with sepsis/septic shock secondary to complicated UTI in this patient who did have a left-sided hydronephrosis requiring cystoscopy and left-sided double-J ureteral catheter placement likely secondary to enteric gram-negative pathogen 2E. coli bacteremia source likely left-sided pyelonephritis complicated UTI sensitive pathogen repeat blood cultures 10/09/2023 so far negative 3patient did have evidence of extensive herpes labialis we will continue the patient on Valtrex at 1 g every 24 hours. 4patient also have a elevated white count and evidence of thrush we will continue Eraxis 5we will continue patient Rocephin for her UTI and bacteremia Dictation was produced using [employer] dictation software. please excuse any grammatical, word or spelling errors. Time with Patient: Less than 30
[2023-10-15] MEDS: ALPRAZolam 0.25 MG TAB PO PRN (22:44)
[2023-10-16] MEDS: LEVOTHYROXINE 75 MCG TAB PO SCH (05:17)
--- NOTE | 2023-10-16 07:44 | XR ---
EXAMINATION TYPE: XR chest 1V portable DATE OF EXAM: 10/16/2023 COMPARISON: 10/12/2023 INDICATION: Pleural effusion TECHNIQUE: Single frontal view of the chest is obtained. FINDINGS: The heart size is mildly prominent. The pulmonary vasculature is normal. Right central venous catheter is present with the tip in the proximal right atrium. Mild right lower lobe infiltrate is present. Very minimal pleural effusions are present IMPRESSION: 1. Minimal bilateral pleural effusions. 2. Mild cardiomegaly. 3. Mild right lower lobe and trace
[2023-10-16] MEDS: valACYclovir HCL 500 MG TAB PO SCH (09:26)
[2023-10-16] MEDS: METOPROLOL TARTRATE 25 MG TAB PO SCH ×2 (09:26→20:18)
[2023-10-16] MEDS: CHOLECALCIFEROL 25 MCG (1000 IU) TABLET PO SCH (09:26)
[2023-10-16] MEDS: FUROSEMIDE 40 MG TAB PO SCH (09:26)
[2023-10-16] MEDS: HEPARIN SODIUM,PORCINE 5,000 UNIT/ML 1 ML VIAL SQ SCH ×2 (09:27→16:52)
[2023-10-16] MEDS: DOCUSATE 100 MG CAP PO SCH ×2 (09:27→20:18)
[2023-10-16] MEDS: PANTOPRAZOLE 40 MG TABLET PO SCH (09:27)
[2023-10-16] MEDS: NYSTATIN 100,000 UNIT/ML SUSP 500,000 UNIT/5 ML CUP PO SCH ×4 (09:27→20:18)
[2023-10-16] MEDS: ASPIRIN 81 MG PO SCH (09:28)
--- NOTE | 2023-10-16 09:31 | P.PN ---
Subjective HISTORY OF PRESENT ILLNESS: Patient examined this morning at the bedside. Patient currently denies chest pain or pressure. She denies shortness of breath. Vital signs are stable. She received a one-time dose of IV Lasix per nephrology yesterday. Creatinine yesterday 2.28. Repeat this morning is pending. PHYSICAL EXAM: VITAL SIGNS: Reviewed. GENERAL: Well-developed in no acute distress. NECK: Supple. No JVD or thyromegaly LUNGS: Respirations even and unlabored. Lungs essentially clear to auscultation bilaterally. HEART: Regular rate and rhythm. S1 and S2 heard. EXTREMITIES: Normal range of motion. No clubbing or cyanosis. Peripheral pulses intact. No lower extremity edema ASSESSMENT: Acute heart failure with preserved EF, 50% Acute on chronic kidney disease Septic shock with gram-negative bacteremia, resolving Urinary tract infection Right lower lobe pneumonia Type II non-STEMI Extensive herpes labialis PLAN: Begin oral Lasix 40 mg daily Monitor kidney function Patient is currently stable from a cardiac standpoint with no further inpatient recommendations We will sign off. Please reconsult if needed. Nurse practitioner note has been reviewed by physician. Signing provider agrees with the documented findings, assessment, and plan of care. Objective - Vital Signs Vital signs: Vital Signs Temp 97.7 F 10/16/23 07:32 Pulse 64 10/16/23 07:32 Resp 16 10/16/23 08:00 BP 135/57 10/16/23 07:32 Pulse Ox 94 L 10/16/23 07:32 FiO2 50 10/14/23 16:00 Intake & Output 10/15/23 10/16/23 10/16/23 18:59 06:59 18:59 Intake Total 690 Output Total 1300 725 Balance -610 -725 Intake: IV 300 0.9 KVO 300 Intake, IV Titration 150 Amount Anidulafungin 100 mg In 100 Sodium Chloride 0.9% 100 ml @ 84 mls/hr IVPB DAILY [facility] Rx#:[id number] cefTRIAXone 2 gm In 50 Sodium Chloride 0.9% 50 ml @ 100 mls/hr IVPB Q24HR [facility] Rx#:[id number] Oral 240 Output: Urine 1300 725 Uretheral (Myrick) 1000 Other: Voiding Method Indwelling Catheter Indwelling Catheter Indwelling Catheter - Labs CBC & Chem 7: 10/15/23 05:53 10/15/23 14:23 Labs: Microbiology - Last 24 Hours (Table) 10/09/23 19:05 Blood Culture - Final Blood
[2023-10-16] MEDS: ANIDULAFUNGIN 100 MG in SODIUM CHLORIDE 0.9% 100 ML IVPB SCH (10:05)
--- NOTE | 2023-10-16 11:15 | P.PN ---
Subjective Patient is seen in follow-up for acute kidney injury on chronic kidney disease. Creatinine 2.28 yesterday. Nonoliguric. Oral intake just fair. Currently on room air. Family present at bedside. Vital signs are stable. General: NAD. HEENT: Head exam is unremarkable. LUNGS: Scattered rhonchi. HEART: Rate and Rhythm are regular. ABDOMEN: No distention. EXTREMITITES: Trace edema. Objective - Vital Signs Vital signs: Vital Signs Temp 97.7 F 10/16/23 07:32 Pulse 64 10/16/23 07:32 Resp 16 10/16/23 08:00 BP 135/57 10/16/23 07:32 Pulse Ox 94 L 10/16/23 07:32 FiO2 50 10/14/23 16:00 Intake & Output 10/15/23 10/16/23 10/16/23 18:59 06:59 18:59 Intake Total 690 Output Total 1300 725 Balance -610 -725 Intake: IV 300 0.9 KVO 300 Intake, IV Titration 150 Amount Anidulafungin 100 mg In 100 Sodium Chloride 0.9% 100 ml @ 84 mls/hr IVPB DAILY [facility] Rx#:[id number] cefTRIAXone 2 gm In 50 Sodium Chloride 0.9% 50 ml @ 100 mls/hr IVPB Q24HR [facility] Rx#:[id number] Oral 240 Output: Urine 1300 725 Uretheral (Myrick) 1000 Other: Voiding Method Indwelling Catheter Indwelling Catheter Indwelling Catheter - Labs CBC & Chem 7: 10/15/23 05:53 10/15/23 14:23 Assessment and Plan Plan: Assessment: 1. Acute kidney injury secondary to ATN secondary to hypotension. Now off vasopressors. Also component of obstructive uropathy. Renal function better. Creatinine 2.28 yesterday. 2. Hypokalemia from diuresis and poor intake. Replaced. Better. 3. Left hydronephrosis status post ureteral stent placement on 10/08/2023. 4. E. coli bacteremia on antibiotics. 5. Acute on chronic diastolic CHF with moderate tricuspid regurgitation. 6. Chronic kidney disease stage IIIB with baseline creatinine 1.4-1.5 in July 2022. Suspect nephrosclerosis. 7. Metabolic acidosis secondary to acute kidney injury and GI losses. Resolved. Plan: Maintain Lasix 40 mg once daily. Replace electrolytes per protocol. Avoid nephrotoxins. Continue to monitor renal function and urine output.
--- NOTE | 2023-10-16 12:32 | P.PN ---
Subjective Progress Note Date: 10/16/23 This is a very pleasant 87-year-old female patient with a known history of hypertension, hyperlipidemia, gastroesophageal reflux disease, anxiety, breast cancer status post lumpectomy and chemotherapy over 30 years ago. He is admitted to the emergency room yesterday with increasing weakness and altered m ental status. She did have influenza approximately 1 week ago but was feeling better until recently. She developed nausea vomiting diarrhea and weakness that led to a fall. She was altered when EMS had arrived. EKG revealed sinus tachycardia with nonspecific ST and T wave abnormalities. Revealed mild cardiomegaly and chronic appearing changes. Some strandy atelectasis at the right lung base. Otherwise no acute pulmonary process. Ultrasound of the bladder revealed moderate to severe left sided hydronephrosis with internal debris. Correlate to exclude infective debris/pyelitis. Bilateral renal calculi measuring up to 9 mm on the left and 6 mm on the right. All cultures are pending. White count 10.6. Hemoglobin 10.8. Platelets 425. INR 1.5. Sodium 134. Potassium 4.0. Bicarb 10. BUN 38. Creatinine 3.00. Glucose 129. AST 781. ALT 175. Troponins 2.64, 4.17, 4.02. ProBNP 1790. TSH 5.32. Influenza screen negative. RSV screen negative. COVID-19 screen negative. Ini tial lactic acid 8.3. Currently 1.7. She had received 3 L of fluid resuscitation. She is continued on D5W with 3 A of sodium bicarbonate at 100 ML's per hour. She's been initiated on a heparin drip. She is requiring norepinephrine at 0.2 mg/kg/m. He is seen today in consultation in the intensi ve care unit. She is awake and alert in no acute distress. Feeling a bit better today compared to yesterday. She is oriented 3. She remains quite weak. She is maintaining O2 saturations in the 90s on 2.5 L/m per nasal cannula. Arterial pressures in the low 70s. She had a T-max of 101 on arrival. Currently afebrile. On today's evaluation of 10/09/2023, the patient continues to be critically ill, septic, hypotensive, currently on 100% nonrebreather facemask. Pulse ox is in order of 90-93%. The patient in septic shock. 2 UTI and left pyelonephritis and probable obstructing ureteral calculus. The patient underwent a cystoscopy and insertion of double-J catheter on 10/08/2023. The patient has a positive blood culture with gram-negative bacillus and the patient remains on IV Roceph in. Hemodynamically, the patient remains hypotensive. The patient is still on high-dose norepinephrine at 0.2 mcg/kg/m and the patient is also on a bicarbonate infusion running at the rate of 100 mL an hour. Chest x-ray showing cardiac megaly with pulmonary vessel congestion. Urine output is diminished in the order of 15-20 mL an hour. The white cell cause of 54.3 with a hemoglobin of 10 and a platelet count of 381. The patient was started on IV heparin regarding some troponin leak and a troponin peak at 3.2. Nevertheless she is feeling any chest pain. PTT currently is at 61 with an INR of 1.9 and a PT of 19.3. BUN is 44 with a creatinine of 3.47 and the patient sustained an acute k idney injury. Sodium is at 137 with a potassium level of 3.7. She is quite lethargic and weak and her meditation is quite diminished at this point in time. [place] neurologic exam is nonfocal. No other issues for now. Echocardiogram showed a preserved LV function with an EF of around 50%. The patient has normal RV, no significant valvular abnormalities was noted. On 10/10/2023, the patient is being seen for a follow-up. This is an 87-year-old female patient with septic shock and gram-negative urinary tract infection with sepsis. The patient presented with left pyelonephritis and the patient underwent a cystoscopy and double-J and insertion on 10/08/2023. Her blood cultures positive for gram-negative bacillus and the patient remains on 2 g of IV Rocephin. She was requiring high doses of pressors and currently she is on no pressors and this was weaned off and discontinued yesterday. IV fluids were also reduced down to 10 mL an hour as the patient was having increased pulmonary edema and pulmonary vascular congestion which has resulted into transitioning her from 100% RV the facemask to a BiPAP which is running at 12/6 with an FiO2 of 75%. Current pulse ox is 99%. Chest x-ray as mentioned is consistent with CHF and pulmonary edema. The patient is producing adequate ghada unt of urine output overall fluid balance is +1 and 2 L over the past 24 hours. Urine output was in the order of 20-50 mL an hour. Based on that, she was given a dose of Lasix 60 mg IV push to be repeated depending on her urine output. This morning, BUN is at 53 with a creatinine of 3.4 and a sodium level is at 137, the validity count is improved and is down to 26.8 with a hemoglobin 9.2 and platelet count of 235. Myrick catheter in place. No hematuria this point in time. She is on no anticoagulation. Cardiac rhythm is sinus. Echocardiogram showed a preserved LV function with an ejection fraction of 50%. On today's evaluation of 10/11/2023, the patient is lethargic yet arousable. Sh e is following simple commands speech is profoundly. She remains on BiPAP at a pressure of 12/6 with an FiO2 of 65%. The patient is generating a tidal volume of about 600 and her current respiratory rate is around 18. She has a good mask seal. Her chest x-ray is essentially unchanged compared to yesterday. She has, thyromegaly, mild pulmonary vessel congestion. She was given Lasix yesterday to that of 60 mg IV and the fluid balance is -700 mL over the past 24 hours. Creatinine is stable. Note that the patient partial response to Lasix and the same will be done today. BUN is at 62 with a creatinine of 3.4 and a sodium level is at 140. The white cell count is down to 24 with a hemoglobin of 9.8. As for the blood culture, do not to be positive for E. coli and is sensitive to IV Rocephin which will be continued at a dose of 2 g every 24 hours. Note that the patient is not utilizing any form of pressors for now. IV fluids are KVO. She is resting comfortably in bed. On today's evaluation of 10/12/2023, the patient is awake and alert and she is communicating. She is aware that she is in the hospital. She is currently on high flow oxygen and she was taken off the BiPAP. High flow oxygen is running at 50% FiO2 at 50 L. She is able to maintain a saturation of 96%. Meanwhile, she is afebrile. She is hemodynamically stable picture is off pressors. The white cell count is improving. She is producing urine output. The chest x-ray still showing hazy bilateral pulmonary infiltrates and the patient was given another dose of Lasix 40 mg IV push by nephrology. Myrick catheter in place. The patient is producing adequate amount of urine output. In terms of her labs from today, the white cell count is down to 19, hemoglobin is at 9.8, potassium levels at 2.7 and needs to be replaced, BUN is at 62 with a creatinine of 3.6 and serum bicarb is at 28. Note that this is an acute on top of the chronic kidney injury related to septic shock. As mentioned earlier, she has E. coli, she is on IV Rocephin. She is tolerating small amounts of soft diet. On 10/13/2023, the patient is awake and alert. She is on high flow oxygen at 50 L with an FiO2 of 40%. No chest x-ray from today. She was in septic shock with multisystem organ failure. She could have also had a component of acute lung injury/ARDS requiring high oxygen and initially BiPAP and subsequently high flow oxygen. Hemodynamically stable off pressors. She was given Lasix yesterday and the fluid balance is in order of -1.3 L. The creatinine is down to 3 with a BUN of 64. Sodium is at 140. Potassium is at 4.2. White cell count has dropped onto 21 with a hemoglobin of 11.8. The blood culture was positive for E. coli. She remains on IV Rocephin. Tolerating diet. Weak in general. Communicating. Alert and awake. No pressors at this point. Myrick catheter is in place. On 10/14/2023, the patient is awake and alert and communicating. She is currently on oxygen at 4 L with a pulse ox of 97%. Clinically stable. Hemodynamically stable. Neurologically weak yet able to communicate without any focal neurological deficits. Labs from today are still pending. Yesterday's labs were noted. The patient Remains on IV Rocephin. The patient's is on no pressors. Mouth is dry and she has developed some sores over the lips involving the upper and lower lip and she has also some crusting of the skin over the left nasal fold extending to her left cheek. This could be herpetic in nature. Her mucous membranes are dry. Urine output is in order of 2.6 L over the past 24 hours with a negative fluid balance of -1.7 L over the past 24 hours. She is tolerating clear liquid diet. Quite sleepy yet arousable. Myrick cath is in place. Note that the patient was given Lasix yesterday with excellent urine output On 10/15/2023, I'm seeing the patient for a follow-up in she is currently on 2 L of oxygen by nasal cannula. She is sleepy. She feels fatigued and tired. She also feels weak. She also has several sores on her lips and face which is probably a herpetic lesion. No significant respiratory distress. Pulse ox 97% on room air oxygen. She is recovering from her septic shock. The white cell count is down to 17. Renal function continues to improve. She was given IV Lasix on a daily basis with excellent urine output. BUN is down to 52. Creatinine is down to 2.2. Potassium is down to 3.2 that needs to be replaced. Sodium is at 140. Oral intake is quite diminished still. She is to be more consistent on the use of incentive spirometer. Myrick cath is in place. She is on IV Rocephin. She is also on IV Eraxis per IDs recommendation. The patient is seen today 10/16/2023 in follow-up on the regular medical floor. She is currently resting in bed. Awake and alert in no acute distress. She is maintaining good O2 saturations in the 90s on room air. She's been afebrile. Hemodynamically stable. Follow-up chest x-ray reveals minimal bilateral pleural effusions. Mild cardiomegaly. Mild right lower lobe infiltrate present. Blood cultures were positive for S3 she go lie. Follow-up blood culture revealing no growth. She does have significant herpetic lesions around her mouth. She is on Valtrex. She remains on ceftriaxone, Eraxis. Heparin for DVT prophylaxis. Objective - Vital Signs Vital signs: Vital Signs Temp 98.1 F 10/16/23 11:56 Pulse 63 10/16/23 11:56 Resp 16 10/16/23 11:56 BP 132/65 10/16/23 11:56 Pulse Ox 97 10/16/23 11:56 FiO2 50 10/14/23 16:00 Intake & Output 10/15/23 10/16/23 10/16/23 18:59 06:59 18:59 Intake Total 690 Output Total 1300 725 Balance -610 -725 Intake: IV 300 0.9 KVO 300 Intake, IV Titration 150 Amount Anidulafungin 100 mg In 100 Sodium Chloride 0.9% 100 ml @ 84 mls/hr IVPB DAILY [facility] Rx#:[id number] cefTRIAXone 2 gm In 50 Sodium Chloride 0.9% 50 ml @ 100 mls/hr IVPB Q24HR [facility] Rx#:[id number] Oral 240 Output: Urine 1300 725 Uretheral (Myrick) 1000 Other: Voiding Method Indwelling Catheter Indwelling Catheter Indwelling Catheter - Exam GENERAL EXAM: Alert, weak, pleasant 87-year-old female, hepatic lesions around the mouth, on room air, fairly comfortable in no acute distress HEAD: Normocephalic. EYES: Normal reaction of pupils, equal size. NOSE: Clear with pink turbinates. THROAT: No erythema or exudates. NECK: No masses, no JVD. CHEST: No chest wall deformity. LUNGS: Equal air entry with diminished breath on the lung bases along with some bibasilar crackles CVS: S1 and S2 normal with no audible murmur, regular rhythm. ABDOMEN: No hepatosplenomegaly, normal bowel sounds, no guarding or rigidity. SPINE: No scoliosis or deformity SKIN: No rashes CENTRAL NERVOUS SYSTEM: No focal deficits, tone is normal in all 4 extremities. EXTREMITIES: There is no peripheral edema. No clubbing, no cyanosis. Peripheral pulses are intact. - Labs CBC & Chem 7: 10/15/23 05:53 10/15/23 14:23 Assessment and Plan Assessment: Acute sepsis/septic shock with hypotension requiring pressor support secondary to suspected pyelonephritis. Ultrasound of the kidneys and bladder revealed a moderate to severe left sided hydronephrosis with internal debris. Correlate to exclude infective debris/pyelitis. Bilateral renal calculi measuring up to 9 mm on the left and 6 mm on the right. She is post cystoscopy and insertion of a double-J stent on the left. The patient remains on IV Rocephin and Eraxis the final cultures of the blood were consistent with E. coli. The patient remains quite weak. Nevertheless, no signs of respiratory distress on room air and she continues to show ongoing improvement Acute kidney injury secondary to above Acute hypotension secondary to above, recovered Lactic acidosis secondary to above, recovered Acute hypoxemic respiratory failure secondary to above number recovered and on room air Acute non-ST segment elevation myocardial infarction Transaminitis secondary to above New onset hypothyroidism Herpes simplex virus around the mouth History of hypertension Hyperlipidemia History of breast cancer status post lumpectomy/chemotherapy over 30 years ago Gastroesophageal reflux disease Plan: The patient was seen and evaluated Chest x-ray, medications reviewed Currently stable and on room air Continue the current treatment plan Infectious disease, nephrology, cardiology remain on the case This patient was seen independently by the pulmonary nurse practitioner addressing pulmonary issues I have personally seen and examined the patient, performed the documentation and the assessment and plan as written. Number of minutes spent on the visit: 23.
--- NOTE | 2023-10-16 12:44 | P.PN ---
Subjective Progress Note Date: 10/16/23 patient is a 87-year-old lady with past medical history significant for hypertension, hyperlipidemia who was brought to the ER for evaluation for syncopal event and altered mental status. Most of the history is taken from the EMR and from the patient, according to EMR, patient walked into patient's room and found her slumped in the bed, at that time patient was very confused, hard to arouse. EMS was called and when they arrived , patient blood pressure was low but patient was responsive. Patient did got one round of epi in on route to the ER. On gathering more information, patient had been complaining of flulike symptoms and was diagnosed with influenza a week ago, patient got over that sickness but then started complaining of nausea and vomiting. Was also complaining of diarrhea. Family also noted the patient was more short of breath than normal. Denied any chest pain or palpitations. There was no complain of any jerking movement of extremity. No complaint of any slurred speech or facial droop. Initial lab work done in the ER showed WBC 17.9, hemoglobin 12, platelet count 75 glucose 168, lactate 8.3 calcium 8.8, total bilirubin 1.2, troponin 2.640 INR 1.4, sodium 134, potassium 4.3, BUNs 34, creatinine 2.95, Influenza A not detected Influenza B not detected RSV not detected COVID-19 not detected EKG done in the ER showed heart rate of 133 , no ST segment elevation or depression seen, no T-wave inversions seen. Chest x-ray done in the ER showed mild cardiomegaly and COPD, chronic appearing changes ER physician talked to the patient's niece and patient, central line was placed in the ER patient was started on Levophed for hypotension. Patient admitted to ICU under internal medicine service 10/09. Patient seen and examined. Patient underwent cystoscopy with left ureteral stent placement on 10/08 by urology. Currently on nonrebreather, denies any chest pain. Labs reviewed, WBC 34.3, hemoglobin 10, platelet count 381, INR 1.9, sodium 137, potassium 3.7, BUN 44, creatinine 3.47 AST 856, AL282 10/10. Patient seen and examined. 2-D echo done showed LVEF of 50%, mild mitral regurg, mild aortic insufficiency, moderate tricuspid regurg. She has been weaned off all pressors. Still has shortness of breath 10/11. Patient seen and examined. Currently on BiPAP with FiO2 of 65%. Blood work done this morning showed a lipase of 24.5, 9.8, platelet count 222 sodium 140, potassium 3.7, BUN 62, creatinine 3.47. Complaining that she does not feel well. Gets short of breath on minimal exertion. 10/12. Patient seen and examined. with labs this morning shows WBC 19.3, hemoglobin 9.8, sodium is 1:30, potassium is 2.7, BUN is 62, creatinine 3.67. States she feels better, breathing is improving. Patient getting another dose of Lasix by nephrology 10/13. Patient seen and examined. Currently on heated high flow. States she feels much better. Daughter at the bedside. Blood work done this morning showed WBC 21.1, hemoglobin 11.8 sodium 140, potassium 4.2, BUN 64, creatinine 3.03 10/14. Patient seen and examined. Currently on 4 L of oxygen. Patient has a lot of crusting and sores around her lips and the left nasal fold, complaining of pain around the lips. Most likely herpes labialis, will start patient on V altrex 10/15/23. Patient seen and examined. Currently on 2 L of oxygen. Denies any chest pain or shortness of breath. Still has sores around her lips which has formed scabs now 10/16. Patient seen and examined. Patient ambulated with the help of therapy today. Has crusting of sores around her lips. Denies any shortness of breath at rest. REVIEW OF SYSTEMS: Denies any chest pain. Denies any fever or chills. Denies any nausea or vomiting PHYSICAL EXAMINATION: GENERAL: The patient is alert , ill looking HEENT: Pupils are round and equally reacting to light. EOMI. No scleral icterus. No conjunctival pallor. Normocephalic, atraumatic. No pharyngeal erythema. No thyromegaly. Sores around her lips which has formed scabs now CARDIOVASCULAR: S1 and S2 present. No murmurs, rubs, or gallops. PULMONARY: Diminished breath sounds bilaterally, no expiratory wheeze audible ABDOMEN: Soft, nontender, nondistended, normoactive bowel sounds. No palpable organomegaly. MUSCULOSKELETAL: No joint swelling or deformity. EXTREMITIES: 1+ edema in lower extremities bilaterally NEUROLOGICAL: Gross neurological examination did not reveal any focal deficits. SKIN: No rashes. Assessment and plan Septic shock Gram-negative bacteremia Acute hypoxic respiratory failure Acute metabolic encephalopathy Herpes labialis Non-ST elevation IA Acute transaminitis Acute kidney injury Left-sided hydronephrosis Syncopal event Fall Hypertension Hyperlipidemia Monitor vital signs Monitor CBC Monitor CMP Continue telemetry monitoring Aggressive bronchopulmonary hygiene Continue BiPAP as needed Follow-up on blood cultures, blood cultures growing E. coli Follow-up on urine cultures monitor LFTs Strict I's and O's, daily weights, Lasix Continue IV Rocephin Continue Eraxis Continue Valtrex, started on 10/14 2-D echo done showed LVEF of 50%, mild mitral regurg, mild aortic insufficiency, moderate tricuspid regurg Nephrology following Cardiology following, recommended starting patient on aspirin and beta reji, currently on aspirin and Lopressor Critical care following ID following Urology following, cystoscopy with left ureteral cathetre placement on 10/08, recommend outpatient follow-up for stone removal and stent placement Labs and medication were reviewed.. Continue same treatment. Continue with symptomatic treatment. Resume home medication. Monitor labs and vitals. DVT and GI prophylaxis. Further recommendations as per clinical course of the patient Dictation was produced using [employer] dictation software. please excuse any grammatical, word or spelling errors. Objective - Vital Signs Vital signs: Vital Signs Temp 98.1 F 10/16/23 11:56 Pulse 63 10/16/23 11:56 Resp 16 10/16/23 11:56 BP 132/65 10/16/23 11:56 Pulse Ox 97 10/16/23 11:56 FiO2 50 10/14/23 16:00 Intake & Output 10/15/23 10/16/23 10/16/23 18:59 06:59 18:59 Intake Total 690 Output Total 1300 725 Balance -610 -725 Intake: IV 300 0.9 KVO 300 Intake, IV Titration 150 Amount Anidulafungin 100 mg In 100 Sodium Chloride 0.9% 100 ml @ 84 mls/hr IVPB DAILY RIYA Rx#:[id number] cefTRIAXone 2 gm In 50 Sodium Chloride 0.9% 50 ml @ 100 mls/hr IVPB Q24HR RIYA Rx#:[id number] Oral 240 Output: Urine 1300 725 Uretheral (Myrick) 1000 Other: Voiding Method Indwelling Catheter Indwelling Catheter Indwelling Catheter - Labs CBC & Chem 7: 10/15/23 05:53 10/15/23 14:23
--- NOTE | 2023-10-16 14:34 | P.PN ---
Subjective Progress Note Date: 10/16/23 Principal diagnosis: Reason for follow-up is E. coli pyelonephritis sepsis and bacteremia Patient is a 87-year old female with a past medical history pertinent for hypertension hyperlipidemia reflux and breast cancer patient was brought into the hospital for evaluation of increasing weakness mental status changes patient was noticed to be febrile septic secondary to left-sided ureteral stone with hydronephrosis requiring cystoscopy and left ureteral double-J catheter placement patient blood cultures subsequently came back positive with E. coli. On today's evaluation that is 10/16/2023, the patient remains to be afebrile the patient is breathing comfortably on 1 L nasal cannula oxygen, the patient denies any chest pain shortness of breath denies any cough or sputum production, the patient denies having any nausea no vomiting no abdominal pain and no diarrhea h as been reported Lab draw reports currently pending from this morning Objective - Vital Signs Vital signs: Vital Signs Temp 97.7 F 10/16/23 07:32 Pulse 64 10/16/23 07:32 Resp 16 10/16/23 08:00 BP 135/57 10/16/23 07:32 Pulse Ox 94 L 10/16/23 07:32 FiO2 50 10/14/23 16:00 Intake & Output 10/15/23 10/16/23 10/16/23 18:59 06:59 18:59 Intake Total 690 Output Total 1300 725 Balance -610 -725 Intake: IV 300 0.9 KVO 300 Intake, IV Titration 150 Amount Anidulafungin 100 mg In 100 Sodium Chloride 0.9% 100 ml @ 84 mls/hr IVPB DAILY RIYA Rx#:[id number] cefTRIAXone 2 gm In 50 Sodium Chloride 0.9% 50 ml @ 100 mls/hr IVPB Q24HR RIYA Rx#:[id number] Oral 240 Output: Urine 1300 725 Uretheral (Myrick) 1000 Other: Voiding Method Indwelling Catheter Indwelling Catheter Indwelling Catheter - Exam GENERAL DESCRIPTION: An elderly female lying in bed in no distress HEENT patient did have evidence of extensive herpes labialis especially involv ing the lower lip, also with a mild thrush RESPIRATORY SYSTEM: Unlabored breathing , decreased breath sounds at bases HEART: S1 S2 regular rate and rhythm , ABDOMEN: Soft , no tenderness EXTREMITIES: No edema feet - Labs CBC & Chem 7: 10/15/23 05:53 10/15/23 14:23 Assessment and Plan (1) Sepsis Current Visit: Yes Status: Acute Code(s): A41.9 - SEPSIS, UNSPECIFIED ORGANISM SNOMED Code(s): 26120825 (2) Leukocytosis Current Visit: Yes Status: Acute Code(s): D72.829 - ELEVATED WHITE BLOOD CELL COUNT, UNSPECIFIED SNOMED Code(s): 937420389 (3) Gram-negative bacteremia Current Visit: Yes Status: Acute Code(s): R78.81 - BACTEREMIA SNOMED Code(s): 064367872198 (4) UTI (urinary tract infection) Current Visit: Yes Status: Acute Code(s): N39.0 - URINARY TRACT INFECTION, SITE NOT SPECIFIED SNOMED Code(s): 82689516 (5) Herpes labialis Current Visit: Yes Status: Acute Code(s): B00.1 - HERPESVIRAL VESICULAR DERMATITIS SNOMED Code(s): 3514128 (6) Thrush Current Visit: Yes Status: Acute Code(s): B37.0 - CANDIDAL STOMATITIS SNOMED Code(s): 58623338 Plan: 1-patient is in the hospital with sepsis/septic shock secondary to complicated UTI in this patient who did have a left-sided hydronephrosis requiring cystoscopy and left-sided double-J ureteral catheter placement likely secondary to enteric gram-negative pathogen 2E. coli bacteremia source likely left-sided pyelonephritis complicated UTI sensitive pathogen repeat blood cultures 10/09/2023 so far negative 3patient did have evidence of extensive herpes labialis we will continue the patient on Valtrex at 1 g every 24 hours. 4patient also have a elevated white count and evidence of thrush we will continue Eraxis 5patient is slowly clinical improvement remains to be afebrile white count is trending down continue with Rocephin and monitor clinical course closely Dictation was produced using [employer] dictation software. please excuse any grammatical, word or spelling errors. Time with Patient: Less than 30
[2023-10-16 15:26] LABS: HCT 31.7 % (37.2-46.3); HGB 10.3 g/dL (12.0-15.0); MCH 28.7 pg (27.0-32.0); MCHC 32.5 g/dL (32.0-37.0); MCV 88.3 FL (80.0-97.0); Mean Platelet Volume 11.1 FL (9.5-12.2); NRBC Per 100 WBC 0 X 10*3/uL (0.00-0.01); Platelet Count 395 X 10*3/uL (140-440); RBC 3.59 X 10*6/uL (4.10-5.20); RDW 14.6 % (11.5-14.5)
[2023-10-16 15:33] LABS: ALT 115 U/L (8-44); AST 62 U/L (13-35); Albumin 3.1 g/dL (3.8-4.9); Albumin/Globulin Ratio 1.29 Ratio (1.60-3.17); Alkaline Phosphatase 85 U/L (41-126); BUN/Creat Ratio 19.18 Ratio (12.00-20.00); Blood Urea Nitrogen 42.2 mg/dL (9.0-27.0); Calcium 9.2 mg/dL (8.7-10.3); Carbon Dioxide 25.7 mmol/L (21.6-31.8); Chloride 106 mmol/L (96-109); Globulin 2.4 g/dL (1.6-3.3); Glucose 148 mg/dL (70-110); Potassium 3.9 mmol/L (3.5-5.5); Sodium 144 mmol/L (135-145); Total Bilirubin 0.3 mg/dL (0.3-1.2); Total Protein 5.5 g/dL (6.2-8.2)
[2023-10-16 17:07] VITALS: BMI 29.4
[2023-10-16 17:18] LABS: Basophils # (M) 0 X 10*3/uL (0.00-0.10)
[2023-10-16 17:38] LABS: Eosinophils # (M) 0.64 X 10*3/uL (0.04-0.35); Lymphocytes # (M) 0.64 X 10*3/uL (0.90-5.00); Metamyelocytes % 3 % (0-0); Myelocytes % 1 % (0-0); Neutrophils # (M) 13.28 X 10*3/uL (1.80-7.70); Neutrophils % (M) 83 %
[2023-10-16] MEDS: MORPHINE SULFATE 4 MG/ML SYRINGE IV PRN (20:18)
[2023-10-16] MEDS: ALPRAZolam 0.25 MG TAB PO PRN (20:18)
[2023-10-17] MEDS: HEPARIN SODIUM,PORCINE 5,000 UNIT/ML 1 ML VIAL SQ SCH ×4 (00:36→23:23)
[2023-10-17 00:59] LABS: ALT 95 U/L (4-34); AST 55 U/L (14-36); African American GFR (CKD) 24 (>60 ml/min/1.73 sqM); Albumin 2.4 g/dL (3.5-5.0); Alkaline Phosphatase 79 U/L (38-126); Anion Gap 6 mmol/L; Blood Urea Nitrogen 43 mg/dL (7-17); Calcium 8.5 mg/dL (8.4-10.2); Carbon Dioxide 28 mmol/L (22-30); Chloride 106 mmol/L (98-107); Globulin 2.5 g/dL; Glucose 104 mg/dL (74-99); Non-African American GFR(CKD) 21 (>60 ml/min/1.73 sqM); Potassium 3.1 mmol/L (3.5-5.1); Sodium 140 mmol/L (137-145); Total Bilirubin 0.4 mg/dL (0.2-1.3); Total Protein 4.9 g/dL (6.3-8.2)
[2023-10-17] MEDS ORDERED: Potassium Replacement Protocol 1 EACH MISC MISCELLANE PRN (01:03)
[2023-10-17] MEDS: POTASSIUM CHLORIDE ER 20 MEQ TAB.ER PO SCH ×2 (01:16→02:06)
[2023-10-17 01:39] LABS: Basophils # (A) 0.1 k/uL (0-0.2); Basophils % (A) 1 %; Eosinophils # (A) 0.4 k/uL (0-0.7); Eosinophils % (A) 3 %; HGB 9.5 gm/dL (11.4-16.0); Lymphocytes # (A) 2.3 k/uL (1.0-4.8); Lymphocytes % (A) 18 %; MCH 29.4 pg (25.0-35.0); MCHC 32.6 g/dL (31.0-37.0); MCV 90.2 fL (80.0-100.0); Mean Platelet Volume 8.9; Monocytes # (A) 0.5 k/uL (0-1.0); Monocytes % (A) 4 %; Neutrophils # (A) 9.2 k/uL (1.3-7.7); Neutrophils % (A) 72 %; Platelet Count 375 k/uL (150-450); RBC 3.22 m/uL (3.80-5.40); RDW 14.3 % (11.5-15.5); WBC 12.8 k/uL (3.8-10.6)
[2023-10-17] MEDS: LEVOTHYROXINE 75 MCG TAB PO SCH (05:32)
[2023-10-17] MEDS ORDERED: BENZOCAINE/MENTHOL LOZENG 1 EACH LOZENGE MUCOUS MEM PRN (08:01)
[2023-10-17] MEDS: ANIDULAFUNGIN 100 MG in SODIUM CHLORIDE 0.9% 100 ML IVPB SCH (08:52)
[2023-10-17] MEDS: ASPIRIN 81 MG PO SCH (08:53)
[2023-10-17] MEDS: FUROSEMIDE 40 MG TAB PO SCH (08:53)
[2023-10-17] MEDS: PANTOPRAZOLE 40 MG TABLET PO SCH (08:53)
[2023-10-17] MEDS: NYSTATIN 100,000 UNIT/ML SUSP 500,000 UNIT/5 ML CUP PO SCH ×4 (08:53→23:23)
[2023-10-17] MEDS: METOPROLOL TARTRATE 25 MG TAB PO SCH ×2 (08:53→20:29)
[2023-10-17] MEDS: CHOLECALCIFEROL 25 MCG (1000 IU) TABLET PO SCH (08:53)
[2023-10-17] MEDS: valACYclovir HCL 500 MG TAB PO SCH (08:54)
[2023-10-17] MEDS: DOCUSATE 100 MG CAP PO SCH ×2 (08:54→20:29)
[2023-10-17] MEDS ORDERED: POTASSIUM CHLORIDE ER 20 MEQ TAB.ER PO STA (10:36)
--- NOTE | 2023-10-17 10:37 | P.PN ---
Subjective Patient is seen in follow-up for acute kidney injury on chronic kidney disease. Renal function improving. On oral Lasix. Nonoliguric. Oral intake slowly improving. Currently on room air. Vital signs are stable. General: NAD. HEENT: Head exam is unremarkable. Lesions around the mouth noted. LUNGS: Scattered rhonchi. HEART: Rate and Rhythm are regular. ABDOMEN: No distention. EXTREMITITES: Trace edema. Objective - Vital Signs Vital signs: Vital Signs Temp 97.5 F L 10/17/23 08:00 Pulse 62 10/17/23 08:00 Resp 17 10/17/23 08:00 BP 187/68 10/17/23 08:00 Pulse Ox 94 L 10/17/23 08:00 FiO2 50 10/14/23 16:00 Intake & Output 10/16/23 10/17/23 10/17/23 18:59 06:59 18:59 Output Total 800 600 Balance -800 -600 Weight 73 kg Output: Urine 800 600 Other: Voiding Method Indwelling Catheter Indwelling Catheter - Labs CBC & Chem 7: 10/17/23 00:15 10/17/23 00:15 Labs: Abnormal Lab Results - Last 24 Hours (Table) 10/16/23 10/16/23 10/17/23 Range/Units 12:51 12:51 00:15 WBC 16.00 H 12.8 H (4.50-10.00) X 10*3/uL RBC 3.59 L 3.22 L (4.10-5.20) X 10*6/uL Hgb 10.3 L 9.5 L (12.0-15.0) g/dL Hct 31.7 L 29.0 L (37.2-46.3) % RDW 14.6 H (11.5-14.5) % Neutrophils # 9.2 H (1.3-7.7) k/uL Neutrophils # (Manual) 13.28 H (1.80-7.70) X 10*3/uL Lymphocytes # (Manual) 0.64 L (0.90-5.00) X 10*3/uL Eosinophils # (Manual) 0.64 H (0.04-0.35) X 10*3/uL Potassium (3.5-5.1) mmol/L Anion Gap 12.30 H (4.00-12.00) mmol/L BUN 42.2 H (9.0-27.0) mg/dL Creatinine 2.2 H (0.6-1.5) mg/dL Est GFR (CKD-EPI) 21 L (>=60) Glucose 148 H (70-110) mg/dL AST 62 H (13-35) U/L ALT 115 H (8-44) U/L Total Protein 5.5 L (6.2-8.2) g/dL Albumin 3.1 L (3.8-4.9) g/dL Albumin/Globulin Ratio 1.29 L (1.60-3.17) Ratio 10/17/23 Range/Units 00:15 WBC (4.50-10.00) X 10*3/uL RBC (4.10-5.20) X 10*6/uL Hgb (12.0-15.0) g/dL Hct (37.2-46.3) % RDW (11.5-14.5) % Neutrophils # (1.3-7.7) k/uL Neutrophils # (Manual) (1.80-7.70) X 10*3/uL Lymphocytes # (Manual) (0.90-5.00) X 10*3/uL Eosinophils # (Manual) (0.04-0.35) X 10*3/uL Potassium 3.1 L (3.5-5.1) mmol/L Anion Gap (4.00-12.00) mmol/L BUN 43 H (9.0-27.0) mg/dL Creatinine 2.06 H (0.6-1.5) mg/dL Est GFR (CKD-EPI) (>=60) Glucose 104 H (70-110) mg/dL AST 55 H (13-35) U/L ALT 95 H (8-44) U/L Total Protein 4.9 L (6.2-8.2) g/dL Albumin 2.4 L (3.8-4.9) g/dL Albumin/Globulin Ratio (1.60-3.17) Ratio Assessment and Plan Plan: Assessment: 1. Acute kidney injury secondary to ATN secondary to hypotension. Now off vasopressors. Also component of obstructive uropathy. Renal function better. Creatinine 2.06 today. 2. Hypokalemia from diuresis and poor intake. 3. Left hydronephrosis status post ureteral stent placement on 10/08/2023. 4. E. coli bacteremia on antibiotics. 5. Acute on chronic diastolic CHF with moderate tricuspid regurgitation. 6. Chronic kidney disease stage IIIB with baseline creatinine 1.4-1.5 in Jul. Suspect nephrosclerosis. 7. Metabolic acidosis secondary to acute kidney injury and GI losses. Resolved. Plan: Maintain Lasix 40 mg once daily. Replace potassium. Avoid nephrotoxins. Continue to monitor renal function and urine output.
[2023-10-17 11:17] LABS: Blood Urea Nitrogen 39.2 mg/dL (9.0-27.0); Carbon Dioxide 25.2 mmol/L (21.6-31.8); Chloride 108 mmol/L (96-109); Glucose 103 mg/dL (70-110); Magnesium 1.7 mg/dL (1.5-2.4); Potassium 4.1 mmol/L (3.5-5.5); Sodium 145 mmol/L (135-145)
--- NOTE | 2023-10-17 11:28 | P.PN ---
Subjective Progress Note Date: 10/17/23 This is a very pleasant 87-year-old female patient with a known history of hypertension, hyperlipidemia, gastroesophageal reflux disease, anxiety, breast cancer status post lumpectomy and chemotherapy over 30 years ago. He is admitted to the emergency room yesterday with increasing weakness and altered m ental status. She did have influenza approximately 1 week ago but was feeling better until recently. She developed nausea vomiting diarrhea and weakness that led to a fall. She was altered when EMS had arrived. EKG revealed sinus tachycardia with nonspecific ST and T wave abnormalities. Revealed mild cardiomegaly and chronic appearing changes. Some strandy atelectasis at the right lung base. Otherwise no acute pulmonary process. Ultrasound of the bladder revealed moderate to severe left sided hydronephrosis with internal debris. Correlate to exclude infective debris/pyelitis. Bilateral renal calculi measuring up to 9 mm on the left and 6 mm on the right. All cultures are pending. White count 10.6. Hemoglobin 10.8. Platelets 425. INR 1.5. Sodium 134. Potassium 4.0. Bicarb 10. BUN 38. Creatinine 3.00. Glucose 129. AST 781. ALT 175. Troponins 2.64, 4.17, 4.02. ProBNP 1790. TSH 5.32. Influenza screen negative. RSV screen negative. COVID-19 screen negative. Ini tial lactic acid 8.3. Currently 1.7. She had received 3 L of fluid resuscitation. She is continued on D5W with 3 A of sodium bicarbonate at 100 ML's per hour. She's been initiated on a heparin drip. She is requiring norepinephrine at 0.2 mg/kg/m. He is seen today in consultation in the intensi ve care unit. She is awake and alert in no acute distress. Feeling a bit better today compared to yesterday. She is oriented 3. She remains quite weak. She is maintaining O2 saturations in the 90s on 2.5 L/m per nasal cannula. Arterial pressures in the low 70s. She had a T-max of 101 on arrival. Currently afebrile. On today's evaluation of 10/09/2023, the patient continues to be critically ill, septic, hypotensive, currently on 100% nonrebreather facemask. Pulse ox is in order of 90-93%. The patient in septic shock. 2 UTI and left pyelonephritis and probable obstructing ureteral calculus. The patient underwent a cystoscopy and insertion of double-J catheter on 10/08/2023. The patient has a positive blood culture with gram-negative bacillus and the patient remains on IV Roceph in. Hemodynamically, the patient remains hypotensive. The patient is still on high-dose norepinephrine at 0.2 mcg/kg/m and the patient is also on a bicarbonate infusion running at the rate of 100 mL an hour. Chest x-ray showing cardiac megaly with pulmonary vessel congestion. Urine output is diminished in the order of 15-20 mL an hour. The white cell cause of 54.3 with a hemoglobin of 10 and a platelet count of 381. The patient was started on IV heparin regarding some troponin leak and a troponin peak at 3.2. Nevertheless she is feeling any chest pain. PTT currently is at 61 with an INR of 1.9 and a PT of 19.3. BUN is 44 with a creatinine of 3.47 and the patient sustained an acute k idney injury. Sodium is at 137 with a potassium level of 3.7. She is quite lethargic and weak and her meditation is quite diminished at this point in time. [facility] neurologic exam is nonfocal. No other issues for now. Echocardiogram showed a preserved LV function with an EF of around 50%. The patient has normal RV, no significant valvular abnormalities was noted. On 10/10/2023, the patient is being seen for a follow-up. This is an 87-year-old female patient with septic shock and gram-negative urinary tract infection with sepsis. The patient presented with left pyelonephritis and the patient underwent a cystoscopy and double-J and insertion on 10/08/2023. Her blood cultures positive for gram-negative bacillus and the patient remains on 2 g of IV Rocephin. She was requiring high doses of pressors and currently she is on no pressors and this was weaned off and discontinued yesterday. IV fluids were also reduced down to 10 mL an hour as the patient was having increased pulmonary edema and pulmonary vascular congestion which has resulted into transitioning her from 100% RV the facemask to a BiPAP which is running at 12/6 with an FiO2 of 75%. Current pulse ox is 99%. Chest x-ray as mentioned is consistent with CHF and pulmonary edema. The patient is producing adequate ghada unt of urine output overall fluid balance is +1 and 2 L over the past 24 hours. Urine output was in the order of 20-50 mL an hour. Based on that, she was given a dose of Lasix 60 mg IV push to be repeated depending on her urine output. This morning, BUN is at 53 with a creatinine of 3.4 and a sodium level is at 137, the validity count is improved and is down to 26.8 with a hemoglobin 9.2 and platelet count of 235. Myrick catheter in place. No hematuria this point in time. She is on no anticoagulation. Cardiac rhythm is sinus. Echocardiogram showed a preserved LV function with an ejection fraction of 50%. On today's evaluation of 10/11/2023, the patient is lethargic yet arousable. Sh e is following simple commands speech is profoundly. She remains on BiPAP at a pressure of 12/6 with an FiO2 of 65%. The patient is generating a tidal volume of about 600 and her current respiratory rate is around 18. She has a good mask seal. Her chest x-ray is essentially unchanged compared to yesterday. She has, thyromegaly, mild pulmonary vessel congestion. She was given Lasix yesterday to that of 60 mg IV and the fluid balance is -700 mL over the past 24 hours. Creatinine is stable. Note that the patient partial response to Lasix and the same will be done today. BUN is at 62 with a creatinine of 3.4 and a sodium level is at 140. The white cell count is down to 24 with a hemoglobin of 9.8. As for the blood culture, do not to be positive for E. coli and is sensitive to IV Rocephin which will be continued at a dose of 2 g every 24 hours. Note that the patient is not utilizing any form of pressors for now. IV fluids are KVO. She is resting comfortably in bed. On today's evaluation of 10/12/2023, the patient is awake and alert and she is communicating. She is aware that she is in the hospital. She is currently on high flow oxygen and she was taken off the BiPAP. High flow oxygen is running at 50% FiO2 at 50 L. She is able to maintain a saturation of 96%. Meanwhile, she is afebrile. She is hemodynamically stable picture is off pressors. The white cell count is improving. She is producing urine output. The chest x-ray still showing hazy bilateral pulmonary infiltrates and the patient was given another dose of Lasix 40 mg IV push by nephrology. Myrick catheter in place. The patient is producing adequate amount of urine output. In terms of her labs from today, the white cell count is down to 19, hemoglobin is at 9.8, potassium levels at 2.7 and needs to be replaced, BUN is at 62 with a creatinine of 3.6 and serum bicarb is at 28. Note that this is an acute on top of the chronic kidney injury related to septic shock. As mentioned earlier, she has E. coli, she is on IV Rocephin. She is tolerating small amounts of soft diet. On 10/13/2023, the patient is awake and alert. She is on high flow oxygen at 50 L with an FiO2 of 40%. No chest x-ray from today. She was in septic shock with multisystem organ failure. She could have also had a component of acute lung injury/ARDS requiring high oxygen and initially BiPAP and subsequently high flow oxygen. Hemodynamically stable off pressors. She was given Lasix yesterday and the fluid balance is in order of -1.3 L. The creatinine is down to 3 with a BUN of 64. Sodium is at 140. Potassium is at 4.2. White cell count has dropped onto 21 with a hemoglobin of 11.8. The blood culture was positive for E. coli. She remains on IV Rocephin. Tolerating diet. Weak in general. Communicating. Alert and awake. No pressors at this point. Myrick catheter is in place. On 10/14/2023, the patient is awake and alert and communicating. She is currently on oxygen at 4 L with a pulse ox of 97%. Clinically stable. Hemodynamically stable. Neurologically weak yet able to communicate without any focal neurological deficits. Labs from today are still pending. Yesterday's labs were noted. The patient Remains on IV Rocephin. The patient's is on no pressors. Mouth is dry and she has developed some sores over the lips involving the upper and lower lip and she has also some crusting of the skin over the left nasal fold extending to her left cheek. This could be herpetic in nature. Her mucous membranes are dry. Urine output is in order of 2.6 L over the past 24 hours with a negative fluid balance of -1.7 L over the past 24 hours. She is tolerating clear liquid diet. Quite sleepy yet arousable. Myrick cath is in place. Note that the patient was given Lasix yesterday with excellent urine output On 10/15/2023, I'm seeing the patient for a follow-up in she is currently on 2 L of oxygen by nasal cannula. She is sleepy. She feels fatigued and tired. She also feels weak. She also has several sores on her lips and face which is probably a herpetic lesion. No significant respiratory distress. Pulse ox 97% on room air oxygen. She is recovering from her septic shock. The white cell count is down to 17. Renal function continues to improve. She was given IV Lasix on a daily basis with excellent urine output. BUN is down to 52. Creatinine is down to 2.2. Potassium is down to 3.2 that needs to be replaced. Sodium is at 140. Oral intake is quite diminished still. She is to be more consistent on the use of incentive spirometer. Myrick cath is in place. She is on IV Rocephin. She is also on IV Eraxis per IDs recommendation. The patient is seen today 10/16/2023 in follow-up on the regular medical floor. She is currently resting in bed. Awake and alert in no acute distress. She is maintaining good O2 saturations in the 90s on room air. She's been afebrile. Hemodynamically stable. Follow-up chest x-ray reveals minimal bilateral pleural effusions. Mild cardiomegaly. Mild right lower lobe infiltrate present. Blood cultures were positive for E. coli. Follow-up blood culture revealing no growth. She does have significant herpetic lesions around her mouth. She is on Valtrex. She remains on ceftriaxone, Eraxis. Heparin for DVT prophylaxis. The patient is seen today 10/17/2023 for follow-up on the regular medical floor. She is currently sitting up in bed. Awake and alert in no acute distress. Feeling better today compared to yesterday. Maintaining O2 saturations in the 90s on room air. She's been afebrile. Initial blood cultures were positive for E. coli. Follow-up blood cultures revealed no growth. White count 12.8. Hemogram 9.5. Platelets 375. Sodium 145. Potassium 4.1 bicarb 25. BUN 40. Creatinine 2.0. Glucose 103. She is continued on valacyclovir, ceftriaxone and Eraxis. Remains on oral diuretics. Heparin for DVT prophylaxis. Currently in a negative balance. Objective - Vital Signs Vital signs: Vital Signs Temp 97.5 F L 10/17/23 08:00 Pulse 62 10/17/23 08:00 Resp 17 10/17/23 08:00 BP 187/68 10/17/23 08:00 Pulse Ox 94 L 10/17/23 08:00 FiO2 50 10/14/23 16:00 Intake & Output 10/16/23 10/17/23 10/17/23 18:59 06:59 18:59 Output Total 800 600 Balance -800 -600 Weight 73 kg Output: Urine 800 600 Other: Voiding Method Indwelling Catheter Indwelling Catheter Indwelling Catheter - Exam GENERAL EXAM: Alert, pleasant 87-year-old female, hepatic lesions around the mouth, on room air, comfortable in no acute distress HEAD: Normocephalic. EYES: Normal reaction of pupils, equal size. NOSE: Clear with pink turbinates. THROAT: No erythema or exudates. NECK: No masses, no JVD. CHEST: No chest wall deformity. LUNGS: Equal air entry with diminished breath on the lung bases along with some bibasilar crackles CVS: S1 and S2 normal with no audible murmur, regular rhythm. ABDOMEN: No hepatosplenomegaly, normal bowel sounds, no guarding or rigidity. SPINE: No scoliosis or deformity SKIN: No rashes CENTRAL NERVOUS SYSTEM: No focal deficits, tone is normal in all 4 extremities. EXTREMITIES: There is no peripheral edema. No clubbing, no cyanosis. Peripheral pulses are intact. - Labs CBC & Chem 7: 10/17/23 00:15 10/17/23 05:59 Labs: Abnormal Lab Results - Last 24 Hours (Table) 10/16/23 10/16/23 10/17/23 Range/Units 12:51 12:51 00:15 WBC 16.00 H 12.8 H (4.50-10.00) X 10*3/uL RBC 3.59 L 3.22 L (4.10-5.20) X 10*6/uL Hgb 10.3 L 9.5 L (12.0-15.0) g/dL Hct 31.7 L 29.0 L (37.2-46.3) % RDW 14.6 H (11.5-14.5) % Neutrophils # 9.2 H (1.3-7.7) k/uL Neutrophils # (Manual) 13.28 H (1.80-7.70) X 10*3/uL Lymphocytes # (Manual) 0.64 L (0.90-5.00) X 10*3/uL Eosinophils # (Manual) 0.64 H (0.04-0.35) X 10*3/uL Potassium (3.5-5.1) mmol/L Anion Gap 12.30 H (4.00-12.00) mmol/L BUN 42.2 H (9.0-27.0) mg/dL Creatinine 2.2 H (0.6-1.5) mg/dL Est GFR (CKD-EPI) 21 L (>=60) Glucose 148 H (70-110) mg/dL AST 62 H (13-35) U/L ALT 115 H (8-44) U/L Total Protein 5.5 L (6.2-8.2) g/dL Albumin 3.1 L (3.8-4.9) g/dL Albumin/Globulin Ratio 1.29 L (1.60-3.17) Ratio 10/17/23 10/17/23 Range/Units 00:15 05:59 WBC (4.50-10.00) X 10*3/uL RBC (4.10-5.20) X 10*6/uL Hgb (12.0-15.0) g/dL Hct (37.2-46.3) % RDW (11.5-14.5) % Neutrophils # (1.3-7.7) k/uL Neutrophils # (Manual) (1.80-7.70) X 10*3/uL Lymphocytes # (Manual) (0.90-5.00) X 10*3/uL Eosinophils # (Manual) (0.04-0.35) X 10*3/uL Potassium 3.1 L (3.5-5.1) mmol/L Anion Gap (4.00-12.00) mmol/L BUN 43 H 39.2 H (9.0-27.0) mg/dL Creatinine 2.06 H 2.0 H (0.6-1.5) mg/dL Est GFR (CKD-EPI) 23 L (>=60) Glucose 104 H (70-110) mg/dL AST 55 H (13-35) U/L ALT 95 H (8-44) U/L Total Protein 4.9 L (6.2-8.2) g/dL Albumin 2.4 L (3.8-4.9) g/dL Albumin/Globulin Ratio (1.60-3.17) Ratio Assessment and Plan Assessment: Acute sepsis/septic shock with hypotension requiring pressor support secondary to suspected pyelonephritis. Ultrasound of the kidneys and bladder revealed a moderate to severe left sided hydronephrosis with internal debris. Correlate to exclude infective debris/pyelitis. Bilateral renal calculi measuring up to 9 mm on the left and 6 mm on the right. She is post cystoscopy and insertion of a double-J stent on the left. The patient remains on IV Rocephin and Eraxis the final cultures of the blood were consistent with E. coli. Nevertheless, no signs of respiratory distress on room air and she continues to show ongoing improvement Acute kidney injury secondary to above, current creatinine 2.0 Acute hypotension secondary to above, recovered Lactic acidosis secondary to above, recovered Acute hypoxemic respiratory failure secondary to above, recovered and on room air. Follow-up chest x-ray shows improvement Acute non-ST segment elevation myocardial infarction Transaminitis secondary to above New onset hypothyroidism Herpes simplex virus around the mouth History of hypertension Hyperlipidemia History of breast cancer status post lumpectomy/chemotherapy over 30 years ago Gastroesophageal reflux disease Plan: The patient was seen and evaluated Labs and medications reviewed Currently stable and on room air Continue the current treatment plan Increase her activity as tolerated Remains on IV antibiotics Infectious disease, nephrology, cardiology remain on the case This patient was seen independently by the pulmonary nurse practitioner addressing pulmonary issues I have personally seen and examined the patient, performed the documentation and the assessment and plan as written. Number of minutes spent on the visit: 22.
--- NOTE | 2023-10-17 11:56 | P.PN ---
Subjective Progress Note Date: 10/17/23 Principal diagnosis: Reason for follow-up is E. coli pyelonephritis sepsis and bacteremia Patient is a 87-year old female with a past medical history pertinent for hypertension hyperlipidemia reflux and breast cancer patient was brought into the hospital for evaluation of increasing weakness mental status changes patient was noticed to be febrile septic secondary to left-sided ureteral stone with hydronephrosis requiring cystoscopy and left ureteral double-J catheter placement patient blood cultures subsequently came back positive with E. coli. On today's evaluation that is 10/17/2022, the patient continues to be afebrile, the patient is breathing comfortably on room air, the patient denies any chest pain shortness of breath or cough no abdominal pain, the patient lip have crusted out did have some dull aching pain but no bleeding Patient white count is down to 12.8, creatinine is down to 2.0, repeat blood culture negative Objective - Vital Signs Vital signs: Vital Signs Temp 97.5 F L 10/17/23 08:00 Pulse 62 10/17/23 08:00 Resp 17 10/17/23 08:00 BP 187/68 10/17/23 08:00 Pulse Ox 94 L 10/17/23 08:00 FiO2 50 10/14/23 16:00 Intake & Output 10/16/23 10/17/23 10/17/23 18:59 06:59 18:59 Output Total 800 600 Balance -800 -600 Weight 73 kg Output: Urine 800 600 Other: Voiding Method Indwelling Catheter Indwelling Catheter Indwelling Catheter - Exam GENERAL DESCRIPTION: An elderly female lying in bed in no distress HEENT patient did have evidence of extensive herpes labialis especially invo lving the lower lip, also with a mild thrush RESPIRATORY SYSTEM: Unlabored breathing , decreased breath sounds at bases HEART: S1 S2 regular rate and rhythm , ABDOMEN: Soft , no tenderness EXTREMITIES: No edema feet - Labs CBC & Chem 7: 10/17/23 00:15 10/17/23 05:59 Labs: Abnormal Lab Results - Last 24 Hours (Table) 10/16/23 10/16/23 10/17/23 Range/Units 12:51 12:51 00:15 WBC 16.00 H 12.8 H (4.50-10.00) X 10*3/uL RBC 3.59 L 3.22 L (4.10-5.20) X 10*6/uL Hgb 10.3 L 9.5 L (12.0-15.0) g/dL Hct 31.7 L 29.0 L (37.2-46.3) % RDW 14.6 H (11.5-14.5) % Neutrophils # 9.2 H (1.3-7.7) k/uL Neutrophils # (Manual) 13.28 H (1.80-7.70) X 10*3/uL Lymphocytes # (Manual) 0.64 L (0.90-5.00) X 10*3/uL Eosinophils # (Manual) 0.64 H (0.04-0.35) X 10*3/uL Potassium (3.5-5.1) mmol/L Anion Gap 12.30 H (4.00-12.00) mmol/L BUN 42.2 H (9.0-27.0) mg/dL Creatinine 2.2 H (0.6-1.5) mg/dL Est GFR (CKD-EPI) 21 L (>=60) Glucose 148 H (70-110) mg/dL AST 62 H (13-35) U/L ALT 115 H (8-44) U/L Total Protein 5.5 L (6.2-8.2) g/dL Albumin 3.1 L (3.8-4.9) g/dL Albumin/Globulin Ratio 1.29 L (1.60-3.17) Ratio 10/17/23 10/17/23 Range/Units 00:15 05:59 WBC (4.50-10.00) X 10*3/uL RBC (4.10-5.20) X 10*6/uL Hgb (12.0-15.0) g/dL Hct (37.2-46.3) % RDW (11.5-14.5) % Neutrophils # (1.3-7.7) k/uL Neutrophils # (Manual) (1.80-7.70) X 10*3/uL Lymphocytes # (Manual) (0.90-5.00) X 10*3/uL Eosinophils # (Manual) (0.04-0.35) X 10*3/uL Potassium 3.1 L (3.5-5.1) mmol/L Anion Gap (4.00-12.00) mmol/L BUN 43 H 39.2 H (9.0-27.0) mg/dL Creatinine 2.06 H 2.0 H (0.6-1.5) mg/dL Est GFR (CKD-EPI) 23 L (>=60) Glucose 104 H (70-110) mg/dL AST 55 H (13-35) U/L ALT 95 H (8-44) U/L Total Protein 4.9 L (6.2-8.2) g/dL Albumin 2.4 L (3.8-4.9) g/dL Albumin/Globulin Ratio (1.60-3.17) Ratio Assessment and Plan (1) Sepsis Current Visit: Yes Status: Acute Code(s): A41.9 - SEPSIS, UNSPECIFIED ORGANISM SNOMED Code(s): 11309461 (2) Leukocytosis Current Visit: Yes Status: Acute Code(s): D72.829 - ELEVATED WHITE BLOOD CELL COUNT, UNSPECIFIED SNOMED Code(s): 952224574 (3) Gram-negative bacteremia Current Visit: Yes Status: Acute Code(s): R78.81 - BACTEREMIA SNOMED Code(s): 596581628433 (4) UTI (urinary tract infection) Current Visit: Yes Status: Acute Code(s): N39.0 - URINARY TRACT INFECTION, SITE NOT SPECIFIED SNOMED Code(s): 36049744 (5) Herpes labialis Current Visit: Yes Status: Acute Code(s): B00.1 - HERPESVIRAL VESICULAR DERMATITIS SNOMED Code(s): 1448471 (6) Thrush Current Visit: Yes Status: Acute Code(s): B37.0 - CANDIDAL STOMATITIS SN ED Code(s): 53255146 Plan: 1-patient is in the hospital with sepsis/septic shock secondary to complicated UTI in this patient who did have a left-sided hydronephrosis requiring cystoscopy and left-sided double-J ureteral catheter placement likely secondary to enteric gram-negative pathogen 2E. coli bacteremia source likely left-sided pyelonephritis complicated UTI sensitive pathogen repeat blood cultures 10/09/2023 so far negative 3patient did have evidence of extensive herpes labialis we will continue the patient on Valtrex at 1 g every 24 hours. 4patient also have evidence of thrush we will continue Eraxis, Along with nystatin swish and swallow. 5patient to continue with the Rocephin consider obtaining a peripheral IV and discontinuation of the right IJ to decrease risk of line related sepsis Dictation was produced using [employer] dictation software. please excuse any grammatical, word or spelling errors. Time with Patient: Less than 30
--- NOTE | 2023-10-17 13:37 | P.PN ---
Subjective Progress Note Date: 10/17/23 patient is a 87-year-old lady with past medical history significant for hypertension, hyperlipidemia who was brought to the ER for evaluation for syncopal event and altered mental status. Most of the history is taken from the EMR and from the patient, according to EMR, patient walked into patient's room and found her slumped in the bed, at that time patient was very confused, hard to arouse. EMS was called and when they arrived , patient blood pressure was low but patient was responsive. Patient did got one round of epi in on route to the ER. On gathering more information, patient had been complaining of flulike symptoms and was diagnosed with influenza a week ago, patient got over that sickness but then started complaining of nausea and vomiting. Was also complaining of diarrhea. Family also noted the patient was more short of breath than normal. Denied any chest pain or palpitations. There was no complain of any jerking movement of extremity. No complaint of any slurred speech or facial droop. Initial lab work done in the ER showed WBC 17.9, hemoglobin 12, platelet count 75 glucose 168, lactate 8.3 calcium 8.8, total bilirubin 1.2, troponin 2.640 INR 1.4, sodium 134, potassium 4.3, BUNs 34, creatinine 2.95, Influenza A not detected Influenza B not detected RSV not detected COVID-19 not detected EKG done in the ER showed heart rate of 133 , no ST segment elevation or depression seen, no T-wave inversions seen. Chest x-ray done in the ER showed mild cardiomegaly and COPD, chronic appearing changes ER physician talked to the patient's niece and patient, central line was placed in the ER patient was started on Levophed for hypotension. Patient admitted to ICU under internal medicine service 10/09. Patient seen and examined. Patient underwent cystoscopy with left ureteral stent placement on 10/08 by urology. Currently on nonrebreather, denies any chest pain. Labs reviewed, WBC 34.3, hemoglobin 10, platelet count 381, INR 1.9, sodium 137, potassium 3.7, BUN 44, creatinine 3.47 AST 856, AL282 10/10. Patient seen and examined. 2-D echo done showed LVEF of 50%, mild mitral regurg, mild aortic insufficiency, moderate tricuspid regurg. She has been weaned off all pressors. Still has shortness of breath 10/11. Patient seen and examined. Currently on BiPAP with FiO2 of 65%. Blood work done this morning showed a lipase of 24.5, 9.8, platelet count 222 sodium 140, potassium 3.7, BUN 62, creatinine 3.47. Complaining that she does not feel well. Gets short of breath on minimal exertion. 10/12. Patient seen and examined. with labs this morning shows WBC 19.3, hemoglobin 9.8, sodium is 1:30, potassium is 2.7, BUN is 62, creatinine 3.67. States she feels better, breathing is improving. Patient getting another dose of Lasix by nephrology 10/13. Patient seen and examined. Currently on heated high flow. States she feels much better. Daughter at the bedside. Blood work done this morning showed WBC 21.1, hemoglobin 11.8 sodium 140, potassium 4.2, BUN 64, creatinine 3.03 10/14. Patient seen and examined. Currently on 4 L of oxygen. Patient has a lot of crusting and sores around her lips and the left nasal fold, complaining of pain around the lips. Most likely herpes labialis, will start patient on V altrex 10/15/23. Patient seen and examined. Currently on 2 L of oxygen. Denies any chest pain or shortness of breath. Still has sores around her lips which has formed scabs now 10/16. Patient seen and examined. Patient ambulated with the help of therapy today. Has crusting of sores around her lips. Denies any shortness of breath at rest. 10/17. Patient seen and examined. Labs done this morning showed up to 12.8, hemoglobin 9.5 sodium 145, potassium 4.1, BUN 39, creatinine 2. Complaining of pain at the sores around her lips. States she feels that she is getting stronger REVIEW OF SYSTEMS: Denies any chest pain. Denies any fever or chills. Denies any nausea or vomiting PHYSICAL EXAMINATION: GENERAL: The patient is alert , ill looking HEENT: Pupils are round and equally reacting to light. EOMI. No scleral icterus. No conjunctival pallor. Normocephalic, atraumatic. No pharyngeal erythema. No thyromegaly. Sores around her lips which has formed scabs now CARDIOVASCULAR: S1 and S2 present. No murmurs, rubs, or gallops. PULMONARY: Diminished breath sounds bilaterally, no expiratory wheeze audible ABDOMEN: Soft, nontender, nondistended, normoactive bowel sounds. No palpable organomegaly. MUSCULOSKELETAL: No joint swelling or deformity. EXTREMITIES: 1+ edema in lower extremities bilaterally NEUROLOGICAL: Gross neurological examination did not reveal any focal deficits. SKIN: No rashes. Assessment and plan Septic shock Gram-negative bacteremia Acute hypoxic respiratory failure Acute metabolic encephalopathy Herpes labialis Non-ST elevation [place] Acute transaminitis Acute kidney injury Left-sided hydronephrosis Syncopal event Fall Hypertension Hyperlipidemia Monitor vital signs Monitor CBC Monitor CMP Follow-up on blood cultures, blood cultures growing E. coli Follow-up on urine cultures monitor LFTs Strict I's and O's, daily weights, Lasix Continue IV Rocephin Continue Eraxis Continue Valtrex, started on 10/14 2-D echo done showed LVEF of 50%, mild mitral regurg, mild aortic insufficiency, moderate tricuspid regurg Nephrology following Cardiology following, recommended starting patient on aspirin and beta reji, currently on aspirin and Lopressor Critical care following ID following Urology following, cystoscopy with left ureteral cathetre placement on 10/08, recommend outpatient follow-up for stone removal and stent placement Labs and medication were reviewed.. Continue same treatment. Continue with symptomatic treatment. Resume home medication. Monitor labs and vitals. DVT and GI prophylaxis. Further recommendations as per clinical course of the patient Dictation was produced using [employer] dictation software. please excuse any g rammatical, word or spelling errors. Objective - Vital Signs Vital signs: Vital Signs Temp 97.5 F L 10/17/23 08:00 Pulse 62 10/17/23 08:00 Resp 17 10/17/23 08:00 BP 187/68 10/17/23 08:00 Pulse Ox 94 L 10/17/23 08:00 FiO2 50 10/14/23 16:00 Intake & Output 10/16/23 10/17/23 10/17/23 18:59 06:59 18:59 Output Total 800 600 Balance -800 -600 Weight 73 kg Output: Urine 800 600 Other: Voiding Method Indwelling Catheter Indwelling Catheter Indwelling Catheter - Labs CBC & Chem 7: 10/17/23 00:15 10/17/23 05:59 Labs: Abnormal Lab Results - Last 24 Hours (Table) 10/16/23 10/16/23 10/17/23 Range/Units 12:51 12:51 00:15 WBC 16.00 H 12.8 H (4.50-10.00) X 10*3/uL RBC 3.59 L 3.22 L (4.10-5.20) X 10*6/uL Hgb 10.3 L 9.5 L (12.0-15.0) g/dL Hct 31.7 L 29.0 L (37.2-46.3) % RDW 14.6 H (11.5-14.5) % Neutrophils # 9.2 H (1.3-7.7) k/uL Neutrophils # (Manual) 13.28 H (1.80-7.70) X 10*3/uL Lymphocytes # (Manual) 0.64 L (0.90-5.00) X 10*3/uL Eosinophils # (Manual) 0.64 H (0.04-0.35) X 10*3/uL Potassium (3.5-5.1) mmol/L Anion Gap 12.30 H (4.00-12.00) mmol/L BUN 42.2 H (9.0-27.0) mg/dL Creatinine 2.2 H (0.6-1.5) mg/dL Est GFR (CKD-EPI) 21 L (>=60) Glucose 148 H (70-110) mg/dL AST 62 H (13-35) U/L ALT 115 H (8-44) U/L Total Protein 5.5 L (6.2-8.2) g/dL Albumin 3.1 L (3.8-4.9) g/dL Albumin/Globulin Ratio 1.29 L (1.60-3.17) Ratio 10/17/23 10/17/23 Range/Units 00:15 05:59 WBC (4.50-10.00) X 10*3/uL RBC (4.10-5.20) X 10*6/uL Hgb (12.0-15.0) g/dL Hct (37.2-46.3) % RDW (11.5-14.5) % Neutrophils # (1.3-7.7) k/uL Neutrophils # (Manual) (1.80-7.70) X 10*3/uL Lymphocytes # (Manual) (0.90-5.00) X 10*3/uL Eosinophils # (Manual) (0.04-0.35) X 10*3/uL Potassium 3.1 L (3.5-5.1) mmol/L Anion Gap (4.00-12.00) mmol/L BUN 43 H 39.2 H (9.0-27.0) mg/dL Creatinine 2.06 H 2.0 H (0.6-1.5) mg/dL Est GFR (CKD-EPI) 23 L (>=60) Glucose 104 H (70-110) mg/dL AST 55 H (13-35) U/L ALT 95 H (8-44) U/L Total Protein 4.9 L (6.2-8.2) g/dL Albumin 2.4 L (3.8-4.9) g/dL Albumin/Globulin Ratio (1.60-3.17) Ratio
[2023-10-17] MEDS: MORPHINE SULFATE 4 MG/ML SYRINGE IV PRN (20:28)
[2023-10-17] MEDS: ALPRAZolam 0.25 MG TAB PO PRN (20:29)
[2023-10-18] MEDS: LEVOTHYROXINE 75 MCG TAB PO SCH (05:40)
[2023-10-18] MEDS: ANIDULAFUNGIN 100 MG in SODIUM CHLORIDE 0.9% 100 ML IVPB SCH (09:23)
[2023-10-18] MEDS: ONDANSETRON 4 MG/2 ML VIAL IVP PRN (09:23)
[2023-10-18] MEDS: NYSTATIN 100,000 UNIT/ML SUSP 500,000 UNIT/5 ML CUP PO SCH ×4 (09:23→20:50)
[2023-10-18] MEDS: FUROSEMIDE 40 MG TAB PO SCH (09:23)
[2023-10-18] MEDS: HEPARIN SODIUM,PORCINE 5,000 UNIT/ML 1 ML VIAL SQ SCH ×3 (09:24→23:44)
[2023-10-18] MEDS: CHOLECALCIFEROL 25 MCG (1000 IU) TABLET PO SCH (09:24)
[2023-10-18] MEDS: DOCUSATE 100 MG CAP PO SCH ×2 (09:24→20:50)
[2023-10-18] MEDS: valACYclovir HCL 500 MG TAB PO SCH (09:24)
[2023-10-18] MEDS: METOPROLOL TARTRATE 25 MG TAB PO SCH ×2 (09:24→20:50)
[2023-10-18] MEDS: ASPIRIN 81 MG PO SCH (09:24)
[2023-10-18] MEDS: PANTOPRAZOLE 40 MG TABLET PO SCH (09:25)
[2023-10-18 11:26] LABS: BUN/Creat Ratio 17.68 Ratio (12.00-20.00); Blood Urea Nitrogen 33.6 mg/dL (9.0-27.0); Carbon Dioxide 22.7 mmol/L (21.6-31.8); Chloride 111 mmol/L (96-109); Glucose 118 mg/dL (70-110); Magnesium 1.7 mg/dL (1.5-2.4); Potassium 3.6 mmol/L (3.5-5.5); Sodium 146 mmol/L (135-145)
[2023-10-18] MEDS ORDERED: POTASSIUM CHLORIDE ER 20 MEQ TAB.ER PO STA (12:00)
--- NOTE | 2023-10-18 12:00 | P.PN ---
Subjective Patient is seen in follow-up for acute kidney injury on chronic kidney disease. Renal function stable. On oral Lasix. Nonoliguric. Oral intake slowly improving. Currently on room air. Sodium level slightly high at 146. Vital signs are stable. General: NAD. HEENT: Head exam is unremarkable. Lesions around the mouth noted. LUNGS: Scattered rhonchi. HEART: Rate and Rhythm are regular. ABDOMEN: No distention. EXTREMITITES: No edema. Objective - Vital Signs Vital signs: Vital Signs Temp 97.9 F 10/18/23 08:00 Pulse 61 10/18/23 08:00 Resp 17 10/18/23 08:00 BP 165/76 10/18/23 08:00 Pulse Ox 95 10/18/23 08:00 FiO2 50 10/14/23 16:00 Intake & Output 10/17/23 10/18/23 10/18/23 18:59 06:59 18:59 Intake Total 480 120 Output Total 1000 400 700 Balance -520 -280 -700 Intake: Oral 480 120 Output: Urine 1000 400 700 Uretheral (Myrick) 1000 Other: Voiding Method Indwelling Catheter Indwelling Catheter Diaper External Catheter - Labs CBC & Chem 7: 10/17/23 00:15 10/18/23 06:15 Labs: Abnormal Lab Results - Last 24 Hours (Table) 10/18/23 Range/Units 06:15 Sodium 146 H (135-145) mmol/L Chloride 111 H (96-109) mmol/L Anion Gap 12.30 H (4.00-12.00) mmol/L BUN 33.6 H (9.0-27.0) mg/dL Creatinine 1.9 H (0.6-1.5) mg/dL Est GFR (CKD-EPI) 25 L (>=60) Glucose 118 H (70-110) mg/dL Assessment and Plan Plan: Assessment: 1. Acute kidney injury secondary to ATN secondary to hypotension. Now off vasopressors. Also component of obstructive uropathy. Renal function better. Creatinine 1.9 today. 2. Hypokalemia from diuresis and poor intake. 3. Left hydronephrosis status post ureteral stent placement on 10/08/2023. 4. E. coli bacteremia on antibiotics. 5. Acute on chronic diastolic CHF with moderate tricuspid regurgitation. 6. Chronic kidney disease stage IIIB with baseline creatinine 1.4-1.5 in July 2022. Suspect nephrosclerosis. 7. Metabolic acidosis secondary to acute kidney injury and GI losses. Resolved. 8. Mild hypernatremia from lack of oral water intake. Plan: Start D5W at 50 mL an hour. Encourage oral intake, including free water. Maintain Lasix 40 mg once daily. Replace potassium. Avoid nephrotoxins. Continue to monitor renal function and urine output. DC Myrick catheter. Monitor for urinary retention.
[2023-10-18] MEDS: DEXTROSE 5% IN WATER 1,000 ML IV SCH (12:50)
--- NOTE | 2023-10-18 14:23 | P.PN ---
Subjective Progress Note Date: 10/18/23 patient is a 87-year-old lady with past medical history significant for hypertension, hyperlipidemia who was brought to the ER for evaluation for syncopal event and altered mental status. Most of the history is taken from the EMR and from the patient, according to EMR, patient walked into patient's room and found her slumped in the bed, at that time patient was very confused, hard to arouse. EMS was called and when they arrived , patient blood pressure was low but patient was responsive. Patient did got one round of epi in on route to the ER. On gathering more information, patient had been complaining of flulike symptoms and was diagnosed with influenza a week ago, patient got over that sickness but then started complaining of nausea and vomiting. Was also complaining of diarrhea. Family also noted the patient was more short of breath than normal. Denied any chest pain or palpitations. There was no complain of any jerking movement of extremity. No complaint of any slurred speech or facial droop. Initial lab work done in the ER showed WBC 17.9, hemoglobin 12, platelet count 75 glucose 168, lactate 8.3 calcium 8.8, total bilirubin 1.2, troponin 2.640 INR 1.4, sodium 134, potassium 4.3, BUNs 34, creatinine 2.95, Influenza A not detected Influenza B not detected RSV not detected COVID-19 not detected EKG done in the ER showed heart rate of 133 , no ST segment elevation or depression seen, no T-wave inversions seen. Chest x-ray done in the ER showed mild cardiomegaly and COPD, chronic appearing changes ER physician talked to the patient's niece and patient, central line was placed in the ER patient was started on Levophed for hypotension. Patient admitted to ICU under internal medicine service 10/09. Patient seen and examined. Patient underwent cystoscopy with left ureteral stent placement on 10/08 by urology. Currently on nonrebreather, denies any chest pain. Labs reviewed, WBC 34.3, hemoglobin 10, platelet count 381, INR 1.9, sodium 137, potassium 3.7, BUN 44, creatinine 3.47 AST 856, AL282 10/10. Patient seen and examined. 2-D echo done showed LVEF of 50%, mild mitral regurg, mild aortic insufficiency, moderate tricuspid regurg. She has been weaned off all pressors. Still has shortness of breath 10/11. Patient seen and examined. Currently on BiPAP with FiO2 of 65%. Blood work done this morning showed a lipase of 24.5, 9.8, platelet count 222 sodium 140, potassium 3.7, BUN 62, creatinine 3.47. Complaining that she does not feel well. Gets short of breath on minimal exertion. 10/12. Patient seen and examined. with labs this morning shows WBC 19.3, hemoglobin 9.8, sodium is 1:30, potassium is 2.7, BUN is 62, creatinine 3.67. States she feels better, breathing is improving. Patient getting another dose of Lasix by nephrology 10/13. Patient seen and examined. Currently on heated high flow. States she feels much better. Daughter at the bedside. Blood work done this morning showed WBC 21.1, hemoglobin 11.8 sodium 140, potassium 4.2, BUN 64, creatinine 3.03 10/14. Patient seen and examined. Currently on 4 L of oxygen. Patient has a lot of crusting and sores around her lips and the left nasal fold, complaining of pain around the lips. Most likely herpes labialis, will start patient on V altrex 10/15/23. Patient seen and examined. Currently on 2 L of oxygen. Denies any chest pain or shortness of breath. Still has sores around her lips which has formed scabs now /. Patient seen and examined. Patient ambulated with the help of therapy today. Has crusting of sores around her lips. Denies any shortness of breath at rest. 10/17. Patient seen and examined. Labs done this morning showed up to 12.8, hemoglobin 9.5 sodium 145, potassium 4.1, BUN 39, creatinine 2. Complaining of pain at the sores around her lips. States she feels that she is getting stronger /. Patient seen and examined. Continues to feel stronger. Have concerns about going to rehab, discussed with her in detail again, she is agreeable REVIEW OF SYSTEMS: Denies any chest pain. Denies any fever or chills. Denies any nausea or vomiting PHYSICAL EXAMINATION: GENERAL: The patient is alert , ill looking HEENT: Pupils are round and equally reacting to light. EOMI. No scleral icterus. No conjunctival pallor. Normocephalic, atraumatic. No pharyngeal erythema. No thyromegaly. Sores around her lips which has formed scabs now CARDIOVASCULAR: S1 and S2 present. No murmurs, rubs, or gallops. PULMONARY: Diminished breath sounds bilaterally, no expiratory wheeze audible ABDOMEN: Soft, nontender, nondistended, normoactive bowel sounds. No palpable organomegaly. MUSCULOSKELETAL: No joint swelling or deformity. EXTREMITIES: 1+ edema in lower extremities bilaterally NEUROLOGICAL: Gross neurological examination did not reveal any focal deficits. SKIN: No rashes. Assessment and plan Septic shock Gram-negative bacteremia Acute hypoxic respiratory failure Acute metabolic encephalopathy Herpes labialis Non-ST elevation [place] Acute transaminitis Acute kidney injury Left-sided hydronephrosis Syncopal event Fall Hypertension Hyperlipidemia Monitor vital signs Monitor CBC Monitor CMP Follow-up on blood cultures, blood cultures growing E. coli Follow-up on urine cultures monitor LFTs Strict I's and O's, daily weights, Lasix Continue IV Rocephin Continue Eraxis Continue Valtrex, started on 10/14 2-D echo done showed LVEF of 50%, mild mitral regurg, mild aortic insufficiency, moderate tricuspid regurg Nephrology following Cardiology following, recommended starting patient on aspirin and beta reji, currently on aspirin and Lopressor Critical care following ID following Urology following, cystoscopy with left ureteral cathetre placement on 10/08, recommend outpatient follow-up for stone removal and stent placement PT and OT recommended rehab, patient will be medically stable for discharge 24- 48 hours Labs and medication were reviewed.. Continue same treatment. Continue with symptomatic treatment. Resume home medication. Monitor labs and vitals. DVT and GI prophylaxis. Further recommendations as per clinical course of the patient Dictation was produced using [employer] dictation software. please excuse any grammatical, word or spelling errors. Objective - Vital Signs Vital signs: Vital Signs Temp 97.7 F 10/18/23 12:52 Pulse 58 L 10/18/23 12:52 Resp 16 10/18/23 12:52 BP 155/61 10/18/23 12:52 Pulse Ox 97 10/18/23 12:52 FiO2 50 10/14/23 16:00 Intake & Output 10/17/23 10/18/23 10/18/23 18:59 06:59 18:59 Intake Total 480 120 Output Total 1000 400 700 Balance -520 -280 -700 Intake: Oral 480 120 Output: Urine 1000 400 700 Uretheral (Myrick) 1000 Other: Voiding Method Indwelling Catheter Indwelling Catheter Diaper External Catheter - Labs CBC & Chem 7: 10/17/23 00:15 10/18/23 06:15 Labs: Abnormal Lab Results - Last 24 Hours (Table) 10/18/23 Range/Units 06:15 Sodium 146 H (135-145) mmol/L Chloride 111 H (96-109) mmol/L Anion Gap 12.30 H (4.00-12.00) mmol/L BUN 33.6 H (9.0-27.0) mg/dL Creatinine 1.9 H (0.6-1.5) mg/dL Est GFR (CKD-EPI) 25 L (>=60) Glucose 118 H (70-110) mg/dL
--- NOTE | 2023-10-18 17:22 | P.PN ---
Subjective Progress Note Date: 10/18/23 Principal diagnosis: Septic shock secondary to acute pyelonephritis On 10/15/2023, I'm seeing the patient for a follow-up in she is currently on 2 L of oxygen by nasal cannula. She is sleepy. She feels fatigued and tired. She also feels weak. She also has several sores on her lips and face which is probably a herpetic lesion. No significant respiratory distress. Pulse ox 97% on room air oxygen. She is recovering from her septic shock. The white cell count is down to 17. Renal function continues to improve. She was given IV Lasix on a daily basis with excellent urine output. BUN is down to 52. Creatinine is down to 2.2. Potassium is down to 3.2 that needs to be replaced. Sodium is at 140. Oral intake is quite diminished still. She is to be more consistent on the use of incentive spirometer. Myrick cath is in place. She is on IV Rocephin. She is also on IV Eraxis per IDs recommendation. The patient is seen today 10/16/2023 in follow-up on the regular medical floor. She is currently resting in bed. Awake and alert in no acute distress. She is maintaining good O2 saturations in the 90s on room air. She's been afebrile. Hemodynamically stable. Follow-up chest x-ray reveals minimal bilateral pleural effusions. Mild cardiomegaly. Mild right lower lobe infiltrate present. Blood cultures were positive for E. coli. Follow-up blood culture revealing no growth. She does have significant herpetic lesions around her mouth. She is on Valtrex. She remains on ceftriaxone, Eraxis. Heparin for DVT prophylaxis. The patient is seen today 10/17/2023 for follow-up on the regular medical floor. She is currently sitting up in bed. Awake and alert in no acute distress. Feeling better today compared to yesterday. Maintaining O2 saturations in the 90s on room air. She's been afebrile. Initial blood cultures were positive for E. coli. Follow-up blood cultures revealed no growth. White count 12.8. Hemogram 9.5. Platelets 375. Sodium 145. Potassium 4.1 bicarb 25. BUN 40. Creatinine 2.0. Glucose 103. She is continued on valacyclovir, ceftriaxone and Eraxis. Remains on oral diuretics. Heparin for DVT prophylaxis. Currently in a negative balance. Reevaluated today on 10/18/2023, patient is doing well, does not seem to be in any distress she is on room air, feeling fine, seems to be bothered with her healing herpetic lesions involving her face and her lips. Patient remains on Valtrex, she is also on ceftriaxone and Eraxis remains on diuretics, patient is doing well overall, basic metabolic profile is normal today, creatinine is steadily improving down to 1.9 today. Eventually this patient is to have placement. This is being considered to be done in the next 24 hours. She will go to rehab hopefully Objective - Vital Signs Vital signs: Vital Signs Temp 97.7 F 10/18/23 12:52 Pulse 58 L 10/18/23 12:52 Resp 16 10/18/23 12:52 BP 155/61 10/18/23 12:52 Pulse Ox 97 10/18/23 12:52 FiO2 50 10/14/23 16:00 Intake & Output 10/17/23 10/18/23 10/18/23 18:59 06:59 18:59 Intake Total 480 120 Output Total 1000 400 700 Balance -520 -280 -700 Intake: Oral 480 120 Output: Urine 1000 400 700 Uretheral (Myrick) 1000 Other: Voiding Method Indwelling Catheter Indwelling Catheter Diaper External Catheter - Exam Physical Exam: Revealed a very pleasant 87-year-old female in no distress on room air Head: Atraumatic, normocephalic. HEENT:[Neck is supple.] [No neck masses.] [No thyromegaly.] [No JVD.] Multiple scab lesions noted involving the lips and the left nasolabial fold. Related to recent herpes infection. Chest: [Clear throughout, no crackles, no rhonchi, no wheezes.] Cardiac Exam: [Normal S1 and S2, no S3 gallop, no murmur.] Abdomen: [Soft, nontender, no megaly, no rebound, no guarding, normal bowel sounds.] Extremities: [No clubbing, no edema, no cyanosis.] Neurological Exam: [No focal neurologic deficit.] Alert oriented 3 Skin: No rashes except for the lesions noted on the lips and in the left nasolabial fold area. - Labs CBC & Chem 7: 10/17/23 00:15 10/18/23 06:15 Labs: Abnormal Lab Results - Last 24 Hours (Table) 10/18/23 Range/Units 06:15 Sodium 146 H (135-145) mmol/L Chloride 111 H (96-109) mmol/L Anion Gap 12.30 H (4.00-12.00) mmol/L BUN 33.6 H (9.0-27.0) mg/dL Creatinine 1.9 H (0.6-1.5) mg/dL Est GFR (CKD-EPI) 25 L (>=60) Glucose 118 H (70-110) mg/dL Assessment and Plan Assessment: Impression: Patient is recovering from a recent episode of septic shock secondary to pyelonephritis, and E. coli bacteremia. Acute kidney injury secondary to above, current creatinine 1.9 AR improving Acute non-ST segment elevation myocardial infarction New onset hypothyroidism Herpes simplex stomatitis , improving and patient has scabbed lesions History of hypertension Hyperlipidemia History of breast cancer status post lumpectomy/chemotherapy over 30 years ago Gastroesophageal reflux disease Recommendation: Continue present supportive care measures Continue antibiotics as per infectious disease on the case Consider discharge planning and placement in rehab Ambulation with assistance We'll continue to follow Time with Patient: Greater than 30
--- NOTE | 2023-10-18 17:41 | P.PN ---
Subjective Progress Note Date: 10/18/23 Principal diagnosis: Reason for follow-up is E. coli pyelonephritis sepsis and bacteremia Patient is a 87-year old female with a past medical history pertinent for hypertension hyperlipidemia reflux and breast cancer patient was brought into the hospital for evaluation of increasing weakness mental status changes patient was noticed to be febrile septic secondary to left-sided ureteral stone with hydronephrosis requiring cystoscopy and left ureteral double-J catheter placement patient blood cultures subsequently came back positive with E. coli. On today's evaluation that is 10/18/2023, the patient remains to be afebrile, the patient is breathing comfortably on room air patient denies having any chest pain shortness of breath or cough no nausea vomiting and no diarrhea the patient perioral discomfort has decreased in intensity. Patient did have white count 12.8 as of 10/17/2022 creatinine is 1.9 Objective - Vital Signs Vital signs: Vital Signs Temp 97.7 F 10/18/23 12:52 Pulse 58 L 10/18/23 12:52 Resp 16 10/18/23 12:52 BP 155/61 10/18/23 12:52 Pulse Ox 97 10/18/23 12:52 FiO2 50 10/14/23 16:00 Intake & Output 10/17/23 10/18/23 10/18/23 18:59 06:59 18:59 Intake Total 480 120 Output Total 1000 400 700 Balance -520 -280 -700 Intake: Oral 480 120 Output: Urine 1000 400 700 Uretheral (Myrick) 1000 Other: Voiding Method Indwelling Catheter Indwelling Catheter Diaper External Catheter - Exam GENERAL DESCRIPTION: An elderly female lying in bed in no distress HEENT patient did have evidence of extensive herpes labialis especially involving the lower lip, also with a mild thrush RESPIRATORY SYSTEM: Unlabored breathing , decreased breath sounds at bases HEART: S1 S2 regular rate and rhythm , ABDOMEN: Soft , no tenderness EXTREMITIES: No edema feet - Labs CBC & Chem 7: 10/17/23 00:15 10/18/23 06:15 Labs: Abnormal Lab Results - Last 24 Hours (Table) 10/18/23 Range/Units 06:15 Sodium 146 H (135-145) mmol/L Chloride 111 H (96-109) mmol/L Anion Gap 12.30 H (4.00-12.00) mmol/L BUN 33.6 H (9.0-27.0) mg/dL Creatinine 1.9 H (0.6-1.5) mg/dL Est GFR (CKD-EPI) 25 L (>=60) Glucose 118 H (70-110) mg/dL Assessment and Plan (1) Sepsis Current Visit: Yes Status: Acute Code(s): A41.9 - SEPSIS, UNSPECIFIED ORGANISM SNOMED Code(s): 95712692 (2) Leukocytosis Current Visit: Yes Status: Acute Code(s): D72.829 - ELEVATED WHITE BLOOD CELL COUNT, UNSPECIFIED SNOMED Code(s): 033835334 (3) Gram-negative bacteremia Current Visit: Yes Status: Acute Code(s): R78.81 - BACTEREMIA SNOMED Code(s): 322246246662 (4) UTI (urinary tract infection) Current Visit: Yes Status: Acute Code(s): N39.0 - URINARY TRACT INFECTION, SITE NOT SPECIFIED SNOMED Code(s): 98525768 (5) Herpes labialis Current Visit: Yes Status: Acute Code(s): B00.1 - HERPESVIRAL VESICULAR DERMATITIS SNOMED Code(s): 2907232 (6) Thrush Current Visit: Yes Status: Acute Code(s): B37.0 - CANDIDAL STOMATITIS SNOMED Code(s): 89314692 Plan: 1-patient is in the hospital with sepsis/septic shock secondary to complicated UTI in this patient who did have a left-sided hydronephrosis requiring cystoscopy and left-sided double-J ureteral catheter placement likely secondary to enteric gram-negative pathogen 2E. coli bacteremia source likely left-sided pyelonephritis complicated UTI sensitive pathogen repeat blood cultures 10/09/2023 so far negative 3patient did have evidence of extensive herpes labialis we will continue the patient on Valtrex at 1 g every 24 hours. 4patient also have evidence of thrush we will continue Eraxis, Along with nystatin swish and swallow. 5patient is currently covered with Rocephin that will be transition to oral Ceftin on discharge to finish a total of 2-week course of therapy Dictation was produced using [employer] III dictation software. please excuse any grammatical, word or spelling errors. Time with Patient: Less than 30
[2023-10-18] MEDS: MORPHINE SULFATE 4 MG/ML SYRINGE IV PRN (18:44)
[2023-10-19] MEDS: LEVOTHYROXINE 75 MCG TAB PO SCH (05:41)
[2023-10-19] MEDS: DEXTROSE 5% IN WATER 1,000 ML IV SCH (08:52)
[2023-10-19] MEDS: DOCUSATE 100 MG CAP PO SCH ×2 (08:53→22:42)
[2023-10-19] MEDS: HEPARIN SODIUM,PORCINE 5,000 UNIT/ML 1 ML VIAL SQ SCH ×3 (08:53→22:42)
[2023-10-19] MEDS: NYSTATIN 100,000 UNIT/ML SUSP 500,000 UNIT/5 ML CUP PO SCH ×2 (08:53→11:52)
[2023-10-19] MEDS: FUROSEMIDE 40 MG TAB PO SCH (08:53)
[2023-10-19] MEDS: METOPROLOL TARTRATE 25 MG TAB PO SCH ×2 (08:53→22:42)
[2023-10-19] MEDS: ASPIRIN 81 MG PO SCH (08:53)
[2023-10-19] MEDS: PANTOPRAZOLE 40 MG TABLET PO SCH (08:53)
[2023-10-19] MEDS: valACYclovir HCL 500 MG TAB PO SCH (08:53)
[2023-10-19] MEDS: ANIDULAFUNGIN 100 MG in SODIUM CHLORIDE 0.9% 100 ML IVPB SCH (10:12)
[2023-10-19 10:52] LABS: Basophils # (A) 0.11 X 10*3/uL (0.00-0.10); Basophils % (A) 1.2 %; Eosinophils # (A) 0.42 X 10*3/uL (0.04-0.35); Eosinophils % (A) 4.7 %; HCT 29.9 % (37.2-46.3); HGB 9.5 g/dL (12.0-15.0); Lymphocytes # (A) 1.82 X 10*3/uL (0.90-5.00); Lymphocytes % (A) 20.4 %; MCH 28.4 pg (27.0-32.0); MCHC 31.8 g/dL (32.0-37.0); MCV 89.5 FL (80.0-97.0); Mean Platelet Volume 10.6 FL (9.5-12.2); Monocytes # (A) 0.76 X 10*3/uL (0.20-1.00); Monocytes % (A) 8.5 %; NRBC Per 100 WBC 0 X 10*3/uL (0.00-0.01); Neutrophils # (A) 5.71 X 10*3/uL (1.80-7.70); Neutrophils % (A) 63.9 %; Platelet Count 565 X 10*3/uL (140-440); RBC 3.34 X 10*6/uL (4.10-5.20); RDW 15.3 % (11.5-14.5); WBC 8.94 X 10*3/uL (4.50-10.00)
[2023-10-19 11:05] LABS: ALT 66 U/L (8-44); AST 36 U/L (13-35); Alkaline Phosphatase 69 U/L (41-126); BUN/Creat Ratio 15.18 Ratio (12.00-20.00); Blood Urea Nitrogen 25.8 mg/dL (9.0-27.0); Calcium 9.1 mg/dL (8.7-10.3); Carbon Dioxide 21.7 mmol/L (21.6-31.8); Chloride 108 mmol/L (96-109); Globulin 2.3 g/dL (1.6-3.3); Glucose 126 mg/dL (70-110); Magnesium 1.5 mg/dL (1.5-2.4); Potassium 3.6 mmol/L (3.5-5.5); Sodium 142 mmol/L (135-145); Total Bilirubin 0.3 mg/dL (0.3-1.2); Total Protein 5.3 g/dL (6.2-8.2)
[2023-10-19] MEDS ORDERED: POTASSIUM CHLORIDE ER 20 MEQ TAB.ER PO STA (11:33)
--- NOTE | 2023-10-19 11:35 | P.PN ---
Subjective Patient is seen in follow-up for acute kidney injury on chronic kidney disease. Renal function better. On oral Lasix. Nonoliguric. Oral intake gradually improving. Currently on room air. Sodium level also improved. Vital signs are stable. General: NAD. HEENT: Head exam is unremarkable. Lesions around the mouth noted. LUNGS: Scattered rhonchi. HEART: Rate and Rhythm are regular. ABDOMEN: No distention. EXTREMITITES: No edema. Objective - Vital Signs Vital signs: Vital Signs Temp 98.3 F 10/19/23 07:20 Pulse 67 10/19/23 07:20 Resp 16 10/19/23 07:20 BP 170/92 10/19/23 07:20 Pulse Ox 93 L 10/19/23 07:20 FiO2 50 10/14/23 16:00 Intake & Output 10/18/23 10/19/23 10/19/23 18:59 06:59 18:59 Intake Total 150 120 Output Total 1400 386 Balance -6912 -817 Intake: Intake, IV Titration 150 Amount Anidulafungin 100 mg In 100 Sodium Chloride 0.9% 100 ml @ 84 mls/hr IVPB DAILY [facility] Rx#:[id number] cefTRIAXone 2 gm In 50 Sodium Chloride 0.9% 50 ml @ 100 mls/hr IVPB Q24HR [facility] Rx#:[id number] Oral 120 Output: Urine 1400 100 Post Void Residual 285 Urine/Stool Mix 1 Other: Voiding Method Diaper Bedside Commode Toilet External Catheter Diaper # Voids 2 6 - Labs CBC & Chem 7: 10/19/23 07:18 10/19/23 07:18 Labs: Abnormal Lab Results - Last 24 Hours (Table) 10/19/23 10/19/23 Range/Units 07:18 07:18 RBC 3.34 L (4.10-5.20) X 10*6/uL Hgb 9.5 L (12.0-15.0) g/dL Hct 29.9 L (37.2-46.3) % MCHC 31.8 L (32.0-37.0) g/dL RDW 15.3 H (11.5-14.5) % Plt Count 565 H (140-440) X 10*3/uL Immature Gran # 0.12 H (0.00-0.04) X 10*3/uL Eosinophils # 0.42 H (0.04-0.35) X 10*3/uL Basophils # 0.11 H (0.00-0.10) X 10*3/uL Anion Gap 12.30 H (4.00-12.00) mmol/L Creatinine 1.7 H (0.6-1.5) mg/dL Est GFR (CKD-EPI) 28 L (>=60) Glucose 126 H (70-110) mg/dL AST 36 H (13-35) U/L ALT 66 H (8-44) U/L Total Protein 5.3 L (6.2-8.2) g/dL Albumin 3.0 L (3.8-4.9) g/dL Albumin/Globulin Ratio 1.30 L (1.60-3.17) Ratio Assessment and Plan Plan: Assessment: 1. Acute kidney injury secondary to ATN secondary to hypotension. Now off vasopressors. Also component of obstructive uropathy. Renal function better. Creatinine 1.7 today. 2. Hypokalemia from diuresis and poor intake. 3. Left hydronephrosis status post ureteral stent placement on 10/08/2023. 4. E. coli bacteremia on antibiotics. 5. Acute on chronic diastolic CHF with moderate tricuspid regurgitation. 6. Chronic kidney disease stage IIIB with baseline creatinine 1.4-1.5 in July 2022. Suspect nephrosclerosis. 7. Metabolic acidosis secondary to acute kidney injury and GI losses. Resolved. 8. Mild hypernatremia from lack of oral water intake. Improved with D5W. 9. Hypomagnesemia from diuresis. Plan: Hep-Lock IV fluids. Encourage oral intake, including free water. Maintain Lasix 40 mg once daily. Replace potassium and magnesium. Add oral magnesium oxide. Avoid nephrotoxins. Continue to monitor renal function and urine output. Myrick catheter removed 10/18/2023. Has been voiding on her own without any difficulties.
[2023-10-19] MEDS: MAGNESIUM OXIDE 400 MG TAB PO SCH ×2 (11:52→22:42)
[2023-10-19] MEDS: amLODIPine 5 MG TAB PO SCH (11:52)
--- NOTE | 2023-10-19 13:19 | P.PN ---
Subjective Progress Note Date: 10/19/23 This is a very pleasant 87-year-old female patient with a known history of hypertension, hyperlipidemia, gastroesophageal reflux disease, anxiety, breast cancer status post lumpectomy and chemotherapy over 30 years ago. He is admitted to the emergency room yesterday with increasing weakness and altered m ental status. She did have influenza approximately 1 week ago but was feeling better until recently. She developed nausea vomiting diarrhea and weakness that led to a fall. She was altered when EMS had arrived. EKG revealed sinus tachycardia with nonspecific ST and T wave abnormalities. Revealed mild cardiomegaly and chronic appearing changes. Some strandy atelectasis at the right lung base. Otherwise no acute pulmonary process. Ultrasound of the bladder revealed moderate to severe left sided hydronephrosis with internal debris. Correlate to exclude infective debris/pyelitis. Bilateral renal calculi measuring up to 9 mm on the left and 6 mm on the right. All cultures are pending. White count 10.6. Hemoglobin 10.8. Platelets 425. INR 1.5. Sodium 134. Potassium 4.0. Bicarb 10. BUN 38. Creatinine 3.00. Glucose 129. AST 781. ALT 175. Troponins 2.64, 4.17, 4.02. ProBNP 1790. TSH 5.32. Influenza screen negative. RSV screen negative. COVID-19 screen negative. Ini tial lactic acid 8.3. Currently 1.7. She had received 3 L of fluid resuscitation. She is continued on D5W with 3 A of sodium bicarbonate at 100 ML's per hour. She's been initiated on a heparin drip. She is requiring norepinephrine at 0.2 mg/kg/m. He is seen today in consultation in the intensi ve care unit. She is awake and alert in no acute distress. Feeling a bit better today compared to yesterday. She is oriented 3. She remains quite weak. She is maintaining O2 saturations in the 90s on 2.5 L/m per nasal cannula. Arterial pressures in the low 70s. She had a T-max of 101 on arrival. Currently afebrile. On today's evaluation of 10/09/2023, the patient continues to be critically ill, septic, hypotensive, currently on 100% nonrebreather facemask. Pulse ox is in order of 90-93%. The patient in septic shock. 2 UTI and left pyelonephritis and probable obstructing ureteral calculus. The patient underwent a cystoscopy and insertion of double-J catheter on 10/08/2023. The patient has a positive blood culture with gram-negative bacillus and the patient remains on IV Roceph in. Hemodynamically, the patient remains hypotensive. The patient is still on high-dose norepinephrine at 0.2 mcg/kg/m and the patient is also on a bicarbonate infusion running at the rate of 100 mL an hour. Chest x-ray showing cardiac megaly with pulmonary vessel congestion. Urine output is diminished in the order of 15-20 mL an hour. The white cell cause of 54.3 with a hemoglobin of 10 and a platelet count of 381. The patient was started on IV heparin regarding some troponin leak and a troponin peak at 3.2. Nevertheless she is feeling any chest pain. PTT currently is at 61 with an INR of 1.9 and a PT of 19.3. BUN is 44 with a creatinine of 3.47 and the patient sustained an acute k idney injury. Sodium is at 137 with a potassium level of 3.7. She is quite lethargic and weak and her meditation is quite diminished at this point in time. [place] neurologic exam is nonfocal. No other issues for now. Echocardiogram showed a preserved LV function with an EF of around 50%. The patient has normal RV, no significant valvular abnormalities was noted. On 10/10/2023, the patient is being seen for a follow-up. This is an 87-year-old female patient with septic shock and gram-negative urinary tract infection with sepsis. The patient presented with left pyelonephritis and the patient underwent a cystoscopy and double-J and insertion on 10/08/2023. Her blood cultures positive for gram-negative bacillus and the patient remains on 2 g of IV Rocephin. She was requiring high doses of pressors and currently she is on no pressors and this was weaned off and discontinued yesterday. IV fluids were also reduced down to 10 mL an hour as the patient was having increased pulmonary edema and pulmonary vascular congestion which has resulted into transitioning her from 100% RV the facemask to a BiPAP which is running at 12/6 with an FiO2 of 75%. Current pulse ox is 99%. Chest x-ray as mentioned is consistent with CHF and pulmonary edema. The patient is producing adequate ghada unt of urine output overall fluid balance is +1 and 2 L over the past 24 hours. Urine output was in the order of 20-50 mL an hour. Based on that, she was given a dose of Lasix 60 mg IV push to be repeated depending on her urine output. This morning, BUN is at 53 with a creatinine of 3.4 and a sodium level is at 137, the validity count is improved and is down to 26.8 with a hemoglobin 9.2 and platelet count of 235. Myrick catheter in place. No hematuria this point in time. She is on no anticoagulation. Cardiac rhythm is sinus. Echocardiogram showed a preserved LV function with an ejection fraction of 50%. On today's evaluation of 10/11/2023, the patient is lethargic yet arousable. Sh e is following simple commands speech is profoundly. She remains on BiPAP at a pressure of 12/6 with an FiO2 of 65%. The patient is generating a tidal volume of about 600 and her current respiratory rate is around 18. She has a good mask seal. Her chest x-ray is essentially unchanged compared to yesterday. She has, thyromegaly, mild pulmonary vessel congestion. She was given Lasix yesterday to that of 60 mg IV and the fluid balance is -700 mL over the past 24 hours. Creatinine is stable. Note that the patient partial response to Lasix and the same will be done today. BUN is at 62 with a creatinine of 3.4 and a sodium level is at 140. The white cell count is down to 24 with a hemoglobin of 9.8. As for the blood culture, do not to be positive for E. coli and is sensitive to IV Rocephin which will be continued at a dose of 2 g every 24 hours. Note that the patient is not utilizing any form of pressors for now. IV fluids are KVO. She is resting comfortably in bed. On today's evaluation of 10/12/2023, the patient is awake and alert and she is communicating. She is aware that she is in the hospital. She is currently on high flow oxygen and she was taken off the BiPAP. High flow oxygen is running at 50% FiO2 at 50 L. She is able to maintain a saturation of 96%. Meanwhile, she is afebrile. She is hemodynamically stable picture is off pressors. The white cell count is improving. She is producing urine output. The chest x-ray still showing hazy bilateral pulmonary infiltrates and the patient was given another dose of Lasix 40 mg IV push by nephrology. Myrick catheter in place. The patient is producing adequate amount of urine output. In terms of her labs from today, the white cell count is down to 19, hemoglobin is at 9.8, potassium levels at 2.7 and needs to be replaced, BUN is at 62 with a creatinine of 3.6 and serum bicarb is at 28. Note that this is an acute on top of the chronic kidney injury related to septic shock. As mentioned earlier, she has E. coli, she is on IV Rocephin. She is tolerating small amounts of soft diet. On 10/13/2023, the patient is awake and alert. She is on high flow oxygen at 50 L with an FiO2 of 40%. No chest x-ray from today. She was in septic shock with multisystem organ failure. She could have also had a component of acute lung injury/ARDS requiring high oxygen and initially BiPAP and subsequently high flow oxygen. Hemodynamically stable off pressors. She was given Lasix yesterday and the fluid balance is in order of -1.3 L. The creatinine is down to 3 with a BUN of 64. Sodium is at 140. Potassium is at 4.2. White cell count has dropped onto 21 with a hemoglobin of 11.8. The blood culture was positive for E. coli. She remains on IV Rocephin. Tolerating diet. Weak in general. Communicating. Alert and awake. No pressors at this point. Myrick catheter is in place. On 10/14/2023, the patient is awake and alert and communicating. She is currently on oxygen at 4 L with a pulse ox of 97%. Clinically stable. Hemodynamically stable. Neurologically weak yet able to communicate without any focal neurological deficits. Labs from today are still pending. Yesterday's labs were noted. The patient Remains on IV Rocephin. The patient's is on no pressors. Mouth is dry and she has developed some sores over the lips involving the upper and lower lip and she has also some crusting of the skin over the left nasal fold extending to her left cheek. This could be herpetic in nature. Her mucous membranes are dry. Urine output is in order of 2.6 L over the past 24 hours with a negative fluid balance of -1.7 L over the past 24 hours. She is tolerating clear liquid diet. Quite sleepy yet arousable. Myrick cath is in place. Note that the patient was given Lasix yesterday with excellent urine output On 10/15/2023, I'm seeing the patient for a follow-up in she is currently on 2 L of oxygen by nasal cannula. She is sleepy. She feels fatigued and tired. She also feels weak. She also has several sores on her lips and face which is probably a herpetic lesion. No significant respiratory distress. Pulse ox 97% on room air oxygen. She is recovering from her septic shock. The white cell count is down to 17. Renal function continues to improve. She was given IV Lasix on a daily basis with excellent urine output. BUN is down to 52. Creatinine is down to 2.2. Potassium is down to 3.2 that needs to be replaced. Sodium is at 140. Oral intake is quite diminished still. She is to be more consistent on the use of incentive spirometer. Myrick cath is in place. She is on IV Rocephin. She is also on IV Eraxis per IDs recommendation. The patient is seen today 10/16/2023 in follow-up on the regular medical floor. She is currently resting in bed. Awake and alert in no acute distress. She is maintaining good O2 saturations in the 90s on room air. She's been afebrile. Hemodynamically stable. Follow-up chest x-ray reveals minimal bilateral pleural effusions. Mild cardiomegaly. Mild right lower lobe infiltrate present. Blood cultures were positive for E. coli. Follow-up blood culture revealing no growth. She does have significant herpetic lesions around her mouth. She is on Valtrex. She remains on ceftriaxone, Eraxis. Heparin for DVT prophylaxis. The patient is seen today 10/17/2023 for follow-up on the regular medical floor. She is currently sitting up in bed. Awake and alert in no acute distress. Feeling better today compared to yesterday. Maintaining O2 saturations in the 90s on room air. She's been afebrile. Initial blood cultures were positive for E. coli. Follow-up blood cultures revealed no growth. White count 12.8. Hemogram 9.5. Platelets 375. Sodium 145. Potassium 4.1 bicarb 25. BUN 40. Creatinine 2.0. Glucose 103. She is continued on valacyclovir, ceftriaxone and Eraxis. Remains on oral diuretics. Heparin for DVT prophylaxis. Currently in a negative balance. Reevaluated today on 10/18/2023, patient is doing well, does not seem to be in any distress she is on room air, feeling fine, seems to be bothered with her healing herpetic lesions involving her face and her lips. Patient remains on Valtrex, she is also on ceftriaxone and Eraxis remains on diuretics, patient is doing well overall, basic metabolic profile is normal today, creatinine is steadily improving down to 1.9 today. Eventually this patient is to have placement. This is being considered to be done in the next 24 hours. She will go to rehab hopefully The patient is seen today 10/19/2023 in follow-up on the regular medical floor. She is currently up ambulating with a walker and assistance. Feeling quite a bit stronger. Denies any worsening shortness of breath, cough or congestion. She is maintaining good O2 saturations in the low 90s on room air. She's been afebrile. Initial blood cultures were positive for E. coli. Follow-up blood cultures revealed no growth. White count 8.9. Hemoglobin 9.5. Platelets 565. Sodium 142. Potassium 3.6. BUN 26. Creatinine 1.7. Glucose 126. AST 36. ALT 66. She remains on Eraxis, ceftriaxone, Valtrex. Heparin for DVT prophylaxis. Remains on oral diuretics. Currently in -1.5 L balance. Objective - Vital Signs Vital signs: Vital Signs Temp 98.3 F 10/19/23 07:20 Pulse 67 10/19/23 07:20 Resp 16 10/19/23 07:20 BP 170/92 10/19/23 07:20 Pulse Ox 93 L 10/19/23 07:20 FiO2 50 10/14/23 16:00 Intake & Output 10/18/23 10/19/23 10/19/23 18:59 06:59 18:59 Intake Total 150 120 Output Total 1400 386 Balance -5360 -109 Weight 73 kg Intake: Intake, IV Titration 150 Amount Anidulafungin 100 mg In 100 Sodium Chloride 0.9% 100 ml @ 84 mls/hr IVPB DAILY [facility] Rx#:[id number] cefTRIAXone 2 gm In 50 Sodium Chloride 0.9% 50 ml @ 100 mls/hr IVPB Q24HR [facility] Rx#:[id number] Oral 120 Output: Urine 1400 100 Post Void Residual 285 Urine/Stool Mix 1 Other: Voiding Method Diaper Bedside Commode Toilet External Catheter Diaper # Voids 2 6 3 - Exam GENERAL EXAM: Alert, pleasant 87-year-old female, hepatic lesions around the mouth, up with a walker, on room air, in no acute distress HEAD: Normocephalic. EYES: Normal reaction of pupils, equal size. NOSE: Clear with pink turbinates. THROAT: No erythema or exudates. NECK: No masses, no JVD. CHEST: No chest wall deformity. LUNGS: Equal air entry with diminished breath on the lung bases along with some bibasilar crackles CVS: S1 and S2 normal with no audible murmur, regular rhythm. ABDOMEN: No hepatosplenomegaly, normal bowel sounds, no guarding or rigidity. SPINE: No scoliosis or deformity SKIN: No rashes CENTRAL NERVOUS SYSTEM: No focal deficits, tone is normal in all 4 extremities. EXTREMITIES: There is no peripheral edema. No clubbing, no cyanosis. Pe ripheral pulses are intact. - Labs CBC & Chem 7: 10/19/23 07:18 10/19/23 07:18 Labs: Abnormal Lab Results - Last 24 Hours (Table) 10/19/23 10/19/23 Range/Units 07:18 07:18 RBC 3.34 L (4.10-5.20) X 10*6/uL Hgb 9.5 L (12.0-15.0) g/dL Hct 29.9 L (37.2-46.3) % MCHC 31.8 L (32.0-37.0) g/dL RDW 15.3 H (11.5-14.5) % Plt Count 565 H (140-440) X 10*3/uL Immature Gran # 0.12 H (0.00-0.04) X 10*3/uL Eosinophils # 0.42 H (0.04-0.35) X 10*3/uL Basophils # 0.11 H (0.00-0.10) X 10*3/uL Anion Gap 12.30 H (4.00-12.00) mmol/L Creatinine 1.7 H (0.6-1.5) mg/dL Est GFR (CKD-EPI) 28 L (>=60) Glucose 126 H (70-110) mg/dL AST 36 H (13-35) U/L ALT 66 H (8-44) U/L Total Protein 5.3 L (6.2-8.2) g/dL Albumin 3.0 L (3.8-4.9) g/dL Albumin/Globulin Ratio 1.30 L (1.60-3.17) Ratio Assessment and Plan Assessment: Acute sepsis/septic shock with hypotension requiring pressor support secondary to suspected pyelonephritis. Ultrasound of the kidneys and bladder revealed a moderate to severe left sided hydronephrosis with internal debris. Correlate to exclude infective debris/pyelitis. Bilateral renal calculi measuring up to 9 mm on the left and 6 mm on the right. She is post cystoscopy and insertion of a double-J stent on the left. The patient remains on Rocephin and Eraxis the fi nal cultures of the blood were consistent with E. coli. Acute kidney injury secondary to above, current creatinine 1.7 Acute hypotension secondary to above, recovered Lactic acidosis secondary to above, recovered Acute hypoxemic respiratory failure secondary to above, recovered and on room air. Follow-up chest x-ray shows improvement Acute non-ST segment elevation myocardial infarction Transaminitis secondary to above New onset hypothyroidism Herpes simplex virus around the mouth History of hypertension Hyperlipidemia History of breast cancer status post lumpectomy/chemotherapy over 30 years ago Gastroesophageal reflux disease Plan: The patient was seen and evaluated Labs and medications reviewed Currently stable and on room air Continue the current treatment plan Increase her activity as tolerated Remains on antibiotics Infectious disease, nephrology, remain on the case Plan is for subacute rehab at [facility] post discharge This patient was seen independently by the pulmonary nurse practitioner addressing pulmonary issues I have personally seen and examined the patient, performed the documentation and the assessment and plan as written. Number of minutes spent on the visit: 24.
[2023-10-19] MEDS: MAG HYDROX/AL HYDROX/SIMETH 30 ML, LIDOCAINE VISCOUS 2% 30 ML, diphenhydrAMINE ELIXIR 7... PO SCH ×12 (15:33→22:42)
[2023-10-19] MEDS ORDERED: MAG HYDROX/AL HYDROX/SIMETH 30 ML, LIDOCAINE VISCOUS 2% 30 ML, diphenhydrAMINE ELIXIR 7... PO SCH ×4 (16:00)
--- NOTE | 2023-10-19 16:14 | P.PN ---
Subjective Progress Note Date: 10/19/23 Principal diagnosis: Reason for follow-up is E. coli pyelonephritis sepsis and bacteremia Patient is a 87-year old female with a past medical history pertinent for hypertension hyperlipidemia reflux and breast cancer patient was brought into the hospital for evaluation of increasing weakness mental status changes patient was noticed to be febrile septic secondary to left-sided ureteral stone with hydronephrosis requiring cystoscopy and left ureteral double-J catheter placement patient blood cultures subsequently came back positive with E. coli. On today's evaluation that is 10/19/2023, the patient continues to be afebrile the patient is breathing comfortably on room air, the patient denies any chest pain shortness of breath or cough no abdominal pain, no diarrhea the patient lip lesions are drying crusting out and patient mention oral sores are improving as well and less difficulty swallowing Patient did have white count of 8.94, creatinine is 1.7 Objective - Vital Signs Vital signs: Vital Signs Temp 98.3 F 10/19/23 07:20 Pulse 67 10/19/23 07:20 Resp 16 10/19/23 07:20 BP 170/92 10/19/23 07:20 Pulse Ox 93 L 10/19/23 07:20 FiO2 50 10/14/23 16:00 Intake & Output 10/18/23 10/19/23 10/19/23 18:59 06:59 18:59 Intake Total 150 120 Output Total 1400 386 Balance -1250 -266 Intake: Intake, IV Titration 150 Amount Anidulafungin 100 mg In 100 Sodium Chloride 0.9% 100 ml @ 84 mls/hr IVPB DAILY RIYA Rx#:[id number] cefTRIAXone 2 gm In 50 Sodium Chloride 0.9% 50 ml @ 100 mls/hr IVPB Q24HR RIYA Rx#:[id number] Oral 120 Output: Urine 1400 100 Post Void Residual 285 Urine/Stool Mix 1 Other: Voiding Method Diaper Bedside Commode External Catheter Diaper # Voids 2 6 - Exam GENERAL DESCRIPTION: An elderly female lying in bed in no distress HEENT patient did have evidence of extensive herpes labialis especially involving the lower lip, also with a mild thrush RESPIRATORY SYSTEM: Unlabored breathing , decreased breath sounds at bases HEART: S1 S2 regular rate and rhythm , ABDOMEN: Soft , no tenderness EXTREMITIES: No edema feet - Labs CBC & Chem 7: 10/19/23 07:18 10/19/23 07:18 Labs: Abnormal Lab Results - Last 24 Hours (Table) 10/18/23 Range/Units 06:15 Sodium 146 H (135-145) mmol/L Chloride 111 H (96-109) mmol/L Anion Gap 12.30 H (4.00-12.00) mmol/L BUN 33.6 H (9.0-27.0) mg/dL Creatinine 1.9 H (0.6-1.5) mg/dL Est GFR (CKD-EPI) 25 L (>=60) Glucose 118 H (70-110) mg/dL Assessment and Plan (1) Sepsis Current Visit: Yes Status: Acute Code(s): A41.9 - SEPSIS, UNSPECIFIED ORGANISM SNOMED Code(s): 87204550 (2) Leukocytosis Current Visit: Yes Status: Acute Code(s): D72.829 - ELEVATED WHITE BLOOD CELL COUNT, UNSPECIFIED SNOMED Code(s): 739703400 (3) Gram-negative bacteremia Current Visit: Yes Status: Acute Code(s): R78.81 - BACTEREMIA SNOMED Code(s): 287802547479 (4) UTI (urinary tract infection) Current Visit: Yes Status: Acute Code(s): N39.0 - URINARY TRACT INFECTION, SITE NOT SPECIFIED SNOMED Code(s): 96607057 (5) Herpes labialis Current Visit: Yes Status: Acute Code(s): B00.1 - HERPESVIRAL VESICULAR DERMATITIS SNOMED Code(s): 6853636 (6) Thrush Current Visit: Yes Status: Acute Code(s): B37.0 - CANDIDAL STOMATITIS SNOMED Code(s): 29959959 Plan: 1-patient is in the hospital with sepsis/septic shock secondary to complicated UTI in this patient who did have a left-sided hydronephrosis requiring cystoscopy and left-sided double-J ureteral catheter placement likely secondary to enteric gram-negative pathogen 2E. coli bacteremia source likely left-sided pyelonephritis complicated UTI sensitive pathogen repeat blood cultures 10/09/2023 so far negative 3patient did have evidence of extensive herpes labialis , patient to continue with the Valtrex to finish 7-day course of therapy. 4patient with thrush on Eraxis that can be discontinued at discharge and she w ill continue with the nystatin swish and swallow for 7 days. 5 E. coli UTI and bacteremia Rocephin will be switched to Ceftin 500 mg twice a day for 7 days on discharge Dictation was produced using [employer] dictation software. please excuse any grammatical, word or spelling errors. Time with Patient: Less than 30
--- NOTE | 2023-10-20 04:28 | P.PN ---
Subjective Progress Note Date: 10/19/23 patient is a 87-year-old lady with past medical history significant for hypertension, hyperlipidemia who was brought to the ER for evaluation for syncopal event and altered mental status. Most of the history is taken from the EMR and from the patient, according to EMR, [facility] and found her slumped in the bed, at that time patient was very confused, hard to arouse. EMS was called and when they arrived , patient blood pressure was low but patient was responsive. Patient did got one round of epi in on route to the ER. On gathering more information, patient had been complaining of flulike symptoms and was diagnosed with influenza a week ago, patient got over that sickness but then started complaining of nausea and vomiting. Was also complaining of diarrhea. Family also noted the patient was more short of breath than normal. Denied any chest pain or palpitations. There was no complain of any jerking movement of extremity. No complaint of any slurred speech or facial droop. Initial lab work done in the ER showed WBC 17.9, hemoglobin 12, platelet count 75 glucose 168, lactate 8.3 calcium 8.8, total bilirubin 1.2, troponin 2.640 INR 1.4, sodium 134, potassium 4.3, BUNs 34, creatinine 2.95, Influenza A not detected Influenza B not detected RSV not detected COVID-19 not detected EKG done in the ER showed heart rate of 133 , no ST segment elevation or depression seen, no T-wave inversions seen. Chest x-ray done in the ER showed mild cardiomegaly and COPD, chronic appearing changes ER physician talked to the patient's niece and patient, central line was placed in the ER patient was started on Levophed for hypotension. Patient admitted to ICU under internal medicine service 10/09. Patient seen and examined. Patient underwent cystoscopy with left ureteral stent placement on 10/08 by urology. Currently on nonrebreather, denies any chest pain. Labs reviewed, WBC 34.3, hemoglobin 10, platelet count 381, INR 1.9, sodium 137, potassium 3.7, BUN 44, creatinine 3.47 AST 856, AL282 10/10. Patient seen and examined. 2-D echo done showed LVEF of 50%, mild mitral regurg, mild aortic insufficiency, moderate tricuspid regurg. She has been weaned off all pressors. Still has shortness of breath 10/11. Patient seen and examined. Currently on BiPAP with FiO2 of 65%. Blood work done this morning showed a lipase of 24.5, 9.8, platelet count 222 sodium 140, potassium 3.7, BUN 62, creatinine 3.47. Complaining that she does not feel well. Gets short of breath on minimal exertion. 10/12. Patient seen and examined. with labs this morning shows WBC 19.3, hemoglobin 9.8, sodium is 1:30, potassium is 2.7, BUN is 62, creatinine 3.67. States she feels better, breathing is improving. Patient getting another dose of Lasix by nephrology 10/13. Patient seen and examined. Currently on heated high flow. States she feels much better. Daughter at the bedside. Blood work done this morning showed WBC 21.1, hemoglobin 11.8 sodium 140, potassium 4.2, BUN 64, creatinine 3.03 10/14. Patient seen and examined. Currently on 4 L of oxygen. Patient has a lot of crusting and sores around her lips and the left nasal fold, complaining of pain around the lips. Most likely herpes labialis, will start patient on Valtrex 10/15/23. Patient seen and examined. Currently on 2 L of oxygen. Denies any chest pain or shortness of breath. Still has sores around her lips which has formed scabs now /2. Patient seen and examined. Patient ambulated with the help of therapy today. Has crusting of sores around her lips. Denies any shortness of breath at rest. 10/17. Patient seen and examined. Labs done this morning showed up to 12.8, hemoglobin 9.5 sodium 145, potassium 4.1, BUN 39, creatinine 2. Complaining of pain at the sores around her lips. States she feels that she is getting stronger /4. Patient seen and examined. Continues to feel stronger. Have concerns about going to rehab, discussed with her in detail again, she is agreeable 10/19/2023 Patient is seen in follow-up this morning with multiple medical consultations following. Nephrology following and kidney functions are improving and sodium level has improved. Patient reports continued significant difficulties with eating due to mouth pain and herpetic lesions noted all over the face and lips. Patient is using cream to help moisturize continues to report some difficulty. Will add cools solution which also includes nystatin. Infectious disease following and patient is maintained on antibiotics as well as antifungals and antivirals and will continue with Ceftin 500 mg twice daily for 1 week along with nystatin for 7 days and Valtrex to complete a seven-day course. Patient with significant weakness slowly improving and working with physical therapy currently awaiting insurance authorization for ECF. Social work following an authorization remains pending. Patient is currently afebrile with no reported chest pain or shortness of breath. Encouraged oral intake in small frequent meals and preferably soft for now and would also recommend ensure supplements given patient's decreased oral intake. REVIEW OF SYSTEMS: Denies any chest pain. Denies any fever or chills. Denies any nausea or vomiting PHYSICAL EXAMINATION: GENERAL: The patient is alert and oriented 3, ill looking, well-developed, well-nourished HEENT: Pupils are round and equally reacting to light. EOMI. No scleral icterus. No conjunctival pallor. Normocephalic, atraumatic. No pharyngeal erythema. No thyromegaly. Sores surrounding her upper and lower lips which has formed scabs now CARDIOVASCULAR: S1 and S2 present. No murmurs, rubs, or gallops. PULMONARY: Diminished breath sounds bilaterally, no expiratory wheeze audible ABDOMEN: Soft, nontender, nondistended, normoactive bowel sounds. No palpable organomegaly. MUSCULOSKELETAL: No joint swelling or deformity. EXTREMITIES: 1+ edema in lower extremities bilaterally NEUROLOGICAL: Gross neurological examination did not reveal any focal deficits. Diffusely weak SKIN: No rashes. Assessment : Septic shock likely secondary to obstructing ureteral stone with pyelonephritis, present on admission, status post cystoscopy and double-J stent placement on the left with urology Gram-negative bacteremia which finalized with E. 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 Social work following and has submitted insurance authorization which is currently pending as patient will be going to [facility] on discharge Patient's oral intake is fair and would recommend soft diet and continued with ensure supplements Patient is maintained on nystatin swish and swallow and will add cools solution which includes nystatin as patient is having continued mouth pain and difficulty with eating Monitoring kidney functions which are improving and nephrology recommending repeat labs in the outpatient setting Infectious disease following and patient will be continued on Ceftin twice daily for 7 day course along with Valtrex per pharmacy dosing recommendations for 7 days and nystatin for 7 days as well Recommend PT/OT therapy daily as patient continues to have significant weakness with prolonged hospitalization although is improving slightly. Recommending ECF and patient is agreeable Family members at the bedside with questions and concerns were answered to the best of our ability Patient will need outpatient follow-up with urology for stone removal and stent on the left Patient is medically stable and awaiting insurance authorization for discharge. Possible discharge in the next 24-48 hours The impression and plan of care has been dictated by Erica Fields, Nurse Practitioner as directed. Dr. Jorge MD I have performed a history and examination and MDM of this patient, discussed the same with the dictator, and agree with the dictator's assessment and plan as written ,documented as a scribe. Based on total visit time, I have performed more than 50% of the visit. Objective - Vital Signs Vital signs: Vital Signs Temp 97.4 F L 10/20/23 02:00 Pulse 62 10/20/23 02:00 Resp 16 10/20/23 02:00 BP 162/71 10/20/23 02:00 Pulse Ox 93 L 10/20/23 02:00 FiO2 50 10/14/23 16:00 Intake & Output 10/19/23 10/19/23 10/20/23 06:59 18:59 06:59 Intake Total 120 Output Total 386 Balance -266 Weight 73 kg Intake: Oral 120 Output: Urine 100 Post Void Residual 285 Urine/Stool Mix 1 Other: Voiding Method Bedside Commode Toilet Diaper # Voids 6 3 1 # Bowel Movements 2 - Labs CBC & Chem 7: 10/19/23 07:18 10/19/23 07:18 Labs: Abnormal Lab Results - Last 24 Hours (Table) 10/19/23 10/19/23 Range/Units 07:18 07:18 RBC 3.34 L (4.10-5.20) X 10*6/uL Hgb 9.5 L (12.0-15.0) g/dL Hct 29.9 L (37.2-46.3) % MCHC 31.8 L (32.0-37.0) g/dL RDW 15.3 H (11.5-14.5) % Plt Count 565 H (140-440) X 10*3/uL Immature Gran # 0.12 H (0.00-0.04) X 10*3/uL Eosinophils # 0.42 H (0.04-0.35) X 10*3/uL Basophils # 0.11 H (0.00-0.10) X 10*3/uL Anion Gap 12.30 H (4.00-12.00) mmol/L Creatinine 1.7 H (0.6-1.5) mg/dL Est GFR (CKD-EPI) 28 L (>=60) Glucose 126 H (70-110) mg/dL AST 36 H (13-35) U/L ALT 66 H (8-44) U/L Total Protein 5.3 L (6.2-8.2) g/dL Albumin 3.0 L (3.8-4.9) g/dL Albumin/Globulin Ratio 1.30 L (1.60-3.17) Ratio
[2023-10-20] MEDS: LEVOTHYROXINE 75 MCG TAB PO SCH (06:08)
[2023-10-20] MEDS: FUROSEMIDE 40 MG TAB PO SCH (09:12)
[2023-10-20] MEDS: MAGNESIUM OXIDE 400 MG TAB PO SCH ×2 (09:12→22:04)
[2023-10-20] MEDS: HEPARIN SODIUM,PORCINE 5,000 UNIT/ML 1 ML VIAL SQ SCH ×3 (09:12→21:55)
[2023-10-20] MEDS: PANTOPRAZOLE 40 MG TABLET PO SCH (09:12)
[2023-10-20] MEDS: DOCUSATE 100 MG CAP PO SCH ×2 (09:12→21:55)
[2023-10-20] MEDS: ASPIRIN 81 MG PO SCH (09:12)
[2023-10-20] MEDS: METOPROLOL TARTRATE 25 MG TAB PO SCH ×2 (09:12→21:55)
[2023-10-20] MEDS: amLODIPine 5 MG TAB PO SCH ×2 (09:12→21:55)
[2023-10-20] MEDS: MAG HYDROX/AL HYDROX/SIMETH 30 ML, LIDOCAINE VISCOUS 2% 30 ML, diphenhydrAMINE ELIXIR 7... PO SCH ×16 (09:13→22:07)
[2023-10-20] MEDS: valACYclovir HCL 500 MG TAB PO SCH (09:13)
[2023-10-20 09:42] LABS: BUN/Creat Ratio 13.31 Ratio (12.00-20.00); Blood Urea Nitrogen 21.3 mg/dL (9.0-27.0); Glucose 106 mg/dL (70-110)
[2023-10-20 09:43] LABS: Calcium 9.2 mg/dL (8.7-10.3); Carbon Dioxide 21.9 mmol/L (21.6-31.8); Chloride 109 mmol/L (96-109); Magnesium 1.7 mg/dL (1.5-2.4); Potassium 3.4 mmol/L (3.5-5.5); Sodium 142 mmol/L (135-145)
[2023-10-20] MEDS: ANIDULAFUNGIN 100 MG in SODIUM CHLORIDE 0.9% 100 ML IVPB SCH (09:46)
[2023-10-20] MEDS ORDERED: POTASSIUM CHLORIDE ER 20 MEQ TAB.ER PO STA (12:00)
[2023-10-20] MEDS ORDERED: hydrALAZINE HCL 20 MG/ML 1 ML VIAL IVP PRN (12:01)
--- NOTE | 2023-10-20 12:01 | P.PN ---
Subjective Patient is seen in follow-up for acute kidney injury on chronic kidney disease. Renal function better. On oral Lasix. Nonoliguric. Oral intake gradually improving. Currently on room air. Sodium level stable. Vital signs are stable. General: NAD. HEENT: Head exam is unremarkable. Lesions around the mouth noted. LUNGS: Scattered rhonchi. HEART: Rate and Rhythm are regular. ABDOMEN: No distention. EXTREMITITES: No edema. Objective - Vital Signs Vital signs: Vital Signs Temp 98.4 F 10/20/23 07:56 Pulse 72 10/20/23 07:56 Resp 16 10/20/23 07:56 BP 188/74 10/20/23 07:56 Pulse Ox 96 10/20/23 07:56 FiO2 50 10/14/23 16:00 Intake & Output 10/19/23 10/20/23 10/20/23 18:59 06:59 18:59 Weight 73 kg Other: Voiding Method Toilet # Voids 3 2 # Bowel Movements 2 - Labs CBC & Chem 7: 10/19/23 07:18 10/20/23 06:40 Labs: Abnormal Lab Results - Last 24 Hours (Table) 10/20/23 Range/Units 06:40 Potassium 3.4 L (3.5-5.5) mmol/L Creatinine 1.6 H (0.6-1.5) mg/dL Est GFR (CKD-EPI) 31 L (>=60) Assessment and Plan Plan: Assessment: 1. Acute kidney injury secondary to ATN secondary to hypotension. Now off vasopressors. Also component of obstructive uropathy. Renal function better. Creatinine 1.6 today. 2. Hypokalemia from diuresis and poor intake. 3. Left hydronephrosis status post ureteral stent placement on 10/08/2023. 4. E. coli bacteremia on antibiotics. 5. Acute on chronic diastolic CHF with moderate tricuspid regurgitation. 6. Chronic kidney disease stage IIIB with baseline creatinine 1.4-1.5 in July 2022. Suspect nephrosclerosis. 7. Metabolic acidosis secondary to acute kidney injury and GI losses. Bicarb level stable. 8. Mild hypernatremia from lack of oral water intake. Improved with D5W. 9. Hypomagnesemia from diuresis. On oral magnesium oxide. Better. 10. Hypertension with chronic kidney disease. Plan: Encouraged oral intake, including free water. Maintain Lasix 40 mg once daily. Increase amlodipine to 5 mg twice daily. Hold for systolic blood pressure less than 120. Add when necessary hydralazine. Avoid nephrotoxins. Continue to monitor renal function and urine output. Myrick catheter removed 10/18/2023. Has been voiding on her own without any difficulties.
--- NOTE | 2023-10-20 12:45 | P.PN ---
Subjective Progress Note Date: 10/20/23 This is a very pleasant 87-year-old female patient with a known history of hypertension, hyperlipidemia, gastroesophageal reflux disease, anxiety, breast cancer status post lumpectomy and chemotherapy over 30 years ago. He is admitted to the emergency room yesterday with increasing weakness and altered m ental status. She did have influenza approximately 1 week ago but was feeling better until recently. She developed nausea vomiting diarrhea and weakness that led to a fall. She was altered when EMS had arrived. EKG revealed sinus tachycardia with nonspecific ST and T wave abnormalities. Revealed mild cardiomegaly and chronic appearing changes. Some strandy atelectasis at the right lung base. Otherwise no acute pulmonary process. Ultrasound of the bladder revealed moderate to severe left sided hydronephrosis with internal debris. Correlate to exclude infective debris/pyelitis. Bilateral renal calculi measuring up to 9 mm on the left and 6 mm on the right. All cultures are pending. White count 10.6. Hemoglobin 10.8. Platelets 425. INR 1.5. Sodium 134. Potassium 4.0. Bicarb 10. BUN 38. Creatinine 3.00. Glucose 129. AST 781. ALT 175. Troponins 2.64, 4.17, 4.02. ProBNP 1790. TSH 5.32. Influenza screen negative. RSV screen negative. COVID-19 screen negative. Ini tial lactic acid 8.3. Currently 1.7. She had received 3 L of fluid resuscitation. She is continued on D5W with 3 A of sodium bicarbonate at 100 ML's per hour. She's been initiated on a heparin drip. She is requiring norepinephrine at 0.2 mg/kg/m. He is seen today in consultation in the intensi ve care unit. She is awake and alert in no acute distress. Feeling a bit better today compared to yesterday. She is oriented 3. She remains quite weak. She is maintaining O2 saturations in the 90s on 2.5 L/m per nasal cannula. Arterial pressures in the low 70s. She had a T-max of 101 on arrival. Currently afebrile. On today's evaluation of 10/09/2023, the patient continues to be critically ill, septic, hypotensive, currently on 100% nonrebreather facemask. Pulse ox is in order of 90-93%. The patient in septic shock. 2 UTI and left pyelonephritis and probable obstructing ureteral calculus. The patient underwent a cystoscopy and insertion of double-J catheter on 10/08/2023. The patient has a positive blood culture with gram-negative bacillus and the patient remains on IV Roceph in. Hemodynamically, the patient remains hypotensive. The patient is still on high-dose norepinephrine at 0.2 mcg/kg/m and the patient is also on a bicarbonate infusion running at the rate of 100 mL an hour. Chest x-ray showing cardiac megaly with pulmonary vessel congestion. Urine output is diminished in the order of 15-20 mL an hour. The white cell cause of 54.3 with a hemoglobin of 10 and a platelet count of 381. The patient was started on IV heparin regarding some troponin leak and a troponin peak at 3.2. Nevertheless she is feeling any chest pain. PTT currently is at 61 with an INR of 1.9 and a PT of 19.3. BUN is 44 with a creatinine of 3.47 and the patient sustained an acute k idney injury. Sodium is at 137 with a potassium level of 3.7. She is quite lethargic and weak and her meditation is quite diminished at this point in time. [place] neurologic exam is nonfocal. No other issues for now. Echocardiogram showed a preserved LV function with an EF of around 50%. The patient has normal RV, no significant valvular abnormalities was noted. On 10/10/2023, the patient is being seen for a follow-up. This is an 87-year-old female patient with septic shock and gram-negative urinary tract infection with sepsis. The patient presented with left pyelonephritis and the patient underwent a cystoscopy and double-J and insertion on 10/08/2023. Her blood cultures positive for gram-negative bacillus and the patient remains on 2 g of IV Rocephin. She was requiring high doses of pressors and currently she is on no pressors and this was weaned off and discontinued yesterday. IV fluids were also reduced down to 10 mL an hour as the patient was having increased pulmonary edema and pulmonary vascular congestion which has resulted into transitioning her from 100% RV the facemask to a BiPAP which is running at 12/6 with an FiO2 of 75%. Current pulse ox is 99%. Chest x-ray as mentioned is consistent with CHF and pulmonary edema. The patient is producing adequate ghada unt of urine output overall fluid balance is +1 and 2 L over the past 24 hours. Urine output was in the order of 20-50 mL an hour. Based on that, she was given a dose of Lasix 60 mg IV push to be repeated depending on her urine output. This morning, BUN is at 53 with a creatinine of 3.4 and a sodium level is at 137, the validity count is improved and is down to 26.8 with a hemoglobin 9.2 and platelet count of 235. Myrick catheter in place. No hematuria this point in time. She is on no anticoagulation. Cardiac rhythm is sinus. Echocardiogram showed a preserved LV function with an ejection fraction of 50%. On today's evaluation of 10/11/2023, the patient is lethargic yet arousable. Sh e is following simple commands speech is profoundly. She remains on BiPAP at a pressure of 12/6 with an FiO2 of 65%. The patient is generating a tidal volume of about 600 and her current respiratory rate is around 18. She has a good mask seal. Her chest x-ray is essentially unchanged compared to yesterday. She has, thyromegaly, mild pulmonary vessel congestion. She was given Lasix yesterday to that of 60 mg IV and the fluid balance is -700 mL over the past 24 hours. Creatinine is stable. Note that the patient partial response to Lasix and the same will be done today. BUN is at 62 with a creatinine of 3.4 and a sodium level is at 140. The white cell count is down to 24 with a hemoglobin of 9.8. As for the blood culture, do not to be positive for E. coli and is sensitive to IV Rocephin which will be continued at a dose of 2 g every 24 hours. Note that the patient is not utilizing any form of pressors for now. IV fluids are KVO. She is resting comfortably in bed. On today's evaluation of 10/12/2023, the patient is awake and alert and she is communicating. She is aware that she is in the hospital. She is currently on high flow oxygen and she was taken off the BiPAP. High flow oxygen is running at 50% FiO2 at 50 L. She is able to maintain a saturation of 96%. Meanwhile, she is afebrile. She is hemodynamically stable picture is off pressors. The white cell count is improving. She is producing urine output. The chest x-ray still showing hazy bilateral pulmonary infiltrates and the patient was given another dose of Lasix 40 mg IV push by nephrology. Myrick catheter in place. The patient is producing adequate amount of urine output. In terms of her labs from today, the white cell count is down to 19, hemoglobin is at 9.8, potassium levels at 2.7 and needs to be replaced, BUN is at 62 with a creatinine of 3.6 and serum bicarb is at 28. Note that this is an acute on top of the chronic kidney injury related to septic shock. As mentioned earlier, she has E. coli, she is on IV Rocephin. She is tolerating small amounts of soft diet. On 10/13/2023, the patient is awake and alert. She is on high flow oxygen at 50 L with an FiO2 of 40%. No chest x-ray from today. She was in septic shock with multisystem organ failure. She could have also had a component of acute lung injury/ARDS requiring high oxygen and initially BiPAP and subsequently high flow oxygen. Hemodynamically stable off pressors. She was given Lasix yesterday and the fluid balance is in order of -1.3 L. The creatinine is down to 3 with a BUN of 64. Sodium is at 140. Potassium is at 4.2. White cell count has dropped onto 21 with a hemoglobin of 11.8. The blood culture was positive for E. coli. She remains on IV Rocephin. Tolerating diet. Weak in general. Communicating. Alert and awake. No pressors at this point. Myrick catheter is in place. On 10/14/2023, the patient is awake and alert and communicating. She is currently on oxygen at 4 L with a pulse ox of 97%. Clinically stable. Hemodynamically stable. Neurologically weak yet able to communicate without any focal neurological deficits. Labs from today are still pending. Yesterday's labs were noted. The patient Remains on IV Rocephin. The patient's is on no pressors. Mouth is dry and she has developed some sores over the lips involving the upper and lower lip and she has also some crusting of the skin over the left nasal fold extending to her left cheek. This could be herpetic in nature. Her mucous membranes are dry. Urine output is in order of 2.6 L over the past 24 hours with a negative fluid balance of -1.7 L over the past 24 hours. She is tolerating clear liquid diet. Quite sleepy yet arousable. Myrick cath is in place. Note that the patient was given Lasix yesterday with excellent urine output On 10/15/2023, I'm seeing the patient for a follow-up in she is currently on 2 L of oxygen by nasal cannula. She is sleepy. She feels fatigued and tired. She also feels weak. She also has several sores on her lips and face which is probably a herpetic lesion. No significant respiratory distress. Pulse ox 97% on room air oxygen. She is recovering from her septic shock. The white cell count is down to 17. Renal function continues to improve. She was given IV Lasix on a daily basis with excellent urine output. BUN is down to 52. Creatinine is down to 2.2. Potassium is down to 3.2 that needs to be replaced. Sodium is at 140. Oral intake is quite diminished still. She is to be more consistent on the use of incentive spirometer. Myrick cath is in place. She is on IV Rocephin. She is also on IV Eraxis per IDs recommendation. The patient is seen today 10/16/2023 in follow-up on the regular medical floor. She is currently resting in bed. Awake and alert in no acute distress. She is maintaining good O2 saturations in the 90s on room air. She's been afebrile. Hemodynamically stable. Follow-up chest x-ray reveals minimal bilateral pleural effusions. Mild cardiomegaly. Mild right lower lobe infiltrate present. Blood cultures were positive for E. coli. Follow-up blood culture revealing no growth. She does have significant herpetic lesions around her mouth. She is on Valtrex. She remains on ceftriaxone, Eraxis. Heparin for DVT prophylaxis. The patient is seen today 10/17/2023 for follow-up on the regular medical floor. She is currently sitting up in bed. Awake and alert in no acute distress. Feeling better today compared to yesterday. Maintaining O2 saturations in the 90s on room air. She's been afebrile. Initial blood cultures were positive for E. coli. Follow-up blood cultures revealed no growth. White count 12.8. Hemogram 9.5. Platelets 375. Sodium 145. Potassium 4.1 bicarb 25. BUN 40. Creatinine 2.0. Glucose 103. She is continued on valacyclovir, ceftriaxone and Eraxis. Remains on oral diuretics. Heparin for DVT prophylaxis. Currently in a negative balance. Reevaluated today on 10/18/2023, patient is doing well, does not seem to be in any distress she is on room air, feeling fine, seems to be bothered with her healing herpetic lesions involving her face and her lips. Patient remains on Valtrex, she is also on ceftriaxone and Eraxis remains on diuretics, patient is doing well overall, basic metabolic profile is normal today, creatinine is steadily improving down to 1.9 today. Eventually this patient is to have placement. This is being considered to be done in the next 24 hours. She will go to rehab hopefully The patient is seen today 10/19/2023 in follow-up on the regular medical floor. She is currently up ambulating with a walker and assistance. Feeling quite a bit stronger. Denies any worsening shortness of breath, cough or congestion. She is maintaining good O2 saturations in the low 90s on room air. She's been afebrile. Initial blood cultures were positive for E. coli. Follow-up blood cultures revealed no growth. White count 8.9. Hemoglobin 9.5. Platelets 565. Sodium 142. Potassium 3.6. BUN 26. Creatinine 1.7. Glucose 126. AST 36. ALT 66. She remains on Eraxis, ceftriaxone, Valtrex. Heparin for DVT prophylaxis. Remains on oral diuretics. Currently in -1.5 L balance. The patient is seen today 04/19/2024 in follow-up on the regular medical floor. She is currently sitting up in bed. Awake and alert in no acute distress. Feeling better each day. Denies any worsening shortness of breath, cough or congestion. Maintaining good O2 saturations in the mid 90s on room air. She's been afebrile. Initial blood cultures were positive for E. coli. Follow-up blood cultures revealed no growth. Sodium 142. Potassium 3.4. Bicarb 22. BUN 21. Creatinine 1.6. Glucose 106. She remains on ceftriaxone, Eraxis and Valtrex. Continued on diuretics. Heparin for DVT prophylaxis. Objective - Vital Signs Vital signs: Vital Signs Temp 98.4 F 10/20/23 07:56 Pulse 72 10/20/23 07:56 Resp 16 10/20/23 07:56 BP 188/74 10/20/23 07:56 Pulse Ox 96 10/20/23 07:56 FiO2 50 10/14/23 16:00 Intake & Output 10/19/23 10/20/23 10/20/23 18:59 06:59 18:59 Weight 73 kg Other: Voiding Method Toilet # Voids 3 2 # Bowel Movements 2 - Exam GENERAL EXAM: Alert, pleasant 87-year-old female, on room air, in no acute distress HEAD: Normocephalic. Healing hepatic lesions around the mouth EYES: Normal reaction of pupils, equal size. NOSE: Clear with pink turbinates. THROAT: No erythema or exudates. NECK: No masses, no JVD. CHEST: No chest wall deformity. LUNGS: Equal air entry with diminished breath on the lung bases along with some bibasilar crackles CVS: S1 and S2 normal with no audible murmur, regular rhythm. ABDOMEN: No hepatosplenomegaly, normal bowel sounds, no guarding or rigidity. SPINE: No scoliosis or deformity SKIN: No rashes CENTRAL NERVOUS SYSTEM: No focal deficits, tone is normal in all 4 extremities. EXTREMITIES: There is no peripheral edema. No clubbing, no cyanosis. Peripher al pulses are intact. - Labs CBC & Chem 7: 10/19/23 07:18 10/20/23 06:40 Labs: Abnormal Lab Results - Last 24 Hours (Table) 10/20/23 Range/Units 06:40 Potassium 3.4 L (3.5-5.5) mmol/L Creatinine 1.6 H (0.6-1.5) mg/dL Est GFR (CKD-EPI) 31 L (>=60) Assessment and Plan Assessment: Acute sepsis/septic shock with hypotension requiring pressor support secondary t o suspected pyelonephritis. Ultrasound of the kidneys and bladder revealed a moderate to severe left sided hydronephrosis with internal debris. Correlate to exclude infective debris/pyelitis. Bilateral renal calculi measuring up to 9 mm on the left and 6 mm on the right. She is post cystoscopy and insertion of a double-J stent on the left. The patient remains on Rocephin and Eraxis the final cultures of the blood were consistent with E. coli. Acute kidney injury secondary to above, current creatinine 1.6 Acute hypotension secondary to above, recovered Lactic acidosis secondary to above, recovered Acute hypoxemic respiratory failure secondary to above, recovered and on room air. Follow-up chest x-ray shows improvement Acute non-ST segment elevation myocardial infarction Transaminitis secondary to above New onset hypothyroidism Herpes simplex virus around the mouth History of hypertension Hyperlipidemia History of breast cancer status post lumpectomy/chemotherapy over 30 years ago Gastroesophageal reflux disease Plan: The patient was seen and evaluated Labs and medications reviewed Currently stable and on room air Remains on Rocephin, plan is to switch to Ceftin at discharge Infectious disease, nephrology, remain on the case Plan is for subacute rehab at [facility] post discharge This patient was seen independently by the pulmonary nurse practitioner addressing pulmonary issues I have personally seen and examined the patient, performed the documentation and the assessment and plan as written. Number of minutes spent on the visit: 22.
--- NOTE | 2023-10-20 15:51 | P.PN ---
Subjective Progress Note Date: 10/20/23 patient is a 87-year-old lady with past medical history significant for hypertension, hyperlipidemia who was brought to the ER for evaluation for syncopal event and altered mental status. Most of the history is taken from the EMR and from the patient, according to EMR, patient walked into patient's room and found her slumped in the bed, at that time patient was very confused, hard to arouse. EMS was called and when they arrived , patient blood pressure was low but patient was responsive. Patient did got one round of epi in on route to the ER. On gathering more information, patient had been complaining of flulike symptoms and was diagnosed with influenza a week ago, patient got over that sickness but then started complaining of nausea and vomiting. Was also complaining of diarrhea. Family also noted the patient was more short of breath than normal. Denied any chest pain or palpitations. There was no complain of any jerking movement of extremity. No complaint of any slurred speech or facial droop. Initial lab work done in the ER showed WBC 17.9, hemoglobin 12, platelet count 75 glucose 168, lactate 8.3 calcium 8.8, total bilirubin 1.2, troponin 2.640 INR 1.4, sodium 134, potassium 4.3, BUNs 34, creatinine 2.95, Influenza A not detected Influenza B not detected RSV not detected COVID-19 not detected EKG done in the ER showed heart rate of 133 , no ST segment elevation or depression seen, no T-wave inversions seen. Chest x-ray done in the ER showed mild cardiomegaly and COPD, chronic appearing changes ER physician talked to the patient's niece and patient, central line was placed in the ER patient was started on Levophed for hypotension. Patient admitted to ICU under internal medicine service 10/09. Patient seen and examined. Patient underwent cystoscopy with left ureteral stent placement on 10/08 by urology. Currently on nonrebreather, denies any chest pain. Labs reviewed, WBC 34.3, hemoglobin 10, platelet count 381, INR 1.9, sodium 137, potassium 3.7, BUN 44, creatinine 3.47 AST 856, AL282 10/10. Patient seen and examined. 2-D echo done showed LVEF of 50%, mild mitral regurg, mild aortic insufficiency, moderate tricuspid regurg. She has been weaned off all pressors. Still has shortness of breath 10/11. Patient seen and examined. Currently on BiPAP with FiO2 of 65%. Blood work done this morning showed a lipase of 24.5, 9.8, platelet count 222 sodium 140, potassium 3.7, BUN 62, creatinine 3.47. Complaining that she does not feel well. Gets short of breath on minimal exertion. 10/12. Patient seen and examined. with labs this morning shows WBC 19.3, hemoglobin 9.8, sodium is 1:30, potassium is 2.7, BUN is 62, creatinine 3.67. States she feels better, breathing is improving. Patient getting another dose of Lasix by nephrology 10/13. Patient seen and examined. Currently on heated high flow. States she feels much better. Daughter at the bedside. Blood work done this morning showed WBC 21.1, hemoglobin 11.8 sodium 140, potassium 4.2, BUN 64, creatinine 3.03 10/14. Patient seen and examined. Currently on 4 L of oxygen. Patient has a lot of crusting and sores around her lips and the left nasal fold, complaining of pain around the lips. Most likely herpes labialis, will start patient on V altrex 10/15/23. Patient seen and examined. Currently on 2 L of oxygen. Denies any chest pain or shortness of breath. Still has sores around her lips which has formed scabs now 10/16. Patient seen and examined. Patient ambulated with the help of therapy today. Has crusting of sores around her lips. Denies any shortness of breath at rest. 10/17. Patient seen and examined. Labs done this morning showed up to 12.8, hemoglobin 9.5 sodium 145, potassium 4.1, BUN 39, creatinine 2. Complaining of pain at the sores around her lips. States she feels that she is getting stronger /. Patient seen and examined. Continues to feel stronger. Have concerns about going to rehab, discussed with her in detail again, she is agreeable 10/20. Patient seen and examined. Complaining of generalized weakness. Denies any shortness of breath. Denies any nausea and vomiting REVIEW OF SYSTEMS: Denies any chest pain. Denies any fever or chills. Denies any nausea or vomiting PHYSICAL EXAMINATION: GENERAL: The patient is alert , ill looking HEENT: Pupils are round and equally reacting to light. EOMI. No scleral icterus. No conjunctival pallor. Normocephalic, atraumatic. No pharyngeal erythema. No thyromegaly. Sores around her lips which has formed scabs now CARDIOVASCULAR: S1 and S2 present. No murmurs, rubs, or gallops. PULMONARY: Diminished breath sounds bilaterally, no expiratory wheeze audible ABDOMEN: Soft, nontender, nondistended, normoactive bowel sounds. No palpable organomegaly. MUSCULOSKELETAL: No joint swelling or deformity. EXTREMITIES: 1+ edema in lower extremities bilaterally NEUROLOGICAL: Gross neurological examination did not reveal any focal deficits. SKIN: No rashes. Assessment and plan Septic shock Gram-negative bacteremia Acute hypoxic respiratory failure Acute metabolic encephalopathy Herpes labialis Non-ST elevation ND Acute transaminitis Acute kidney injury Left-sided hydronephrosis Syncopal event Fall Hypertension Hyperlipidemia Monitor vital signs Monitor CBC Monitor CMP Follow-up on blood cultures, blood cultures growing E. coli Follow-up on urine cultures monitor LFTs Strict I's and O's, daily weights, Lasix Continue IV Rocephin Continue Eraxis Continue Valtrex, started on 10/14 2-D echo done showed LVEF of 50%, mild mitral regurg, mild aortic insufficiency, moderate tricuspid regurg Nephrology following Cardiology following, recommended starting patient on aspirin and beta reji, currently on aspirin and Lopressor Critical care following ID following Urology following, cystoscopy with left ureteral cathetre placement on 10/08, recommend outpatient follow-up for stone removal and stent placement PT and OT recommended rehab Labs and medication were reviewed.. Continue same treatment. Continue with symptomatic treatment. Resume home medication. Monitor labs and vitals. DVT and GI prophylaxis. Further recommendations as per clinical course of the patient Dictation was produced using [employer] dictation software. please excuse any grammatical, word or spelling errors. Objective - Vital Signs Vital signs: Vital Signs Temp 98.0 F 10/20/23 13:36 Pulse 67 10/20/23 13:36 Resp 16 10/20/23 13:36 BP 149/75 10/20/23 13:36 Pulse Ox 98 10/20/23 13:36 FiO2 50 10/14/23 16:00 Intake & Output 01/05/24 01/06/24 01/06/24 18:59 06:59 18:59 Weight 73 kg Other: Voiding Method Toilet # Voids 3 2 1 # Bowel Movements 2 - Labs CBC & Chem 7: 10/19/23 07:18 10/20/23 06:40 Labs: Abnormal Lab Results - Last 24 Hours (Table) 10/20/23 Range/Units 06:40 Potassium 3.4 L (3.5-5.5) mmol/L Creatinine 1.6 H (0.6-1.5) mg/dL Est GFR (CKD-EPI) 31 L (>=60)
[2023-10-21] MEDS: ALPRAZolam 0.25 MG TAB PO PRN ×2 (01:16→20:21)
[2023-10-21] MEDS: LEVOTHYROXINE 75 MCG TAB PO SCH (06:51)
[2023-10-21] MEDS: ANIDULAFUNGIN 100 MG in SODIUM CHLORIDE 0.9% 100 ML IVPB SCH (08:43)
[2023-10-21] MEDS: DOCUSATE 100 MG CAP PO SCH ×2 (08:44→20:21)
[2023-10-21] MEDS: ASPIRIN 81 MG PO SCH (08:44)
[2023-10-21] MEDS: valACYclovir HCL 500 MG TAB PO SCH (08:44)
[2023-10-21] MEDS: FUROSEMIDE 40 MG TAB PO SCH (08:45)
[2023-10-21] MEDS: PANTOPRAZOLE 40 MG TABLET PO SCH (08:45)
[2023-10-21] MEDS: MAGNESIUM OXIDE 400 MG TAB PO SCH ×2 (08:45→20:21)
[2023-10-21] MEDS: METOPROLOL TARTRATE 25 MG TAB PO SCH ×2 (08:46→20:21)
[2023-10-21 09:53] LABS: BUN/Creat Ratio 11.27 Ratio (12.00-20.00); Blood Urea Nitrogen 16.9 mg/dL (9.0-27.0); Calcium 9.3 mg/dL (8.7-10.3); Carbon Dioxide 19.8 mmol/L (21.6-31.8); Chloride 105 mmol/L (96-109); Glucose 110 mg/dL (70-110); Magnesium 1.7 mg/dL (1.5-2.4); Potassium 3.9 mmol/L (3.5-5.5); Sodium 138 mmol/L (135-145)
[2023-10-21] MEDS: MAG HYDROX/AL HYDROX/SIMETH 30 ML, LIDOCAINE VISCOUS 2% 30 ML, diphenhydrAMINE ELIXIR 7... PO SCH ×16 (10:09→20:24)
[2023-10-21] MEDS: amLODIPine 5 MG TAB PO SCH ×2 (10:09→20:21)
[2023-10-21] MEDS: HEPARIN SODIUM,PORCINE 5,000 UNIT/ML 1 ML VIAL SQ SCH ×3 (10:09→23:57)
--- NOTE | 2023-10-21 11:23 | P.PN ---
Subjective Patient is seen in follow-up for acute kidney injury on chronic kidney disease. Renal function continues to improve. On oral Lasix. Nonoliguric. Oral intake gradually improving. Currently on room air. Vital signs are stable. General: NAD. HEENT: Head exam is unremarkable. Lesions around the mouth noted. LUNGS: Scattered rhonchi. HEART: Rate and Rhythm are regular. ABDOMEN: No distention. EXTREMITITES: No edema. Objective - Vital Signs Vital signs: Vital Signs Temp 98 F 10/21/23 07:40 Pulse 60 10/21/23 07:40 Resp 17 10/21/23 07:40 BP 154/63 10/21/23 07:40 Pulse Ox 97 10/21/23 07:40 FiO2 50 10/14/23 16:00 Intake & Output 10/20/23 10/21/23 10/21/23 18:59 06:59 18:59 Intake Total 200 Balance 200 Intake: Oral 200 Other: Voiding Method Toilet # Voids 1 1 1 # Bowel Movements 1 - Labs CBC & Chem 7: 10/19/23 07:18 10/21/23 07:02 Labs: Abnormal Lab Results - Last 24 Hours (Table) 10/21/23 Range/Units 07:02 Carbon Dioxide 19.8 L (21.6-31.8) mmol/L Anion Gap 13.20 H (4.00-12.00) mmol/L Est GFR (CKD-EPI) 33 L (>=60) BUN/Creatinine Ratio 11.27 L (12.00-20.00) Ratio Assessment and Plan Plan: Assessment: 1. Acute kidney injury secondary to ATN secondary to hypotension. Now off vasopressors. Also component of obstructive uropathy. Renal function better. Creatinine 1.5 today. 2. Hypokalemia from diuresis and poor intake. Replace. Improved. 3. Left hydronephrosis status post ureteral stent placement on 10/08/2023. 4. E. coli bacteremia on antibiotics. 5. Acute on chronic diastolic CHF with moderate tricuspid regurgitation. 6. Chronic kidney disease stage IIIB with baseline creatinine 1.4-1.5 in July 2022. Suspect nephrosclerosis. 7. Metabolic acidosis secondary to acute kidney injury and GI losses. 8. Mild hypernatremia from lack of oral water intake. s/p D5W. 9. Hypomagnesemia from diuresis. On oral magnesium oxide. Stable. 10. Hypertension with chronic kidney disease. 11. Anemia of chronic kidney disease. Plan: Encouraged oral intake, including free water. Maintain Lasix 40 mg once daily. Amlodipine dose increased 10/20/2023. Hold for systolic blood pressure less than 120. Also on when necessary hydralazine. Add oral bicarbonate. Avoid nephrotoxins. Continue to monitor renal function and urine output. Add Aranesp. Avoid IV iron in the setting of acute infection currently on antibiotics. Myrick catheter removed 10/18/2023. Has been voiding on her own without any difficulties.
[2023-10-21] MEDS ORDERED: DARBEPOETIN ALFA 40 MCG/0.4 ML SYRINGE SQ SCH (11:30)
--- NOTE | 2023-10-21 11:44 | P.PN ---
Subjective Progress Note Date: 10/21/23 This is a very pleasant 87-year-old female patient with a known history of hypertension, hyperlipidemia, gastroesophageal reflux disease, anxiety, breast cancer status post lumpectomy and chemotherapy over 30 years ago. He is admitted to the emergency room yesterday with increasing weakness and altered m ental status. She did have influenza approximately 1 week ago but was feeling better until recently. She developed nausea vomiting diarrhea and weakness that led to a fall. She was altered when EMS had arrived. EKG revealed sinus tachycardia with nonspecific ST and T wave abnormalities. Revealed mild cardiomegaly and chronic appearing changes. Some strandy atelectasis at the right lung base. Otherwise no acute pulmonary process. Ultrasound of the bladder revealed moderate to severe left sided hydronephrosis with internal debris. Correlate to exclude infective debris/pyelitis. Bilateral renal calculi measuring up to 9 mm on the left and 6 mm on the right. All cultures are pending. White count 10.6. Hemoglobin 10.8. Platelets 425. INR 1.5. Sodium 134. Potassium 4.0. Bicarb 10. BUN 38. Creatinine 3.00. Glucose 129. AST 781. ALT 175. Troponins 2.64, 4.17, 4.02. ProBNP 1790. TSH 5.32. Influenza screen negative. RSV screen negative. COVID-19 screen negative. Ini tial lactic acid 8.3. Currently 1.7. She had received 3 L of fluid resuscitation. She is continued on D5W with 3 A of sodium bicarbonate at 100 ML's per hour. She's been initiated on a heparin drip. She is requiring norepinephrine at 0.2 mg/kg/m. He is seen today in consultation in the intensi ve care unit. She is awake and alert in no acute distress. Feeling a bit better today compared to yesterday. She is oriented 3. She remains quite weak. She is maintaining O2 saturations in the 90s on 2.5 L/m per nasal cannula. Arterial pressures in the low 70s. She had a T-max of 101 on arrival. Currently afebrile. On today's evaluation of 10/09/2023, the patient continues to be critically ill, septic, hypotensive, currently on 100% nonrebreather facemask. Pulse ox is in order of 90-93%. The patient in septic shock. 2 UTI and left pyelonephritis and probable obstructing ureteral calculus. The patient underwent a cystoscopy and insertion of double-J catheter on 10/08/2023. The patient has a positive blood culture with gram-negative bacillus and the patient remains on IV Roceph in. Hemodynamically, the patient remains hypotensive. The patient is still on high-dose norepinephrine at 0.2 mcg/kg/m and the patient is also on a bicarbonate infusion running at the rate of 100 mL an hour. Chest x-ray showing cardiac megaly with pulmonary vessel congestion. Urine output is diminished in the order of 15-20 mL an hour. The white cell cause of 54.3 with a hemoglobin of 10 and a platelet count of 381. The patient was started on IV heparin regarding some troponin leak and a troponin peak at 3.2. Nevertheless she is feeling any chest pain. PTT currently is at 61 with an INR of 1.9 and a PT of 19.3. BUN is 44 with a creatinine of 3.47 and the patient sustained an acute k idney injury. Sodium is at 137 with a potassium level of 3.7. She is quite lethargic and weak and her meditation is quite diminished at this point in time. [place] neurologic exam is nonfocal. No other issues for now. Echocardiogram showed a preserved LV function with an EF of around 50%. The patient has normal RV, no significant valvular abnormalities was noted. On 10/10/2023, the patient is being seen for a follow-up. This is an 87-year-old female patient with septic shock and gram-negative urinary tract infection with sepsis. The patient presented with left pyelonephritis and the patient underwent a cystoscopy and double-J and insertion on 10/08/2023. Her blood cultures positive for gram-negative bacillus and the patient remains on 2 g of IV Rocephin. She was requiring high doses of pressors and currently she is on no pressors and this was weaned off and discontinued yesterday. IV fluids were also reduced down to 10 mL an hour as the patient was having increased pulmonary edema and pulmonary vascular congestion which has resulted into transitioning her from 100% RV the facemask to a BiPAP which is running at 12/6 with an FiO2 of 75%. Current pulse ox is 99%. Chest x-ray as mentioned is consistent with CHF and pulmonary edema. The patient is producing adequate ghada unt of urine output overall fluid balance is +1 and 2 L over the past 24 hours. Urine output was in the order of 20-50 mL an hour. Based on that, she was given a dose of Lasix 60 mg IV push to be repeated depending on her urine output. This morning, BUN is at 53 with a creatinine of 3.4 and a sodium level is at 137, the validity count is improved and is down to 26.8 with a hemoglobin 9.2 and platelet count of 235. Myrick catheter in place. No hematuria this point in time. She is on no anticoagulation. Cardiac rhythm is sinus. Echocardiogram showed a preserved LV function with an ejection fraction of 50%. On today's evaluation of 10/11/2023, the patient is lethargic yet arousable. Sh e is following simple commands speech is profoundly. She remains on BiPAP at a pressure of 12/6 with an FiO2 of 65%. The patient is generating a tidal volume of about 600 and her current respiratory rate is around 18. She has a good mask seal. Her chest x-ray is essentially unchanged compared to yesterday. She has, thyromegaly, mild pulmonary vessel congestion. She was given Lasix yesterday to that of 60 mg IV and the fluid balance is -700 mL over the past 24 hours. Creatinine is stable. Note that the patient partial response to Lasix and the same will be done today. BUN is at 62 with a creatinine of 3.4 and a sodium level is at 140. The white cell count is down to 24 with a hemoglobin of 9.8. As for the blood culture, do not to be positive for E. coli and is sensitive to IV Rocephin which will be continued at a dose of 2 g every 24 hours. Note that the patient is not utilizing any form of pressors for now. IV fluids are KVO. She is resting comfortably in bed. On today's evaluation of 10/12/2023, the patient is awake and alert and she is communicating. She is aware that she is in the hospital. She is currently on high flow oxygen and she was taken off the BiPAP. High flow oxygen is running at 50% FiO2 at 50 L. She is able to maintain a saturation of 96%. Meanwhile, she is afebrile. She is hemodynamically stable picture is off pressors. The white cell count is improving. She is producing urine output. The chest x-ray still showing hazy bilateral pulmonary infiltrates and the patient was given another dose of Lasix 40 mg IV push by nephrology. Myrick catheter in place. The patient is producing adequate amount of urine output. In terms of her labs from today, the white cell count is down to 19, hemoglobin is at 9.8, potassium levels at 2.7 and needs to be replaced, BUN is at 62 with a creatinine of 3.6 and serum bicarb is at 28. Note that this is an acute on top of the chronic kidney injury related to septic shock. As mentioned earlier, she has E. coli, she is on IV Rocephin. She is tolerating small amounts of soft diet. On 10/13/2023, the patient is awake and alert. She is on high flow oxygen at 50 L with an FiO2 of 40%. No chest x-ray from today. She was in septic shock with multisystem organ failure. She could have also had a component of acute lung injury/ARDS requiring high oxygen and initially BiPAP and subsequently high flow oxygen. Hemodynamically stable off pressors. She was given Lasix yesterday and the fluid balance is in order of -1.3 L. The creatinine is down to 3 with a BUN of 64. Sodium is at 140. Potassium is at 4.2. White cell count has dropped onto 21 with a hemoglobin of 11.8. The blood culture was positive for E. coli. She remains on IV Rocephin. Tolerating diet. Weak in general. Communicating. Alert and awake. No pressors at this point. Myrick catheter is in place. On 10/14/2023, the patient is awake and alert and communicating. She is currently on oxygen at 4 L with a pulse ox of 97%. Clinically stable. Hemodynamically stable. Neurologically weak yet able to communicate without any focal neurological deficits. Labs from today are still pending. Yesterday's labs were noted. The patient Remains on IV Rocephin. The patient's is on no pressors. Mouth is dry and she has developed some sores over the lips involving the upper and lower lip and she has also some crusting of the skin over the left nasal fold extending to her left cheek. This could be herpetic in nature. Her mucous membranes are dry. Urine output is in order of 2.6 L over the past 24 hours with a negative fluid balance of -1.7 L over the past 24 hours. She is tolerating clear liquid diet. Quite sleepy yet arousable. Myrick cath is in place. Note that the patient was given Lasix yesterday with excellent urine output On 10/15/2023, I'm seeing the patient for a follow-up in she is currently on 2 L of oxygen by nasal cannula. She is sleepy. She feels fatigued and tired. She also feels weak. She also has several sores on her lips and face which is probably a herpetic lesion. No significant respiratory distress. Pulse ox 97% on room air oxygen. She is recovering from her septic shock. The white cell count is down to 17. Renal function continues to improve. She was given IV Lasix on a daily basis with excellent urine output. BUN is down to 52. Creatinine is down to 2.2. Potassium is down to 3.2 that needs to be replaced. Sodium is at 140. Oral intake is quite diminished still. She is to be more consistent on the use of incentive spirometer. Myrick cath is in place. She is on IV Rocephin. She is also on IV Eraxis per IDs recommendation. The patient is seen today 10/16/2023 in follow-up on the regular medical floor. She is currently resting in bed. Awake and alert in no acute distress. She is maintaining good O2 saturations in the 90s on room air. She's been afebrile. Hemodynamically stable. Follow-up chest x-ray reveals minimal bilateral pleural effusions. Mild cardiomegaly. Mild right lower lobe infiltrate present. Blood cultures were positive for E. coli. Follow-up blood culture revealing no growth. She does have significant herpetic lesions around her mouth. She is on Valtrex. She remains on ceftriaxone, Eraxis. Heparin for DVT prophylaxis. The patient is seen today 10/17/2023 for follow-up on the regular medical floor. She is currently sitting up in bed. Awake and alert in no acute distress. Feeling better today compared to yesterday. Maintaining O2 saturations in the 90s on room air. She's been afebrile. Initial blood cultures were positive for E. coli. Follow-up blood cultures revealed no growth. White count 12.8. Hemogram 9.5. Platelets 375. Sodium 145. Potassium 4.1 bicarb 25. BUN 40. Creatinine 2.0. Glucose 103. She is continued on valacyclovir, ceftriaxone and Eraxis. Remains on oral diuretics. Heparin for DVT prophylaxis. Currently in a negative balance. Reevaluated today on 10/18/2023, patient is doing well, does not seem to be in any distress she is on room air, feeling fine, seems to be bothered with her healing herpetic lesions involving her face and her lips. Patient remains on Valtrex, she is also on ceftriaxone and Eraxis remains on diuretics, patient is doing well overall, basic metabolic profile is normal today, creatinine is steadily improving down to 1.9 today. Eventually this patient is to have placement. This is being considered to be done in the next 24 hours. She will go to rehab hopefully The patient is seen today 10/19/2023 in follow-up on the regular medical floor. She is currently up ambulating with a walker and assistance. Feeling quite a bit stronger. Denies any worsening shortness of breath, cough or congestion. She is maintaining good O2 saturations in the low 90s on room air. She's been afebrile. Initial blood cultures were positive for E. coli. Follow-up blood cultures revealed no growth. White count 8.9. Hemoglobin 9.5. Platelets 565. Sodium 142. Potassium 3.6. BUN 26. Creatinine 1.7. Glucose 126. AST 36. ALT 66. She remains on Eraxis, ceftriaxone, Valtrex. Heparin for DVT prophylaxis. Remains on oral diuretics. Currently in -1.5 L balance. The patient is seen today 04/19/2024 in follow-up on the regular medical floor. She is currently sitting up in bed. Awake and alert in no acute distress. Feeling better each day. Denies any worsening shortness of breath, cough or congestion. Maintaining good O2 saturations in the mid 90s on room air. She's been afebrile. Initial blood cultures were positive for E. coli. Follow-up blood cultures revealed no growth. Sodium 142. Potassium 3.4. Bicarb 22. BUN 21. Creatinine 1.6. Glucose 106. She remains on ceftriaxone, Eraxis and Valtrex. Continued on diuretics. Heparin for DVT prophylaxis. The patient is seen today 04/20/2024 in follow-up on the regular medical floor. She is awake and alert in no acute distress. She's been up ambulating in her room with a walker. She denies any worsening shortness of breath, cough or congestion. She continues to maintain good O2 saturations in the mid 90s on room air. She's afebrile. Hemodynamically stable. Blood cultures revealed no growth in follow-up. Previous blood cultures from October 07 were positive for E. coli. Sodium 138. Potassium 3.9. Bicarb 20. BUN 17. Creatinine 1.5. Glucose 110. She remains on Eraxis, ceftriaxone, valacyclovir. Heparin for DVT prophylaxis. Remains on oral diuretics. Objective - Vital Signs Vital signs: Vital Signs Temp 98 F 10/21/23 07:40 Pulse 60 10/21/23 07:40 Resp 17 10/21/23 07:40 BP 154/63 10/21/23 07:40 Pulse Ox 97 10/21/23 07:40 FiO2 50 10/14/23 16:00 Intake & Output 10/20/23 10/21/23 10/21/23 18:59 06:59 18:59 Intake Total 200 Balance 200 Intake: Oral 200 Other: Voiding Method Toilet # Voids 1 1 1 # Bowel Movements 1 - Exam GENERAL EXAM: Alert, pleasant 87-year-old female, up with a walker and assistance, on room air, in no acute distress HEAD: Normocephalic. Healing hepatic lesions around the mouth EYES: Normal reaction of pupils, equal size. NOSE: Clear with pink turbinates. THROAT: No erythema or exudates. NECK: No masses, no JVD. CHEST: No chest wall deformity. LUNGS: Equal air entry with diminished breath on the lung bases along with some bibasilar crackles CVS: S1 and S2 normal with no audible murmur, regular rhythm. ABDOMEN: No hepatosplenomegaly, normal bowel sounds, no guarding or rigidity. SPINE: No scoliosis or deformity SKIN: No rashes CENTRAL NERVOUS SYSTEM: No focal deficits, tone is normal in all 4 extremities. EXTREMITIES: There is no peripheral edema. No clubbing, no cyanosis. Peripheral pulses are intact. - Labs CBC & Chem 7: 10/19/23 07:18 10/21/23 07:02 Labs: Abnormal Lab Results - Last 24 Hours (Table) 10/21/23 Range/Units 07:02 Carbon Dioxide 19.8 L (21.6-31.8) mmol/L Anion Gap 13.20 H (4.00-12.00) mmol/L Est GFR (CKD-EPI) 33 L (>=60) BUN/Creatinine Ratio 11.27 L (12.00-20.00) Ratio Assessment and Plan Assessment: Acute sepsis/septic shock with hypotension requiring pressor support secondary to suspected pyelonephritis. Ultrasound of the kidneys and bladder revealed a moderate to severe left sided hydronephrosis with internal debris. Correlate to exclude infective debris/pyelitis. Bilateral renal calculi measuring up to 9 mm on the left and 6 mm on the right. She is post cystoscopy and insertion of a double-J stent on the left. The patient remains on Rocephin and Eraxis the final cultures of the blood were consistent with E. coli. Acute kidney injury secondary to above, current creatinine 1.5 Acute hypotension secondary to above, recovered Lactic acidosis secondary to above, recovered Acute hypoxemic respiratory failure secondary to above, recovered and on room air. Follow-up chest x-ray shows improvement Acute non-ST segment elevation myocardial infarction Transaminitis secondary to above, improved New onset hypothyroidism, on Synthroid Herpes simplex virus around the mouth History of hypertension Hyperlipidemia History of breast cancer status post lumpectomy/chemotherapy over 30 years ago Gastroesophageal reflux disease Plan: The patient was seen and evaluated Labs and medications reviewed Currently stable and on room air Plan is for subacute rehab at [facility] post discharge This patient was seen independently by the pulmonary nurse practitioner addressing pulmonary issues I have personally seen and examined the patient, performed the documentation and the assessment and plan as written. Number of minutes spent on the visit: 23.
[2023-10-21] MEDS: SODIUM BICARBONATE TAB 650 MG TAB PO SCH ×2 (13:00→20:21)
--- NOTE | 2023-10-21 16:14 | P.PN ---
Subjective Progress Note Date: 10/21/23 patient is a 87-year-old lady with past medical history significant for hypertension, hyperlipidemia who was brought to the ER for evaluation for syncopal event and altered mental status. Most of the history is taken from the EMR and from the patient, according to EMR, patient walked into patient's room and found her slumped in the bed, at that time patient was very confused, hard to arouse. EMS was called and when they arrived , patient blood pressure was low but patient was responsive. Patient did got one round of epi in on route to the ER. On gathering more information, patient had been complaining of flulike symptoms and was diagnosed with influenza a week ago, patient got over that sickness but then started complaining of nausea and vomiting. Was also complaining of diarrhea. Family also noted the patient was more short of breath than normal. Denied any chest pain or palpitations. There was no complain of any jerking movement of extremity. No complaint of any slurred speech or facial droop. Initial lab work done in the ER showed WBC 17.9, hemoglobin 12, platelet count 75 glucose 168, lactate 8.3 calcium 8.8, total bilirubin 1.2, troponin 2.640 INR 1.4, sodium 134, potassium 4.3, BUNs 34, creatinine 2.95, Influenza A not detected Influenza B not detected RSV not detected COVID-19 not detected EKG done in the ER showed heart rate of 133 , no ST segment elevation or depression seen, no T-wave inversions seen. Chest x-ray done in the ER showed mild cardiomegaly and COPD, chronic appearing changes ER physician talked to the patient's niece and patient, central line was placed in the ER patient was started on Levophed for hypotension. Patient admitted to ICU under internal medicine service 10/09. Patient seen and examined. Patient underwent cystoscopy with left ureteral stent placement on 10/08 by urology. Currently on nonrebreather, denies any chest pain. Labs reviewed, WBC 34.3, hemoglobin 10, platelet count 381, INR 1.9, sodium 137, potassium 3.7, BUN 44, creatinine 3.47 AST 856, AL282 10/10. Patient seen and examined. 2-D echo done showed LVEF of 50%, mild mitral regurg, mild aortic insufficiency, moderate tricuspid regurg. She has been weaned off all pressors. Still has shortness of breath 10/11. Patient seen and examined. Currently on BiPAP with FiO2 of 65%. Blood work done this morning showed a lipase of 24.5, 9.8, platelet count 222 sodium 140, potassium 3.7, BUN 62, creatinine 3.47. Complaining that she does not feel well. Gets short of breath on minimal exertion. 10/12. Patient seen and examined. with labs this morning shows WBC 19.3, hemoglobin 9.8, sodium is 1:30, potassium is 2.7, BUN is 62, creatinine 3.67. States she feels better, breathing is improving. Patient getting another dose of Lasix by nephrology 10/13. Patient seen and examined. Currently on heated high flow. States she feels much better. Daughter at the bedside. Blood work done this morning showed WBC 21.1, hemoglobin 11.8 sodium 140, potassium 4.2, BUN 64, creatinine 3.03 10/14. Patient seen and examined. Currently on 4 L of oxygen. Patient has a lot of crusting and sores around her lips and the left nasal fold, complaining of pain around the lips. Most likely herpes labialis, will start patient on V altrex 10/15/23. Patient seen and examined. Currently on 2 L of oxygen. Denies any chest pain or shortness of breath. Still has sores around her lips which has formed scabs now /2. Patient seen and examined. Patient ambulated with the help of therapy today. Has crusting of sores around her lips. Denies any shortness of breath at rest. 10/17. Patient seen and examined. Labs done this morning showed up to 12.8, hemoglobin 9.5 sodium 145, potassium 4.1, BUN 39, creatinine 2. Complaining of pain at the sores around her lips. States she feels that she is getting stronger /. Patient seen and examined. Continues to feel stronger. Have concerns about going to rehab, discussed with her in detail again, she is agreeable 10/20. Patient seen and examined. Complaining of generalized weakness. Denies any shortness of breath. Denies any nausea and vomiting 10/21. Patient seen and examined. Sitting upright in the chair. Denies any fever or chills. Denies any lightheadedness or dizziness REVIEW OF SYSTEMS: Denies any chest pain. Denies any fever or chills. Denies any nausea or vomiting PHYSICAL EXAMINATION: GENERAL: The patient is alert , ill looking HEENT: Pupils are round and equally reacting to light. EOMI. No scleral icterus. No conjunctival pallor. Normocephalic, atraumatic. No pharyngeal erythema. No thyromegaly. Sores around her lips which has formed scabs now CARDIOVASCULAR: S1 and S2 present. No murmurs, rubs, or gallops. PULMONARY: Diminished breath sounds bilaterally, no expiratory wheeze audible ABDOMEN: Soft, nontender, nondistended, normoactive bowel sounds. No palpable organomegaly. MUSCULOSKELETAL: No joint swelling or deformity. EXTREMITIES: 1+ edema in lower extremities bilaterally NEUROLOGICAL: Gross neurological examination did not reveal any focal deficits. SKIN: No rashes. Assessment and plan Septic shock Gram-negative bacteremia Acute hypoxic respiratory failure Acute metabolic encephalopathy Herpes labialis Non-ST elevation [place] Acute transaminitis Acute kidney injury Left-sided hydronephrosis Syncopal event Fall Hypertension Hyperlipidemia Monitor vital signs Monitor CBC Monitor CMP Follow-up on blood cultures, blood cultures growing E. coli Follow-up on urine cultures monitor LFTs Strict I's and O's, daily weights, Lasix Continue IV Rocephin Continue Eraxis Continue Valtrex, started on 10/14 2-D echo done showed LVEF of 50%, mild mitral regurg, mild aortic insufficiency, moderate tricuspid regurg Nephrology following Cardiology following, recommended starting patient on aspirin and beta reji, currently on aspirin and Lopressor Critical care following ID following Urology following, cystoscopy with left ureteral cathetre placement on 10/08, recommend outpatient follow-up for stone removal and stent placement PT and OT recommended rehab, possible discharge in the morning Labs and medication were reviewed.. Continue same treatment. Continue with symptomatic treatment. Resume home medication. Monitor labs and vitals. DVT and GI prophylaxis. Further recommendations as per clinical course of the patient Dictation was produced using [employer] dictation software. please excuse any grammatical, word or spelling errors. Objective - Vital Signs Vital signs: Vital Signs Temp 98.1 F 10/21/23 12:25 Pulse 55 L 10/21/23 12:25 Resp 18 10/21/23 12:25 BP 150/75 10/21/23 12:25 Pulse Ox 96 10/21/23 12:25 FiO2 50 10/14/23 16:00 Intake & Output 10/20/23 10/21/23 10/21/23 18:59 06:59 18:59 Intake Total 200 Balance 200 Intake: Oral 200 Other: Voiding Method Toilet # Voids 1 1 1 # Bowel Movements 1 - Labs CBC & Chem 7: 10/19/23 07:18 10/21/23 07:02 Labs: Abnormal Lab Results - Last 24 Hours (Table) 10/21/23 Range/Units 07:02 Carbon Dioxide 19.8 L (21.6-31.8) mmol/L Anion Gap 13.20 H (4.00-12.00) mmol/L Est GFR (CKD-EPI) 33 L (>=60) BUN/Creatinine Ratio 11.27 L (12.00-20.00) Ratio
--- NOTE | 2023-10-21 18:18 | P.PN ---
Subjective Progress Note Date: 10/20/23 Principal diagnosis: Reason for follow-up is E. coli pyelonephritis sepsis and bacteremia Patient is a 87-year old female with a past medical history pertinent for hypertension hyperlipidemia reflux and breast cancer patient was brought into the hospital for evaluation of increasing weakness mental status changes patient was noticed to be febrile septic secondary to left-sided ureteral stone with hydronephrosis requiring cystoscopy and left ureteral double-J catheter placement patient blood cultures subsequently came back positive with E. coli. On today's evaluation that is 10/20/2023 the patient remains to be afebrile the patient is breathing comfortably on room air without the need for supplemental oxygen, the patient denies any chest pain, the patient denies chest pain shortness of breath or cough, patient denies having nausea no vomiting, no abdominal pain complaining of feeling slightly weak today. Patient white count is 8.94 as of 10/19/2023 creatinine is 1.6 Objective - Vital Signs Vital signs: Vital Signs Temp 97.4 F L 10/20/23 02:00 Pulse 62 10/20/23 02:00 Resp 16 10/20/23 02:00 BP 162/71 10/20/23 02:00 Pulse Ox 93 L 10/20/23 02:00 FiO2 50 10/14/23 16:00 Intake & Output 10/19/23 10/20/23 10/20/23 18:59 06:59 18:59 Weight 73 kg Other: Voiding Method Toilet # Voids 3 2 # Bowel Movements 2 - Exam GENERAL DESCRIPTION: An elderly female lying in bed in no distress HEENT patient did have evidence of extensive herpes labialis especially involving the lower lip, also with a mild thrush RESPIRATORY SYSTEM: Unlabored breathing , decreased breath sounds at bases HEART: S1 S2 regular rate and rhythm , ABDOMEN: Soft , no tenderness EXTREMITIES: No edema feet - Labs CBC & Chem 7: 10/19/23 07:18 10/21/23 07:02 Labs: Abnormal Lab Results - Last 24 Hours (Table) 10/19/23 10/19/23 Range/Units 07:18 07:18 RBC 3.34 L (4.10-5.20) X 10*6/uL Hgb 9.5 L (12.0-15.0) g/dL Hct 29.9 L (37.2-46.3) % MCHC 31.8 L (32.0-37.0) g/dL RDW 15.3 H (11.5-14.5) % Plt Count 565 H (140-440) X 10*3/uL Immature Gran # 0.12 H (0.00-0.04) X 10*3/uL Eosinophils # 0.42 H (0.04-0.35) X 10*3/uL Basophils # 0.11 H (0.00-0.10) X 10*3/uL Anion Gap 12.30 H (4.00-12.00) mmol/L Creatinine 1.7 H (0.6-1.5) mg/dL Est GFR (CKD-EPI) 28 L (>=60) Glucose 126 H (70-110) mg/dL AST 36 H (13-35) U/L ALT 66 H (8-44) U/L Total Protein 5.3 L (6.2-8.2) g/dL Albumin 3.0 L (3.8-4.9) g/dL Albumin/Globulin Ratio 1.30 L (1.60-3.17) Ratio Assessment and Plan (1) Sepsis Current Visit: Yes Status: Acute Code(s): A41.9 - SEPSIS, UNSPECIFIED ORGANISM SNOMED Code(s): 33386106 (2) Leukocytosis Current Visit: Yes Status: Acute Code(s): D72.829 - ELEVATED WHITE BLOOD CELL COUNT, UNSPECIFIED SNOMED Code(s): 016392316 (3) Gram-negative bacteremia Current Visit: Yes Status: Acute Code(s): R78.81 - BACTEREMIA SNOMED Code(s): 609831230627 (4) UTI (urinary tract infection) Current Visit: Yes Status: Acute Code(s): N39.0 - URINARY TRACT INFECTION, SITE NOT SPECIFIED SNOMED Code(s): 69852601 (5) Herpes labialis Current Visit: Yes Status: Acute Code(s): B00.1 - HERPESVIRAL VESICULAR DERMATITIS SNOMED Code(s): 2043966 (6) Thrush Current Visit: Yes Status: Acute Code(s): B37.0 - CANDIDAL STOMATITIS SNOMED Code(s): 47173115 Plan: 1-patient is in the hospital with sepsis/septic shock secondary to complicated UTI in this patient who did have a left-sided hydronephrosis requiring cystoscopy and left-sided double-J ureteral catheter placement likely secondary to enteric gram-negative pathogen 2E. coli bacteremia source likely left-sided pyelonephritis complicated UTI sensitive pathogen repeat blood cultures 10/09/2023 so far negative 3patient did have evidence of extensive herpes labialis , patient to continue with the Valtrex to finish 7-day course of therapy. 4patient with thrush , For which the patient is currently covered with Eraxis and nystatin swish and swallow to continue. 5E. coli UTI and bacteremia patient is covered with Rocephin and monitor clinical course closely Dictation was produced using [employer] dictation software. please excuse any grammatical, word or spelling errors. Time with Patient: Less than 30
--- NOTE | 2023-10-21 18:19 | P.PN ---
Subjective Progress Note Date: 10/21/23 Principal diagnosis: Reason for follow-up is E. coli pyelonephritis sepsis and bacteremia Patient is a 87-year old female with a past medical history pertinent for hypertension hyperlipidemia reflux and breast cancer patient was brought into the hospital for evaluation of increasing weakness mental status changes patient was noticed to be febrile septic secondary to left-sided ureteral stone with hydronephrosis requiring cystoscopy and left ureteral double-J catheter placement patient blood cultures subsequently came back positive with E. coli. On today's evaluation that is 10/21/2023 the patient continues to be afebrile, the patient is breathing comfortably on room air patient denies having any chest pain shortness of the cough no nausea vomiting no abdominal pain and pain to the perirectal area has decreased in intensity feeling better today, Patient white count is 8.94 as of 10/19/2023 creatinine is 1.5 Objective - Vital Signs Vital signs: Vital Signs Temp 98.1 F 10/21/23 12:25 Pulse 55 L 10/21/23 12:25 Resp 18 10/21/23 12:25 BP 150/75 10/21/23 12:25 Pulse Ox 96 10/21/23 12:25 FiO2 50 10/14/23 16:00 Intake & Output 10/20/23 10/21/23 10/21/23 18:59 06:59 18:59 Intake Total 200 Balance 200 Intake: Oral 200 Other: Voiding Method Toilet # Voids 1 1 1 # Bowel Movements 1 - Exam GENERAL DESCRIPTION: An elderly female lying in bed in no distress HEENT patient did have evidence of extensive herpes labialis especially involving the lower lip, also with a mild thrush RESPIRATORY SYSTEM: Unlabored breathing , decreased breath sounds at bases HEART: S1 S2 regular rate and rhythm , ABDOMEN: Soft , no tenderness EXTREMITIES: No edema feet - Labs CBC & Chem 7: 10/19/23 07:18 10/21/23 07:02 Labs: Abnormal Lab Results - Last 24 Hours (Table) 10/21/23 Range/Units 07:02 Carbon Dioxide 19.8 L (21.6-31.8) mmol/L Anion Gap 13.20 H (4.00-12.00) mmol/L Est GFR (CKD-EPI) 33 L (>=60) BUN/Creatinine Ratio 11.27 L (12.00-20.00) Ratio Assessment and Plan (1) Sepsis Current Visit: Yes Status: Acute Code(s): A41.9 - SEPSIS, UNSPECIFIED ORGANISM SNOMED Code(s): 14572066 (2) Leukocytosis Current Visit: Yes Status: Acute Code(s): D72.829 - ELEVATED WHITE BLOOD CELL COUNT, UNSPECIFIED SNOMED Code(s): 413970872 (3) Gram-negative bacteremia Current Visit: Yes Status: Acute Code(s): R78.81 - BACTEREMIA SNOMED Code(s): 573511691284 (4) UTI (urinary tract infection) Current Visit: Yes Status: Acute Code(s): N39.0 - URINARY TRACT INFECTION, SITE NOT SPECIFIED SNOMED Code(s): 95506277 (5) Herpes labialis Current Visit: Yes Status: Acute Code(s): B00.1 - HERPESVIRAL VESICULAR DERMATITIS SNOMED Code(s): 4279442 (6) Thrush Current Visit: Yes Status: Acute Code(s): B37.0 - CANDIDAL STOMATITIS SNOMED Code(s): 78640968 Plan: 1-patient is in the hospital with sepsis/septic shock secondary to complicated UTI in this patient who did have a left-sided hydronephrosis requiring cystoscopy and left-sided double-J ureteral catheter placement likely secondary to enteric gram-negative pathogen 2E. coli bacteremia source likely left-sided pyelonephritis complicated UTI sensitive pathogen repeat blood cultures 10/09/2023 so far negative 3patient did have evidence of extensive herpes labialis , patient to continue with the Valtrex to finish 7-day course of therapy. 4patient with thrush, Eraxis can be discontinued at discharge and the patient continue nystatin swish and swallow for about 5 days on discharge 5patient is currently covered with Rocephin for E. coli UTI and bacteremia transition to short course of oral Ceftin on discharge Dictation was produced using [email or web address] dictation software. please excuse any grammatical, word or spelling errors. Time with Patient: Less than 30
[2023-10-21 21:38] VITALS: RESP 16
[2023-10-22 04:01] VITALS: PULSE 61
[2023-10-22] MEDS: LEVOTHYROXINE 75 MCG TAB PO SCH (05:36)
[2023-10-22] MEDS: ANIDULAFUNGIN 100 MG in SODIUM CHLORIDE 0.9% 100 ML IVPB SCH (09:06)
[2023-10-22] MEDS: PANTOPRAZOLE 40 MG TABLET PO SCH (09:07)
[2023-10-22] MEDS: DOCUSATE 100 MG CAP PO SCH (09:07)
[2023-10-22] MEDS: ASPIRIN 81 MG PO SCH (09:07)
[2023-10-22] MEDS: FUROSEMIDE 40 MG TAB PO SCH (09:07)
[2023-10-22] MEDS: HEPARIN SODIUM,PORCINE 5,000 UNIT/ML 1 ML VIAL SQ SCH (09:07)
[2023-10-22] MEDS: MAGNESIUM OXIDE 400 MG TAB PO SCH (09:07)
[2023-10-22] MEDS: valACYclovir HCL 500 MG TAB PO SCH (09:07)
[2023-10-22] MEDS: METOPROLOL TARTRATE 25 MG TAB PO SCH (09:07)
[2023-10-22] MEDS: SODIUM BICARBONATE TAB 650 MG TAB PO SCH (09:07)
[2023-10-22] MEDS: amLODIPine 5 MG TAB PO SCH (09:07)
[2023-10-22] MEDS: MAG HYDROX/AL HYDROX/SIMETH 30 ML, LIDOCAINE VISCOUS 2% 30 ML, diphenhydrAMINE ELIXIR 7... PO SCH ×8 (09:08→15:32)
--- NOTE | 2023-10-22 09:22 | P.PN ---
Subjective Progress Note Date: 10/22/23 Principal diagnosis: Sepsis. The patient is seen today 10/17/2023 for follow-up on the regular medical floor. She is currently sitting up in bed. Awake and alert in no acute distress. Feeling better today compared to yesterday. Maintaining O2 saturations in the 90s on room air. She's been afebrile. Initial blood cultures were positive for E. coli. Follow-up blood cultures revealed no growth. White count 12.8. Hemogram 9.5. Platelets 375. Sodium 145. Potassium 4.1 bicarb 25. BUN 40. Creatinine 2.0. Glucose 103. She is continued on valacyclovir, ceftriaxone and Eraxis. Remains on oral diuretics. Heparin for DVT prophylaxis. Currently in a negative balance. Reevaluated today on 10/18/2023, patient is doing well, does not seem to be in any distress she is on room air, feeling fine, seems to be bothered with her healing herpetic lesions involving her face and her lips. Patient remains on Valtrex, she is also on ceftriaxone and Eraxis remains on diuretics, patient is doing well overall, basic metabolic profile is normal today, creatinine is steadily improving down to 1.9 today. Eventually this patient is to have placement. This is being considered to be done in the next 24 hours. She will go to rehab hopefully The patient is seen today 10/19/2023 in follow-up on the regular medical floor. She is currently up ambulating with a walker and assistance. Feeling quite a bit stronger. Denies any worsening shortness of breath, cough or congestion. She is maintaining good O2 saturations in the low 90s on room air. She's been afebrile. Initial blood cultures were positive for E. coli. Follow-up blood cultures revealed no growth. White count 8.9. Hemoglobin 9.5. Platelets 565. Sodium 142. Potassium 3.6. BUN 26. Creatinine 1.7. Glucose 126. AST 36. ALT 66. She remains on Eraxis, ceftriaxone, Valtrex. Heparin for DVT prophyl axis. Remains on oral diuretics. Currently in -1.5 L balance. The patient is seen today 04/19/2024 in follow-up on the regular medical floor. She is currently sitting up in bed. Awake and alert in no acute distress. Feeling better each day. Denies any worsening shortness of breath, cough or c ongestion. Maintaining good O2 saturations in the mid 90s on room air. She's been afebrile. Initial blood cultures were positive for E. coli. Follow-up blood cultures revealed no growth. Sodium 142. Potassium 3.4. Bicarb 22. BUN 21. Creatinine 1.6. Glucose 106. She remains on ceftriaxone, Eraxis and Valtrex. Continued on diuretics. Heparin for DVT prophylaxis. The patient is seen today 04/20/2024 in follow-up on the regular medical floor. She is awake and alert in no acute distress. She's been up ambulating in her room with a walker. She denies any worsening shortness of breath, cough or congestion. She continues to maintain good O2 saturations in the mid 90s on room air. She's afebrile. Hemodynamically stable. Blood cultures revealed no growth in follow-up. Previous blood cultures from October 07 were positive for E. coli. Sodium 138. Potassium 3.9. Bicarb 20. BUN 17. Creatinine 1.5. Glucose 110. She remains on Eraxis, ceftriaxone, valacyclovir. Heparin for DVT prophylaxis. Remains on oral diuretics. Progress note dated 10/22/2023. The patient is seen today in room 534. The patient is now been in the hospital for 15 days. I actually saw her when she first came in, on , October 08. The patient came in with urosepsis, and pyelonephritis. Currently, the patient is doing well. She's on room air. No IV fluids. According to her nurse, she may be discharged to rehabilitation soon. No new laboratory data today. Cultures from October 07 were positive for Escherichia coli. Objective - Vital Signs Vital signs: Vital Signs Temp 97.6 F 10/22/23 07:07 Pulse 61 10/22/23 07:07 Resp 16 10/22/23 07:07 BP 144/62 10/22/23 07:07 Pulse Ox 97 10/22/23 07:07 FiO2 50 10/14/23 16:00 Intake & Output 10/21/23 10/22/23 10/22/23 18:59 06:59 18:59 Intake Total 710 Balance 710 Intake: Oral 710 Other: Voiding Method Toilet # Voids 1 4 - Exam No acute distress, oriented 3. No respiratory difficulty. Currently on room air. HEENT examination is grossly unremarkable. Mucous membranes are moist. No oral lesions. Herpetic lesions, healing, about the mouth. Neck supple. Full range of motion. No adenopathy thyromegaly or neck vein distention. Cardiovascular examination reveals regular rhythm rate. S1-S2 normal. No S3 or S4. No discernible murmur noted. Heart rate 61 bpm. Lungs reveal clear breath sounds. Breath sounds are equal bilaterally. No adventitious lung sounds including wheezes rhonchi or crackles. Room air saturation is 97%. Abdomen soft bowel sounds are heard. No masses or tenderness. Extremities are intact. No cyanosis clubbing or edema. Skin is without rash or lesion. Neurologic examination is brief but nonfocal. - Labs CBC & Chem 7: 10/19/23 07:18 10/21/23 07:02 Labs: Abnormal Lab Results - Last 24 Hours (Table) 10/21/23 Range/Units 07:02 Carbon Dioxide 19.8 L (21.6-31.8) mmol/L Anion Gap 13.20 H (4.00-12.00) mmol/L Est GFR (CKD-EPI) 33 L (>=60) BUN/Creatinine Ratio 11.27 L (12.00-20.00) Ratio Assessment and Plan Assessment: Acute sepsis/septic shock with hypotension requiring pressor support secondary to suspected pyelonephritis. Ultrasound of the kidneys and bladder revealed a moderate to severe left sided hydronephrosis with internal debris. Correlate to exclude infective debris/pyelitis. Bilateral renal calculi measuring up to 9 mm on the left and 6 mm on the right. She is post cystoscopy and insertion of a double-J stent on the left. The patient remains on Rocephin and Eraxis the final cultures of the blood were consistent with E. coli. Acute kidney injury secondary to above. Acute hypotension secondary to above, recovered. Lactic acidosis secondary to above, recovered. Acute hypoxemic respiratory failure secondary to above, recovered and on room air. Acute non-ST segment elevation myocardial infarction. Transaminitis secondary to above. New onset hypothyroidism. Herpes simplex virus around the mouth. History of hypertension. Hyperlipidemia. History of breast cancer status post lumpectomy/chemotherapy over 30 years ago. Gastroesophageal reflux disease. Plan: Plan dated October 2023. The patient now been in the hospital for 15 days. I saw her on her initial admission, back on , with an episode of Escherichia coli urinary tract infection, urosepsis, pyelonephritis. The patient is being evaluated for possible discharge to [facility]. She's currently on room air. She's not receiving any IV fluids. The patient appears to be relatively stable. No additional recommendations are made. Prognosis is guarded. Labs, x-rays, and all medications are reviewed. Time with Patient: Less than 30
[2023-10-22 10:53] LABS: Blood Urea Nitrogen 14.7 mg/dL (9.0-27.0); Calcium 9.4 mg/dL (8.7-10.3); Carbon Dioxide 20.4 mmol/L (21.6-31.8); Chloride 108 mmol/L (96-109); Glucose 100 mg/dL (70-110); Magnesium 1.9 mg/dL (1.5-2.4); Potassium 3.9 mmol/L (3.5-5.5); Sodium 141 mmol/L (135-145)
--- NOTE | 2023-10-22 12:51 | P.DS ---
Providers Date of admission: 10/07/23 19:41 Expected date of discharge: 10/22/23 Attending physician: Johnny Bonds Consults: 10/07/23 19:46 Consult Physician Routine Consulting Provider: Elham Almeida Consult Reason/Comments: fever,sepsis Do you want consulting provider notified?: Yes 10/08/23 00:42 Consult Physician Routine Consulting Provider: Candelario Harding Consult Reason/Comments: hypotension, levo drip Do you want consulting provider notified?: Yes 10/08/23 05:59 Consult Physician Routine Consulting Provider: Tom Rojas Consult Reason/Comments: NICK Do you want consulting provider notified?: Yes 10/08/23 10:19 Consult Physician Routine Consulting Provider: Blake Meade Consult Reason/Comments: Hydronephrosis with kidney stones - PKTY Do you want consulting provider notified?: Yes Primary care physician: [facility] Course: Final diagnosis Septic shock likely secondary to obstructing ureteral stone with pyelonephritis, present on admission, status post cystoscopy and double-J stent placement on the left with urology Gram-negative bacteremia which finalized with E. 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 Patient will follow-up with Dr. Graves in the outpatient setting upon discharge. Patient is to continue with oral Ceftin twice daily for the next 1 week along with Valtrex daily and nystatin 4 times daily for 1 week per ID recommendations. Patient follow-up in the outpatient setting with nephrology along with pulmonary and infectious disease.. Total time taken is greater than 35 minutes. Hospital course This is a 87-year-old female who was recently admitted with fever and acute hypoxic respiratory failure with features of sepsis, present on admission most likely secondary to obstructing ureteral stone with pyelonephritis. Patient was in ICU for quite some time with septic shock requiring pressor support and is status post cystoscopy with double-J stent placement. Urine as well as blood cultures finalized with E. coli and patient is continued on antibiotics with infectious disease following closely. Patient also noted to have some herpetic lesions with herpes simplex noted on the upper and lower lips maintained on antivirals showing some improvement. Patient to continue with Valtrex 1 g daily for 1 week. Patient with generalized weakness and recurrent falls with a syncopal event and prolonged hospitalization was seen and evaluated by physical therapy recommending rehab and patient is now agreeable. Patient has received insurance authorization and will be going to [facility]. Currently no reports of chest pain, shortness of breath, or palpitations. Patient is afebrile. No reports of nausea or vomiting and patient is tolerating diet. Patient will be going to [facility] today. Guarded prognosis given patient's significant comorbidities Physical exam: Gen: This is a 87-year-old female who is awake, alert and oriented 3, well- developed, well-nourished HEENT: Head is atraumatic, normocephalic. Pupils equal, round. Sclerae is anicteric. NECK: Supple. No JVD. No lymphadenopathy. No thyromegaly. LUNGS: Clear to auscultation. No wheezes or rhonchi. No intercostal retractions. HEART: Regular rate and rhythm. No murmur. ABDOMEN: Soft. Bowel sounds are present. No masses. No tenderness. EXTREMITIES: No pedal edema. No calf tenderness. NEUROLOGICAL: Patient is awake, alert and oriented x3. Cranial nerves 2 through 12 are grossly intact. Diffusely weak Please refer to medication reconciliation sheet for a list of medications. The impression and plan of care has been dictated by Erica Fields, Nurse Practitioner as directed. Dr. Vamshi MD I have performed a history and examination and MDM of this patient, discussed the same with the dictator, and agree with the dictator's assessment and plan as written ,documented as a scribe. Based on total visit time, I have performed more than 50% of the visit. Patient Condition at Discharge: Fair Plan - Discharge Summary Discharge Rx Participant: No New Discharge Prescriptions: New Aspirin 81 mg PO DAILY tab Folic Acid 1 mg PO DAILY #30 tablet Magnesium Oxide [Mag-Ox] 400 mg PO BID tab Nystatin 100,000 Unit/ml Susp [Mycostatin Oral Susp] 3,000,000 unit PO QID 7 Days #140 ml amLODIPine [Norvasc] 5 mg PO BID tab Pantoprazole [Protonix] 40 mg PO DAILY tab Sennosides-Docusate Sodium [Senokot-S] 1 each PO BID PRN tab PRN Reason: Constipation Ondansetron [Zofran] 4 mg PO Q8HR PRN tab PRN Reason: Nausea And Vomiting Darbepoetin Pasquale [Aranesp] 40 mcg SQ Q7D each cefUROXime axetiL [Ceftin] 500 mg PO BID 7 Days #14 tab Docusate [Colace] 100 mg PO BID cap Heparin Sodium,Porcine (1 ml) [Heparin Sodium] 5,000 unit SQ Q8HR each Furosemide [Lasix] 40 mg PO DAILY tab Metoprolol Tartrate [Lopressor] 25 mg PO BID tab Mag Hydrox/Al Hydrox/Simeth [Maalox] 30 ml PO QID ml Multivitamins, Thera [Multivitamin] 1 tab PO DAILY #30 tablet Sodium Bicarbonate Tab 650 mg PO BID tab Levothyroxine Sodium [Synthroid] 75 mcg PO DAILY@0630 tab Acetaminophen Tab [Tylenol] 650 mg PO Q6HR PRN tab PRN Reason: Mild Pain Or Fever > 100.5 valACYclovir HCL [Valtrex] 1,000 mg PO Q24HR 7 Days #7 tab Thiamine [Vitamin B-1] 100 mg PO DAILY #30 tablet Lidocaine Viscous 2% [Xylocaine Viscous] 30 ml PO QID ml Continue Cholecalciferol [Vitamin D3 (25 Mcg = 1000 Iu)] 50 mcg PO DAILY Calcium Carb/Vitamin D3/Vit K1 [Citracal-D3 500 mg Soft Chew] 1 tab PO HS ALPRAZolam [Xanax] 0.25 mg PO BID PRN #4 tab PRN Reason: Anxiety Discontinued Simvastatin [Zocor] 20 mg PO HS Fenofibrate Nanocrystallized [Fenofibrate] 145 mg PO HS Amlodipine/Valsartan/Hcthiazid [Amlodipine/Valsartan/Hcthiazid 10-320-25 mg] 1 tab PO DAILY Omeprazole 40 mg PO DAILY Discharge Medication List Calcium Carb/Vitamin D3/Vit K1 [Citracal-D3 500 mg Soft Chew] 1 tab PO HS 07/19/22 [History] Cholecalciferol [Vitamin D3 (25 Mcg = 1000 Iu)] 50 mcg PO DAILY 07/19/22 [History] ALPRAZolam [Xanax] 0.25 mg PO BID PRN #4 tab 10/22/23 [Rx] Acetaminophen Tab [Tylenol] 650 mg PO Q6HR PRN tab 10/22/23 [Rx] Aspirin 81 mg PO DAILY tab 10/22/23 [Rx] Darbepoetin Pasquale [Aranesp] 40 mcg SQ Q7D each 10/22/23 [Rx] Docusate [Colace] 100 mg PO BID cap 10/22/23 [Rx] Folic Acid 1 mg PO DAILY #30 tablet 10/22/23 [Rx] Furosemide [Lasix] 40 mg PO DAILY tab 10/22/23 [Rx] Heparin Sodium,Porcine (1 ml) [Heparin Sodium] 5,000 unit SQ Q8HR each 10/22/23 [Rx] Levothyroxine Sodium [Synthroid] 75 mcg PO DAILY@0630 tab 10/22/23 [Rx] Lidocaine Viscous 2% [Xylocaine Viscous] 30 ml PO QID ml 10/22/23 [Rx] Mag Hydrox/Al Hydrox/Simeth [Maalox] 30 ml PO QID ml 10/22/23 [Rx] Magnesium Oxide [Mag-Ox] 400 mg PO BID tab 10/22/23 [Rx] Metoprolol Tartrate [Lopressor] 25 mg PO BID tab 10/22/23 [Rx] Multivitamins, Thera [Multivitamin] 1 tab PO DAILY #30 tablet 10/22/23 [Rx] Nystatin 100,000 Unit/ml Susp [Mycostatin Oral Susp] 3,000,000 unit PO QID 7 Days #140 ml 10/22/23 [Rx] Ondansetron [Zofran] 4 mg PO Q8HR PRN tab 10/22/23 [Rx] Pantoprazole [Protonix] 40 mg PO DAILY tab 10/22/23 [Rx] Sennosides-Docusate Sodium [Senokot-S] 1 each PO BID PRN tab 10/22/23 [Rx] Sodium Bicarbonate Tab 650 mg PO BID tab 10/22/23 [Rx] Thiamine [Vitamin B-1] 100 mg PO DAILY #30 tablet 10/22/23 [Rx] amLODIPine [Norvasc] 5 mg PO BID tab 10/22/23 [Rx] cefUROXime axetiL [Ceftin] 500 mg PO BID 7 Days #14 tab 10/22/23 [Rx] valACYclovir HCL [Valtrex] 1,000 mg PO Q24HR 7 Days #7 tab 10/22/23 [Rx] Follow up Appointment(s)/Referral(s): Bran Graves MD [Primary Care Provider] - 1-2 days Umesh Shane, [NON-STAFF] - 1 Week Blake Meade MD [STAFF PHYSICIAN] - 1 Week Ambulatory/Diagnostic Orders: Complete Blood Count w/diff [LAB.AMB] Time Frame: 3 Days, Location: None Selected Activity/Diet/Wound Care/Special Instructions: Patient is going to [email or web address] Activity as tolerated Continue with antibiotic and Valtrex therapy for 1 week per ID recommendations as well as nystatin swish and swallow Continue with consistent carbohydrate diet with soft foods with sherbet and soup with all meals Follow-up primary care provider on discharge Follow-up pulmonary outpatient Follow-up nephrology outpatient Repeat CBC, CMP, magnesium in 2-3 days Discharge Disposition: TRANSFER TO SNF/ECF
--- NOTE | 2023-10-22 13:54 | P.PN ---
Subjective Patient is seen for follow-up for acute kidney injury. Doing well Renal function continues to improve. Serum creatinine down to 1.4 mg/dL today. Objective - Vital Signs Vital signs: Vital Signs Temp 97.6 F 10/22/23 07:07 Pulse 61 10/22/23 07:07 Resp 16 10/22/23 07:07 BP 144/62 10/22/23 07:07 Pulse Ox 97 10/22/23 07:07 FiO2 50 10/14/23 16:00 Intake & Output 10/21/23 10/22/23 10/22/23 18:59 06:59 18:59 Intake Total 710 Balance 710 Intake: Oral 710 Other: Voiding Method Toilet Toilet # Voids 1 4 - Exam Patient is awake She is comfortable Examination of the heart S1 and S2 Examination of the lungs decreased breath sounds at the bases Abdomen is soft nontender Examination of lower extremities shows no significant edema [employer] exam is grossly intact - Labs CBC & Chem 7: 10/19/23 07:18 10/22/23 06:18 Labs: Abnormal Lab Results - Last 24 Hours (Table) 10/22/23 Range/Units 06:18 Carbon Dioxide 20.4 L (21.6-31.8) mmol/L Anion Gap 12.60 H (4.00-12.00) mmol/L Est GFR (CKD-EPI) 36 L (>=60) BUN/Creatinine Ratio 10.50 L (12.00-20.00) Ratio Assessment and Plan Assessment: 1. Acute kidney injury secondary to ATN secondary to hypotension. Now off vasopressors. Also component of obstructive uropathy. Renal function better. Creatinine 1.4 today. 2. Hypokalemia from diuresis and poor intake. Replace. Improved. 3. Left hydronephrosis status post ureteral stent placement on 10/08/2023. 4. E. coli bacteremia on antibiotics. 5. Acute on chronic diastolic CHF with moderate tricuspid regurgitation. 6. Chronic kidney disease stage IIIB with baseline creatinine 1.4-1.5 in July 2022. Suspect nephrosclerosis. 7. Metabolic acidosis secondary to acute kidney injury and GI losses. 8. Mild hypernatremia from lack of oral water intake. s/p D5W. 9. Hypomagnesemia from diuresis. On oral magnesium oxide. Stable. 10. Hypertension with chronic kidney disease. 11. Anemia of chronic kidney disease. Plan: Continue with current dose of Lasix Continue to monitor renal function Encourage increased oral intake
[2023-10-22 14:22] VITALS: BP 146/72; TEMP 98
== END 2023-10-22 16:50 | DRG 853 ==
LOC: EC 16:50 → 3SCARD 19:41 → 2SICU 10-08 03:19 → 5NMEDONC 10-15 11:06
PROVIDERS: ADMIT Hospitalist; ATTEND Hospitalist
PROC: 0T778DZ Dilation of Left Ureter with Intraluminal Device, Via Natural or Artificial Opening Endoscopic (ICD-10-PCS; principal; 2023-10-07)
PROC: 02HV33Z Insertion of Infusion Device into Superior Vena Cava, Percutaneous Approach (ICD-10-PCS; 2023-10-07)
PROC: 3E043XZ Introduction of Vasopressor into Central Vein, Percutaneous Approach (ICD-10-PCS; 2023-10-07)
DX: A41.51 Sepsis due to Escherichia coli [E. coli] (principal); G93.41 Metabolic encephalopathy; N17.0 Acute kidney failure with tubular necrosis; R65.21 Severe sepsis with septic shock; I50.33 Acute on chronic diastolic (congestive) heart failure; I21.A1 Myocardial infarction type 2; J18.9 Pneumonia, unspecified organism; J80 Acute respiratory distress syndrome; B00.2 Herpesviral gingivostomatitis and pharyngotonsillitis; B37.0 Candidal stomatitis; D68.9 Coagulation defect, unspecified; N13.6 Pyonephrosis; E87.20 Acidosis, unspecified; E87.0 Hyperosmolality and hypernatremia; I13.0 Hypertensive heart and chronic kidney disease with heart failure and stage 1 through stage 4 chronic kidney disease, or unspecified chronic kidney disease; J44.0 Chronic obstructive pulmonary disease with (acute) lower respiratory infection; J98.11 Atelectasis; Z28.311 Partially vaccinated for COVID-19; Z11.52 Encounter for screening for COVID-19; Z66 Do not resuscitate; B00.1 Herpesviral vesicular dermatitis; D63.1 Anemia in chronic kidney disease; K72.90 Hepatic failure, unspecified without coma; E03.9 Hypothyroidism, unspecified; E78.5 Hyperlipidemia, unspecified; E83.42 Hypomagnesemia; R74.01 Elevation of levels of liver transaminase levels; T50.2X5A Adverse effect of carbonic-anhydrase inhibitors, benzothiadiazides and other diuretics, initial encounter; E87.6 Hypokalemia; F41.9 Anxiety disorder, unspecified; K21.9 Gastro-esophageal reflux disease without esophagitis; M16.11 Unilateral primary osteoarthritis, right hip; N18.32 Chronic kidney disease, stage 3b; R29.6 Repeated falls; Z79.82 Long term (current) use of aspirin; Z82.49 Family history of ischemic heart disease and other diseases of the circulatory system; Z82.5 Family history of asthma and other chronic lower respiratory diseases; Z85.3 Personal history of malignant neoplasm of breast; Z87.442 Personal history of urinary calculi; Z92.21 Personal history of antineoplastic chemotherapy; Z92.3 Personal history of irradiation
CPT/HCPCS: 36415; 36556; 71045; 76770; 80048; 80053; 81001; 82272; 83605; 83735; 83880; 84100; 84132; 84145; 84443; 84484; 85025; 85027; 85610; 85730; 87040; 87077; 87186; 87324; 87636; 93005; 93306; 94660; 96361; 96365; 96366; 96367; 96368; 96375; 99291

== ENCOUNTER 2023-11-21 06:25 | Day surgery (SDC) | payer MEDICARE ==
[2023-11-15 11:52] VITALS: BMI 25.0
--- NOTE | 2023-11-20 11:06 | P.GSHP ---
History of Present Illness H&P Date: 11/20/23 87-year-old female who recently was in the hospital with a left ureteral stone that obstructed the ureter she had a urinary tract infection with sepsis secondary pyelonephrosis. She had an emergent placement of a double-J catheter on . She slowly recuperated now comes for formal cystoscopy left ureteroscopy and laser lithotripsy with stent and stone removal. - Constitutional Constitutional: Denies chills, Denies fever - EENT Eyes: denies blurred vision, denies pain Ears, nose, mouth and throat: Denies headache, Denies sore throat - Cardiovascular Cardiovascular: Denies chest pain, Denies shortness of breath - Respiratory Respiratory: Denies cough, Denies 7 - Gastrointestinal Gastrointestinal: Denies abdominal pain, Denies diarrhea, Denies nausea, Denies vomiting - Genitourinary (Female) Genitourinary: Denies dysuria, Denies hematuria - Genitourinary (Male) Genitourinary: Denies dysuria, Denies hematuria - Musculoskeletal Musculoskeletal: Denies myalgias - Integumentary Integumentary: Denies pruritus, Denies rash - Neurological Neurological: Denies numbness, Denies weakness - Psychiatric Psychiatric: Denies anxiety, Denies depression - Endocrine Endocrine: Denies fatigue, Denies weight change Past Medical History Past Medical History: Cancer, GERD/Reflux, Hyperlipidemia, Hypertension, Osteoarthritis (OA) Additional Past Medical History / Comment(s): breast cancer, vertigo, kidney stone History of Any Multi-Drug Resistant Organisms: None Reported Past Surgical History: Breast Surgery Additional Past Surgical History / Comment(s): Lumpectomy 31 years ago, cataract surgery and kidney stone removal Past Anesthesia/Blood Transfusion Reactions: No Reported Reaction Past Psychological History: Anxiety Smoking Status: Never smoker Past Alcohol Use History: None Reported Past Drug Use History: None Reported - Past Family History Mother Family Medical History: COPD Additional Family Medical History / Comment(s): at age 80 from COPD-smoker Father Family Medical History: Myocardial Infarction ([place]) Additional Family Medical History / Comment(s): at age 36 of [place] Medications and Allergies Home Medications Medication Instructions Recorded Confirmed Type Metoprolol Tartrate [Lopressor] 25 mg PO BID tab 10/22/23 11/15/23 Rx Allergies Allergy/AdvReac Type Severity Reaction Status Date / Time No Known Allergies Allergy Verified 11/15/23 11:24 Surgical - Exam - General well developed, well nourished, no distress - Eyes normal ocular movement, no icteric - ENT no hearing loss, no congestion - Neck no masses, trachea midline - Respiratory normal respiratory effort, clear to auscultation - Abdomen Abdomen: soft, non tender, no guarding, no rigid, no rebound - Integumentary no rash, no abnormal pigmentation - Neurologic no disoriented, no combative - Psychiatric oriented to time, oriented to person, oriented to place, speech is normal, memory intact Assessment and Plan Assessment: Impression: Left ureteral calculus with obstruction, secondary pyonephrosis relieved with antibiotics and double-J catheter. Multiple medical illnesses Recommendations: Cystoscopy left ureteroscopy laser lithotripsy stone and stent removal.
[2023-11-21] MEDS ORDERED: LIDOCAINE 1% (10MG/ML) FOR IV START INTRADERMA PRN (06:43)
[2023-11-21] MEDS ORDERED: MIDAZOLAM 2 MG/2 ML VIAL IV PRN (07:00)
[2023-11-21] MEDS ORDERED: HYDROmorphone 0.5 MG/0.5 ML SYRINGE IVP PRN (07:00)
[2023-11-21] MEDS: LACTATED RINGERS 1,000 ML IV SCH (07:03)
[2023-11-21] MEDS: LIDOCAINE 1% (10MG/ML) FOR IV START INTRADERMA ONE (07:03)
[2023-11-21] MEDS: DEXAMETHASONE SOD PHOSPHATE 4 MG/ML 1 ML VIAL IV ONE (07:04)
[2023-11-21] MEDS: ONDANSETRON 4 MG/2 ML VIAL IVP ONE (07:05)
--- NOTE | 2023-11-21 07:17 | XR ---
EXAMINATION TYPE: XR KUB DATE OF EXAM: 11/21/2023 6:41 AM CLINICAL INDICATION:Female, 87 years old with history of Left Ureteral Stone N20.1; [facility] COMPARISON: 07/02/2017 TECHNIQUE: One radiographic view of the abdomen was obtained. FINDINGS: The bowel gas pattern is nonspecific without dilated loops of small or large bowel. There i s no evidence for organomegaly or pneumoperitoneum. The osseous structures are intact. No calcificat ions project over the kidneys and urinary bladder measuring up to 7 mm on the right and 7 mm in lengt h. Calcification over the pelvis measuring up to 21 mm. Fecal material and gas are demonstrated throu ghout the colon and rectum. IMPRESSION: 1. Left ureteral stent with proximal and distal tips in appropriate position. Multiple calcification s project over the kidneys and urinary bladder. 2. Nonspecific bowel gas pattern without radiographic evidence for acute process.
[2023-11-21] MEDS ORDERED: PROPOFOL 10 MG/ML 20 ML VIAL IV ONE (07:27)
[2023-11-21] MEDS ORDERED: PHENYLEPHRINE 10 MG/ML VIAL ONE (07:27)
[2023-11-21] MEDS ORDERED: ePHEDrine 50 MG/ML 1 ML VIAL ONE (07:27)
[2023-11-21] MEDS ORDERED: fentaNYL (PF) 50 MCG/ML 2 ML AMP ONE (07:27)
[2023-11-21] MEDS ORDERED: LIDOCAINE 1% INJ 10MG/ML (20 ML MDV) ONE (07:27)
[2023-11-21] MEDS: AMPICILLIN 1,000 MG in SODIUM CHLORIDE 0.9% 50 ML IVPB PRN (07:30)
[2023-11-21] MEDS: GENTAMICIN 80 MG in SODIUM CHLORIDE 0.9% 100 ML IVPB PRN (07:40)
[2023-11-21] MEDS: IOPAMIDOL-370 100ML BTL MISCELLANE ONE (08:19)
--- NOTE | 2023-11-21 08:47 | P.OP ---
Date of Procedure: 11/21/23 Preoperative Diagnosis: Left ureteral calculus with obstruction status post stent placement, left pyelonephrosis treated Postoperative Diagnosis: Same Procedure(s) Performed: Cystoscopy, removal double-J catheter left, left ureteroscopy laser lithotripsy and stone basketing Anesthesia: ALICE Surgeon: Blake Meade Estimated Blood Loss (ml): 0 Pathology: other (Stone) Condition: stable Disposition: PACU Indications for Procedure: Patient is 87. On she dropped a ureteral stone into the left collecting system. Her urine was infected and she developed urinary tract infection with sepsis. She had an emergent left stent placement. She now comes for stone and stent removal on the left side Description of Procedure: Patient brought to the operating suite. Given general anesthesia. Placed lithotomy position with a sterile prep and drape. Cystoscopy with Foroblique lens is performed. The bladder is irrigated thoroughly. The left stent is identified and removed. The rest of the bladder wall is unremarkable other than stone inflammation. Through the left ureteral stent an 035 wire is passed up into the left kidney. Over the left ureteral wire Hebrew an 11 to 13 reentry sheath was passed into the ureter. The inner sheath and wire are removed. I passed the flexible ureteroscope up to the UPJ and there is a stone identified. THis is broken into tiny pieces with the 272 laser probe. I then pass into the collecting system and there are 2 other stones identified in the mid and lower pole collecting system. These are also broken into tiny pieces. I looked throughout the collecting system and see no remaining stone. The larger fragments from the laser lithotripsy are removed with stone basketing. Pullout ureteroscopy identifies one fragment that is removed. At the end of the procedure the bladder is drained and the patient is awakened and returned recovery room in good condition Impression successful left ureteroscopy with laser lithotripsy. The patient be discharged home upon recovery and found the office in one week.
--- NOTE | 2023-11-21 08:58 | FL ---
EXAMINATION TYPE: FL urography retrograde Intraoperative/procedural fluoroscopic services were provid ed. Total fluoroscopy time is 36.6 seconds with a total of 3 submitted images to PACS. Please see the operative/procedural note for further details. DAP: 3.5845 Gycm2
[2023-11-21 09:12] VITALS: RESP 16; TEMP 97.2
[2023-11-21 11:14] VITALS: BP 116/64; PULSE 79
== END 2023-11-21 11:38 | disposition home or self-care (01) ==
LOC: OR 06:25
PROVIDERS: ATTEND Urology
DX: N13.6 Pyonephrosis (principal); E78.5 Hyperlipidemia, unspecified; I10 Essential (primary) hypertension; K21.9 Gastro-esophageal reflux disease without esophagitis; M19.90 Unspecified osteoarthritis, unspecified site; Z85.3 Personal history of malignant neoplasm of breast; Z87.442 Personal history of urinary calculi; Z79.899 Other long term (current) drug therapy
CPT/HCPCS: 82365; 74420; 74018; 52353; C1769; J1100; J2405; J2001; J3010; J1580; J0290; J2704; Q9967; J2371